=== PATIENT | male | born 1945 | race Caucasian/White ===

== ENCOUNTER → 2017-03-02 | Emergency (ER) | payer OTHER ==
[~2017-03-02] MED LIST: SODIUM CHLORIDE 0.9% 1000 ML INFUS.BAG IV ONE; SODIUM PHOSPHATE/NA BIPHOS 133 ML ENEMA PR ONE
[2017-03-02 11:27] VITALS: BP 106/57; PULSE 80; TEMP 98.3; BMI 28.7
--- NOTE | 2017-03-02 12:12 | PDOC ---
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 Home health aide is at bedside and states the patient had two episodes of vomiting yesterday but has not had any today. The patient denies any fever, chills nausea, vomiting, pain or abdominal discomfort at this time. He denies diarrhea and rectal bleeding. Home health aide states that "his just wanted him to come in to get checked out." No recent travel or sick contacts. PAST MEDICAL HISTORY: as per HPI SOCIAL HISTORY: Denies tobacco, alcohol, illicit drug use. SURGICAL HISTORY: Denies ALLERGIES: No known drug allergies REVIEW OF SYSTEMS General/Constitutional: Denies fever or chills. Denies weakness, weight change. HEENT: Denies change in vision. Denies ear pain or discharge. Denies sore throat. Cardiovascular: Denies chest pain or shortness of breath. Respiratory: Denies cough, wheezing, or hemoptysis. Gastrointestinal: 2 episodes of vomiting yesterday, per home health aide "he was eating some things that were hard to chew and swallow." Denies diarrhea or constipation. Denies rectal bleeding. Genitourinary: Denies dysuria, frequency, or change in urination. Musculoskeletal: Denies joint or muscle swelling or pain. Denies neck or back pain. Skin and breasts: Denies rash or easy bruising. Neurologic: Denies headache, vertigo, loss of consciousness, or loss of sensation. PHYSICAL EXAM General Appearance: Well-appearing, appropriately dressed. No apparent distress. Non-verbal but can nod yes in response to all questions. HEENT: EOMI, PERRLA. No conjunctival pallor. No photophobia, scleral icterus. Neck: Supple. Trachea midline. No tenderness, rigidity, carotid bruit, stridor , lymphadenopathy, or thyromegaly. Respiratory/Chest: Lungs CTAB. No shortness of breath, chest tenderness, respiratory distress, accessory muscle use. No crackles, rales, rhonchi, stridor , wheezing, dullness Cardiovascular: RRR. S1, S2. No JVD, murmur, bradycardia, tachycardia. Vascular Pulses: Dorsalis-Pedis (R): 2+, Dorsalis-Pedis (L): 2+ Gastrointestinal/Abdominal: Normal bowel sounds. Abdomen soft, non-distended. No tenderness or rebound tenderness. No organomegaly, pulsatile mass, guarding , hernia, hepatomegaly, splenomegaly. Lymphatic: No adenopathy, tenderness. Musculoskeletal/Extremities: Normal inspection. FROM of all extremities, normal capillary refill. Pelvis Stable. No CVA tenderness. No tenderness to extremities, pedal edema, swelling, erythema or deformity. Integumentary: Appropriate color, dry, warm. 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 Fully oriented, alert. Appropriate mood/affect. Motor strength 5/5. No appreciable EOM palsy, facial droop or sensory deficit. 03/02/17 12:35 Past History - Past Medical History Allergies/Adverse Reactions: Allergies Allergy/AdvReac Type Severity Reaction Status Date / Time No Known Allergies Allergy Verified 03/02/17 11:14 Home Medications: Ambulatory Orders Allopurinol [Zyloprim -] 100 mg PO DAILY 08/23/15 Metoprolol Tartrate 25 mg PO BID 08/23/15 Pantoprazole Sodium [Protonix] 40 mg PO DAILY 08/23/15 Simvastatin [Zocor -] 20 mg PO HS 08/23/15 Calcium Acetate 667 mg PO TID 12/21/15 Folic Acid/Vit Bcomp,C [Dialyvite 800 Tablet] 0.8 mg PO DAILY 12/21/15 Magnesium Chloride [Slow-Mag -] 71.5 mg PO DAILY 12/21/15 Mirtazapine 0 mg PO HS 09/24/16 Nifedipine [Nifedical Xl] 30 mg PO DAILY 09/24/16 Albuterol 2.5/Ipratropium 0.5 [Duoneb -] 1 amp NEB Q4HWA amp 09/28/16 Levofloxacin [Levaquin -] 250 mg PO Q48H #3 tablet 09/28/16 Magnesium Oxide [Mag-Ox -] 400 mg PO DAILY tablet 09/28/16 Anemia: No Asthma: No Cancer: No Cardiac Disorders: No CVA: Yes COPD: No CHF: No Dementia: No Diabetes: Yes Dialysis: Yes (, ) GI Disorders: Yes (G I BLeed 1 year ago) Disorders: No HTN: Yes Hypercholesterolemia: Yes Liver Disease: Yes (hep C) Psychiatric Problems: (depression) Seizures: No Thyroid Disease: No - Surgical History Abdominal Surgery: No Appendectomy: No Cardiac Surgery: Yes (leg bypass) Cholecystectomy: No Lung Surgery: No Neurologic Surgery: Yes (cva) Orthopedic Surgery: Yes (RT BKA,RT HIP REPLACEMENT) - Immunization History Td Vaccination: Yes TDAP Vaccination: Yes Immunization Up to Date: Yes - Psycho/Social/Smoking Cessation Hx Anxiety: No Suicidal Ideation: No Smoking Status: Yes Smoking History: Former smoker Have you smoked in the past 12 months: No Number of Cigarettes Smoked Daily: 0 If you are a former smoker, when did you quit?: 30 years Information on smoking cessation initiated: No Hx Alcohol Use: No Drug/Substance Use Hx: No Substance Use Type: None Hx Substance Use Treatment: No *Physical Exam - Vital Signs Last Vital Signs Temp Pulse Resp BP Pulse Ox 98.3 F 80 18 106/57 95 03/02/17 11:15 03/02/17 11:15 03/02/17 11:15 03/02/17 11:15 03/02/17 11:15 ED Treatment Course - LABORATORY CBC & Chemistry Diagram: 03/02/17 12:25 03/02/17 12:25 Medical Decision Making - Medical Decision Making 03/02/17 15:07 71 yo M with hx of HTN, 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 -CBC, CMP, lipase 03/02/17 15:14 Liver enzymes markedly elevated, mild elevated WBC 10.1 -A&P CT w/o contrast CT results: Small pleural pericardial effusions. Cholelithiasis. Renal cysts and nonobstructing left renal calculi. Vascular stent grafts as noted above. IVC filter. Status post right total hip replacement. -Hep Panel Discussed case with patient's covering primary MD Tristan. Patient to f/u with GI next week. Advised patient to f/u w/ GI in 2 days; referral provided. Patient verbalized understanding and agrees to plan. *DC/Admit/Observation/Transfer Diagnosis at time of Disposition: Elevated liver enzymes Vomiting Qualifiers: Vomiting type: unspecified Vomiting Intractability: non-intractable Nausea presence: without nausea Qualified Code(s): R11.11 - Vomiting without nausea - Discharge Dispostion Admit: No - Referrals Referrals: Dia Mary MD [Primary Care Provider] - Vinnie Carter DO [Staff Physician] - - Patient Instructions Printed Discharge Instructions: DI for Vomiting -- Adult Additional Instructions: Please follow up with gastroenterology on Saturday. A referral has been provided. If you experience any new nausea, vomiting, diarrhea, fever chills, or any new or worsening symptoms, please return to the ER.
[2017-03-02 12:41] LABS: BASOPHIL 0.9 % (0-2.0); EOSINOPHIL 0.1 % (0-4.5); MCH 31.8 pg (25.7-33.7); MCHC 33.2 g/dl (32.0-35.9); MEAN CELL VOLUME 95.8 fl (80-96); MEAN PLT VOLUME 8.9 fl (7.5-11.1); NEUTROPHILS 85.1 % (42.8-82.8); PLATELET COUNT 233 K/MM3 (134-434); RDW 15.7 % (11.9-15.9); WHITE BLOOD COUNT 10.1 K/mm3 (4.0-10.0)
[2017-03-02 12:54] LABS: ALBUMIN 3.1 g/dl (3.4-5.0); BILIRUBIN,TOTAL 0.8 mg/dL (0.2-1.0); CALCIUM 7.8 mg/dL (8.5-10.1); COCKROFT - GAULT 14.06; CREATININE 5.5 mg/dL (0.7-1.3); TOT PROT 6.4 g/dl (6.4-8.2)
== END | disposition home or self-care (01) ==
LOC: JER 11:04
DX: R94.5 Abnormal results of liver function studies (principal); I10 Essential (primary) hypertension; E80.0 Hereditary erythropoietic porphyria; B18.2 Chronic viral hepatitis C; I12.0 Hypertensive chronic kidney disease with stage 5 chronic kidney disease or end stage renal disease; N18.6 End stage renal disease; N17.8 Other acute kidney failure; Z99.2 Dependence on renal dialysis; I69.851 Hemiplegia and hemiparesis following other cerebrovascular disease affecting right dominant side; I69.820 Aphasia following other cerebrovascular disease; Z86.711 Personal history of pulmonary embolism; Z86.718 Personal history of other venous thrombosis and embolism; Z87.898 Personal history of other specified conditions; Z89.611 Acquired absence of right leg above knee
CPT/HCPCS: 36415; 74176-TC; 80053; 80074; 83690; 85025; 99282-25

== ENCOUNTER 2017-03-18 11:38 | Inpatient (IN) | payer OTHER ==
[2017-03-18 12:31] LABS: BASOPHIL 1.3 % (0-2.0); MCH 31.2 pg (25.7-33.7); MCHC 32.9 g/dl (32.0-35.9); MEAN CELL VOLUME 94.9 fl (80-96); MEAN PLT VOLUME 8.6 fl (7.5-11.1); NEUTROPHILS 76.6 % (42.8-82.8); PLATELET COUNT 381 K/MM3 (134-434); RDW 16.6 % (11.9-15.9); WHITE BLOOD COUNT 10.9 K/mm3 (4.0-10.0)
[2017-03-18 12:50] LABS: INR 1.04 (0.82-1.09); PROTHROMBIN TIME (PATIENT) 11.4 SEC (9.98-11.88)
[2017-03-18 12:52] LABS: ACTIVATED PTT 31.9 SECONDS (26.9-34.4)
[2017-03-18 12:54] LABS: ALBUMIN 3.2 g/dl (3.4-5.0); ANION GAP 15 (8-16); BILIRUBIN,TOTAL 0.6 mg/dL (0.2-1.0); CO2 25 mmol/L (21-32); CREATININE 6.9 mg/dL (0.7-1.3); GLUCOSE,RANDOM 158 mg/dL (74-106); MAGNESIUM 2.7 mg/dL (1.8-2.4); SGOT/AST 34 U/L (15-37); SGPT/ALT 131 U/L (12-78); TOT PROT 6.9 g/dl (6.4-8.2)
[2017-03-18 12:57] LABS: ALK PHOS 506 U/L (45-117); TROPONIN I < 0.02 ng/ml (0.00-0.05)
--- NOTE | 2017-03-18 13:10 | PDOC ---
History of Present Illness - General History Source: Patient, Family, Old Records <Guy Johnson - Last Filed: 03/18/17 13:52> - General History Source: Care Provider, Old Records - History of Present Illness Initial Comments: 03/18/17 13:12 The patient is a 71-year-old man, accompanied by home health aide, with a significant past medical history of hypertension, hypercholesterolemia, cerebrovascular accident (with residual fright sided weakness and aphasia), anemia, pulmonary embolism (status post IVC filter) diabetes mellitus, end- stage renal disease (on hemo-dialysis q. T/R/S; last hemo-dialysis was on 03/14/2017), gastrointestinal bleed, hepatitis C, and depression who was sent into the emergency department for abnormal labs. The patient was seen in this facility of 03/02/17 for nausea and vomiting. At that time, the patient was noted have elevated LFTs and gallstones on CT and he was sent home. Since then the nausea/vomiting has improved and the patient otherwise felt better. However, patient's PMD Benja sent the patient back to ED for further evaluation. Allergies: No Known Drug Allergies Past Surgical History: Leg Bypass, Right BKA. Right hip replacement. Social History: Former smoker. No EtOH and recreational drug use. Primary Care Physician: Dr. Jesus Manuel Yousif [phone] <Leanna Batista - Last Filed: 03/18/17 14:12> - General Chief Complaint: Revisit, Lab Variance Stated Complaint: Weakness Time Seen by Provider: 03/18/17 11:48 Past History - Past Medical History Anemia: No Asthma: No Cancer: No Cardiac Disorders: No CVA: Yes COPD: No CHF: No Dementia: No Diabetes: Yes Dialysis: Yes (, ) GI Disorders: Yes (G I BLeed 1 year ago) Disorders: No HTN: Yes Hypercholesterolemia: Yes Liver Disease: Yes (hep C) Psychiatric Problems: (depression) Seizures: No Thyroid Disease: No Other medical history: pe - Surgical History Abdominal Surgery: No Appendectomy: No Cardiac Surgery: Yes (leg bypass) Cholecystectomy: No Lung Surgery: No Neurologic Surgery: Yes (cva) Orthopedic Surgery: Yes (RT BKA,RT HIP REPLACEMENT) - Immunization History Td Vaccination: Yes TDAP Vaccination: Yes Immunization Up to Date: Yes - Psycho/Social/Smoking Cessation Hx Anxiety: No Suicidal Ideation: No Smoking Status: Yes Smoking History: Former smoker Have you smoked in the past 12 months: No Number of Cigarettes Smoked Daily: 0 If you are a former smoker, when did you quit?: 30 years Information on smoking cessation initiated: No Hx Alcohol Use: No Drug/Substance Use Hx: No Substance Use Type: None Hx Substance Use Treatment: No <Guy Johnson - Last Filed: 03/18/17 13:52> <Leanna Batista - Last Filed: 03/18/17 14:12> - Past Medical History Allergies/Adverse Reactions: Allergies Allergy/AdvReac Type Severity Reaction Status Date / Time No Known Allergies Allergy Verified 03/18/17 11:50 Home Medications: Ambulatory Orders Allopurinol [Zyloprim -] 100 mg PO DAILY 08/23/15 Metoprolol Tartrate 25 mg PO BID 08/23/15 Pantoprazole Sodium [Protonix] 40 mg PO DAILY 08/23/15 Simvastatin [Zocor -] 20 mg PO HS 08/23/15 Calcium Acetate 667 mg PO TID 12/21/15 Folic Acid/Vit Bcomp,C [Dialyvite 800 Tablet] 0.8 mg PO DAILY 12/21/15 Magnesium Chloride [Slow-Mag -] 71.5 mg PO DAILY 12/21/15 Mirtazapine 0 mg PO HS 09/24/16 Nifedipine [Nifedical Xl] 30 mg PO DAILY 09/24/16 Magnesium Oxide [Mag-Ox -] 400 mg PO DAILY tablet 09/28/16 Albuterol 2.5/Ipratropium 0.5 [Duoneb -] 1 amp NEB Q4HWA PRN 03/18/17 Review of Systems - Review of Systems Able to Perform ROS?: Yes Comments:: 03/18/17 13:15 Limited GENERAL/CONSTITUTIONAL: No fever or chills. No weakness. HEAD, EYES, EARS, NOSE AND THROAT: No change in vision. No ear pain or discharge. No sore throat. CARDIOVASCULAR: No chest pain or shortness of breath. RESPIRATORY: No cough, wheezing, or hemoptysis. GASTROINTESTINAL: Yes: Nausea. Vomiting. No diarrhea or constipation. GENITOURINARY: No dysuria, frequency, or change in urination. MUSCULOSKELETAL: No joint or muscle swelling or pain. No neck or back pain. SKIN: No rash NEUROLOGIC: No headache, vertigo, loss of consciousness, or change in strength/ sensation. <Leanna Batista - Last Filed: 03/18/17 14:12> *Physical Exam - Vital Signs Last Vital Signs Temp Pulse Resp BP Pulse Ox 98.4 F 70 20 140/77 90 L 03/18/17 11:41 03/18/17 11:41 03/18/17 11:41 03/18/17 11:41 03/18/17 11:41 <Guy Johnson - Last Filed: 03/18/17 13:52> - Vital Signs Last Vital Signs Temp Pulse Resp BP Pulse Ox 98.4 F 70 20 140/77 90 L 03/18/17 11:41 03/18/17 11:41 03/18/17 11:41 03/18/17 11:41 03/18/17 11:41 - Physical Exam Comments: 03/18/17 13:16 GENERAL: Awake, alert, and fully oriented, in no acute distress HEAD: No signs of trauma EYES: PERRLA, EOMI, sclera anicteric, conjunctiva clear ENT: Auricles normal inspection, hearing grossly normal, nares patent, oropharynx clear without exudates. Moist mucosa NECK: Normal ROM, supple, no lymphadenopathy, JVD, or masses LUNGS: Breath sounds equal, clear to auscultation bilaterally. No wheezes, and no crackles HEART: Regular rate and rhythm, normal S1 and S2, no murmurs, rubs or gallops ABDOMEN: Soft, nontender, normoactive bowel sounds. No guarding, no rebound. No masses EXTREMITIES: Left upper extremity AV fistula. Right BKA. No edema. No clubbing or cyanosis. No cords, erythema, or tenderness NEUROLOGICAL: Aphasia. Cranial nerves II through XII grossly intact. <Leanna Batista - Last Filed: 03/18/17 14:12> ED Treatment Course - LABORATORY CBC & Chemistry Diagram: 03/18/17 12:19 03/18/17 12:19 - ADDITIONAL ORDERS Additional order review: Laboratory Results 03/18/17 03/18/17 12:19 12:19 INR 1.04 PTT (Actin FS) 31.9 Sodium 139 Potassium 4.7 Chloride 99 Carbon Dioxide 25 Anion Gap 15 BUN 81 H D Creatinine 6.9 H D Creat Clearance w eGFR 7.93 Random Glucose 158 H D Calcium 8.0 L Magnesium 2.7 H D Total Bilirubin 0.6 D AST 34 D ALT 131 H D Alkaline Phosphatase 506 H D Creatine Kinase 45 Troponin I < 0.02 Total Protein 6.9 Albumin 3.2 L Lipase 410 H 03/18/17 12:19 RBC 3.51 L MCV 94.9 MCHC 32.9 RDW 16.6 H MPV 8.6 Neutrophils % 76.6 Lymphocytes % 14.5 D Monocytes % 7.6 Eosinophils % 0.0 D Basophils % 1.3 <Guy Johnson - Last Filed: 03/18/17 13:52> - LABORATORY CBC & Chemistry Diagram: 03/18/17 12:19 03/18/17 12:19 - ADDITIONAL ORDERS Additional order review: Laboratory Results 03/18/17 03/18/17 12:19 12:19 INR 1.04 PTT (Actin FS) 31.9 Sodium 139 Potassium 4.7 Chloride 99 Carbon Dioxide 25 Anion Gap 15 BUN 81 H D Creatinine 6.9 H D Creat Clearance w eGFR 7.93 Random Glucose 158 H D Calcium 8.0 L Magnesium 2.7 H D Total Bilirubin 0.6 D AST 34 D ALT 131 H D Alkaline Phosphatase 506 H D Creatine Kinase 45 Troponin I < 0.02 Total Protein 6.9 Albumin 3.2 L Lipase 410 H 03/18/17 12:19 RBC 3.51 L MCV 94.9 MCHC 32.9 RDW 16.6 H MPV 8.6 Neutrophils % 76.6 Lymphocytes % 14.5 D Monocytes % 7.6 Eosinophils % 0.0 D Basophils % 1.3 <Leanna Batista - Last Filed: 03/18/17 14:12> Medical Decision Making - Medical Decision Making 03/18/17 13:09 A portion of this note was documented by scribe services under my direction. I have reviewed the details of the note, within reason, and agree with the documentation with the following case summary and management plan written by me. Patient treated in the ED. Nursing notes are reviewed and incorporated into the medical decision-making. Vital signs reviewed. Peripheral IV access obtained by the nurse, laboratory studies are drawn and sent, reviewed and interpreted by myself. Vital Signs Temp Pulse Resp BP Pulse Ox 98.4 F 70 20 140/77 90 L 03/18/17 11:41 03/18/17 11:41 03/18/17 11:41 03/18/17 11:41 03/18/17 11:41 71-year-old male with history of hypertension, CVA with right-sided weakness, aphasia, right leg AKA, hyperlipidemia status was DVT/PE, status post IVC filter , history of GI bleeds, hepatitis C, bladder incontinence, renal failure and dialysis, anemia sent in by his doctor for abnormal labs. The patient was seen here on March 02 for nausea and vomiting. Was at that time noted have elevated LFTs and gallstones on CT and patient was sent home. Since then the nausea vomiting improved and the patient otherwise felt better. However, patient's PMD Benja sent the patient back to ED for further evaluation. Patient will need to be ruled out for choledocholithiasis. May potentially need an MRCP. Labs and discuss case with patient's PMD. 03/18/17 13:52 CBC, BMP 03/18/17 12:19 03/18/17 12:19 CMP Sodium 139 mmol/L (136-145) 03/18/17 12:19 Potassium 4.7 mmol/L (3.5-5.1) 03/18/17 12:19 Chloride 99 mmol/L (98-107) 03/18/17 12:19 Carbon Dioxide 25 mmol/L (21-32) 03/18/17 12:19 Anion Gap 15 (8-16) 03/18/17 12:19 BUN 81 mg/dL (7-18) H D 03/18/17 12:19 Creatinine 6.9 mg/dL (0.7-1.3) H D 03/18/17 12:19 Creat Clearance w eGFR 7.93 (>60) 03/18/17 12:19 Random Glucose 158 mg/dL (74-106) H D 03/18/17 12:19 Calcium 8.0 mg/dL (8.5-10.1) L 03/18/17 12:19 Magnesium 2.7 mg/dL (1.8-2.4) H D 03/18/17 12:19 Total Bilirubin 0.6 mg/dL (0.2-1.0) D 03/18/17 12:19 AST 34 U/L (15-37) D 03/18/17 12:19 ALT 131 U/L (12-78) H D 03/18/17 12:19 Alkaline Phosphatase 506 U/L (45-117) H D 03/18/17 12:19 Creatine Kinase 45 IU/L (39-308) 03/18/17 12:19 Troponin I < 0.02 ng/ml (0.00-0.05) 03/18/17 12:19 Total Protein 6.9 g/dl (6.4-8.2) 03/18/17 12:19 Albumin 3.2 g/dl (3.4-5.0) L 03/18/17 12:19 Lipase 410 U/L (73-393) H 03/18/17 12:[address] Yousif. Given elevated Alk phos and lipase (but improving LFTS), requests admission to the hospital. He requests Dr. Corral and Dr. Lundy. Case discussed with Dr. Corral. He requests IV unasyn. Case discussed with [facility] (given [facility] is covered by [facility] today). Will admit to med/surg admission. <Guy Johnson - Last Filed: 03/18/17 13:52> - Medical Decision Making 03/18/17 13:[address] Jesus Manuel Yousif. Immediate response. Case was discussed. Would appreciated if ID Specialist, Dr. Ion Corral and GI Specialist, Dr. Sarbjit Bernal is on board. States that [facility] is covering for [facility], therefore, [facility]. 03/18/17 13:[address] Ion Corral at his mobile phone [phone]. Immediate response. Case was discussed. 03/18/17 13:19 Microblogged [employer]. 03/18/17 13:[address] Bernal. 03/18/17 13:[address] Bernal. Does not accept consult. Will call Dr. Yousif. 03/18/17 13:[address] Yousif. Immediate response. Wants Dr. Lundy consulted. 03/18/17 13:45 Dr. Lundy consultation placed. <Leanna Batista - Last Filed: 03/18/17 14:12> *DC/Admit/Observation/Transfer - Discharge Dispostion Admit: Yes <Guy Johnson - Last Filed: 03/18/17 13:52> - Attestations Scribe Attestion: 03/18/17 13:21 Documentation prepared by Leanna Batista, acting as medical billing supervisor for Guy Johnson MD. <Leanna Batista - Last Filed: 03/18/17 14:12> Diagnosis at time of Disposition: Gallstones Pancreatitis Qualifiers: Chronicity: acute Pancreatitis type: unspecified pancreatitis type Acute pancreatitis complication: unspecified Qualified Code(s): K85.90 - Acute pancreatitis without necrosis or infection, unspecified - Referrals Referrals: Jesus Manuel Yousif MD [Primary Care Provider] -
[2017-03-18] MEDS ORDERED: AMPICILLIN NA/SULBACTAM NA 3 GM in SODIUM CHLORIDE 100 ML IVPB ONE (13:21)
--- NOTE | 2017-03-18 15:06 | HP ---
CHIEF COMPLAINT: elevated LFT and abd pain PCP: ronn HISTORY OF PRESENT ILLNESS: The patient is a 71-year-old man, accompanied by home health aide, with a significant past medical history of hypertension, hypercholesterolemia, cerebrovascular accident (with residual fright sided weakness and aphasia), anemia, pulmonary embolism (status post IVC filter) diabetes mellitus, end- stage renal disease (on hemo-dialysis q. T/R/S; last hemo-dialysis was on 03/14/2017), gastrointestinal bleed, hepatitis C, and depression who was sent into the emergency department for abnormal labs. The patient was seen in this facility of 03/02/17 for nausea and vomiting. At that time, the patient was noted have elevated LFTs and gallstones on CT and he was sent home. Since then the nausea/vomiting has improved and the patient otherwise felt better. However, patient's PMD Benja sent the patient back to ED for further evaluation. Allergies: No Known Drug Allergies Past Surgical History: Leg Bypass, Right BKA. Right hip replacement. Social History: Former smoker. No EtOH and recreational drug use. Primary Care Physician: Dr. Jesus Manuel Yousif [phone] ER course was notable for: (1) (2) (3) Recent Travel: none Family History: Allergies No Known Allergies Allergy (Verified 03/18/17 11:50) HOME MEDICATIONS: Home Medications Medication Instructions Recorded Allopurinol [Zyloprim -] 100 mg PO DAILY 08/23/15 Metoprolol Tartrate 25 mg PO BID 08/23/15 Pantoprazole Sodium [Protonix] 40 mg PO DAILY 08/23/15 Simvastatin [Zocor -] 20 mg PO HS 08/23/15 Calcium Acetate 667 mg PO TID 12/21/15 Folic Acid/Vit Bcomp,C [Dialyvite 0.8 mg PO DAILY 12/21/15 800 Tablet] Magnesium Chloride [Slow-Mag -] 71.5 mg PO DAILY 12/21/15 Mirtazapine 0 mg PO HS 09/24/16 Nifedipine [Nifedical Xl] 30 mg PO DAILY 09/24/16 Magnesium Oxide [Mag-Ox -] 400 mg PO DAILY tablet 09/28/16 Albuterol 2.5/Ipratropium 0.5 1 amp NEB Q4HWA PRN 03/18/17 [Duoneb -] REVIEW OF SYSTEMS CONSTITUTIONAL: Absent: fever, chills, diaphoresis, generalized weakness, malaise, loss of appetite, weight change HEENT: Absent: rhinorrhea, nasal congestion, throat pain, throat swelling, difficulty swallowing, mouth swelling, ear pain, eye pain, visual changes CARDIOVASCULAR: Absent: chest pain, syncope, palpitations, irregular heart rate, lightheadedness , peripheral edema RESPIRATORY: Absent: cough, shortness of breath, dyspnea with exertion, orthopnea, wheezing, stridor, hemoptysis GASTROINTESTINAL: Absent: abdominal pain, abdominal distension, nausea, vomiting, diarrhea, constipation, melena, hematochezia GENITOURINARY: Absent: dysuria, frequency, urgency, hesitancy, hematuria, flank pain, genital pain MUSCULOSKELETAL: Absent: myalgia, arthralgia, joint swelling, back pain, neck pain SKIN: Absent: rash, itching, pallor HEMATOLOGIC/IMMUNOLOGIC: Absent: easy bleeding, easy bruising, lymphadenopathy, frequent infections ENDOCRINE: Absent: unexplained weight gain, unexplained weight loss, heat intolerance, cold intolerance NEUROLOGIC: Absent: headache, focal weakness or paresthesias, dizziness, unsteady gait, seizure, mental status changes, bladder or bowel incontinence PSYCHIATRIC: Absent: anxiety, depression, suicidal or homicidal ideation, hallucinations. PHYSICAL EXAMINATION GENERAL: Awake, alert, and fully oriented, in no acute distress. HEAD: Normal with no signs of trauma. EYES: Pupils equal, round and reactive to light, extraocular movements intact, sclera anicteric, conjunctiva clear. No lid lag. EARS, NOSE, THROAT: Ears normal, nares patent, oropharynx clear without exudates. Moist mucous membranes. NECK: Normal range of motion, supple without lymphadenopathy, JVD, or masses. LUNGS: Breath sounds equal, clear to auscultation bilaterally. No wheezes, and no crackles. No accessory muscle use. HEART: Regular rate and rhythm, normal S1 and S2 without murmur, rub or gallop. ABDOMEN: Soft, nontender, not distended, normoactive bowel sounds, no guarding, no rebound, no masses. No hepatomegaly or splenomegaly. MUSCULOSKELETAL: Normal range of motion at all joints. No bony deformities or tenderness. No CVA tenderness. UPPER EXTREMITIES: 2+ pulses, warm, well-perfused. No cyanosis. No clubbing. No peripheral edema. LOWER EXTREMITIES: 2+ pulses, warm, well-perfused. No calf tenderness. No peripheral edema. NEUROLOGICAL: Cranial nerves II-XII intact. Normal speech. Normal gait. PSYCHIATRIC: Cooperative. Good eye contact. Appropriate mood and affect. SKIN: Warm, dry, normal turgor, no rashes or lesions noted, normal capillary refill. ASSESSMENT/PLAN: Problem List - Problem (1) Gallstones Code(s): K80.20 - CALCULUS OF GALLBLADDER W/O CHOLECYSTITIS W/O OBSTRUCTION Visit type - Emergency Visit Emergency Visit: Yes ED Registration Date: 03/18/17 Care time: The patient presented to the Emergency Department on the above date and was hospitalized for further evaluation of their emergent condition. - New Patient This patient is new to me today: Yes Date on this admission: 03/18/17 - Critical Care Critical Care patient: No
--- NOTE | 2017-03-18 16:00 | PN ---
Progress Note (short form) - Note Progress Note: GI CONSULTATION: PT SEEN AND EXAMINED IN THE ER HX AND RECENT ER ADMIT REVIEWED 71M MULTIPLE MED PROBLEMS WITH GALLSTONES ADMIT WITH N/V/ ABD PAIN 2 WEEKS AGO WITH MARKED LFT ELEVATION PT DISCHARGED TO F/U OUTPATIENT AND NOW WITH RECURRENT SX'S AT THIS MOMENT--NO C/O MARKED RISE IN AP FROM 250--->500 AND DROP IN ALT/AST SUGGESTIVE THAT HIS INITIAL ATTACK 2 WEEKS AGO WAS PASSING CBD STONE NOW BIOCHEMICAL IMPLICATION OF RETAINED CBD STONES NO EVIDECNCE OF CHOLANGITIS NL BILI, AFEBRILE AND PAIN FREE UNCLEAR EXTENT OF HCV AND UNCLEAR IF IT HAD BEEN EVAL. IN PAST RECC: MRI OF ABDOMEN WITH CONTRAST AND MRCP TO ASSESS LIVER FOR HEPATOMA AND R /O CBD STONES/ RETAINED PENDING ABOVE MAY NEED ERCP AND STONE EXTRACTION MAY NEED FURTHER LIVER W/U F/U LFT'S ONCE DUCT CLEARED WILL LIKELY NEED CHOLECYSTECTOMY THANK YOU, MD KATHY
[2017-03-18 16:38] LABS: URINE APPEARANCE CLEAR; URINE BILIRUBIN NEGATIVE (NEGATIVE); URINE BLOOD NEGATIVE (NEGATIVE); URINE COLOR STRAW; URINE GLUCOSE (UA) 1+ (NEGATIVE); URINE KETONE NEGATIVE (NEGATIVE); URINE LEUK ESTERASE NEGATIVE (NEGATIVE); URINE NITRITE NEGATIVE (NEGATIVE); URINE UROBILINOGEN NEGATIVE E.U./dl (0.2-1.0)
[2017-03-18] MEDS ORDERED: ALBUTEROL SO4 2.5/IPRATROPIUM 0.5 INH SOL 3 ML VIAL.NEB. NEB PRN (16:59)
[2017-03-18 17:08] LABS: URINE PROTEIN 2+ (NEGATIVE)
[2017-03-18 17:13] LABS: URINE WBC 1 /hpf (3-5)
[2017-03-18] MEDS ORDERED: AMPICILLIN NA/SULBACTAM NA 3 GM in SODIUM CHLORIDE 100 ML IVPB SCH (18:00)
--- NOTE | 2017-03-18 20:25 | CONSULT ---
Consult Consult Specialty:: infectious diseases Referred by:: Reason for Consultation:: choleycystitis - History of Present Illness History of Present Illness: 71-year-old man, accompanied by home health aide, with a significant past medical history of hypertension, hypercholesterolemia, cerebrovascular accident (with residual fright sided weakness and aphasia),anemia, pulmonary embolism ( status post IVC filter) diabetes mellitus, end-stage renal disease (on hemo- dialysis q. T/R/S; last hemo-dialysis was on 03/14/2017), gastrointestinal bleed, hepatitis C, and depression who was sent into the emergency department for abnormal labs. The patient was seen in this facility of 03/02/17 for nausea and vomiting. At that time, the patient was noted have elevated LFTs and gallstones on CT and he was sent home. Since then the nausea/ vomiting has improved and the patient otherwise felt better. However, patient's PMD Benja sent the patient back to ED for further evaluation. 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, Other Cardio/Vascular: Yes: HTN, Hyperlipdemia, Other (s/p DVT/PE, s/p IVC filter, on coumadin) Gastrointestinal: Yes: GI Bleed ((occult-normal EGD and colon 09/24/14)) Hepatobiliary: Yes: Hepatitis C (Ab (+) in February,) Renal/: Yes: Renal Failure, Hemodialysis (2x/week T,R) - Past Surgical History Past Surgical History: Yes: Amputation (Rt AKA, traumatic), AV Fistula/Graft - Alcohol/Substance Use Hx Alcohol Use: No - Smoking History Smoking history: Former smoker Have you smoked in the past 12 months: No Aproximately how many cigarettes per day: 0 If you are a former smoker, when did you quit?: 30 years - Social History Usual Living Arrangement: Assisted Living (has 24 h aide) ADL: Support Services History of Recent Travel: No Home Medications - Allergies Allergies/Adverse Reactions: Allergies Allergy/AdvReac Type Severity Reaction Status Date / Time No Known Allergies Allergy Verified 03/18/17 11:50 - Home Medications Home Medications: Ambulatory Orders Allopurinol [Zyloprim -] 100 mg PO DAILY 08/23/15 Metoprolol Tartrate 25 mg PO BID 08/23/15 Pantoprazole Sodium [Protonix] 40 mg PO DAILY 08/23/15 Simvastatin [Zocor -] 20 mg PO HS 08/23/15 Calcium Acetate 667 mg PO TID 12/21/15 Folic Acid/Vit Bcomp,C [Dialyvite 800 Tablet] 0.8 mg PO DAILY 12/21/15 Magnesium Chloride [Slow-Mag -] 71.5 mg PO DAILY 12/21/15 Mirtazapine 0 mg PO HS 09/24/16 Nifedipine [Nifedical Xl] 30 mg PO DAILY 09/24/16 Magnesium Oxide [Mag-Ox -] 400 mg PO DAILY tablet 09/28/16 Albuterol 2.5/Ipratropium 0.5 [Duoneb -] 1 amp NEB Q4HWA PRN 03/18/17 Review of Systems - Review of Systems Constitutional: reports: No Symptoms Eyes: reports: No Symptoms HENT: reports: No Symptoms Neck: reports: No Symptoms Cardiovascular: reports: No Symptoms Respiratory: reports: No Symptoms Gastrointestinal: reports: Other (abd discomfort) Musculoskeletal: reports: No Symptoms Neurological: reports: No Symptoms Endocrine: reports: No Symptoms Hematology/Lymphatic: reports: No Symptoms Psychiatric: reports: No Symptoms Physical Exam Vital Signs: Vital Signs Temperature 98.4 F 03/18/17 11:41 Pulse Rate 70 03/18/17 11:41 Respiratory Rate 20 03/18/17 11:41 Blood Pressure 140/77 03/18/17 11:41 O2 Sat by Pulse Oximetry (%) 90 L 03/18/17 11:41 Constitutional: Yes: Calm Eyes: Yes: Conjunctiva Clear Cardiovascular: Yes: Regular Rate and Rhythm Respiratory: Yes: Regular, CTA Bilaterally Gastrointestinal: Yes: Normal Bowel Sounds, Soft Musculoskeletal: Yes: Other Extremities: Yes: Other Neurological: Yes: Alert, Oriented Psychiatric: Yes: Alert Imaging - Results Chest X-ray: Report Reviewed, Image Reviewed MRI: Report Reviewed, Image Reviewed Assessment/Plan Problem List - Problems (1) Gallstones Code(s): K80.20 - CALCULUS OF GALLBLADDER W/O CHOLECYSTITIS W/O OBSTRUCTION (2) Pancreatitis Code(s): K85.90 - ACUTE PANCREATITIS WITHOUT NECROSIS OR INFECTION, UNSP Qualifiers: Chronicity: acute Pancreatitis type: unspecified pancreatitis type Acute pancreatitis complication: unspecified Qualified Code(s): K85.90 - Acute pancreatitis without necrosis or infection, unspecified (3) ESRD (end stage renal disease) on dialysis Code(s): N18.6 - END STAGE RENAL DISEASE Z99.2 - DEPENDENCE ON RENAL DIALYSIS (4) H/O: CVA (cerebrovascular accident)ia Code(s): Z86.73 - PRSNL HX OF TIA (TIA), AND CEREB INFRC W/O RESID DEFICITS (5) History of pulmonary embolism Code(s): Z86.711 - PERSONAL HISTORY OF PULMONARY EMBOLISM (6) Hyperlipemia Code(s): E78.5 - HYPERLIPIDEMIA, UNSPECIFIED Qualifiers: Hyperlipidemia type: unspecified hyperlipidemia Qualified Code(s): E78.5 - Hyperlipidemia, unspecified (7) Hypertension Code(s): I10 - ESSENTIAL (PRIMARY) HYPERTENSION Qualifiers: Hypertension type: other secondary hypertension Qualified Code(s): I15.8 - Other secondary hypertension after looking at the patient and the history the chances are that the patient probably having stones or might have passed one patient has got a dose of unasyn plan agree with unasyn hydration continue to monitor surgery to evaluate rest as per primary wbc normal
[2017-03-18] MEDS: ATORVASTATIN CA 10 MG TABLET (FP) PO SCH (22:56)
[2017-03-18] MEDS: METOPROLOL TARTRATE 25 MG TABLET (FP) PO SCH (22:56)
[2017-03-18] MEDS: AMPICILLIN NA/SULBACTAM NA 100 ML IVPB SCH (22:56)
--- NOTE | 2017-03-19 02:00 | CONS ---
DATE OF CONSULTATION: 03/18/2017 GASTROENTEROLOGY CONSULTATION HISTORY OF PRESENT ILLNESS: I was asked by the ER to evaluate the patient for abdominal pain, nausea, vomiting, and gallstone. The patient is a 71-year-old man with an extensive past medical history. He is completely unable to elucidate any history. The patient is nonverbal due to prior stroke. He has had multiple strokes and right sided hemiparesis. He has diabetes, end-stage renal disease on dialysis, hypertension, hyperlipidemia, hepatitis C, depression, as well as a history of DVT and PE. He is status post an IVC filter. He has a history of a right above knee amputation, anemia, gout, and a MUGA. He was admitted to the hospital last in August 2016 due to cough and congestion. He was noted to have a retrocardiac infiltrate. He also had urosepsis with klebsiella pneumonia. He was treated with antibiotics and improved significantly. Apparently, the patient was then brought to [facility] recently, looks like a week or two ago, for abdominal pain. He underwent a CT scan of the abdomen and pelvis without contrast that revealed small pleural pericardial effusion, gallstones, renal cysts, and left renal calculi. He has vascular stents in the IVC filter and a history of a right total hip replacement. There were no acute findings, and it looks like the patient was discharged from the hospital on March 02, 2017. Apparently now the patient came to the hospital today, he was accompanied by the home health aid, as he was having nausea and vomiting. Now, when the patient was here on March 02, he was having nausea and vomiting, but it had resolved, and again, all the CAT scan revealed was gallstones, and he was discharged. He was again having recurrent symptoms, so he contacted his medical doctor, Dr. Yousif, and he was admitted for further evaluation. The patient is now in the emergency room and is not having any nausea or vomiting or abdominal pain, and apparently the ER physician who I spoke with states that the patient appears to be doing much better than when he first came in. There is no known reported history of any significant biliary disease, but the patient does have gallstones. It does not appear he has had cholecystitis or choledocholithiasis in the past. He has had hepatitis C; the extent of that is completely unknown and unobtainable. There is no other obtainable medical history. He has no known drug allergies. And again, he is status post a , a right BKA, and a right hip replacement. He does not drink. He is a former smoker, and he does not use drugs recreationally. The patient otherwise we had seen him back in 2009 and appears he had an upper endoscopy at that time, and it is unclear that he has had any GI followup since then. We have not seen him. There is a report in the computer system that he had seen Dr. Hurtado, it looks like I believe in 2013, it shows he had a colonoscopy that revealed hemorrhoids in a normal appearing colon. Apparently the patient's medications that he is on as an outpatient include the following. He is on Zyloprim, metoprolol, Protonix, Zocor, calcium, daily vitamins, Slow-Mag, mirtazapine, Nifedical, magnesium oxide, and DuoNeb. PHYSICAL EXAMINATION: General: Currently in the ER on physical examination, he is in absolutely no acute distress. Skin: His skin is cool. Vital signs: He is afebrile. His vital signs are stable. He is not tachycardic. HEENT: Sclerae anicteric. He is nonverbal, noncommunicative. His dentition is poor. His mouth is dry. Neck: Supple. Heart: Regular. Abdomen: Extremely soft. There are no abdominal scars. There is no mass, rebound, or guarding. There is no tenderness to deep palpation. As noted, there is no distention. The abdomen is extremely soft. LABORATORY DATA: Reveals a white count of 11 with a hemoglobin and hematocrit of 11/33 and 281,000 platelets. His coagulation panel are normal, and his chemistries reveal sodium 139, potassium 4.7, chloride 99, bicarbonate 25, BUN 81, creatinine 7. He has an AST of 34, an ALT of 131, and an alkaline phosphatase of 506. Other than that, his total bilirubin is 0.6. Now, it looks like comparing to prior LFTs, it looks like when he was here last, his alkaline phosphatase on March 02 was 215, and his alkaline phosphatase at baseline back in 2013 ranged between 95 and 125, in 2014 was in the 90s, and it looks like in June of 2015 his alkaline phosphatase was 138. In 2015, again it has been in the 130s, so the big change was March 02. His alkaline phosphatase was 215. Today his alkaline phosphatase is 506. In terms of the other liver enzymes, his ALT today is 131, when he was here March 02 it was 971. Prior to that, his ALT had been normal. In terms of radiographic imaging, the only film he had had was the CAT scan of the abdomen and pelvis, and that again was without IV contrast. IMPRESSION: So at this point it is my impression that the patient is a 71-year-old gentleman with multiple medical problems stemming from underlying diabetes, end-stage renal disease on dialysis with hypertension, atherosclerotic carotid disease status post stroke with hemiparesis status post right above-knee amputation , peripheral vascular disease status post deep vein thrombosis and pulmonary embolism who comes in, apparently had a marked transaminitis on March 02 in the setting of gallstones, and now comes in with recurrent nausea, vomiting, with an elevated alkaline phosphatase, and elevated liver function tests, raising suspicion of choledocholithiasis. He does not appear to have cholangitis at the present time. He is not in pain. He is afebrile. His bilirubin is normal. So I would recommend an MRI, MRCP as the next step to better assess for choledocholithiasis, which would mandate an ERCP and attempted stone removal. For now, I would keep the patient n.p.o. on pain management as needed, although he appears comfortable with some gentle IV fluid, as he will be n.p.o., and based on the MRI further recommendations will follow. Less likely would be intrahepatic liver disease such as hepatoma, however the patient's enzymes were not like this until 2 weeks ago. It is possible, however, that we do not know the extent of his hepatitis C, and there is a question as to whether he has developed a more advanced liver disease. That will be worked up once we exclude common bile duct stone. JOAO CHAVEZ M.D. SEAN/[id number]
[2017-03-19 06:44] LABS: BASOPHIL 1.5 % (0-2.0); MCH 30.7 pg (25.7-33.7); MCHC 32.6 g/dl (32.0-35.9); MEAN CELL VOLUME 94.3 fl (80-96); MEAN PLT VOLUME 8.8 fl (7.5-11.1); NEUTROPHILS 80.5 % (42.8-82.8); PLATELET COUNT 414 K/MM3 (134-434); RDW 16.1 % (11.9-15.9); WHITE BLOOD COUNT 8.2 K/mm3 (4.0-10.0)
[2017-03-19 07:09] LABS: INR 1.05 (0.82-1.09); PROTHROMBIN TIME (PATIENT) 11.6 SEC (9.98-11.88)
[2017-03-19 07:12] LABS: ACTIVATED PTT 31.9 SECONDS (26.9-34.4)
[2017-03-19 07:18] LABS: ALK PHOS 428 U/L (45-117); ANION GAP 15 (8-16); BILIRUBIN,TOTAL 0.5 mg/dL (0.2-1.0); CALCIUM 7.7 mg/dL (8.5-10.1); CO2 24 mmol/L (21-32); GLUCOSE,RANDOM 96 mg/dL (74-106); SGOT/AST 21 U/L (15-37); SGPT/ALT 101 U/L (12-78); TOT PROT 6.4 g/dl (6.4-8.2)
--- NOTE | 2017-03-19 11:49 | CONSULT ---
Consult - text type - Consultation Consultation Note: Renal Consult for ESRD on HD This is a 71 year old gentleman with PMHx of ESRD on HD (2x weekly, Saturday and ), CVA (no aphasic), Hypertension, Hepatitis C, DM who presented with LFT abnormalities and gallstone on Abd CT. Pt is awake and alert. Denies any pain. Pt currently on Dialysis and has no acute complaints. No N/V. s/p MRCP this am. GI following PMhx: As above Allergies: NKDA Family Hx: NC Social Hx: No T/A/D ROS: Unable to obtain because of clinical status Home Meds: Home Medications Medication Instructions Recorded Allopurinol [Zyloprim -] 100 mg PO DAILY 08/23/15 Metoprolol Tartrate 25 mg PO BID 08/23/15 Pantoprazole Sodium [Protonix] 40 mg PO DAILY 08/23/15 Simvastatin [Zocor -] 20 mg PO HS 08/23/15 Calcium Acetate 667 mg PO TID 12/21/15 Folic Acid/Vit Bcomp,C [Dialyvite 0.8 mg PO DAILY 12/21/15 800 Tablet] Magnesium Chloride [Slow-Mag -] 71.5 mg PO DAILY 12/21/15 Mirtazapine 0 mg PO HS 09/24/16 Nifedipine [Nifedical Xl] 30 mg PO DAILY 09/24/16 Magnesium Oxide [Mag-Ox -] 400 mg PO DAILY tablet 09/28/16 Albuterol 2.5/Ipratropium 0.5 1 amp NEB Q4HWA PRN 03/18/17 [Duoneb -] Vital Signs Temperature 98.8 F 03/19/17 09:05 Pulse Rate 65 03/19/17 11:40 Respiratory Rate 18 03/19/17 11:40 Blood Pressure 92/56 03/19/17 11:40 O2 Sat by Pulse Oximetry (%) 94 L 03/18/17 20:57 Intake & Output 03/16/17 03/17/17 03/18/17 03/19/17 23:59 23:59 23:59 23:59 Weight 150 lb Gen: NAD, awake and alert, non-verbal HEENT: NC/AT, MMM, No JVD CVS: RRR, No M/R Lungs: CTA no rales or wheeze Abd: Soft NT/ND Ext: no edema, clubbing or cyanosis. Right AKA. Access: Left ARM AVF Neuro: Non-verbal CBC, BMP 03/19/17 05:35 03/19/17 05:35 Current Medications Albuterol/Ipratropium (Duoneb -) 1 amp NEB Q4HWA PRN PRN Reason: sob Atorvastatin Calcium (Lipitor -) 10 mg PO HS MAGALI Last Admin: 03/18/17 22:56 Dose: 10 mg Ampicillin Sodium/Sulbactam Sodium (Unasyn 1.5 Gm (Pre-Docked)) 100 mls @ 200 mls/hr IVPB BID MAGALI Last Admin: 03/18/17 22:56 Dose: 200 mls/hr Metoprolol Tartrate (Lopressor -) 25 mg PO BID MAGALI Last Admin: 03/18/17 22:56 Dose: 25 mg Nifedipine (Procardia Xl -) 30 mg PO DAILY MAGALI Pantoprazole Sodium (Protonix -) 40 mg PO DAILY MAGALI A/P 71 year old gentleman with PMHx of ESRD on HD (2x weekly, Saturday and ) , CVA (no aphasic), Hypertension, Hepatitis C, DM who presented with LFT abnormalities and gallstone on Abd CT. #ESRD on HD currently getting dialysis UF to dry weight of 54kg Will plan for next dialysis on #Elevated LFTs/Cholelithiasis s/p MRCP, read is pending GI following Supportive Care #Hypertension on Metoprolol and Procardia BP low on HD Montior BP after dialysis and given meds as needed #CKD Related Anemia Hgb is at goal if hgb dips below 10 marce need JOE no acute indication for transfusion Thank you Will follow Lauri Fulton DO
--- NOTE | 2017-03-19 14:40 | EKG ---
Test Reason : Blood Pressure : / mmHG Vent. Rate : 071 BPM Atrial Rate : 071 BPM P-R Int : 168 ms QRS Dur : 092 ms QT Int : 418 ms P-R-T Axes : 054 -02 037 degrees QTc Int : 454 ms NORMAL SINUS RHYTHM POSSIBLE INFERIOR INFARCT , AGE UNDETERMINED ABNORMAL ECG WHEN COMPARED WITH ECG OF 24-SEP-2016 13:25, CRITERIA FOR SEPTAL INFARCT ARE NO LONGER PRESENT NO SIGNIFICANT CHANGE WAS FOUND Confirmed by PANCHO KNUTSON, CELI ([id number]) on 03/19/2017 2:40:35 PM Referred By: Confirmed By:CELI DELEON MD
[2017-03-19] MEDS: METOPROLOL TARTRATE 25 MG TABLET (FP) PO SCH ×2 (14:55→21:19)
[2017-03-19] MEDS: NIFEdipine E.R. 30 MG TABLET (FP) PO SCH (14:56)
[2017-03-19] MEDS: PANTOPRAZOLE 40 MG TABLET (FP) PO SCH (14:57)
[2017-03-19] MEDS: DEXTROSE 5%-0.45% SALINE 1,000 ML IV SCH (15:14)
[2017-03-19] MEDS: AMPICILLIN NA/SULBACTAM NA 100 ML IVPB SCH ×2 (15:15→21:20)
--- NOTE | 2017-03-19 16:58 | PN ---
Physical Exam: SUBJECTIVE: Patient seen and examined Pt alert, awake, non-verbal OBJECTIVE: Vital Signs Period Temp Pulse Resp BP Sys/Schneider Pulse Ox Last 24 Hr 97.6 F-98.8 F 60-70 18-20 92-140/50-74 94 GENERAL: The patient is awake, alert, and fully oriented, in no acute distress. HEAD: Normal with no signs of trauma. EYES: PERRL, extraocular movements intact, sclera anicteric, conjunctiva clear. No ptosis. ENT: Ears normal, nares patent, oropharynx clear without exudates, moist mucous membranes. NECK: Trachea midline, full range of motion, supple. LUNGS: Breath sounds equal, clear to auscultation bilaterally, no wheezes, no crackles, no accessory muscle use. HEART: Regular rate and rhythm, S1, S2 without murmur, rub or gallop. ABDOMEN: Soft, nontender, nondistended, normoactive bowel sounds, no guarding, no rebound, no hepatosplenomegaly, no masses. EXTREMITIES: 2+ pulses, warm, well-perfused, no edema. ,KRYSTA amputation NEUROLOGICAL: aphasic PSYCH: Normal mood, normal affect. SKIN: Warm, dry, normal turgor, no rashes or lesions noted Laboratory Results - last 24 hr 03/18/17 03/19/17 03/19/17 15:39 05:35 05:35 WBC 8.2 RBC 3.28 L Hgb 10.1 L Hct 30.9 L MCV 94.3 MCHC 32.6 RDW 16.1 H Plt Count 414 MPV 8.8 Neutrophils % 80.5 Lymphocytes % 11.6 Monocytes % 6.4 Eosinophils % 0.0 Basophils % 1.5 INR 1.05 PTT (Actin FS) 31.9 Sodium Potassium Chloride Carbon Dioxide Anion Gap BUN Creatinine Creat Clearance w eGFR Random Glucose Calcium Total Bilirubin AST ALT Alkaline Phosphatase Total Protein Albumin Lipase Urine Color Straw Urine Appearance Clear Urine pH 6.0 Ur Specific [place] 1.015 Urine Protein 2+ H Urine Glucose (UA) 1+ H Urine Ketones Negative Urine Blood Negative Urine Nitrite Negative Urine Bilirubin Negative Urine Urobilinogen Negative Ur Leukocyte Esterase Negative Urine RBC None Urine WBC 1 Ur Epithelial Cells Rare 03/19/17 05:35 WBC RBC Hgb Hct MCV MCHC RDW Plt Count MPV Neutrophils % Lymphocytes % Monocytes % Eosinophils % Basophils % INR PTT (Actin FS) Sodium 141 Potassium 4.3 Chloride 102 Carbon Dioxide 24 Anion Gap 15 BUN 87 H Creatinine 7.0 H Creat Clearance w eGFR 7.80 Random Glucose 96 D Calcium 7.7 L Total Bilirubin 0.5 AST 21 D ALT 101 H D Alkaline Phosphatase 428 H Total Protein 6.4 Albumin 3.0 L Lipase 412 H Urine Color Urine Appearance Urine pH Ur Specific [place] Urine Protein Urine Glucose (UA) Urine Ketones Urine Blood Urine Nitrite Urine Bilirubin Urine Urobilinogen Ur Leukocyte Esterase Urine RBC Urine WBC Ur Epithelial Cells Active Medications Generic Name Dose Route Start Last Admin Trade Name Freq PRN Reason Stop Dose Admin Albuterol/Ipratropium 1 amp 03/18/17 16:59 Duoneb - NEB Q4HWA PRN sob Atorvastatin Calcium 10 mg 03/18/17 22:00 03/18/17 22:56 Lipitor - PO 10 mg HS MAGALI Administration Ampicillin Sodium/Sulbactam Sodium 100 mls @ 200 mls/hr 03/18/17 22:00 15:15 Unasyn 1.5 Gm (Pre-Docked) IVPB 200 mls/hr BID MAGALI Administration Dextrose/Sodium Chloride 1,000 mls @ 50 mls/hr 03/19/17 13:00 03/19/17 15:14 D5-1/2ns - IV 50 mls/hr ASDIR MAGALI Administration Metoprolol Tartrate 25 mg 03/18/17 22:00 03/19/17 14:55 Lopressor - PO Not Given BID MAGALI Nifedipine 30 mg 03/19/17 10:00 03/19/17 14:56 Procardia Xl - PO 30 mg DAILY MAGALI Administration Pantoprazole Sodium 40 mg 03/19/17 10:00 03/19/17 14:57 Protonix - PO 40 mg DAILY MAGALI Administration ASSESSMENT/PLAN: The patient is a 71-year-old man, accompanied by home health aide, with a significant past medical history of hypertension, hypercholesterolemia, CVA ( with residual fright sided weakness and aphasia),anemia, pulmonary embolism ( status post IVC filter) diabetes mellitus, end-stage renal disease (on hemo- dialysis q. T/R/; last hemo-dialysis was on 03/14/2017), gastrointestinal bleed, hepatitis C, and depression who was sent into the emergency department for abnormal labs. The patient was seen in this facility of 03/02/17 for nausea and vomiting. At that time, the patient was noted have elevated LFTs and gallstones on CT and he was sent home. Since then the nausea/ vomiting has improved and the patient otherwise felt better. However, patient's PMD Benja sent the patient back to ED for further evaluation. * Pancreatitis, abnormal LFT's/Cholelithiasis ? cholecystitis - NPO now - GI following, ? need ERCP AND STONE EXTRACTION - S/p MRCP - IVF - f/u on labs in am - ID following - will cont on *Hypertension on Metoprolol and Procardia * ESRD - renal following - plan dialysis on *CKD Related Anemia -CBC stable -if hgb drops below 10 will need JOE * E/F/N: IV hydration * VTE - SCD, will hold off on Heparin now, plan ERCP AND STONE EXTRACTION Visit type - Emergency Visit Emergency Visit: Yes ED Registration Date: 03/18/17 Care time: The patient presented to the Emergency Department on the above date and was hospitalized for further evaluation of their emergent condition. - New Patient This patient is new to me today: Yes Date on this admission: 03/19/17 - Critical Care Critical Care patient: No
[2017-03-19 17:32] VITALS: BMI 17.9
--- NOTE | 2017-03-19 20:28 | PN ---
Progress Note, Physician History of Present Illness: stable no new issues improving - Current Medication List Current Medications: Active Medications Albuterol/Ipratropium (Duoneb -) 1 amp NEB Q4HWA PRN PRN Reason: sob Atorvastatin Calcium (Lipitor -) 10 mg PO HS [facility] Last Admin: 03/18/17 22:56 Dose: 10 mg Ampicillin Sodium/Sulbactam Sodium (Unasyn 1.5 Gm (Pre-Docked)) 100 mls @ 200 mls/hr IVPB BID [facility] Last Admin: 03/19/17 15:15 Dose: 200 mls/hr Dextrose/Sodium Chloride (D5-1/2ns -) 1,000 mls @ 50 mls/hr IV ASDIR [facility] Last Admin: 03/19/17 15:14 Dose: 50 mls/hr Metoprolol Tartrate (Lopressor -) 25 mg PO BID [facility] Last Admin: 03/19/17 14:55 Dose: Not Given Nifedipine (Procardia Xl -) 30 mg PO DAILY [facility] Last Admin: 03/19/17 14:56 Dose: 30 mg Pantoprazole Sodium (Protonix -) 40 mg PO DAILY [facility] Last Admin: 03/19/17 14:57 Dose: 40 mg - Objective Vital Signs: Vital Signs Temperature 97.8 F 03/19/17 18:57 Pulse Rate 72 03/19/17 18:57 Respiratory Rate 20 03/19/17 18:57 Blood Pressure 123/50 03/19/17 18:57 O2 Sat by Pulse Oximetry (%) 97 03/19/17 17:05 Constitutional: Yes: No Distress, Calm Eyes: Yes: Conjunctiva Clear Cardiovascular: Yes: Regular Rate and Rhythm Respiratory: Yes: Regular, CTA Bilaterally Gastrointestinal: Yes: Normal Bowel Sounds, Soft Musculoskeletal: Yes: Other Extremities: Yes: Other Integumentary: Yes: WNL Wound/Incision: Yes: Well Approximated Neurological: Yes: Alert, Oriented Psychiatric: Yes: Alert, Oriented Labs: CBC, BMP 03/19/17 05:35 03/19/17 05:35 INR, PTT INR 1.05 (0.82-1.09) 03/19/17 05:35 Assessment/Plan Problem List - Problems (1) Gallstones Code(s): K80.20 - CALCULUS OF GALLBLADDER W/O CHOLECYSTITIS W/O OBSTRUCTION (2) Pancreatitis Code(s): K85.90 - ACUTE PANCREATITIS WITHOUT NECROSIS OR INFECTION, UNSP Qualifiers: Chronicity: acute Pancreatitis type: unspecified pancreatitis type Acute pancreatitis complication: unspecified Qualified Code(s): K85.90 - Acute pancreatitis without necrosis or infection, unspecified (3) ESRD (end stage renal disease) on dialysis Code(s): N18.6 - END STAGE RENAL DISEASE Z99.2 - DEPENDENCE ON RENAL DIALYSIS (4) H/O: CVA (cerebrovascular accident)ia Code(s): Z86.73 - PRSNL HX OF TIA (TIA), AND CEREB INFRC W/O RESID DEFICITS (5) History of pulmonary embolism Code(s): Z86.711 - PERSONAL HISTORY OF PULMONARY EMBOLISM (6) Hyperlipemia Code(s): E78.5 - HYPERLIPIDEMIA, UNSPECIFIED Qualifiers: Hyperlipidemia type: unspecified hyperlipidemia Qualified Code(s): E78.5 - Hyperlipidemia, unspecified (7) Hypertension Code(s): I10 - ESSENTIAL (PRIMARY) HYPERTENSION Qualifiers: Hypertension type: other secondary hypertension Qualified Code(s): I15.8 - Other secondary hypertension after looking at the patient and the history the chances are that the patient probably having stones or might have passed one patient has got a dose of unasyn plan continue unasyn hydration continue to monitor surgery to evaluate rest as per primary
[2017-03-19] MEDS: ATORVASTATIN CA 10 MG TABLET (FP) PO SCH (21:20)
[2017-03-20 07:08] LABS: BASOPHIL 1.5 % (0-2.0); MCHC 32.9 g/dl (32.0-35.9); MEAN CELL VOLUME 94.4 fl (80-96); MEAN PLT VOLUME 8.5 fl (7.5-11.1); NEUTROPHILS 72.1 % (42.8-82.8); PLATELET COUNT 354 K/MM3 (134-434); RDW 15.7 % (11.9-15.9); WHITE BLOOD COUNT 7.1 K/mm3 (4.0-10.0)
[2017-03-20 07:42] LABS: ALBUMIN 2.8 g/dl (3.4-5.0); AMYLASE 154 U/L (25-115); ANION GAP 12 (8-16); CALCIUM 7.7 mg/dL (8.5-10.1); CO2 30 mmol/L (21-32); CREATININE 4.1 mg/dL (0.7-1.3); GLUCOSE,RANDOM 132 mg/dL (74-106); SGOT/AST 20 U/L (15-37); SGPT/ALT 79 U/L (12-78)
[2017-03-20 07:43] LABS: ALK PHOS 370 U/L (45-117); BILIRUBIN,TOTAL 0.6 mg/dL (0.2-1.0)
[2017-03-20] MEDS: AMPICILLIN NA/SULBACTAM NA 100 ML IVPB SCH ×2 (10:00→21:25)
[2017-03-20] MEDS: NIFEdipine E.R. 30 MG TABLET (FP) PO SCH (10:01)
[2017-03-20] MEDS: PANTOPRAZOLE 40 MG TABLET (FP) PO SCH (10:01)
[2017-03-20] MEDS: METOPROLOL TARTRATE 25 MG TABLET (FP) PO SCH ×2 (10:01→21:25)
--- NOTE | 2017-03-20 12:30 | PN ---
Progress Note (short form) - Note Progress Note: Renal Follow up for ESRD on HD Pt seen and examined at the bedside awake and alert s/p dialysis yesterday pt denies any pain or fever is NPO on IVF Vital Signs Temperature 97.7 F 03/20/17 10:00 Pulse Rate 68 03/20/17 10:00 Respiratory Rate 20 03/20/17 10:00 Blood Pressure 139/60 03/20/17 10:00 O2 Sat by Pulse Oximetry (%) 97 03/19/17 17:05 Intake & Output 03/17/17 03/18/17 03/19/17 03/20/17 23:59 23:59 23:59 23:59 Intake Total 300 350 Balance 300 350 Weight 150 lb 114 lb 11.2 oz 120 lb 1 oz Gen: NAD, awake and alert, non-verbal CVS: RRR, No M/R Lungs: CTA no rales or wheeze Abd: Soft NT/ND Ext: no edema, clubbing or cyanosis. Right AKA. Access: Left ARM AVF CBC, BMP 03/20/17 06:15 03/20/17 06:15 Laboratory Tests 03/20/17 06:15 Calcium 7.7 L Alkaline Phosphatase 370 H Total Protein 6.0 L Albumin 2.8 L Total Amylase 154 H Lipase 262 Current Medications Albuterol/Ipratropium (Duoneb -) 1 amp NEB Q4HWA PRN PRN Reason: sob Atorvastatin Calcium (Lipitor -) 10 mg PO HS [facility] Last Admin: 03/19/17 21:20 Dose: 10 mg Ampicillin Sodium/Sulbactam Sodium (Unasyn 1.5 Gm (Pre-Docked)) 100 mls @ 200 mls/hr IVPB BID [facility] Last Admin: 03/20/17 10:00 Dose: 200 mls/hr Dextrose/Sodium Chloride (D5-1/2ns -) 1,000 mls @ 50 mls/hr IV ASDIR [facility] Last Admin: 03/19/17 15:14 Dose: 50 mls/hr Metoprolol Tartrate (Lopressor -) 25 mg PO BID [facility] Last Admin: 03/20/17 10:01 Dose: 25 mg Nifedipine (Procardia Xl -) 30 mg PO DAILY [facility] Last Admin: 03/20/17 10:01 Dose: 30 mg Pantoprazole Sodium (Protonix -) 40 mg PO DAILY [facility] Last Admin: 03/20/17 10:01 Dose: 40 mg A/P 71 year old gentleman with PMHx of ESRD on HD (2x weekly, Saturday and ) , CVA (no aphasic), Hypertension, Hepatitis C, DM who presented with LFT abnormalities and gallstone on Abd CT. #ESRD on HD tolerated HD well yesterday no acute indication for dialysis today, next treatment tomorrow #Elevated LFTs/Cholelithiasis MRCP showed no acute obstruction or inflammation GI follow up Oral diet when ok with GI on low rate IVF currently as pt is NPO #Hypertension on Metoprolol and Procardia #CKD Related Anemia Hgb is at goal if hgb dips below 10 marce need JOE Lauri Fulton DO
[2017-03-20] MEDS: DEXTROSE 5%-0.45% SALINE 1,000 ML IV SCH (14:01)
--- NOTE | 2017-03-20 15:08 | PN ---
GI Progress Note Subjective: No abdominal pain LFTs in normalizing trend - Objective Vital Signs: Vital Signs Temperature 98.4 F 03/20/17 13:59 Pulse Rate 68 03/20/17 13:59 Respiratory Rate 20 03/20/17 13:59 Blood Pressure 130/72 03/20/17 13:59 O2 Sat by Pulse Oximetry (%) 97 03/19/17 17:05 Constitutional: Calm Cardiovascular: Yes: Regular Rate and Rhythm Respiratory: Yes: CTA Bilaterally Gastrointestinal Inspection: No: Distention ...Auscultate: Yes: Normoactive Bowel Sounds ...Palpate: No: Hepatomegaly, Splenomegaly, Tenderness Extremities: Yes: Other (Rt AKA, no LLE edema) Neurological: Yes: Alert, Oriented Labs: CBC, BMP 03/20/17 06:15 03/20/17 06:15 INR, PTT INR 1.05 (0.82-1.09) 03/19/17 05:35 Hepatic Panel Total Bilirubin 0.6 mg/dL (0.2-1.0) 03/20/17 06:15 AST 20 U/L (15-37) 03/20/17 06:15 ALT 79 U/L (12-78) H D 03/20/17 06:15 Alkaline Phosphatase 370 U/L (45-117) H 03/20/17 06:15 Albumin 2.8 g/dl (3.4-5.0) L 03/20/17 06:15 Problem List - Problems (1) Gallstones Assessment/Plan: LFT's normalizing. ? Passed sludge / stone Advance to full liquids Consider surgical eval to discuss possible cholecystectomy Code(s): K80.20 - CALCULUS OF GALLBLADDER W/O CHOLECYSTITIS W/O OBSTRUCTION
--- NOTE | 2017-03-20 15:36 | PN ---
Progress Note, Physician Chief Complaint: unable to obtain - Current Medication List Current Medications: Active Medications Albuterol/Ipratropium (Duoneb -) 1 amp NEB Q4HWA PRN PRN Reason: sob Atorvastatin Calcium (Lipitor -) 10 mg PO HS [facility] Last Admin: 03/19/17 21:20 Dose: 10 mg Ampicillin Sodium/Sulbactam Sodium (Unasyn 1.5 Gm (Pre-Docked)) 100 mls @ 200 mls/hr IVPB BID [facility] Last Admin: 03/20/17 10:00 Dose: 200 mls/hr Dextrose/Sodium Chloride (D5-1/2ns -) 1,000 mls @ 50 mls/hr IV ASDIR [facility] Last Admin: 03/20/17 14:01 Dose: 50 mls/hr Metoprolol Tartrate (Lopressor -) 25 mg PO BID [facility] Last Admin: 03/20/17 10:01 Dose: 25 mg Nifedipine (Procardia Xl -) 30 mg PO DAILY [facility] Last Admin: 03/20/17 10:01 Dose: 30 mg Pantoprazole Sodium (Protonix -) 40 mg PO DAILY [facility] Last Admin: 03/20/17 10:01 Dose: 40 mg - Objective Vital Signs: Vital Signs Temperature 98.4 F 03/20/17 13:59 Pulse Rate 68 03/20/17 13:59 Respiratory Rate 20 03/20/17 13:59 Blood Pressure 130/72 03/20/17 13:59 O2 Sat by Pulse Oximetry (%) 97 03/19/17 17:05 Constitutional: Yes: No Distress, Calm Cardiovascular: Yes: Regular Rate and Rhythm. No: Gallop, Murmur, Rub Respiratory: Yes: Regular, CTA Bilaterally. No: Rales, Rhonchi, Wheezes Gastrointestinal: Yes: Normal Bowel Sounds, Soft. No: Distention, Tenderness Extremities: Yes: WNL Edema: No Labs: CBC, BMP 03/20/17 06:15 03/20/17 06:15 INR, PTT INR 1.05 (0.82-1.09) 03/19/17 05:35 Problem List - Problems (1) Gallstones Assessment/Plan: -? passed gallstone -appreciate GI assistance, note reviewed -surgery consult for possible cholecystectomy -continue unasyn Code(s): K80.20 - CALCULUS OF GALLBLADDER W/O CHOLECYSTITIS W/O OBSTRUCTION (2) Pancreatitis Assessment/Plan: -resolved -advance diet to full liquid Code(s): K85.90 - ACUTE PANCREATITIS WITHOUT NECROSIS OR INFECTION, UNSP Qualifiers: Chronicity: acute Pancreatitis type: unspecified pancreatitis type Acute pancreatitis complication: unspecified Qualified Code(s): K85.90 - Acute pancreatitis without necrosis or infection, unspecified (3) ESRD (end stage renal disease) on dialysis Assessment/Plan: -Dr Fulton following and note reviewed -continue HD Code(s): N18.6 - END STAGE RENAL DISEASE Z99.2 - DEPENDENCE ON RENAL DIALYSIS (4) H/O: CVA (cerebrovascular accident) Assessment/Plan: -with dementia Code(s): Z86.73 - PRSNL HX OF TIA (TIA), AND CEREB INFRC W/O RESID DEFICITS (5) History of pulmonary embolism Assessment/Plan: -IVC filter placed Code(s): Z86.711 - PERSONAL HISTORY OF PULMONARY EMBOLISM (6) Hyperlipemia Assessment/Plan: -continue lipitor Code(s): E78.5 - HYPERLIPIDEMIA, UNSPECIFIED Qualifiers: Hyperlipidemia type: unspecified hyperlipidemia Qualified Code(s): E78.5 - Hyperlipidemia, unspecified (7) Hypertension Assessment/Plan: -continue nifedipine and metoprolol Code(s): I10 - ESSENTIAL (PRIMARY) HYPERTENSION Qualifiers: Hypertension type: other secondary hypertension Qualified Code(s): I15.8 - Other secondary hypertension
--- NOTE | 2017-03-20 15:51 | PN ---
Progress Note, Physician History of Present Illness: continues to improve feeling better no abd pain - Current Medication List Current Medications: Active Medications Albuterol/Ipratropium (Duoneb -) 1 amp NEB Q4HWA PRN PRN Reason: sob Atorvastatin Calcium (Lipitor -) 10 mg PO HS [facility] Last Admin: 03/19/17 21:20 Dose: 10 mg Ampicillin Sodium/Sulbactam Sodium (Unasyn 1.5 Gm (Pre-Docked)) 100 mls @ 200 mls/hr IVPB BID [facility] Last Admin: 03/20/17 10:00 Dose: 200 mls/hr Dextrose/Sodium Chloride (D5-1/2ns -) 1,000 mls @ 50 mls/hr IV ASDIR [facility] Last Admin: 03/20/17 14:01 Dose: 50 mls/hr Metoprolol Tartrate (Lopressor -) 25 mg PO BID [facility] Last Admin: 03/20/17 10:01 Dose: 25 mg Nifedipine (Procardia Xl -) 30 mg PO DAILY [facility] Last Admin: 03/20/17 10:01 Dose: 30 mg Pantoprazole Sodium (Protonix -) 40 mg PO DAILY [facility] Last Admin: 03/20/17 10:01 Dose: 40 mg - Objective Vital Signs: Vital Signs Temperature 98.4 F 03/20/17 13:59 Pulse Rate 68 03/20/17 13:59 Respiratory Rate 20 03/20/17 13:59 Blood Pressure 130/72 03/20/17 13:59 O2 Sat by Pulse Oximetry (%) 97 03/19/17 17:05 Constitutional: Yes: No Distress, Calm Cardiovascular: Yes: Regular Rate and Rhythm Respiratory: Yes: Regular, CTA Bilaterally Gastrointestinal: Yes: Normal Bowel Sounds, Soft Musculoskeletal: Yes: WNL Extremities: Yes: Other Neurological: Yes: Alert, Oriented Psychiatric: Yes: Alert Labs: CBC, BMP 03/20/17 06:15 03/20/17 06:15 INR, PTT INR 1.05 (0.82-1.09) 03/19/17 05:35 Assessment/Plan Problem List - Problems (1) Gallstones Code(s): K80.20 - CALCULUS OF GALLBLADDER W/O CHOLECYSTITIS W/O OBSTRUCTION (2) Pancreatitis Code(s): K85.90 - ACUTE PANCREATITIS WITHOUT NECROSIS OR INFECTION, UNSP Qualifiers: Chronicity: acute Pancreatitis type: unspecified pancreatitis type Acute pancreatitis complication: unspecified Qualified Code(s): K85.90 - Acute pancreatitis without necrosis or infection, unspecified (3) ESRD (end stage renal disease) on dialysis Code(s): N18.6 - END STAGE RENAL DISEASE Z99.2 - DEPENDENCE ON RENAL DIALYSIS (4) H/O: CVA (cerebrovascular accident)ia Code(s): Z86.73 - PRSNL HX OF TIA (TIA), AND CEREB INFRC W/O RESID DEFICITS (5) History of pulmonary embolism Code(s): Z86.711 - PERSONAL HISTORY OF PULMONARY EMBOLISM (6) Hyperlipemia Code(s): E78.5 - HYPERLIPIDEMIA, UNSPECIFIED Qualifiers: Hyperlipidemia type: unspecified hyperlipidemia Qualified Code(s): E78.5 - Hyperlipidemia, unspecified (7) Hypertension Code(s): I10 - ESSENTIAL (PRIMARY) HYPERTENSION Qualifiers: Hypertension type: other secondary hypertension Qualified Code(s): I15.8 - Other secondary hypertension after looking at the patient and the history the chances are that the patient probably having stones or might have passed one patient has got a dose of unasyn plan continue unasyn hydration continue to monitor surgery to evaluate rest as per primary
[2017-03-20] MEDS: ATORVASTATIN CA 10 MG TABLET (FP) PO SCH (21:25)
[2017-03-21 08:35] LABS: BASOPHIL 1.3 % (0-2.0); MCH 30.9 pg (25.7-33.7); MCHC 32.9 g/dl (32.0-35.9); MEAN CELL VOLUME 93.8 fl (80-96); MEAN PLT VOLUME 8.8 fl (7.5-11.1); NEUTROPHILS 76.1 % (42.8-82.8); PLATELET COUNT 331 K/MM3 (134-434); RDW 15.9 % (11.9-15.9); WHITE BLOOD COUNT 7.7 K/mm3 (4.0-10.0)
--- NOTE | 2017-03-21 09:51 | PN ---
Progress Note (short form) - Note Progress Note: surgery pt seen and examined. full consult dictated. 71m with multiple medical problems including esrd, cva, pe, aphasia, left leg amputation, hep c, dm, gi bleed, not a candidate for indicated anticoagulation, brought to hospital because he looked pale and admitted for pneumonia. On March 02 pt was seen in er for vomiting and elevated lfts greater than baseline. He was diagnosed with gallstones. This admission he is also noted to have elevated liver function test slightly higher than baseline with negative mrcp. request was made to evaluate for cholecystectomy for presumed passed stones. on exam abd is soft, nt, nd. pt attempts to communicate but not clear how much understanding he has and is more focused on his breakfast than the surgeon in the room Plan- 71m with multiple medical problems, would be high risk for surgery, unclear diagnosis of elevated lfts in setting of hep c, and has not had documented choledocholithiais. would suggest ursodilol and attempt to avoid general anesthesia in this patient at risk for cardiac and vascular events. No clinical acute cholecystitis based on labs, imaging, and exam.
[2017-03-21] MEDS: NIFEdipine E.R. 30 MG TABLET (FP) PO SCH (10:16)
[2017-03-21] MEDS: PANTOPRAZOLE 40 MG TABLET (FP) PO SCH (10:16)
[2017-03-21] MEDS: METOPROLOL TARTRATE 25 MG TABLET (FP) PO SCH ×2 (10:16→21:02)
[2017-03-21] MEDS: AMPICILLIN NA/SULBACTAM NA 100 ML IVPB SCH (10:16)
--- NOTE | 2017-03-21 10:20 | PN ---
Progress Note, Physician Chief Complaint: The patient seen in his bed. His baseline aphasia. Low grade fever. Reportedly ate part of his breakfast. - Current Medication List Current Medications: Active Medications Albuterol/Ipratropium (Duoneb -) 1 amp NEB Q4HWA PRN PRN Reason: sob Atorvastatin Calcium (Lipitor -) 10 mg PO HS [facility] Last Admin: 03/20/17 21:25 Dose: 10 mg Ampicillin Sodium/Sulbactam Sodium (Unasyn 1.5 Gm (Pre-Docked)) 100 mls @ 200 mls/hr IVPB BID [facility] Last Admin: 03/20/17 21:25 Dose: 200 mls/hr Dextrose/Sodium Chloride (D5-1/2ns -) 1,000 mls @ 50 mls/hr IV ASDIR [facility] Last Admin: 03/20/17 14:01 Dose: 50 mls/hr Metoprolol Tartrate (Lopressor -) 25 mg PO BID [facility] Last Admin: 03/20/17 21:25 Dose: 25 mg Nifedipine (Procardia Xl -) 30 mg PO DAILY [facility] Last Admin: 03/20/17 10:01 Dose: 30 mg Pantoprazole Sodium (Protonix -) 40 mg PO DAILY [facility] Last Admin: 03/20/17 10:01 Dose: 40 mg - Objective Vital Signs: Vital Signs Temperature 99.1 F 03/21/17 06:00 Pulse Rate 70 03/21/17 06:00 Respiratory Rate 19 03/20/17 18:52 Blood Pressure 142/78 03/21/17 06:00 O2 Sat by Pulse Oximetry (%) 97 03/19/17 17:05 Constitutional: Yes: Calm HENT: Yes: Drooling Cardiovascular: Yes: S1, S2 Respiratory: Yes: Diminished, Rhonchi Gastrointestinal: Yes: Normal Bowel Sounds, Soft Extremities: Yes: Amputation (Rt AKA) Edema: No Neurological: Yes: Alert, Aphasia Labs: CBC, BMP 03/21/17 08:26 03/20/17 06:15 INR, PTT INR 1.05 (0.82-1.09) 03/19/17 05:35 Problem List - Problems (1) Pancreatitis Code(s): K85.90 - ACUTE PANCREATITIS WITHOUT NECROSIS OR INFECTION, UNSP Qualifiers: Chronicity: acute Pancreatitis type: unspecified pancreatitis type Acute pancreatitis complication: unspecified Qualified Code(s): K85.90 - Acute pancreatitis without necrosis or infection, unspecified (2) CVA (cerebral infarction) Code(s): I63.9 - CEREBRAL INFARCTION, UNSPECIFIED (3) ESRD (end stage renal disease) on dialysis Code(s): N18.6 - END STAGE RENAL DISEASE Z99.2 - DEPENDENCE ON RENAL DIALYSIS (4) H/O: CVA (cerebrovascular accident) Code(s): Z86.73 - PRSNL HX OF TIA (TIA), AND CEREB INFRC W/O RESID DEFICITS (5) Hypertension Code(s): I10 - ESSENTIAL (PRIMARY) HYPERTENSION Qualifiers: Hypertension type: other secondary hypertension Qualified Code(s): I15.8 - Other secondary hypertension Assessment/Plan 71 y/o male admitted with fever and lethargy. Being treated for Pneumonia. The patient has ESRD, and is on HD. To get HD later today. The patient is aphasic from prior CVA. Concur with the current management. Yana Guillory MD
--- NOTE | 2017-03-21 10:42 | CONS ---
DATE OF CONSULTATION: 03/21/2017 REASON FOR CONSULTATION: Cholelithiasis, abnormal liver function tests, suspect history of choledocholithiasis. This is a consultation inpatient at the request of Dr. Monique . BRIEF HISTORY: This is a 71-year-old male who unfortunately has multiple medical problems including a stroke with aphasia and inability to move his right arm. He lives with a home health aide. He has history of a left leg amputation, pulmonary embolism. He is not a candidate for anticoagulation because of GI bleed; therefore, has had intravenous caval filter. He has history of diabetes as well as hepatitis C and hyperlipidemia. The patient was recently in the [facility] Emergency Room for nausea and vomiting. At that time, he was noted to have an elevation in his liver function tests above baseline and found to have gallstones. On that March 02 visit, his bilirubin was normal, but his AST was 430, up from baseline of 22. His ALT was 971, up from baseline of 37, and his alkaline phosphatase was 215, up from baseline of 122. He was sent home at that time and returned to [facility] because his nurses' aide felt that he appeared pale. He was admitted per the records for pneumonia. While in the hospital, his liver function tests were much better than March 02, but slightly above the original baseline. At this point, his bilirubin was 0.6. His AST was 20, which was down from 22. His ALT was elevated at 79, up from 37, and his alkaline phosphatase was 370, which was up from the 2 previous labs that were available. Patient is currently on regular diet. He had an MRCP on March 18, which showed no evidence of cholecystitis. The gallbladder was not distended. There were gallstones. There was a possibility of chronic cholecystitis. There were no stones noted within the common bile duct, and the common bile duct was not dilated. PAST MEDICAL HISTORY: As in HPI. In addition, he has hypertension, hyperlipidemia, anemia, depression, end-stage renal disease on dialysis. PAST SURGICAL HISTORY: Includes an IVC filter placement and a left lower leg amputation. HOME MEDICATIONS: Include allopurinol, metoprolol, and Zocor. He is not on the indicated anticoagulation therapy because of GI bleed. FAMILY HISTORY: Unavailable. ALLERGIES: He has no known drug allergies. REVIEW OF SYSTEMS: Unobtainable as the patient is nonverbal. He appears to have some understanding, but I am not sure at what level. He appears to be more focused on his breakfast than the fact that he is being interviewed by a surgeon. PHYSICAL EXAMINATION: General: This is a well-developed, well-nourished, 71-year-old male, eating his breakfast. HEENT: His head is normocephalic. He is nonspeaking. His sclerae are anicteric. Neck: Supple. Chest: Clear. Abdomen: Soft, nontender. No surgical scars. Musculoskeletal: He is unable to move his right arm. He is missing the lower left leg. LABORATORY: As in HPI. His white blood cell count is normal. His coagulation profile is normal. ASSESSMENT: This is a 71-year-old male who is very high risk for surgery, who would have increased risk of myocardial event, stroke, pulmonary emboli; who has history of hepatitis C with baseline elevated liver function tests, with a mildly elevated alkaline phosphatase of 122. On March 02, he was seen in the emergency room with nausea and vomiting, and at that time, he had a spike in his transaminases and a near doubling of his alkaline phosphatase. He comes to the hospital this time for unrelated events apparently, and his liver function tests are close to his baseline except for the elevation of alkaline phosphatase. Patient had an MRCP which is unremarkable, and at this point, request is made for cholecystectomy. I feel that the patient would be very high risk for surgery and that we do not have a hard diagnosis of choledocholithiasis to explain the liver function tests rise. This is confounded by the fact that he does have hepatitis C. At this point, I would not risk general anesthesia in this setting. I would instead recommend ursodiol therapy to hope dissolve sludge and small stones and attempt to avoid the operating room. Patient currently does not have acute cholecystitis based on exam, based on labs , and based on imaging. If, in the future, he has more definitive evidence of disease causing these liver function tests and it is felt that the risk of disease outweighs the risk of surgery, he can be re-evaluated at that time. His surgery itself would be technically simple to do, but I am concerned of the patient's significant risks. DO GIL MARMOLEJO/[id number] MTDD
--- NOTE | 2017-03-21 14:25 | PN ---
Progress Note, Physician History of Present Illness: patient stable dialysis no complaints - Current Medication List Current Medications: Active Medications Albuterol/Ipratropium (Duoneb -) 1 amp NEB Q4HWA PRN PRN Reason: sob Atorvastatin Calcium (Lipitor -) 10 mg PO HS [facility] Last Admin: 03/20/17 21:25 Dose: 10 mg Ampicillin Sodium/Sulbactam Sodium (Unasyn 1.5 Gm (Pre-Docked)) 100 mls @ 200 mls/hr IVPB BID [facility] Last Admin: 03/21/17 10:16 Dose: 200 mls/hr Dextrose/Sodium Chloride (D5-1/2ns -) 1,000 mls @ 50 mls/hr IV ASDIR [facility] Last Admin: 03/20/17 14:01 Dose: 50 mls/hr Metoprolol Tartrate (Lopressor -) 25 mg PO BID [facility] Last Admin: 03/21/17 10:16 Dose: 25 mg Nifedipine (Procardia Xl -) 30 mg PO DAILY [facility] Last Admin: 03/21/17 10:16 Dose: 30 mg Pantoprazole Sodium (Protonix -) 40 mg PO DAILY [facility] Last Admin: 03/21/17 10:16 Dose: 40 mg - Objective Vital Signs: Vital Signs Temperature 97.9 F 03/21/17 10:55 Pulse Rate 60 03/21/17 13:00 Respiratory Rate 18 03/21/17 13:00 Blood Pressure 86/42 03/21/17 13:00 O2 Sat by Pulse Oximetry (%) 97 03/21/17 09:00 Constitutional: Yes: No Distress, Calm Respiratory: Yes: Regular, CTA Bilaterally Gastrointestinal: Yes: Normal Bowel Sounds, Soft Musculoskeletal: Yes: Other Extremities: Yes: Other Neurological: Yes: Alert Psychiatric: Yes: Alert Labs: CBC, BMP 03/21/17 08:26 INR, PTT INR 1.05 (0.82-1.09) 03/19/17 05:35 Assessment/Plan Problem List - Problems (1) Gallstones Code(s): K80.20 - CALCULUS OF GALLBLADDER W/O CHOLECYSTITIS W/O OBSTRUCTION (2) Pancreatitis Code(s): K85.90 - ACUTE PANCREATITIS WITHOUT NECROSIS OR INFECTION, UNSP Qualifiers: Chronicity: acute Pancreatitis type: unspecified pancreatitis type Acute pancreatitis complication: unspecified Qualified Code(s): K85.90 - Acute pancreatitis without necrosis or infection, unspecified (3) ESRD (end stage renal disease) on dialysis Code(s): N18.6 - END STAGE RENAL DISEASE Z99.2 - DEPENDENCE ON RENAL DIALYSIS (4) H/O: CVA (cerebrovascular accident)ia Code(s): Z86.73 - PRSNL HX OF TIA (TIA), AND CEREB INFRC W/O RESID DEFICITS (5) History of pulmonary embolism Code(s): Z86.711 - PERSONAL HISTORY OF PULMONARY EMBOLISM (6) Hyperlipemia Code(s): E78.5 - HYPERLIPIDEMIA, UNSPECIFIED Qualifiers: Hyperlipidemia type: unspecified hyperlipidemia Qualified Code(s): E78.5 - Hyperlipidemia, unspecified (7) Hypertension Code(s): I10 - ESSENTIAL (PRIMARY) HYPERTENSION Qualifiers: Hypertension type: other secondary hypertension Qualified Code(s): I15.8 - Other secondary hypertension plan will stop abx and watch hydration continue to monitor surgery evaluation noted rest as per primary
[2017-03-21 15:53] LABS: CREATININE 1.3 mg/dL (0.7-1.3)
[2017-03-21] MEDS: DEXTROSE 5%-0.45% SALINE 1,000 ML IV SCH (16:05)
[2017-03-21 16:13] LABS: ANION GAP 12 (8-16); BILIRUBIN,TOTAL 0.6 mg/dL (0.2-1.0); CALCIUM 7.9 mg/dL (8.5-10.1); CO2 26 mmol/L (21-32); GLUCOSE,RANDOM 129 mg/dL (74-106)
[2017-03-21 16:16] LABS: ALK PHOS 349 U/L (45-117); PHOSPHOROUS 5.9 mg/dL (2.5-4.9); SGOT/AST 23 U/L (15-37); SGPT/ALT 74 U/L (12-78); TOT PROT 6.3 g/dl (6.4-8.2)
--- NOTE | 2017-03-21 16:30 | PN ---
Progress Note, Physician Chief Complaint: unable to obtain - Current Medication List Current Medications: Active Medications Albuterol/Ipratropium (Duoneb -) 1 amp NEB Q4HWA PRN PRN Reason: sob Atorvastatin Calcium (Lipitor -) 10 mg PO HS [facility] Last Admin: 03/20/17 21:25 Dose: 10 mg Dextrose/Sodium Chloride (D5-1/2ns -) 1,000 mls @ 50 mls/hr IV ASDIR [facility] Last Admin: 03/21/17 16:05 Dose: 50 mls/hr Metoprolol Tartrate (Lopressor -) 25 mg PO BID [facility] Last Admin: 03/21/17 10:16 Dose: 25 mg Nifedipine (Procardia Xl -) 30 mg PO DAILY [facility] Last Admin: 03/21/17 10:16 Dose: 30 mg Pantoprazole Sodium (Protonix -) 40 mg PO DAILY [facility] Last Admin: 03/21/17 10:16 Dose: 40 mg - Objective Vital Signs: Vital Signs Temperature 97.9 F 03/21/17 10:55 Pulse Rate 78 03/21/17 14:25 Respiratory Rate 18 03/21/17 14:25 Blood Pressure 105/55 03/21/17 14:25 O2 Sat by Pulse Oximetry (%) 97 03/21/17 09:00 Constitutional: Yes: Well Nourished, No Distress, Calm Cardiovascular: Yes: Regular Rate and Rhythm. No: Gallop, Murmur, Rub Respiratory: Yes: Regular, CTA Bilaterally. No: Rales, Rhonchi, Wheezes Gastrointestinal: Yes: Normal Bowel Sounds, Soft. No: Distention, Tenderness Extremities: Yes: Amputation Edema: No Labs: CBC, BMP 03/21/17 08:26 03/21/17 15:10 INR, PTT INR 1.05 (0.82-1.09) 03/19/17 05:35 Problem List - Problems (1) Gallstones Code(s): K80.20 - CALCULUS OF GALLBLADDER W/O CHOLECYSTITIS W/O OBSTRUCTION (2) Pancreatitis Code(s): K85.90 - ACUTE PANCREATITIS WITHOUT NECROSIS OR INFECTION, UNSP Qualifiers: Chronicity: acute Pancreatitis type: unspecified pancreatitis type Acute pancreatitis complication: unspecified Qualified Code(s): K85.90 - Acute pancreatitis without necrosis or infection, unspecified (3) ESRD (end stage renal disease) on dialysis Code(s): N18.6 - END STAGE RENAL DISEASE Z99.2 - DEPENDENCE ON RENAL DIALYSIS (4) H/O: CVA (cerebrovascular accident) Code(s): Z86.73 - PRSNL HX OF TIA (TIA), AND CEREB INFRC W/O RESID DEFICITS (5) History of pulmonary embolism Code(s): Z86.711 - PERSONAL HISTORY OF PULMONARY EMBOLISM (6) Hyperlipemia Code(s): E78.5 - HYPERLIPIDEMIA, UNSPECIFIED Qualifiers: Hyperlipidemia type: unspecified hyperlipidemia (7) Hypertension Code(s): I10 - ESSENTIAL (PRIMARY) HYPERTENSION Qualifiers: Hypertension type: other secondary hypertension Qualified Code(s): I15.8 - Other secondary hypertension Assessment/Plan (1) Gallstones Assessment/Plan: -surgery consult reviewed -defer to GI about starting ursodial Code(s): K80.20 - CALCULUS OF GALLBLADDER W/O CHOLECYSTITIS W/O OBSTRUCTION (2) Pancreatitis Assessment/Plan: -with elevated lipase -continue to trend -GI following -continue current diet Code(s): K85.90 - ACUTE PANCREATITIS WITHOUT NECROSIS OR INFECTION, UNSP Qualifiers: Chronicity: acute Pancreatitis type: unspecified pancreatitis type Acute pancreatitis complication: unspecified Qualified Code(s): K85.90 - Acute pancreatitis without necrosis or infection, unspecified (3) ESRD (end stage renal disease) on dialysis Assessment/Plan: -receiving HD today Code(s): N18.6 - END STAGE RENAL DISEASE Z99.2 - DEPENDENCE ON RENAL DIALYSIS (4) H/O: CVA (cerebrovascular accident) Assessment/Plan: -with dementia Code(s): Z86.73 - PRSNL HX OF TIA (TIA), AND CEREB INFRC W/O RESID DEFICITS (5) History of pulmonary embolism Assessment/Plan: -IVC filter placed Code(s): Z86.711 - PERSONAL HISTORY OF PULMONARY EMBOLISM (6) Hyperlipemia Assessment/Plan: -continue lipitor Code(s): E78.5 - HYPERLIPIDEMIA, UNSPECIFIED Qualifiers: Hyperlipidemia type: unspecified hyperlipidemia Qualified Code(s): E78.5 - Hyperlipidemia, unspecified (7) Hypertension Assessment/Plan: -continue nifedipine and metoprolol Code(s): I10 - ESSENTIAL (PRIMARY) HYPERTENSION Qualifiers: Hypertension type: other secondary hypertension Qualified Code(s): I15.8 - Other secondary hypertension
[2017-03-21] MEDS: ATORVASTATIN CA 10 MG TABLET (FP) PO SCH (21:02)
[2017-03-22 08:22] LABS: BASOPHIL 1.3 % (0-2.0); MCH 31.1 pg (25.7-33.7); MCHC 33.5 g/dl (32.0-35.9); MEAN CELL VOLUME 92.9 fl (80-96); MEAN PLT VOLUME 8.8 fl (7.5-11.1); NEUTROPHILS 75.5 % (42.8-82.8); PLATELET COUNT 313 K/MM3 (134-434); RDW 15.4 % (11.9-15.9); WHITE BLOOD COUNT 8.2 K/mm3 (4.0-10.0)
[2017-03-22 08:23] LABS: ANION GAP 8 (8-16); CO2 33 mmol/L (21-32); CREATININE 3.3 mg/dL (0.7-1.3); GLUCOSE,RANDOM 113 mg/dL (74-106); MAGNESIUM 1.8 mg/dL (1.8-2.4); PHOSPHOROUS 3.8 mg/dL (2.5-4.9)
[2017-03-22] MEDS: PANTOPRAZOLE 40 MG TABLET (FP) PO SCH (09:38)
[2017-03-22] MEDS: NIFEdipine E.R. 30 MG TABLET (FP) PO SCH (09:38)
[2017-03-22] MEDS: METOPROLOL TARTRATE 25 MG TABLET (FP) PO SCH (09:38)
[2017-03-22] MEDS: DEXTROSE 5%-0.45% SALINE 1,000 ML IV SCH (09:41)
--- NOTE | 2017-03-22 14:51 | PN ---
Progress Note, Physician History of Present Illness: patient stable dialysis no complaints - Current Medication List Current Medications: Active Medications Albuterol/Ipratropium (Duoneb -) 1 amp NEB Q4HWA PRN PRN Reason: sob Atorvastatin Calcium (Lipitor -) 10 mg PO HS [facility] Last Admin: 03/21/17 21:02 Dose: 10 mg Dextrose/Sodium Chloride (D5-1/2ns -) 1,000 mls @ 50 mls/hr IV ASDIR [facility] Last Admin: 03/22/17 09:41 Dose: 50 mls/hr Metoprolol Tartrate (Lopressor -) 25 mg PO BID [facility] Last Admin: 03/22/17 09:38 Dose: 25 mg Nifedipine (Procardia Xl -) 30 mg PO DAILY [facility] Last Admin: 03/22/17 09:38 Dose: 30 mg Pantoprazole Sodium (Protonix -) 40 mg PO DAILY [facility] Last Admin: 03/22/17 09:38 Dose: 40 mg - Objective Vital Signs: Vital Signs Temperature 98.4 F 03/22/17 08:24 Pulse Rate 87 03/22/17 08:24 Respiratory Rate 20 03/21/17 21:01 Blood Pressure 118/76 03/22/17 08:24 O2 Sat by Pulse Oximetry (%) 98 03/22/17 09:00 Constitutional: Yes: No Distress, Calm Cardiovascular: Yes: Regular Rate and Rhythm Respiratory: Yes: Regular, CTA Bilaterally Gastrointestinal: Yes: Normal Bowel Sounds, Soft Musculoskeletal: Yes: Other Extremities: Yes: Other Neurological: Yes: Alert, Oriented Psychiatric: Yes: Alert Labs: CBC, BMP 03/22/17 07:00 03/22/17 07:00 INR, PTT INR 1.05 (0.82-1.09) 03/19/17 05:35 Assessment/Plan Problem List - Problems (1) Gallstones Code(s): K80.20 - CALCULUS OF GALLBLADDER W/O CHOLECYSTITIS W/O OBSTRUCTION (2) Pancreatitis Code(s): K85.90 - ACUTE PANCREATITIS WITHOUT NECROSIS OR INFECTION, UNSP Qualifiers: Chronicity: acute Pancreatitis type: unspecified pancreatitis type Acute pancreatitis complication: unspecified Qualified Code(s): K85.90 - Acute pancreatitis without necrosis or infection, unspecified (3) ESRD (end stage renal disease) on dialysis Code(s): N18.6 - END STAGE RENAL DISEASE Z99.2 - DEPENDENCE ON RENAL DIALYSIS (4) H/O: CVA (cerebrovascular accident)ia Code(s): Z86.73 - PRSNL HX OF TIA (TIA), AND CEREB INFRC W/O RESID DEFICITS (5) History of pulmonary embolism Code(s): Z86.711 - PERSONAL HISTORY OF PULMONARY EMBOLISM (6) Hyperlipemia Code(s): E78.5 - HYPERLIPIDEMIA, UNSPECIFIED Qualifiers: Hyperlipidemia type: unspecified hyperlipidemia Qualified Code(s): E78.5 - Hyperlipidemia, unspecified (7) Hypertension Code(s): I10 - ESSENTIAL (PRIMARY) HYPERTENSION Qualifiers: Hypertension type: other secondary hypertension Qualified Code(s): I15.8 - Other secondary hypertension plan stable off of abx no new issues rest as per primary
--- NOTE | 2017-03-22 15:00 | DS ---
Physical Examination Vital Signs: Vital Signs Temperature 99.6 F 03/22/17 14:55 Pulse Rate 80 03/22/17 14:55 Respiratory Rate 20 03/22/17 14:55 Blood Pressure 116/62 03/22/17 14:55 O2 Sat by Pulse Oximetry (%) 98 03/22/17 09:00 Constitutional: Yes: Well Nourished, No Distress, Calm Cardiovascular: Yes: Regular Rate and Rhythm. No: Gallop, Murmur, Rub Respiratory: Yes: Regular, CTA Bilaterally. No: Rales, Rhonchi, Wheezes Gastrointestinal: Yes: Normal Bowel Sounds, Soft. No: Distention, Tenderness Extremities: Yes: WNL Edema: No Labs: CBC, BMP 03/22/17 07:00 03/22/17 07:00 Discharge Summary Reason For Visit: PANCREATITIS,MULTIPLE GALLSTONES Current Active Problems Gallstones (Acute) Pancreatitis (Acute) Hospital Course: (1) Gallstones Code(s): K80.20 - CALCULUS OF GALLBLADDER W/O CHOLECYSTITIS W/O OBSTRUCTION (2) Pancreatitis Code(s): K85.90 - ACUTE PANCREATITIS WITHOUT NECROSIS OR INFECTION, UNSP Qualifiers: Chronicity: acute Pancreatitis type: unspecified pancreatitis type Acute pancreatitis complication: unspecified Qualified Code(s): K85.90 - Acute pancreatitis without necrosis or infection, unspecified (3) ESRD (end stage renal disease) on dialysis Code(s): N18.6 - END STAGE RENAL DISEASE Z99.2 - DEPENDENCE ON RENAL DIALYSIS (4) H/O: CVA (cerebrovascular accident) Code(s): Z86.73 - PRSNL HX OF TIA (TIA), AND CEREB INFRC W/O RESID DEFICITS (5) History of pulmonary embolism Code(s): Z86.711 - PERSONAL HISTORY OF PULMONARY EMBOLISM (6) Hyperlipemia Code(s): E78.5 - HYPERLIPIDEMIA, UNSPECIFIED Qualifiers: Hyperlipidemia type: unspecified hyperlipidemia (7) Hypertension Code(s): I10 - ESSENTIAL (PRIMARY) HYPERTENSION Qualifiers: Hypertension type: other secondary hypertension Qualified Code(s): I15.8 - Other secondary hypertension Mr Garcia is a 71 year old male who came in and was found to have gallstones and pancreatitis. He was admitted to the hospital and made npo. He was seen by GI and general surgery. His pancreatitis resolved, there is question if he successfully passed a stone. Surgery saw the patient and felt there were too many medical risks to perform surgery. Recommended starting on actigall, this can be done as an outpatient. He was placed on a diet and tolerated. He was seen by nephrology and continued his dialysis. He is currently stable for discharge home. 32 minutes spent in preparation of this discharge Condition: Stable - Instructions Diet, Activity, Other Instructions: resume previous diet and activity Referrals: Luz Marina Corral MD [Staff Physician] - Jesus Manuel Yousif MD [Primary Care Provider] - Vinnie Carter DO [Staff Physician] - Lauri Fulton MD [Staff Physician] - Disposition: VNS/HOME HEALTH CARE - Home Medications Comprehensive Discharge Medication List: Ambulatory Orders Allopurinol [Zyloprim -] 100 mg PO DAILY 08/23/15 Metoprolol Tartrate 25 mg PO BID 08/23/15 Pantoprazole Sodium [Protonix] 40 mg PO DAILY 08/23/15 Simvastatin [Zocor -] 20 mg PO HS 08/23/15 Calcium Acetate 667 mg PO TID 12/21/15 Folic Acid/Vit Bcomp,C [Dialyvite 800 Tablet] 0.8 mg PO DAILY 12/21/15 Nifedipine [Nifedical Xl] 30 mg PO DAILY 09/24/16 Albuterol 2.5/Ipratropium 0.5 [Duoneb -] 1 amp NEB Q4HWA PRN 03/18/17 Ursodiol [Actigal] 300 mg PO BID #60 capsule 03/22/17
--- NOTE | 2017-03-22 15:57 | PN ---
Progress Note (short form) - Note Progress Note: Renal Follow up for ESRD on HD Pt seen and examined at the bedside awake and alert no overnight events s/p HD yesterday Vital Signs Temperature 99.6 F 03/22/17 14:55 Pulse Rate 80 03/22/17 14:55 Respiratory Rate 20 03/22/17 14:55 Blood Pressure 116/62 03/22/17 14:55 O2 Sat by Pulse Oximetry (%) 98 03/22/17 09:00 Gen: NAD, awake and alert, non-verbal CVS: RRR, No M/R Lungs: CTA no rales or wheeze Abd: Soft NT/ND Ext: no edema, clubbing or cyanosis. Right AKA. Access: Left ARM AVF CBC, BMP 03/22/17 07:00 03/22/17 07:00 Current Medications Albuterol/Ipratropium (Duoneb -) 1 amp NEB Q4HWA PRN PRN Reason: sob Atorvastatin Calcium (Lipitor -) 10 mg PO HS [facility] Last Admin: 03/21/17 21:02 Dose: 10 mg Dextrose/Sodium Chloride (D5-1/2ns -) 1,000 mls @ 50 mls/hr IV ASDIR [facility] Last Admin: 03/22/17 09:41 Dose: 50 mls/hr Metoprolol Tartrate (Lopressor -) 25 mg PO BID [facility] Last Admin: 03/22/17 09:38 Dose: 25 mg Nifedipine (Procardia Xl -) 30 mg PO DAILY [facility] Last Admin: 03/22/17 09:38 Dose: 30 mg Pantoprazole Sodium (Protonix -) 40 mg PO DAILY [facility] Last Admin: 03/22/17 09:38 Dose: 40 mg A/P 71 year old gentleman with PMHx of ESRD on HD (2x weekly, Saturday and ) , CVA (no aphasic), Hypertension, Hepatitis C, DM who presented with LFT abnormalities and gallstone on Abd CT. #ESRD on HD tolerated HD well yesterday next HD planned for next week as outpatient #Elevated LFTs/Cholelithiasis MRCP showed no acute obstruction or inflammation #Hypertension on Metoprolol and Procardia #CKD Related Anemia Hgb is at goal if hgb dips below 10 marce need JOE Lauri Fulton DO
[2017-03-22 22:23] VITALS: BP 117/63; PULSE 83; TEMP 98.6
== END 2017-03-22 21:00 | disposition home health service (06) | DRG 438 ==
LOC: SUPCPDRO 11:38 → JER 11:38 → JERBED 13:54 → J6S 03-19 16:52
PROVIDERS: ADMIT Internal Medicine; ATTEND Internal Medicine
PROC: 5A1D60Z (ICD-10-PCS; principal; 2017-03-21)
DX: K85.90 Acute pancreatitis without necrosis or infection, unspecified (principal); N18.6 End stage renal disease; I12.0 Hypertensive chronic kidney disease with stage 5 chronic kidney disease or end stage renal disease; I69.351 Hemiplegia and hemiparesis following cerebral infarction affecting right dominant side; K80.20 Calculus of gallbladder without cholecystitis without obstruction; E78.5 Hyperlipidemia, unspecified; Z86.711 Personal history of pulmonary embolism; D63.1 Anemia in chronic kidney disease; Z99.2 Dependence on renal dialysis; Z87.891 Personal history of nicotine dependence
CPT/HCPCS: 36415; 71010-TC; 74181-TC; 80048; 80053; 81003; 81015; 82150; 82550; 82565; 83690; 83735; 84100; 84484; 84520; 85025; 85610; 85730; 87040; 87086; 93005; 93010; 99285-25

== ENCOUNTER 2018-08-23 12:41 | Observation (INO) | payer OTHER ==
[2018-08-23 12:52] VITALS: BMI 17.2
[2018-08-23 14:47] LABS: VENOUS PC02 41.9 mmHg (38-52); VENOUS PH 7.39 (7.32-7.42); VENOUS PO2 22.3 mmHg (28-48)
--- NOTE | 2018-08-23 14:55 | PDOC ---
*Physical Exam - Vital Signs Last Vital Signs Temp Pulse Resp BP Pulse Ox 97.5 F L 65 18 133/89 100 08/23/18 12:41 08/23/18 12:41 08/23/18 12:41 08/23/18 12:41 08/23/18 12:41 Heart Score/ECG Review #1 ECG reviewed & interpreted by me at: 13:00 08/23/18 16:13 NSR 107 with occasional PVC, Q wave III, nonspecific ST and T wave abnormality, no std/marilee, QTC 501 msec ED Treatment Course - LABORATORY CBC & Chemistry Diagram: 08/23/18 14:50 08/23/18 15:00 Medical Decision Making - Medical Decision Making 08/23/18 14:53 Pt seen by the Advanced Practice Provider under my direct supervision Pt interviewed and examined Ancillary studies reviewed I agree with plan as outlined by the Advanced Practice Provider CHANDRAKANT Aldrich Vital Signs Temp Pulse Resp BP Pulse Ox 97.5 F L 65 18 133/89 100 08/23/18 12:41 08/23/18 12:41 08/23/18 12:41 08/23/18 12:41 08/23/18 12:41 This is a 73-year-old male with multiple medical problems including end stage renal disease with left upper extremity fistula, diabetes, bilateral lower extremity amputations presents with 2 weeks of difficulty breathing and orthopnea. No fevers or chills. Denies chest pain. Patient's physical exam demonstrates in no apparent distress patient with diminished breath sounds at the bases. Chest x-ray demonstrates congestive findings. I suspect the patient is likely having fluid overload in the setting of 2 times dialysis per week. However, we'll need to rule out bronchitis, pneumonia, congestive heart failure. I agree with the plan to obtain labs including cultures, consulted nephrology, and admission to the hospital. *DC/Admit/Observation/Transfer Diagnosis at time of Disposition: Fluid overload, unspecified - Discharge Dispostion Condition at time of disposition: Stable - Referrals - Patient Instructions - Post Discharge Activity
[2018-08-23 15:14] LABS: BASO % 1.2 % (0-2.0); EOS % 2.1 % (0-4.5); HEMATOCRIT 35.8 % (35.4-49); HEMOGLOBIN 12.2 GM/dL (11.7-16.9); MCH 30.3 pg (25.7-33.7); MCHC 34.1 g/dl (32.0-35.9); MEAN CELL VOLUME 88.9 fl (80-96); MEAN PLT VOLUME 9.5 fl (7.5-11.1); MONO % 8.2 % (3.8-10.2); NEUT % 80.5 % (42.8-82.8); PLATELET COUNT 376 K/MM3 (134-434); RBC 4.03 M/mm3 (4.00-5.60); RDW 15.4 % (11.9-15.9); WHITE BLOOD COUNT 9.1 K/mm3 (4.0-10.0)
[2018-08-23 15:42] LABS: ALBUMIN 2.7 g/dl (3.4-5.0); ALK PHOS 182 U/L (45-117); ANION GAP 13 MMOL/L (8-16); BILIRUBIN,TOTAL 0.6 mg/dL (0.2-1); BLOOD UREA NITROGEN 44 mg/dL (7-18); CALCIUM 8.6 mg/dL (8.5-10.1); CHLORIDE 102 mmol/L (98-107); CO2 24 mmol/L (21-32); CREATININE 4.8 mg/dL (0.55-1.3); GLUCOSE,RANDOM 102 mg/dL (74-106); N-TERMINAL BNP 97695.7 pg/ml (5-125); PHOSPHOROUS 3.4 mg/dL (2.5-4.9); POTASSIUM 3.4 mmol/L (3.5-5.1); SGOT/AST 34 U/L (15-37); SGPT/ALT 21 U/L (13-61); SODIUM 140 mmol/L (136-145); TOT PROT 6.8 g/dl (6.4-8.2)
[2018-08-23] MEDS ORDERED: SODIUM CHLORIDE 250 ML IV PRN (15:46)
--- NOTE | 2018-08-23 15:56 | PDOC ---
History of Present Illness - General Chief Complaint: Shortness of Breath Stated Complaint: DIFFICULTY BREATHING Time Seen by Provider: 08/23/18 13:13 History Source: Care Provider Exam Limitations: Clinical Condition - History of Present Illness Initial Comments: 73 y.o M hx of HTN, HLD, DM, anemia, ESRD on HD ( and ; last dialysis was 2 days ago), CVA with R sided weakness and aphasia, PE s/p IVC filter, GI bleed, hep C, depression, R BKA, R hip replacement, recent L BKA done at [facility] around 3 weeks ago presents with chest congestion, wet cough and "gurgling" sound heard in chest since discharge from [facility]. Patient's daughter was concerned for symptoms so brought patient to ED. 08/23/18 15:20 Past History - Past Medical History Allergies/Adverse Reactions: Allergies Allergy/AdvReac Type Severity Reaction Status Date / Time No Known Allergies Allergy Verified 08/23/18 12:52 Home Medications: Ambulatory Orders Allopurinol [Zyloprim -] 100 mg PO DAILY 08/23/15 Metoprolol Tartrate 25 mg PO BID 08/23/15 Pantoprazole Sodium [Protonix] 40 mg PO DAILY 08/23/15 Simvastatin [Zocor -] 20 mg PO HS 08/23/15 Calcium Acetate 667 mg PO TID 12/21/15 Folic Acid/Vit B Complex and C [Dialyvite 800 Tablet] 0.8 mg PO DAILY 12/21/15 Nifedipine [Nifedical Xl] 30 mg PO DAILY 09/24/16 Albuterol 2.5/Ipratropium 0.5 [Duoneb -] 1 amp NEB Q4HWA PRN 03/18/17 Ursodiol [Actigal] 300 mg PO BID #60 capsule 03/22/17 Anemia: No Asthma: No Cancer: No Cardiac Disorders: No CVA: Yes COPD: No CHF: No Dementia: No Diabetes: Yes Dialysis: Yes (, ) GI Disorders: Yes (G I BLeed 1 year ago) Disorders: No HTN: Yes Hypercholesterolemia: Yes Liver Disease: Yes (hep C) Psychiatric Problems: (depression) Seizures: No Thyroid Disease: No - Surgical History Abdominal Surgery: No Appendectomy: No Cardiac Surgery: Yes (leg bypass) Cholecystectomy: No Lung Surgery: No Neurologic Surgery: Yes (cva) Orthopedic Surgery: Yes (RT BKA,RT HIP REPLACEMENT) - Immunization History Td Vaccination: Yes TDAP Vaccination: Yes Immunization Up to Date: Yes - Suicide/Smoking/Psychosocial Hx Smoking Status: Yes Smoking History: Never smoked Have you smoked in the past 12 months: No Number of Cigarettes Smoked Daily: 0 If you are a former smoker, when did you quit?: 30 years Information on smoking cessation initiated: No Hx Alcohol Use: No Drug/Substance Use Hx: No Substance Use Type: None Hx Substance Use Treatment: No Review of Systems - Review of Systems Able to Perform ROS?: No (Patient with aphasia) *Physical Exam - Vital Signs Last Vital Signs Temp Pulse Resp BP Pulse Ox 97.5 F L 65 18 133/89 100 08/23/18 12:41 08/23/18 12:41 08/23/18 12:41 08/23/18 12:41 08/23/18 12:41 - Physical Exam General Appearance: No: Apparent Distress Respiratory/Chest: positive: Other. negative: Respiratory Distress, Accessory Muscle Use (Slightly decreased breath sounds B/L), Rales, Stridor, Wheezing Cardiovascular: positive: Regular Rhythm, Regular Rate, S1, S2. negative: Murmur Gastrointestinal/Abdominal: positive: Normal Bowel Sounds, Soft. negative: Tender, Distended, Guarding, Rebound Extremity: positive: Other (No evidence of infection along site of recent L BKA , stitches intact with no erythema or purulent discharge; R BKA also appears well) ED Treatment Course - LABORATORY CBC & Chemistry Diagram: 08/23/18 14:50 08/23/18 15:00 - ADDITIONAL ORDERS Additional order review: Laboratory Results 08/23/18 13:47 VBG pH 7.39 POC VBG pCO2 41.9 POC VBG pO2 22.3 L Mixed VBG HCO3 24.6 08/23/18 14:50 RBC 4.03 MCV 88.9 MCHC 34.1 RDW 15.4 MPV 9.5 Neutrophils % 80.5 Lymphocytes % 8.0 D Monocytes % 8.2 Eosinophils % 2.1 D Basophils % 1.2 - RADIOLOGY Radiology Studies Ordered: Category Date Time Status CHEST X-RAY PORTABLE* [RAD] Stat Radiology 08/23/18 13:48 Completed Medical Decision Making - Medical Decision Making 73 y/o M hx of HTN, HLD, DM, anemia, ESRD on HD (T and Th; last dialysis was 2 days ago), CVA with R sided weakness and aphasia, PE s/p IVC filter, GI bleed, hep C, depression, R BKA, R hip replacement, recent L BKA presents with chest congestion and wet cough x 2 weeks. CXR concerning for new congestive changes with large heart. Labs with elevated BNP, K of 3.4, rest of electrolytes normal. Trop elevated as well, but believed to be due to ESRD; EKG showed sinus tach with occasional PVCs, no ischemic changes noted. Case discussed with nephrology, Dr. Donaldo Carreon and patient to be admitted for dialysis. Patient admitted under Dr. Rodriguez. 08/23/18 16:30 *DC/Admit/Observation/Transfer Diagnosis at time of Disposition: Fluid overload, unspecified - Discharge Dispostion Condition at time of disposition: Stable Decision to Admit order: Yes - Referrals - Patient Instructions - Post Discharge Activity
--- NOTE | 2018-08-23 18:22 | HP ---
CHIEF COMPLAINT: Cough PCP: HISTORY OF PRESENT ILLNESS: Patient is non verbal and aphasic but is alert and oriented adn responds properly. 73 y.o M hx of HTN, HLD, DM, anemia, ESRD on HD ( and ; last dialysis was 2 days ago), CVA with R sided weakness and aphasia, PE s/p IVC filter, GI bleed, hep C, depression, R BKA, R hip replacement, recent L BKA done at [facility] around 3 weeks ago, complicate with NSTEMI, intubation during that time. He was brought in by his daughter for 2 weaks of dry cough, no change in severity, no change in frequency. just the family decided to have it checked out. Per her daughter she was getting TID HD in [facility] but has been getting BID since DCed home. He has had no sick contact at home, no F/C/N/V/D at home. ER course was notable for: (1)volume overload and B/L Pleural effusion and was sent for HD (2) Also had elevated troponin with NL CPK and was sent to tele for that Recent Travel:no PAST MEDICAL HISTORY: HTN, HLD, DM, anemia, ESRD on HD ( and ; last dialysis was 2 days ago), CVA with R sided weakness and aphasia, PE s/p IVC filter, GI bleed, hep C, depression, R BKA, R hip replacement, recent L BKA done at [facility] around 3 weeks ago, complicate with NSTEMI, intubation PAST SURGICAL HISTORY: BKA B/L Social History: Smoking:NO Alcohol:NO Drugs: NO Family History:N/A Allergies:NKDA No Known Allergies Allergy (Verified 08/23/18 12:52) HOME MEDICATIONS: Home Medications Medication Instructions Recorded Allopurinol [Zyloprim -] 100 mg PO DAILY 08/23/15 Metoprolol Tartrate 25 mg PO BID 08/23/15 Pantoprazole Sodium [Protonix] 40 mg PO DAILY 08/23/15 Simvastatin [Zocor -] 20 mg PO HS 08/23/15 Calcium Acetate 667 mg PO TID 12/21/15 Folic Acid/Vit B Complex and C 0.8 mg PO DAILY 12/21/15 [Dialyvite 800 Tablet] Nifedipine [Nifedical Xl] 30 mg PO DAILY 09/24/16 Albuterol 2.5/Ipratropium 0.5 1 amp NEB Q4HWA PRN 03/18/17 [Duoneb -] Ursodiol [Actigal] 300 mg PO BID #60 capsule 03/22/17 REVIEW OF SYSTEMS depressed mood No new focal neurologic defits No fever + cough No chest pain No new skin lesions PHYSICAL EXAMINATION Vital Signs - 24 hr 08/23/18 08/23/18 08/23/18 12:41 17:25 17:30 Temperature 97.5 F L 98.5 F Pulse Rate 65 111 H 110 H Respiratory 18 18 18 Rate Blood Pressure 133/89 137/89 140/84 O2 Sat by Pulse 100 Oximetry (%) 08/23/18 18:00 Temperature Pulse Rate 114 H Respiratory 18 Rate Blood Pressure 92/56 L O2 Sat by Pulse Oximetry (%) GENERAL: Awake, alert, and fully oriented, in no acute distress. HEAD: Normal with no signs of trauma. EYES: Pupils equal, round and reactive to light, extraocular movements intact, sclera anicteric, conjunctiva clear. No lid lag. EARS, NOSE, THROAT: Ears normal, nares patent, oropharynx clear without exudates. Moist mucous membranes. NECK: Normal range of motion, supple without lymphadenopathy, JVD, or masses. LUNGS:decreased breath sounds in the bases,no rales, NO RESPIRATORY DISTRESS( he is on HD machine when I evaluated him) CVS:S1S2, AVF trill Abd:BS+ nt/nd EXT: S/P B/L BKA Laboratory Results - last 24 hr 08/23/18 08/23/18 08/23/18 13:47 14:30 14:50 WBC 9.1 RBC 4.03 Hgb 12.2 Hct 35.8 D MCV 88.9 MCH 30.3 MCHC 34.1 RDW 15.4 Plt Count 376 D MPV 9.5 Absolute Neuts (auto) 7.4 Neutrophils % 80.5 Lymphocytes % 8.0 D Monocytes % 8.2 Eosinophils % 2.1 D Basophils % 1.2 Nucleated RBC % 0 VBG pH 7.39 POC VBG pCO2 41.9 POC VBG pO2 22.3 L Mixed VBG HCO3 24.6 Sodium Potassium Chloride Carbon Dioxide Anion Gap BUN Creatinine Creat Clearance w eGFR Random Glucose Lactic Acid Calcium Phosphorus Magnesium Total Bilirubin AST ALT Alkaline Phosphatase Creatine Kinase Troponin I B-Natriuretic Peptide Total Protein Albumin Influenza A (Rapid) Negative Influenza B (Rapid) Negative 08/23/18 08/23/18 14:50 15:00 WBC RBC Hgb Hct MCV MCH MCHC RDW Plt Count MPV Absolute Neuts (auto) Neutrophils % Lymphocytes % Monocytes % Eosinophils % Basophils % Nucleated RBC % VBG pH POC VBG pCO2 POC VBG pO2 Mixed VBG HCO3 Sodium 140 Potassium 3.4 L Chloride 102 Carbon Dioxide 24 Anion Gap 13 BUN 44 H Creatinine 4.8 H Creat Clearance w eGFR 11.98 Random Glucose 102 Lactic Acid 1.2 Calcium 8.6 Phosphorus 3.4 Magnesium 2.0 Total Bilirubin 0.6 AST 34 ALT 21 Alkaline Phosphatase 182 H Creatine Kinase 45 Troponin I 0.64 H* B-Natriuretic Peptide 58553.7 H Total Protein 6.8 Albumin 2.7 L Influenza A (Rapid) Influenza B (Rapid) ASSESSMENT/PLAN: 73 y.o M hx of HTN, HLD, DM, anemia, ESRD on HD (T and Th; last dialysis was 2 days ago), CVA with R sided weakness and aphasia, PE s/p IVC filter, GI bleed, hep C, depression, R BKA, R hip replacement, recent L BKA done at [facility] around 3 weeks ago presents with chest congestion, wet cough and "gurgling" sound heard in chest since discharge from [facility]. Patient's daughter was concerned for symptoms so brought patient to ED. Pt cough: likely in the setting of volume overload , will gt HD tonight and will likely need another HD tomorrow fro further volume removal ELEVATAED TROPONIN WITH NL CPK in patient with no chest pain complaints: non cardiac origin, will C/W home medication GOA discussed with the patient and confirmed with her daughter jasiel [phone]. he is DNR Diet: cardiac, renal, dvt px: heparin Visit type - Emergency Visit Emergency Visit: Yes ED Registration Date: 08/23/18 Care time: The patient presented to the Emergency Department on the above date and was hospitalized for further evaluation of their emergent condition. - New Patient This patient is new to me today: Yes Date on this admission: 08/24/18 - Critical Care Critical Care patient: No
[2018-08-23] MEDS ORDERED: ALBUTEROL SO4 2.5/IPRATROPIUM 0.5 INH SOL 3 ML VIAL.NEB. NEB PRN (18:26)
[2018-08-23] MEDS: metoPROLOL SUCCINATE 25 MG TAB.SR.24H (FP) PO SCH (22:51)
[2018-08-23] MEDS: HEPARIN NA (PORCINE) 5,000 UNITS/ML 1ML VIAL SQ SCH (22:51)
[2018-08-23] MEDS: ATORVASTATIN CA 20 MG TABLET (FP) PO SCH (22:51)
[2018-08-24] MEDS ORDERED: MELATONIN 5 MG TABLETS PO ONE (01:56)
[2018-08-24] MEDS: HEPARIN NA (PORCINE) 5,000 UNITS/ML 1ML VIAL SQ SCH ×2 (09:14→21:14)
[2018-08-24] MEDS: PANTOPRAZOLE 40 MG TABLET (FP) PO SCH (09:14)
[2018-08-24] MEDS: metoPROLOL SUCCINATE 25 MG TAB.SR.24H (FP) PO SCH ×2 (09:14→21:15)
[2018-08-24] MEDS ORDERED: PNEUMOC 13-VAL CONJ-DIP CRM/PF 0.5 ML DISP.SYRIN IM ONE (10:00)
[2018-08-24] MEDS ORDERED: AZITHROMYCIN 500 MG TABLET PO ONE (10:00)
[2018-08-24] MEDS ORDERED: AZITHROMYCIN 200 MG/5 ML BOTTLE PO ONE (10:00)
--- NOTE | 2018-08-24 11:55 | CONSULT ---
Consult - text type - Consultation Consultation Note: Renal Consult for ESRD on HD This is a 73 year old gentleman with hx of ESRD on HD twice weekly, CVA, Hx of PE, Hep C, PVD r/p BKA who presented with SOB and chest congestion and found to have fluid overload. Pt s/p urgent HD yesterday with UF of 2L total with mild hypotension noted during dialysis. Pt says his breathing is back to normal today. No cough, chest pain, abd pain today. Reports that he still makes urine. no fever or chills. Pt s/p prolong hospital admission at [facility] for LE amputation. PMHx: as above Allergies: NKDA Family Hx: NC Social Hx: unable to obtain ROS: as per HPI Home Medications Medication Instructions Recorded Allopurinol [Zyloprim -] 100 mg PO DAILY 08/23/15 Metoprolol Tartrate 25 mg PO BID 08/23/15 Pantoprazole Sodium [Protonix] 40 mg PO DAILY 08/23/15 Simvastatin [Zocor -] 20 mg PO HS 08/23/15 Calcium Acetate 667 mg PO TID 12/21/15 Folic Acid/Vit B Complex and C 0.8 mg PO DAILY 12/21/15 [Dialyvite 800 Tablet] Nifedipine [Nifedical Xl] 30 mg PO DAILY 09/24/16 Albuterol 2.5/Ipratropium 0.5 1 amp NEB Q4HWA PRN 03/18/17 [Duoneb -] Ursodiol [Actigal] 300 mg PO BID #60 capsule 03/22/17 Vital Signs Temperature 97.2 F L 08/24/18 08:53 Pulse Rate 114 H 08/24/18 08:53 Respiratory Rate 20 08/24/18 08:53 Blood Pressure 106/74 08/24/18 08:53 O2 Sat by Pulse Oximetry (%) 97 08/23/18 22:25 NAD awake and alert neck supple, no JVD RRR, No M/R CTA, no rales soft NT/ND b/l AKA, no sacral edema CBC, BMP 08/23/18 14:50 08/23/18 15:00 Current Medications Albuterol/Ipratropium (Duoneb -) 1 amp NEB Q6H PRN PRN Reason: SHORTNESS OF BREATH Atorvastatin Calcium (Lipitor -) 20 mg PO HS [facility] Last Admin: 11/24/18 22:51 Dose: 20 mg Azithromycin (Zithromax -) 250 mg PO DAILY [facility] Stop: 08/29/18 23:59 Heparin Sodium (Porcine) (Heparin -) 5,000 unit SQ BID [facility] Last Admin: 08/24/18 09:14 Dose: 5,000 unit Sodium Chloride (Normal Saline -) 250 mls @ 3,000 mls/hr IV PRN PRN PRN Reason: Hypotension during Dialysis Stop: 08/24/18 15:46 Metoprolol Succinate (Toprol Xl -) 25 mg PO BID [facility] Last Admin: 08/24/18 09:14 Dose: 25 mg Pantoprazole Sodium (Protonix -) 40 mg PO DAILY [facility] Last Admin: 08/24/18 09:14 Dose: 40 mg 73 year old gentleman with hx of ESRD on HD twice weekly, CVA, Hx of PE, Hep C, PVD r/p BKA who presented with SOB and chest congestion and found to have fluid overload. #Fluid overlaod #ESRD on HD #Pulmoanry congestion r/o PNA/Bronchitis #PVD no acute indication for dialysis today will plan to check CXR and reaccess need for additional Hd tomorrow morning will plan to change outpatient dialysis schedule to 3x weekly for the near future for better fluid management continue empiric abx as per primary team anticipate discharge tomorrow Lauri Fulton DO
--- NOTE | 2018-08-24 13:42 | EKG ---
Test Reason : Blood Pressure : / mmHG Vent. Rate : 109 BPM Atrial Rate : 109 BPM P-R Int : 136 ms QRS Dur : 092 ms QT Int : 360 ms P-R-T Axes : 059 010 083 degrees QTc Int : 484 ms SINUS TACHYCARDIA POSSIBLE LEFT ATRIAL ENLARGEMENT CANNOT RULE OUT ANTERIOR INFARCT , AGE UNDETERMINED ABNORMAL ECG WHEN COMPARED WITH ECG OF 23-AUG-2018 13:00, PREMATURE VENTRICULAR COMPLEXES ARE NO LONGER PRESENT Confirmed by MICHAEL MEDEL MD ([id number]) on 08/24/2018 1:42:16 PM Referred By: Confirmed By:MICHAEL MEDEL MD
--- NOTE | 2018-08-24 15:46 | PN ---
Physical Exam: SUBJECTIVE: Patient seen and examined, states that feels better, non verbal but is Alert adn responds tp the questions properly and writes as well OBJECTIVE: Vital Signs Period Temp Pulse Resp BP Sys/Schneider Pulse Ox Last 24 Hr 97.2 F-98.5 F 76-114 18-20 68-140/42-90 97-97 GENERAL: Awake, alert, and fully oriented, in no acute distress. HEAD: Normal with no signs of trauma. EYES: Pupils equal, round and reactive to light, extraocular movements intact, sclera anicteric, conjunctiva clear. No lid lag. EARS, NOSE, THROAT: Ears normal, nares patent, oropharynx clear without exudates. Moist mucous membranes. NECK: Normal range of motion, supple without lymphadenopathy, JVD, or masses. LUNGS:decreased breath sounds in the bases,no rales, NO RESPIRATORY DISTRESS( he is on HD machine when I evaluated him) CVS:S1S2, AVF trill Abd:BS+ nt/nd EXT: S/P B/L BKA Laboratory Results - last 24 hr 08/23/18 08/24/18 08/24/18 15:00 05:30 11:45 Sodium 140 Potassium 3.4 L Chloride 102 Carbon Dioxide 24 Anion Gap 13 BUN 44 H Creatinine 4.8 H Creat Clearance w eGFR 11.98 POC Glucometer 111 Random Glucose 102 Calcium 8.6 Phosphorus 3.4 Magnesium 2.0 Total Bilirubin 0.6 AST 34 ALT 21 Alkaline Phosphatase 182 H Creatine Kinase 45 60 Troponin I 0.64 H* 0.54 H B-Natriuretic Peptide 14236.7 H Total Protein 6.8 Albumin 2.7 L Active Medications Generic Name Dose Route Start Last Admin Trade Name Freq PRN Reason Stop Dose Admin Albuterol/Ipratropium 1 amp 08/23/18 18:26 08/24/18 12:21 Duoneb - NEB 1 amp Q6H PRN Administration SHORTNESS OF BREATH Atorvastatin Calcium 20 mg 08/23/18 22:00 08/23/18 22:51 Lipitor - PO 20 mg HS [facility] Administration Azithromycin 250 mg 08/25/18 10:00 Zithromax - PO 08/29/18 23:59 DAILY [facility] Heparin Sodium (Porcine) 5,000 unit 08/23/18 22:00 08/24/18 09:14 Heparin - SQ 5,000 unit BID [facility] Administration Metoprolol Succinate 25 mg 08/23/18 22:00 08/24/18 09:14 Toprol Xl - PO 25 mg BID [facility] Administration Pantoprazole Sodium 40 mg 08/24/18 10:00 08/24/18 09:14 Protonix - PO 40 mg DAILY [facility] Administration ASSESSMENT/PLAN: 73 y.o M hx of HTN, HLD, DM, anemia, ESRD on HD (T and Th; last dialysis was 2 days ago), CVA with R sided weakness and aphasia, PE s/p IVC filter, GI bleed, hep C, depression, R BKA, R hip replacement, recent L BKA done at [facility] around 3 weeks agoP/W dry cough for 2 weeks. found to have volume overload. Cough: likely in the setting of volume overload , improved today. plan for monitoring for tonight and if volume overload another HD tomorrow morning and DC after that. was also started on azithro for 5 days . Elevated troponin with NK CPK and no chest pain complaints: non cardiac origin, will C/W home medication GOA discussed with the patient and confirmed with her daughter jasiel [phone]. he is DNR Diet: cardiac, renal, DVT PPX: heparin Plan discussed with the patient and his daughter. Visit type - Emergency Visit Emergency Visit: Yes ED Registration Date: 08/23/18 Care time: The patient presented to the Emergency Department on the above date and was hospitalized for further evaluation of their emergent condition. - New Patient This patient is new to me today: No - Critical Care Critical Care patient: No - Discharge Referral Referred to [facility] Med P.C.: No
[2018-08-24] MEDS: ATORVASTATIN CA 20 MG TABLET (FP) PO SCH (21:15)
--- NOTE | 2018-08-25 07:36 | PN ---
Progress Note, Physician History of Present Illness: 73-year-old man, accompanied by home health aide, with a significant past medical history of hypertension, hypercholesterolemia, cerebrovascular accident (with residual fright sided weakness and aphasia),anemia, pulmonary embolism ( status post IVC filter) diabetes mellitus, end-stage renal disease (on hemo- dialysis q. T/R/S; last hemo-dialysis was on 03/14/2017), gastrointestinal bleed, hepatitis C, and depression admitted with volume over load - Current Medication List Current Medications: Active Medications Albuterol/Ipratropium (Duoneb -) 1 amp NEB Q6H PRN PRN Reason: SHORTNESS OF BREATH Last Admin: 08/24/18 12:21 Dose: 1 amp Atorvastatin Calcium (Lipitor -) 20 mg PO HS [facility] Last Admin: 08/24/18 21:15 Dose: 20 mg Azithromycin (Zithromax -) 250 mg PO DAILY [facility] Stop: 08/29/18 23:59 Heparin Sodium (Porcine) (Heparin -) 5,000 unit SQ BID [facility] Last Admin: 08/24/18 21:14 Dose: 5,000 unit Metoprolol Succinate (Toprol Xl -) 25 mg PO BID [facility] Last Admin: 08/24/18 21:15 Dose: 25 mg Pantoprazole Sodium (Protonix -) 40 mg PO DAILY [facility] Last Admin: 08/24/18 09:14 Dose: 40 mg - Objective Vital Signs: Vital Signs Temperature 97.7 F 08/25/18 05:40 Pulse Rate 94 H 08/25/18 05:40 Respiratory Rate 20 08/25/18 05:40 Blood Pressure 109/64 08/25/18 05:40 O2 Sat by Pulse Oximetry (%) 99 08/24/18 21:00 GENERAL: Not in distress denies SOB or chest pain HEENT: Mm moist no anemia, PERRLA EOMI NECK: Normal range of motion, supple without lymphadenopathy, JVD, or masses. LUNGS:decreased breath sounds in the bases,no rales. 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 Code(s): E87.70 - FLUID OVERLOAD, UNSPECIFIED (2) CVA (cerebral infarction) Assessment/Plan: Chronic no active issue at base line expressive aphasia Code(s): I63.9 - CEREBRAL INFARCTION, UNSPECIFIED (3) ESRD (end stage renal disease) on dialysis Assessment/Plan: Evaluated by Nephrology F/u as out patient Code(s): N18.6 - END STAGE RENAL DISEASE; Z99.2 - DEPENDENCE ON RENAL DIALYSIS (4) Elevated troponin I level Assessment/Plan: Troponin I 0.64 normal CPK on Hospitalization with Pulmonary congestion,, elevated BNP , recent had perioperative NSTEMI at [facility] (3wks ago) on B Blockers no chest pain or new EKG changes will F/U with cardiology consult. Code(s): R74.8 - ABNORMAL LEVELS OF OTHER SERUM ENZYMES (5) Gout Assessment/Plan: Cont Allopurinol Code(s): M10.9 - GOUT, UNSPECIFIED (6) History of pulmonary embolism Assessment/Plan: S/P IVC filter not on AC Code(s): Z86.711 - PERSONAL HISTORY OF PULMONARY EMBOLISM (7) Hyperlipemia Assessment/Plan: On Statin Code(s): E78.5 - HYPERLIPIDEMIA, UNSPECIFIED Qualifiers: Hyperlipidemia type: unspecified hyperlipidemia (8) Hypertension Assessment/Plan: At present Hypotensive needs optimization of BP meds, nifedipine on hold tolerating Metoprolol 25 mg BID Code(s): I10 - ESSENTIAL (PRIMARY) HYPERTENSION Qualifiers: Hypertension type: other secondary hypertension Qualified Code(s): I15.8 - Other secondary hypertension
[2018-08-25] MEDS: metoPROLOL SUCCINATE 25 MG TAB.SR.24H (FP) PO SCH (09:18)
[2018-08-25] MEDS: HEPARIN NA (PORCINE) 5,000 UNITS/ML 1ML VIAL SQ SCH (09:18)
[2018-08-25] MEDS: PANTOPRAZOLE 40 MG TABLET (FP) PO SCH (09:18)
[2018-08-25] MEDS ORDERED: SODIUM CHLORIDE 250 ML IV PRN (09:25)
[2018-08-25] MEDS ORDERED: AZITHROMYCIN 200 MG/5 ML BOTTLE PO SCH (10:00)
[2018-08-25] MEDS ORDERED: AZITHROMYCIN 250 MG TABLET PO SCH (10:00)
--- NOTE | 2018-08-25 10:47 | PN ---
Progress Note (short form) - Note Progress Note: Renal follow up for ESRD on HD pt seen and examined during ultrafiltration BP marginal, required IV albumin for bp control UF total of 1L removed pt w/o complaints access with good flow Vital Signs Temperature 98.5 F 08/25/18 10:10 Pulse Rate 105 H 08/25/18 10:15 Respiratory Rate 18 08/25/18 10:15 Blood Pressure 106/68 08/25/18 10:15 O2 Sat by Pulse Oximetry (%) 99 08/24/18 21:00 Intake & Output 08/22/18 08/23/18 08/24/18 08/25/18 23:59 23:59 23:59 23:59 Intake Total 120 160 Balance 120 160 Weight 49.895 kg NAD awake and alert Neck supple, no JVD CTA soft NT/ND b/l AKA CBC, BMP 08/23/18 14:50 08/23/18 15:00 Current Medications Albuterol/Ipratropium (Duoneb -) 1 amp NEB Q6H PRN PRN Reason: SHORTNESS OF BREATH Last Admin: 08/24/18 12:21 Dose: 1 amp Atorvastatin Calcium (Lipitor -) 20 mg PO HS [facility] Last Admin: 08/24/18 21:15 Dose: 20 mg Azithromycin (Zithromax -) 250 mg PO DAILY [facility] Stop: 08/29/18 23:59 Last Admin: 08/25/18 09:18 Dose: 250 mg Heparin Sodium (Porcine) (Heparin -) 5,000 unit SQ BID [facility] Last Admin: 08/25/18 09:18 Dose: 5,000 unit Sodium Chloride (Normal Saline -) 250 mls @ 3,000 mls/hr IV PRN PRN PRN Reason: Hypotension during Dialysis Stop: 08/26/18 09:25 Metoprolol Succinate (Toprol Xl -) 25 mg PO BID [facility] Last Admin: 08/25/18 09:18 Dose: 25 mg Pantoprazole Sodium (Protonix -) 40 mg PO DAILY [facility] Last Admin: 08/25/18 09:18 Dose: 40 mg 73 year old gentleman with hx of ESRD on HD twice weekly, CVA, Hx of PE, Hep C, PVD r/p BKA who presented with SOB and chest congestion and found to have fluid overload. #Fluid overlaod #ESRD on HD #Pulmoanry congestion r/o PNA/Bronchitis #PVD CXR this am showed midl congestion, tolerated 1L UF stable for discharge after UF will arrange for 3x weekly HD for fluid management as outpatient Lauri Fulton DO
--- NOTE | 2018-08-25 12:51 | DS ---
Physical Examination Vital Signs: Vital Signs Temperature 98.5 F 08/25/18 10:10 Pulse Rate 88 08/25/18 12:20 Respiratory Rate 18 08/25/18 12:20 Blood Pressure 91/57 L 08/25/18 12:20 O2 Sat by Pulse Oximetry (%) 99 08/24/18 21:00 GENERAL: Not in distress denies SOB or chest pain HEENT: Mm moist no anemia, PERRLA EOMI NECK: Normal range of motion, supple without lymphadenopathy, JVD, or masses. LUNGS:decreased breath sounds in the bases,no rales. 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 around 3 weeks ago, complicate with NSTEMI. He was brought in by his daughter for 2 weaks of dry cough, patient denies any chest pain mild elevation of Trop I but normal CPK no chest pain or new EKG changes most likely patient medication confirmed from his pharmacy after DC home after recent Hospitalization at [place]. Patient NIfedipine was stopped, Metoprolol was reduced to 12.5 mg and taking Midodrine also patient is on ASA, PLavix and PPI fir GI protection. Condition: Stable - Instructions Disposition: HOME - Home Medications Comprehensive Discharge Medication List: Ambulatory Orders Active Medications Lipitor 20 mg daily Albuterol/Ipratropium (Duoneb -) 1 amp NEB Q6H PRN Atorvastatin Calcium (Lipitor -) 20 mg PO HS [facility] Metoprolol Tartrate (Lopressor -) 12.5 mg PO BID [facility] Midodrine (Proamatine -) 5 mg PO TID [facility] ASA 325 mg daily Plavix 75 mg daily Pantoprazole Sodium (Protonix -) 40 mg PO DAILY [facility]
[2018-08-25 14:15] LABS: HBSAG SCREEN Negative (Negative); HEP B CORE AB, TOT Positive (Negative)
--- NOTE | 2018-08-25 14:39 | CON.CARD ---
Consult Consult Specialty:: Cardiology Referred by:: Carey Reason for Consultation:: elevated troponin - History of Present Illness Chief Complaint: cough History of Present Illness: 73M h/o HTN, HLD, DM, anemia, ESRD on HD, CVA with R weakness and aphasia, PE s/ p IVC filter, GI bleed, recent L BKA at [facility] 3 weeks ago c/b NSTEMI p/w cough. Had volume overload and bilateral pleural effusion, had HD. Noted to have elevated trop, no chest pain. Not on aspirin due to GI bleed history. 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: CVA, Other Cardio/Vascular: Yes: HTN, Hyperlipdemia, Other (s/p DVT/PE, s/p IVC filter, on coumadin) Gastrointestinal: Yes: GI Bleed ((occult-normal EGD and colon 09/24/14)) Hepatobiliary: Yes: Hepatitis C (Ab (+) in February,) Renal/: Yes: Renal Failure, Hemodialysis (2x/week T,R) - Past Surgical History Past Surgical History: Yes: Amputation (Rt AKA, traumatic), AV Fistula/Graft - Alcohol/Substance Use Hx Alcohol Use: No - Smoking History Smoking history: Never smoked Have you smoked in the past 12 months: No Aproximately how many cigarettes per day: 0 If you are a former smoker, when did you quit?: 30 years - Social History Usual Living Arrangement: Assisted Living (has 24 h aide) ADL: Support Services History of Recent Travel: No Home Medications - Allergies Allergies/Adverse Reactions: Allergies Allergy/AdvReac Type Severity Reaction Status Date / Time No Known Allergies Allergy Verified 08/23/18 12:52 - Home Medications Home Medications: Ambulatory Orders Allopurinol [Zyloprim -] 100 mg PO DAILY 08/23/15 Metoprolol Tartrate 25 mg PO BID 08/23/15 Pantoprazole Sodium [Protonix] 40 mg PO DAILY 08/23/15 Simvastatin [Zocor -] 20 mg PO HS 08/23/15 Calcium Acetate 667 mg PO TID 12/21/15 Folic Acid/Vit B Complex and C [Dialyvite 800 Tablet] 0.8 mg PO DAILY 12/21/15 Albuterol 2.5/Ipratropium 0.5 [Duoneb -] 1 amp NEB Q4HWA PRN 03/18/17 Ursodiol [Actigal -] 300 mg PO BID #60 capsule 03/22/17 Vital Signs: Vital Signs Temperature 98.5 F 08/25/18 10:10 Pulse Rate 92 H 08/25/18 13:41 Respiratory Rate 18 08/25/18 13:41 Blood Pressure 106/78 08/25/18 13:41 O2 Sat by Pulse Oximetry (%) 99 08/24/18 21:00 - Other Data Labs, Other Data: CBC, BMP 08/23/18 14:50 08/23/18 15:00 Assessment/Plan EKG: sinus tachycardia CXR: congestive changes tele: 73M h/o HTN, HLD, DM, anemia, ESRD on HD, CVA with R weakness and aphasia, PE s/ p IVC filter, GI bleed, recent L BKA at [facility] 3 weeks ago c/b NSTEMI p/w cough. Elevated troponin CAD, h/o NSTEMI HTN HLD ESRD on HD
[2018-08-25 15:44] VITALS: BP 109/68; PULSE 96; TEMP 97.7
[2018-08-25] MEDS ORDERED: METOPROLOL TARTRATE 25 MG TABLET (FP) PO SCH (22:00)
[2018-08-25] MEDS ORDERED: MIDODRINE HCL 5 MG TABLET PO SCH (22:00)
--- NOTE | 2018-11-14 15:04 | EKG ---
Test Reason : Blood Pressure : / mmHG Vent. Rate : 107 BPM Atrial Rate : 107 BPM P-R Int : 128 ms QRS Dur : 092 ms QT Int : 376 ms P-R-T Axes : 053 -05 072 degrees QTc Int : 501 ms SINUS TACHYCARDIA WITH OCCASIONAL PREMATURE VENTRICULAR COMPLEXES POSSIBLE LEFT ATRIAL ENLARGEMENT NONSPECIFIC ST AND T WAVE ABNORMALITY ABNORMAL ECG WHEN COMPARED WITH ECG OF 18-MAR-2017 14:18, PREMATURE VENTRICULAR COMPLEXES ARE NOW PRESENT VENT. RATE HAS INCREASED BY 36 BPM Confirmed by MALIK PIZARRO MD ([id number]) on 11/14/2018 3:04:00 PM Referred By: Confirmed By:MALIK PIZARRO MD
== END 2018-08-25 17:26 | disposition home or self-care (01) ==
LOC: JER 12:41 → JERBED 16:12 → UNDOADMOB 16:25 → J4W 22:12
PROVIDERS: ADMIT Internal Medicine; ATTEND Internal Medicine
PROC: 3E013GC Introduction of Other Therapeutic Substance into Subcutaneous Tissue, Percutaneous Approach (ICD-10-PCS; principal; 2018-08-23)
PROC: 3E0F7GC Introduction of Other Therapeutic Substance into Respiratory Tract, Via Natural or Artificial Opening (ICD-10-PCS; 2018-08-23)
DX: E87.70 Fluid overload, unspecified (principal); E11.22 Type 2 diabetes mellitus with diabetic chronic kidney disease; I12.0 Hypertensive chronic kidney disease with stage 5 chronic kidney disease or end stage renal disease; N18.6 End stage renal disease; Z99.2 Dependence on renal dialysis; E78.5 Hyperlipidemia, unspecified; D64.9 Anemia, unspecified; I69.351 Hemiplegia and hemiparesis following cerebral infarction affecting right dominant side; B18.2 Chronic viral hepatitis C; F32.9 Major depressive disorder, single episode, unspecified; R77.8 Other specified abnormalities of plasma proteins; I73.9 Peripheral vascular disease, unspecified; M10.9 Gout, unspecified; J81.0 Acute pulmonary edema; R51 Headache; Z86.711 Personal history of pulmonary embolism; Z95.828 Presence of other vascular implants and grafts; Z89.512 Acquired absence of left leg below knee; Z89.511 Acquired absence of right leg below knee; Z96.641 Presence of right artificial hip joint; Z79.01 Long term (current) use of anticoagulants; Z79.82 Long term (current) use of aspirin
CPT/HCPCS: 36415; 71045-TC-FY; 80053; 82550; 82803; 82962; 83605; 83735; 83880; 84100; 84484; 85025; 86704; 86706; 86708; 86803; 87040; 87340; 87804; 93005; 93010; 94640; 96372; 99282-25; G0378; J1644

== ENCOUNTER 2018-09-23 21:19 | Inpatient (IN) | payer OTHER ==
--- NOTE | 2018-09-23 21:29 | PDOC ---
History of Present Illness - General Chief Complaint: Nausea/Vomiting Stated Complaint: VOMITING,LOW BLOOD PRESSURE Time Seen by Provider: 09/23/18 21:28 - History of Present Illness Initial Comments: 73yo M with complex PMH presenting after two episodes of vomiting. His home health aide is at the bedside providing collateral history. Patient was in his usual state of health when he had two episodes of nonbloody vomiting today, one at 4pm and another at 8pm. For the second episode, the aide noticed that the patient was sweating and appeared weak and so brought him to the ED. Last bowel movement was today and was a normal formed brown stool without blood. Patient is nonverbal at baseline due to residual sequelae from a CVA, but can nod or shake his head. Patient denies any acute pain. No recent fevers or chills HTN HLD CVA- with right sided weakness and aphasia DM GI bleed one year ago HCV ESRD-- on HD TuTh: LUE fistula (patient was last dialyzed on Saturday 09/22 due to the holiday) Bilateral BKA Depression DVT PE s/p IVC filter Daughter, Francesca, is his health care proxy: [phone] She messaged her health director career to pass along the number for a Dr Doan [phone] Past History - Past Medical History Allergies/Adverse Reactions: Allergies Allergy/AdvReac Type Severity Reaction Status Date / Time No Known Allergies Allergy Verified 09/23/18 21:33 Home Medications: Ambulatory Orders RX: Pantoprazole Sodium [Protonix] 40 mg PO DAILY 08/23/15 RX: Aspirin [ASA -] 325 mg PO DAILY 08/25/18 RX: Clopidogrel Bisulfate [Plavix] 75 mg PO DAILY 08/25/18 RX: Ergocalciferol (Vitamin D2) [Vitamin D2] 50,000 unit PO WEEKLY 08/25/18 Acetaminophen [Tylenol -] 650 mg PO Q4H PRN 09/23/18 Allopurinol [Zyloprim -] 100 mg PO DAILY 09/23/18 Carvedilol [Coreg -] 3.125 mg PO BID 09/23/18 Docusate Sodium [Colace] 100 mg PO DAILY 09/23/18 Epoetin Stuart [Epogen] 3,000 unit IJ TUTHSA 09/23/18 Mirtazapine [Remeron -] 7.5 mg PO HS 09/23/18 Nifedipine [Procardia Xl] 30 mg PO DAILY 09/23/18 Oxycodone HCl/Acetaminophen [Percocet 5-325 mg Tablet] 1 tab PO Q4H PRN RX: Atorvastatin Ca [Lipitor] 80 mg PO DAILY 09/23/18 RX: Metoprolol Tartrate 25 mg PO BID 09/23/18 Anemia: No Asthma: No Cancer: No Cardiac Disorders: No CVA: Yes COPD: No CHF: No Dementia: No Diabetes: Yes Dialysis: Yes (tu, th) GI Disorders: Yes (G I BLeed 1 year ago) Disorders: No HTN: Yes Hypercholesterolemia: Yes Liver Disease: Yes (hep C) Psychiatric Problems: (depression) Seizures: No Thyroid Disease: No - Surgical History Abdominal Surgery: No Appendectomy: No Cardiac Surgery: Yes (leg bypass) Cholecystectomy: No Lung Surgery: No Neurologic Surgery: Yes (cva) Orthopedic Surgery: Yes (RT BKA,RT HIP REPLACEMENT) - Immunization History Td Vaccination: Yes TDAP Vaccination: Yes Immunization Up to Date: Yes - Suicide/Smoking/Psychosocial Hx Smoking Status: Yes Smoking History: Never smoked Have you smoked in the past 12 months: No Number of Cigarettes Smoked Daily: 0 If you are a former smoker, when did you quit?: 30 years Hx Alcohol Use: No Drug/Substance Use Hx: No Substance Use Type: None Hx Substance Use Treatment: No Review of Systems - Review of Systems Able to Perform ROS?: No (patient is nonverbal) *Physical Exam - Physical Exam Comments: General: Awake, alert, in no acute distress Head: No signs of trauma Eyes: EOMI, sclera anicteric ENT: Dry mucus membranes Neck: Normal ROM, supple Lungs: Lungs clear, Normal breath sounds Cardio: Regular rhythm, S1 and S2 present Abdomen: Soft, nontender. No guarding, no rebound, no masses Extremities: bilateral BKA SKIN: Warm, Dry, normal turgor, grade 1 sacral pressure ulcer Neurologic: nonverbal, able to follow commands ED Treatment Course - LABORATORY CBC & Chemistry Diagram: 09/24/18 05:25 09/24/18 05:25 Medical Decision Making - Medical Decision Making 73yo M with complex PMH presenting after two episodes of vomiting. -Found to be febrile and hypotensive: septic workup ordered -Covering with 1g Vanc and 1g Meropenem -1g Ofirmev, 250cc NS -Likely admission WBC=17 Lactate 4.2 CXR without acute pathology (my impression) 09/23/18 22:48 Right brachial artery access obtained via ultrasound guide in order to administer 250cc fluid bolus Patient signed out to Dr. Johnson 09/24/18 00:10 *DC/Admit/Observation/Transfer Diagnosis at time of Disposition: Sepsis Qualifiers: Sepsis type: sepsis due to unspecified organism Qualified Code(s): A41.9 - Sepsis, unspecified organism - Discharge Dispostion Condition at time of disposition: Guarded - Referrals - Patient Instructions - Post Discharge Activity
[2018-09-23 21:46] VITALS: BMI 21.9
[2018-09-23] MEDS ORDERED: ACETAMINOPHEN 1000 MG/100 ML VIAL (NON FORMULARY) IVPB ONE (22:02)
[2018-09-23] MEDS ORDERED: VANCOMYCIN 1,000 MG in DEXTROSE 5%-WATER - 250 ML IVPB ONE (22:06)
[2018-09-23] MEDS ORDERED: MEROPENEM 1 GM in DEXTROSE 5%-WATER 100 ML IVPB ONE (22:06)
[2018-09-23] MEDS ORDERED: ACETAMINOPHEN INJECTION 100 ML IVPB ONE (22:12)
[2018-09-23] MEDS ORDERED: VANCOMYCIN 1 GRAM (PRE-DOCKED) 1,000 MG/250 ML BAG IVPB ONE (22:12)
[2018-09-23] MEDS ORDERED: SODIUM CHLORIDE 250 ML IV STA (22:16)
[2018-09-23 22:20] LABS: EOS % 0.1 % (0-4.5); HEMATOCRIT 34.2 % (35.4-49); HEMOGLOBIN 11.6 GM/dL (11.7-16.9); LYMPH % 1.9 % (8-40); MCH 30.2 pg (25.7-33.7); MCHC 33.9 g/dl (32.0-35.9); MEAN CELL VOLUME 89.1 fl (80-96); MEAN PLT VOLUME 9.4 fl (7.5-11.1); PLATELET COUNT 296 K/MM3 (134-434); RBC 3.83 M/mm3 (4.00-5.60); WHITE BLOOD COUNT 17.1 K/mm3 (4.0-10.0)
[2018-09-23 22:27] LABS: INR 1.09 (0.83-1.09); PROTHROMBIN TIME (PATIENT) 12.9 SEC (9.7-13.0)
[2018-09-23 22:27] LABS: VENOUS PC02 38.8 mmHg (38-52); VENOUS PH 7.4 (7.32-7.42); VENOUS PO2 26.7 mmHg (28-48)
[2018-09-23 22:30] LABS: ACTIVATED PTT 27.8 SECONDS (25.2-36.5)
--- NOTE | 2018-09-23 22:34 | PDOC ---
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 History limited due to patients medical condition. Patient endorses fever but denies cough or abdominal pain. 09/23/18 23:00 - Physicial Exam PE: GENERAL: Febrile. Alert and oriented. Can nod and answer Yes/No questions. In no acute distress HEAD: No signs of trauma EYES: PERRLA, EOMI, sclera anicteric, conjunctiva clear ENT: Auricles normal inspection, hearing grossly normal, nares patent. Moist mucosa. NECK: Supple, no lymphadenopathy, JVD, or masses LUNGS: Breath sounds equal, clear to auscultation bilaterally. No wheezes, and no crackles HEART: Regular rate and rhythm, normal S1 and S2, no murmurs, rubs or gallops ABDOMEN: Soft, nontender. No guarding, no rebound. No masses EXTREMITIES: B/l BKA. No edema. No clubbing or cyanosis. No cords, erythema, or tenderness NEUROLOGICAL: Aphasic. SKIN: Warm, Dry, normal turgor, no rashes or lesions noted. <Susan Stringer - Last Filed: 09/23/18 23:00> - Resident Resident Name: Mamta Sparks - ED Attending Attestation I have performed the following: I have examined & evaluated the patient, The case was reviewed & discussed with the resident, I agree w/resident's findings & plan, Exceptions are as noted - Physicial Exam PE: 09/24/18 01:02 BACK: no pressure ulcers or evidence of infection. - Medical Decision Making 09/23/18 22:33 A portion of this note was documented by scribe services under my direction. I have reviewed the details of the note, within reason, and agree with the documentation with the following case summary and management plan written by me. Patient treated in the ED. Nursing notes are reviewed and incorporated into the medical decision-making. Vital signs reviewed. Peripheral IV access obtained by the nurse, laboratory studies are drawn and sent, reviewed and interpreted by myself. Vital Signs Temp Pulse Resp BP Pulse Ox 102.8 F H 64 20 92/62 09/23/18 21:19 09/23/18 21:19 09/23/18 21:19 09/23/18 21:19 73-year-old male with history of hypertension, diabetes, hyperlipidemia, anemia , his usual disease on dialysis on Saturday and , last dialysis yesterday, stroke with right-sided residual deficit and aphasia, pulmonary embolism status post IVC filter, GI bleed, right BKA, right hip replacement, left AKA brought in by home for fever up to 102 today. The patient can nod answer yes or no but cannot speak. The patient denies any pain but does endorse having fevers. Denies having cough or abdominal pain. Patient noted a fever was brought in today. Patient noted have a blood pressure that was 90 systolic and mildly tachycardic 108. Given the symptoms, sepsis protocol was initiated empiric antibiotics of vancomycin and meropenem was ordered. We'll need to investigate source for potential bacteremia, urinary tract infection, pneumonia , other etiologies. We'll give patient gentle fluid boluses given end-stage renal disease and admit the patient to the hospital. HCP is aware patient is here in the ER. 09/24/18 00:46 CBC, BMP 09/23/18 22:05 09/23/18 22:05 CMP Sodium 139 mmol/L (136-145) 09/23/18 22:05 Potassium 3.4 mmol/L (3.5-5.1) L 09/23/18 22:05 Chloride 102 mmol/L (98-107) 09/23/18 22:05 Carbon Dioxide 25 mmol/L (21-32) 09/23/18 22:05 Anion Gap 12 MMOL/L (8-16) 09/23/18 22:05 BUN 15 mg/dL (7-18) 09/23/18 22:05 Creatinine 4.2 mg/dL (0.55-1.3) H 09/23/18 22:05 Creat Clearance w eGFR 13.98 (>60) 09/23/18 22:05 Random Glucose 152 mg/dL (74-106) H 09/23/18 22:05 Lactic Acid 4.2 mmol/L (0.4-2.0) H* 09/23/18 22:05 Calcium 7.8 mg/dL (8.5-10.1) L 09/23/18 22:05 Total Bilirubin 0.4 mg/dL (0.2-1) 09/23/18 22:05 AST 20 U/L (15-37) 09/23/18 22:05 ALT 12 U/L (13-61) L 09/23/18 22:05 Alkaline Phosphatase 125 U/L (45-117) H 09/23/18 22:05 Troponin I 0.03 ng/ml (0.00-0.05) 09/23/18 22:05 Total Protein 6.8 g/dl (6.4-8.2) 09/23/18 22:05 Albumin 3.1 g/dl (3.4-5.0) L 09/23/18 22:05 The patient is a white count 17.1 and elevated bands of 12%. As well as a lactic acid 4.2 concerning for sepsis. Patient was given empiric antibiotic, vancomycin and meropenem. Patient's blood pressure continues to remain somewhat low with systolics between 80s to 90s. Will trial IV fluids. If the patient is not fully responsive, will touch base with the patient's healthcare proxy regards to central line placement. Case is discussed with the intensive care unit team who accepts the patient to the ICU. Case discussed with the hospitalist team who admits the patient. Case discussed in detail with admitting physician including history, physical exam and ancillary studies. Admitting physician has assumed care for the patient, will follow all pending diagnostics and will complete the evaluation and treatment. 09/24/18 01:02 After 250cc, pressure is 95/50. <Guy Johnson - Last Filed: 09/24/18 01:02> *DC/Admit/Observation/Transfer <Susan Stringer - Last Filed: 09/23/18 23:00> - Discharge Dispostion Decision to Admit order: Yes <Guy Johnson - Last Filed: 09/24/18 01:02> Diagnosis at time of Disposition: Sepsis Qualifiers: Sepsis type: sepsis due to unspecified organism Qualified Code(s): A41.9 - Sepsis, unspecified organism - Discharge Dispostion Condition at time of disposition: Guarded Heart Score/ECG Review #1 ECG reviewed & interpreted by me at: 21:35 09/24/18 00:49 NSR 110, occasional PVCs, nonspecific T wave findings, TWI V4-V6, no std/marilee, QTC 473 msec <Guy Johnson - Last Filed: 09/24/18 01:02>
[2018-09-23 22:45] LABS: ALBUMIN 3.1 g/dl (3.4-5.0); ALK PHOS 125 U/L (45-117); ANION GAP 12 MMOL/L (8-16); BILIRUBIN,TOTAL 0.4 mg/dL (0.2-1); BLOOD UREA NITROGEN 15 mg/dL (7-18); CALCIUM 7.8 mg/dL (8.5-10.1); CHLORIDE 102 mmol/L (98-107); CO2 25 mmol/L (21-32); CREATININE 4.2 mg/dL (0.55-1.3); GLUCOSE,RANDOM 152 mg/dL (74-106); POTASSIUM 3.4 mmol/L (3.5-5.1); SGOT/AST 20 U/L (15-37); SGPT/ALT 12 U/L (13-61); SODIUM 139 mmol/L (136-145); TOT PROT 6.8 g/dl (6.4-8.2)
[2018-09-23 22:57] LABS: PLATELET ESTIMATE ADEQUATE
--- NOTE | 2018-09-24 00:27 | CONSULT ---
Consult Consult Specialty:: Pulm/CCM Referred by:: Dr. 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 History is limited because patient is aphasic at baseline. Per aid at bedside, he called the ambulance after the second episode of vomiting and found the patient to be diaphoretic, weak and coughing. He was previously admitted at the end of July to the hospital for cough initially and found to be fluid overloaded and received urgent dialysis subsequently. In the ED, pt's evertone at 102F and underwent sepsis workup. 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, Other Cardio/Vascular: Yes: HTN, Hyperlipdemia, Other (s/p DVT/PE, s/p IVC filter, on coumadin) Gastrointestinal: Yes: GI Bleed ((occult-normal EGD and colon 09/24/14)) Hepatobiliary: Yes: Hepatitis C (Ab (+) in February,) Renal/: Yes: Renal Failure, Hemodialysis (2x/week T,R) - Past Surgical History Past Surgical History: Yes: Amputation (Rt AKA, traumatic), AV Fistula/Graft - Alcohol/Substance Use Hx Alcohol Use: No - Smoking History Smoking history: Never smoked Have you smoked in the past 12 months: No Aproximately how many cigarettes per day: 0 If you are a former smoker, when did you quit?: 30 years - Social History Usual Living Arrangement: Assisted Living (has 24 h aide) ADL: Support Services History of Recent Travel: No Home Medications - Allergies Allergies/Adverse Reactions: Allergies Allergy/AdvReac Type Severity Reaction Status Date / Time No Known Allergies Allergy Verified 09/23/18 21:33 - Home Medications Home Medications: Ambulatory Orders Pantoprazole Sodium [Protonix] 40 mg PO DAILY 08/23/15 Aspirin [ASA -] 325 mg PO DAILY 08/25/18 Clopidogrel Bisulfate [Plavix] 75 mg PO DAILY 08/25/18 Ergocalciferol (Vitamin D2) [Vitamin D2] 50,000 unit PO WEEKLY 08/25/18 Acetaminophen [Tylenol -] 650 mg PO Q4H PRN 09/23/18 Allopurinol [Zyloprim -] 100 mg PO DAILY 09/23/18 Atorvastatin Ca [Lipitor] 80 mg PO DAILY 09/23/18 Carvedilol [Coreg -] 3.125 mg PO BID 09/23/18 Docusate Sodium [Colace] 100 mg PO DAILY 09/23/18 Epoetin Stuart [Epogen] 3,000 unit IJ TUTHSA 09/23/18 Metoprolol Tartrate 25 mg PO BID 09/23/18 Mirtazapine [Remeron -] 7.5 mg PO HS 09/23/18 Nifedipine [Procardia Xl] 30 mg PO DAILY 09/23/18 Oxycodone HCl/Acetaminophen [Percocet 5-325 mg Tablet] 1 tab PO Q4H PRN Review of Systems Unable to obtain ROS, reason: aphasic at baseline Physical Exam Vital Signs: Vital Signs Temperature 102.8 F H 09/23/18 23:02 Pulse Rate 64 09/23/18 21:19 Respiratory Rate 20 09/23/18 21:19 Blood Pressure 92/62 09/23/18 21:19 O2 Sat by Pulse Oximetry (%) 95 09/23/18 23:02 Constitutional: Yes: No Distress, Cachectic Eyes: Yes: Conjunctiva Clear, PERRL HENT: Yes: Atraumatic, Normocephalic Cardiovascular: Yes: Regular Rate and Rhythm, S1, S2 Respiratory: Yes: Cough, Rales, Rhonchi Gastrointestinal: Yes: Normal Bowel Sounds, Soft. 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 ID 1. severe sepsis - likely 2/2 PNA * CT chest when vitals stabilize - Maintain MAP > 65 for adequate tissue perfusion - Keep SpO2 > 92% - Small volume fluid challenge for labile BP * avoid large volumes due to ESRD on HD * if unresponsive to fluid, pt is in shock and will need central line - received meropenem and vanco in the ED * will cont. broad spectrum coverage pending ID consult and cultures - trend lactate Renal 1. ESRD on HD - functional fistula with palpable and audible thrill - nephro consult Neuro 1. CVA w/ R residual weakness and aphasia - cont. asa and plavix Dispo: patient will need ICU level of care for severe sepsis and possible septic shock with pressor support Code: full Greg Geller MD Visit type - Emergency Visit Emergency Visit: Yes Care time: The patient presented to the Emergency Department on the above date and was hospitalized for further evaluation of their emergent condition. - New Patient This patient is new to me today: Yes Date on this admission: 09/24/18 - Critical Care Critical Care patient: Yes Total Critical Care Time (in minutes): 35 Critical Care Statement: The care of this patient involved high complexity decision making to prevent further life threatening deterioration of the patient 's condition and/or to evaluate & treat vital organ system(s) failure or risk of failure.
--- NOTE | 2018-09-24 00:34 | HP ---
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 CUTTING MACHINE FIXER said that he noticed intermittent coughing. In ER, patient with high fever of 102.8F and borderline low BP with lactic acidosis. Patient is otherwise nonverbal and not a reliable historian. 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, PE , GI bleed, hep C, depression, PAST SURGICAL HISTORY:R BKA, R hip replacement, L AKA Social History: Smoking: no Alcohol: no Drugs: no Family History: no Allergies No Known Allergies Allergy (Verified 09/23/18 21:33) HOME MEDICATIONS: Home Medications Medication Instructions Recorded Pantoprazole Sodium [Protonix] 40 mg PO DAILY 08/23/15 Aspirin [ASA -] 325 mg PO DAILY 08/25/18 Clopidogrel Bisulfate [Plavix] 75 mg PO DAILY 08/25/18 Ergocalciferol (Vitamin D2) 50,000 unit PO WEEKLY 08/25/18 [Vitamin D2] Acetaminophen [Tylenol -] 650 mg PO Q4H PRN 09/23/18 Allopurinol [Zyloprim -] 100 mg PO DAILY 09/23/18 Atorvastatin Ca [Lipitor] 80 mg PO DAILY 09/23/18 Carvedilol [Coreg -] 3.125 mg PO BID 09/23/18 Docusate Sodium [Colace] 100 mg PO DAILY 09/23/18 Epoetin Stuart [Epogen] 3,000 unit IJ TUTHSA 09/23/18 Metoprolol Tartrate 25 mg PO BID 09/23/18 Mirtazapine [Remeron -] 7.5 mg PO HS 09/23/18 Nifedipine [Procardia Xl] 30 mg PO DAILY 09/23/18 Oxycodone HCl/Acetaminophen 1 tab PO Q4H PRN 09/23/18 [Percocet 5-325 mg Tablet] REVIEW OF SYSTEMS- unable to obtain PHYSICAL EXAMINATION Vital Signs - 24 hr 09/23/18 09/23/18 21:19 23:02 Temperature 102.8 F H 102.8 F H Pulse Rate 64 Respiratory 20 Rate Blood Pressure 92/62 O2 Sat by Pulse 95 Oximetry (%) GENERAL: Awake, alert, and fully oriented, in no acute distress, nonverbal, thin , frail HEAD: Normal with no signs of trauma. EYES: Pupils equal, round and reactive to light, extraocular movements intact, sclera anicteric, conjunctiva clear. No lid lag. EARS, NOSE, THROAT: Ears normal, nares patent, oropharynx clear without exudates. Moist mucous membranes. NECK: Normal range of motion, supple without lymphadenopathy, JVD, or masses. LUNGS: Breath sounds equal, clear to auscultation bilaterally. coarse breath sounds on anterior auscultation b/l HEART: Regular rate and rhythm, normal S1 and S2 without murmur, rub or gallop. ABDOMEN: Soft, nontender, not distended, normoactive bowel sounds, no guarding, no rebound, no masses. No hepatomegaly or splenomegaly. MUSCULOSKELETAL: Normal range of motion at all joints. No bony deformities or tenderness. No CVA tenderness. UPPER EXTREMITIES: 2+ pulses, warm, well-perfused. No cyanosis. No clubbing. No peripheral edema. LOWER EXTREMITIES: b/l AKA NEUROLOGICAL: Cranial nerves II-XII intact. Normal speech. PSYCHIATRIC: Cooperative. Good eye contact. Appropriate mood and affect. SKIN: Warm, dry, normal turgor, no rashes or lesions noted, no decubitus ulcers noted Laboratory Results - last 24 hr 09/23/18 09/23/18 09/23/18 22:05 22:05 22:05 WBC 17.1 H RBC 3.83 L Hgb 11.6 L Hct 34.2 L MCV 89.1 MCH 30.2 MCHC 33.9 RDW 16.0 H Plt Count 296 D MPV 9.4 Absolute Neuts (auto) 16.2 H Total Counted 100 Neutrophils % 95.0 H Neutrophils % (Manual) 83.0 H Band Neutrophils % 12.0 Lymphocytes % 1.9 L D Lymphocytes % (Manual) 1.0 L Monocytes % 2.0 L Monocytes % (Manual) 4 Eosinophils % 0.1 D Basophils % 1.0 Nucleated RBC % 0 Platelet Estimate Adequate Platelet Comment No clumping noted PT with INR 12.90 INR 1.09 PTT (Actin FS) 27.8 VBG pH POC VBG pCO2 POC VBG pO2 Mixed VBG HCO3 Sodium 139 Potassium 3.4 L Chloride 102 Carbon Dioxide 25 Anion Gap 12 BUN 15 Creatinine 4.2 H Creat Clearance w eGFR 13.98 Random Glucose 152 H Lactic Acid Calcium 7.8 L Total Bilirubin 0.4 AST 20 ALT 12 L Alkaline Phosphatase 125 H Troponin I 0.03 Total Protein 6.8 Albumin 3.1 L 09/23/18 09/23/18 22:05 22:20 WBC RBC Hgb Hct MCV MCH MCHC RDW Plt Count MPV Absolute Neuts (auto) Total Counted Neutrophils % Neutrophils % (Manual) Band Neutrophils % Lymphocytes % Lymphocytes % (Manual) Monocytes % Monocytes % (Manual) Eosinophils % Basophils % Nucleated RBC % Platelet Estimate Platelet Comment PT with INR INR PTT (Actin FS) VBG pH 7.40 POC VBG pCO2 38.8 POC VBG pO2 26.7 L Mixed VBG HCO3 24.9 Sodium Potassium Chloride Carbon Dioxide Anion Gap BUN Creatinine Creat Clearance w eGFR Random Glucose Lactic Acid 4.2 H* Calcium Total Bilirubin AST ALT Alkaline Phosphatase Troponin I Total Protein Albumin ekg reviewed cxr reviewed ASSESSMENT/PLAN: #73yo man with severe sepsis with high lactic acidosis, borderline BP. Uncertain source of infection but may be urinary, from lung source. Less likely skin source as it appears intact. -admit to ICU -gentle IV fluid hydration -blood cultures x2 -UA, urine culture -sputum culture -meropenem -vancomycin -repeat lactate -maintain MAP >65 -ID consult for appropriate antibiotics -hold antihypertensive meds at this time -tylenol po prn for fevers #ESRD- renal consult for reinstitution of HD #DM -novolog sliding scale -diabetic diet -ASA -statin dvt ppx -heparin sc Visit type - Emergency Visit Emergency Visit: Yes Care time: The patient presented to the Emergency Department on the above date and was hospitalized for further evaluation of their emergent condition. - New Patient This patient is new to me today: Yes Date on this admission: 09/24/18 - Critical Care Critical Care patient: Yes Total Critical Care Time (in minutes): 35 Critical Care Statement: The care of this patient involved high complexity decision making to prevent further life threatening deterioration of the patient 's condition and/or to evaluate & treat vital organ system(s) failure or risk of failure.
[2018-09-24 04:18] LABS: URINE APPEARANCE CLEAR; URINE BILIRUBIN NEGATIVE (<2.0 mg/dL); URINE COLOR YELLOW; URINE GLUCOSE (UA) 1+ (NEGATIVE); URINE KETONE NEGATIVE (NEGATIVE); URINE LEUK ESTERASE NEGATIVE (NEGATIVE); URINE NITRITE NEGATIVE (NEGATIVE); URINE PROTEIN 2+ (NEGATIVE); URINE UROBILINOGEN NEGATIVE mg/dL (0.2-1.0)
[2018-09-24 04:29] LABS: URINE BACTERIA FEW /hpf (NONE SEEN); URINE MUCUS RARE
[2018-09-24 05:53] LABS: BASO % 0.5 % (0-2.0); HEMATOCRIT 30.3 % (35.4-49); HEMOGLOBIN 9.5 GM/dL (11.7-16.9); LYMPH % 2.9 % (8-40); MCH 28.2 pg (25.7-33.7); MCHC 31.4 g/dl (32.0-35.9); MEAN CELL VOLUME 89.9 fl (80-96); MEAN PLT VOLUME 9.1 fl (7.5-11.1); MONO % 4.4 % (3.8-10.2); NEUT % 92.2 % (42.8-82.8); PLATELET COUNT 226 K/MM3 (134-434); RBC 3.37 M/mm3 (4.00-5.60); RDW 16.1 % (11.9-15.9); WHITE BLOOD COUNT 24.2 K/mm3 (4.0-10.0)
[2018-09-24 06:25] LABS: ANION GAP 13 MMOL/L (8-16); BLOOD UREA NITROGEN 15 mg/dL (7-18); CALCIUM 7.3 mg/dL (8.5-10.1); CHLORIDE 103 mmol/L (98-107); CO2 24 mmol/L (21-32); CREATININE 4.2 mg/dL (0.55-1.3); GLUCOSE,RANDOM 91 mg/dL (74-106); SODIUM 140 mmol/L (136-145)
[2018-09-24] MEDS ORDERED: MEROPENEM 1 GM in DEXTROSE 5%-WATER 100 ML IVPB ONE (07:00)
[2018-09-24] MEDS ORDERED: VANCOMYCIN 1 GRAM (PRE-DOCKED) 1,000 MG/250 ML BAG IVPB ONE ×3 (08:24→22:30)
--- NOTE | 2018-09-24 08:47 | PN ---
Progress Note (short form) - Note Progress Note: Patient seen and examined at bedside in the ER Caregiver at bedside who states patient's BP is usually 100-100/50-70. He also states patient looks to be at baseline received ABx IVF and lactate has cleared Vital Signs Temperature 98.4 F 09/24/18 08:00 Pulse Rate 84 09/24/18 08:00 Respiratory Rate 12 09/24/18 08:00 Blood Pressure 105/6 09/24/18 08:00 O2 Sat by Pulse Oximetry (%) 100 09/24/18 08:00 PE: NAD lying in bed. Responds to simple questions bibasilar crackles not in respiratory distress RRR S1 S2 soft non tender non distended bilateral lower extremity stumps clean dry and intact 09/23/18 09/23/18 09/23/18 22:05 22:05 22:05 WBC 17.1 H RBC 3.83 L Hgb 11.6 L Hct 34.2 L MCV 89.1 MCHC 33.9 RDW 16.0 H Plt Count 296 D Neutrophils % 95.0 H Lymphocytes % 1.9 L D Monocytes % 2.0 L Eosinophils % 0.1 D Basophils % 1.0 INR 1.09 Sodium 139 Potassium 3.4 L Chloride 102 Carbon Dioxide 25 Anion Gap 12 BUN 15 Creatinine 4.2 H 09/24/18 09/24/18 05:25 05:25 WBC 24.2 H RBC 3.37 L Hgb 9.5 L Hct 30.3 L MCV 89.9 MCHC 31.4 L RDW 16.1 H Plt Count 226 D Neutrophils % 92.2 H Lymphocytes % 2.9 L D Monocytes % 4.4 D Eosinophils % 0.0 D Basophils % 0.5 INR Sodium 140 Potassium 3.0 L Chloride 103 Carbon Dioxide 24 Anion Gap 13 BUN 15 Creatinine 4.2 H 09/24/18 03:40 Legionella Antigen - Pending Urine - Urine - Catheterized Streptococcus pneumoniae Antigen (M - Pending 09/24/18 03:40 Urine Culture - Pending Urine - Urine Clean Catch 09/23/18 22:05 Blood Culture - Pending Blood - Peripheral Venous 09/23/18 22:05 Blood Culture - Pending Blood - Peripheral Venous 73M with multiple medical problems presents to the hospital with severe sepsis secondary to pneumonia. 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 Patient initially accepted to ICU but due to no beds was being managed in ER. Patient can be downgraded to med/surg as patient is now hemodynamically stable with fluid resuscitation. Lactic acid has cleared can continue light IVF for hydration continue ABx for pneumonia f/u Cultures hemodyalysis per nephrology ID consult Case discussed with Dr. Christian
[2018-09-24] MEDS ORDERED: ALLOPURINOL 100 MG TABLET (FP) PO SCH (10:00)
[2018-09-24] MEDS ORDERED: MUPIROCIN 2% TOPICAL OINTMENT FOR DECOLONIZATION NS SCH (10:00)
[2018-09-24] MEDS ORDERED: CLOPIDOGREL BISULFATE 75 MG TABLET (FP) PO SCH (10:00)
[2018-09-24] MEDS ORDERED: PANTOPRAZOLE 40 MG TABLET (FP) PO SCH (10:00)
[2018-09-24] MEDS ORDERED: DOCUSATE SODIUM 100 MG CAPSULE (FP) PO SCH (10:00)
[2018-09-24] MEDS ORDERED: ASPIRIN 325 MG TABLET PO SCH (10:00)
[2018-09-24 10:36] LABS: ACANTHOCYTES 1+; ANISOCYTOSIS 1+; MACROCYTOSIS 1+; OVALOCYTE 1+; PLATELET ESTIMATE NORMAL
[2018-09-24] MEDS ORDERED: SODIUM CHLORIDE 250 ML IV PRN ×2 (10:45→15:46)
--- NOTE | 2018-09-24 10:45 | CONSULT ---
Consult - text type - Consultation Consultation Note: Renal Consult for ESRD on HD This is a 73 year old with hx of ESRD on HD, HLD, DM, CVA, Hepatitis C, Depression who presented from home with N/V and Fever and found to have Sepsis syndrome with lactic acidosis. Last dialysis was on Saturday. Pt is non-verbal and not able to provide history. Aid is at the bedside and reports no further vomiting. Fever has improved. BP improved s/p IVF. PMhx: as above Allergies: NKDA Family Hx: NC Social Hx: Unable to obtain ROS: Unable to obtain because of clinical status Vital Signs Temperature 98.1 F 09/24/18 03:01 Pulse Rate 79 09/24/18 07:35 Respiratory Rate 17 09/24/18 07:35 Blood Pressure 100/60 09/24/18 07:35 O2 Sat by Pulse Oximetry (%) 98 09/24/18 07:35 Intake & Output 09/21/18 09/22/18 09/23/18 09/24/18 23:59 23:59 23:59 23:59 Weight 63.503 kg NAD awake and alert neck supple, no JVD RRR, no M/R CTA, no rales b/l LE AKA, no sacral edema CBC, BMP 09/24/18 05:25 09/24/18 05:25 Current Medications Allopurinol (Zyloprim -) 100 mg PO DAILY [facility] Last Admin: 09/24/18 10:32 Dose: 100 mg Aspirin (Asa -) 325 mg PO DAILY [facility] Last Admin: 09/24/18 10:31 Dose: 325 mg Atorvastatin Calcium (Lipitor -) 80 mg PO HS [facility] Chlorhexidine Gluconate (Hibiclens For Decolonization -) 1 applic TP HS [facility] Clopidogrel Bisulfate (Plavix -) 75 mg PO DAILY [facility] Last Admin: 09/24/18 10:31 Dose: 75 mg Docusate Sodium (Colace -) 100 mg PO DAILY [facility] Last Admin: 09/24/18 10:31 Dose: 100 mg Mirtazapine (Remeron -) 7.5 mg PO HS [facility] Mupirocin (Bactroban Ointment (For Decolonization) -) 1 applic NS BID [facility] Stop: 09/29/18 09:59 Pantoprazole Sodium (Protonix -) 40 mg PO DAILY [facility] Last Admin: 09/24/18 10:32 Dose: 40 mg Vancomycin HCl (Vancomycin (Pre-Docked)) 1,000 mg IVPB ONCE ONE; Protocol Stop: 09/24/18 22:31 73 year old with hx of ESRD on HD, HLD, DM, CVA, Hepatitis C, Depression who presented from home with N/V and Fever and found to have Sepsis syndrome with lactic acidosis. #Sepsis Syndrome #Lactic acidosis #ESRD on HD #Hypokalemia #Anemia #Renal Osteodystrophy Continue management of sepsis with IV Abx and IVF as needed Goal MAP > 65 Source of sepsis not clear consider imaging studies of Abd no acute indication for [employer] today Next dialysis planned for tomorrow if hemodynamically stable will give Epogen with HD Trend serum Phos and Ca daily Thank you Lauri Fulton DO
--- NOTE | 2018-09-24 12:35 | PN ---
Teaching Attending Note Name of Resident: Tyrone Hagen ATTENDING PHYSICIAN STATEMENT I saw and evaluated the patient. I reviewed the resident's note and discussed the case with the resident. I agree with the resident's findings and plan as documented. SUBJECTIVE: Pt seen and examined in the ICU. Blood pressure improved with IVF resuscitation. Lactate trending down. OBJECTIVE: Vital Signs Period Temp Pulse Resp BP Sys/Schneider Pulse Ox Last 24 Hr 98.1 F-102.8 F 64-88 16-20 87-113/47-75 95-99 Intake & Output 09/21/18 09/22/18 09/23/18 09/24/18 23:59 23:59 23:59 23:59 Weight 63.503 kg Gen: nonverbal Heart: RRR Lung: decreased breath sounds at the bases Abd: soft, nontender Ext: bilateral BKA CBC, BMP 09/24/18 05:25 09/24/18 05:25 Active Medications Allopurinol (Zyloprim -) 100 mg PO DAILY [facility] Last Admin: 09/24/18 10:32 Dose: 100 mg Aspirin (Asa -) 325 mg PO DAILY [facility] Last Admin: 09/24/18 10:31 Dose: 325 mg Atorvastatin Calcium (Lipitor -) 80 mg PO HS [facility] Chlorhexidine Gluconate (Hibiclens For Decolonization -) 1 applic TP HS [facility] Clopidogrel Bisulfate (Plavix -) 75 mg PO DAILY [facility] Last Admin: 09/24/18 10:31 Dose: 75 mg Docusate Sodium (Colace -) 100 mg PO DAILY [facility] Last Admin: 09/24/18 10:31 Dose: 100 mg Epoetin Stuart (Epogen -) 10,000 unit IVPUSH ONCE ONE Stop: 09/25/18 06:01 Sodium Chloride (Normal Saline -) 250 mls @ 3,000 mls/hr IV PRN PRN PRN Reason: Hypotension during Dialysis Stop: 09/25/18 10:45 Vancomycin HCl (Vancomycin 1 Gm Premix -) 200 mls @ 200 mls/hr IVPB ONCE ONE; Protocol Stop: 09/25/18 06:59 Mirtazapine (Remeron -) 7.5 mg PO HS [facility] Mupirocin (Bactroban Ointment (For Decolonization) -) 1 applic NS BID [facility] Stop: 09/29/18 09:59 Pantoprazole Sodium (Protonix -) 40 mg PO DAILY [facility] Last Admin: 09/24/18 10:32 Dose: 40 mg Vancomycin HCl (Vancomycin (Pre-Docked)) 1,000 mg IVPB ONCE ONE; Protocol Stop: 09/24/18 22:31 ASSESSMENT AND PLAN: Pneumonia Severe Sepsis Lactic Acidosis ESRD on HD CAD h/o CVA h/o PE Hep C DM - continue antibiotics - f/u cultures - IVF boluses as needed - HD per renal - O2 to keep SpO2 >90% - aspiration precautions - DVT prophylaxis - clinically improved after IVF resuscitation, can monitor on floor, please call back if any change in clinical condition
[2018-09-24] MEDS ORDERED: POTASSIUM CHLORIDE TABS 20 MEQ TABLET.ER (FP) PO ONE (14:26)
--- NOTE | 2018-09-24 15:41 | PN ---
Progress Note (short form) - Note Progress Note: ID consult dictated imp/reccd 73 yo man s/p cva at age 57, lives alone with 24 hour MANAGER GROUP had amputation of his left leg in June at [facility] admitted here around Thanksgiving in volume overload daughter and MANAGER [employer] report he has been coughing since then yesterday he began vomiting at home, he vomited agin in the evening and EMS was called he had fever, elevated lactic acid, elevated wbc and hypotension c/w sepsis doing better this am he is alert he is aphasic at baseline no fevers received vanco and meropenem in ED no further vomiting he continues to cough violently when he eats suspect aspiration pneumonia continue zosyn swallowing evaluation consider NPO until seen for swallowing evaluation repeat cxray esrd/hd s/p recent amputation of the left leg check random vanco level in am inflluenza screen d/w hospitalist service resident Problem List - Problems (1) Sepsis Code(s): A41.9 - SEPSIS, UNSPECIFIED ORGANISM Qualifiers: Sepsis type: sepsis due to unspecified organism Qualified Code(s): A41.9 - Sepsis, unspecified organism (2) Pneumonia Code(s): J18.9 - PNEUMONIA, UNSPECIFIED ORGANISM Qualifiers: Pneumonia type: due to unspecified organism Laterality: left (3) ESRD (end stage renal disease) on dialysis Code(s): N18.6 - END STAGE RENAL DISEASE; Z99.2 - DEPENDENCE ON RENAL DIALYSIS
[2018-09-24] MEDS ORDERED: DEXTROSE 5%-WATER - 50 ML IVPB ONE (16:34)
[2018-09-24] MEDS ORDERED: PIPERACILLIN/TAZOBACTAM 2.25 GM VIAL IVPB ONE (16:34)
--- NOTE | 2018-09-24 16:51 | EKG ---
Test Reason : Blood Pressure : / mmHG Vent. Rate : 110 BPM Atrial Rate : 110 BPM P-R Int : 174 ms QRS Dur : 096 ms QT Int : 350 ms P-R-T Axes : 046 009 144 degrees QTc Int : 473 ms SINUS TACHYCARDIA WITH OCCASIONAL PREMATURE VENTRICULAR COMPLEXES POSSIBLE LEFT ATRIAL ENLARGEMENT CANNOT RULE OUT INFERIOR INFARCT , AGE UNDETERMINED ABNORMAL ECG WHEN COMPARED WITH ECG OF 23-AUG-2018 15:43, PREMATURE VENTRICULAR COMPLEXES ARE NOW PRESENT T WAVE INVERSION NOW EVIDENT IN ANTEROLATERAL LEADS Confirmed by KEISHA RUIZ MD ([id number]) on 09/24/2018 4:51:16 PM Referred By: Confirmed By:KEISHA RUIZ MD
--- NOTE | 2018-09-24 17:11 | CONS ---
DATE OF CONSULTATION: DATE OF DICTATION: 09/24/2018 INFECTIOUS DISEASE CONSULTATION REQUESTING PHYSICIAN: Hospitalist Service CONSULTING PHYSICIAN: Marbella Valdez M.D. HISTORY OF PRESENT ILLNESS: This is a 73-year-old man with a past medical history of end-stage renal disease. He is on dialysis. He is status post bilateral lower extremity amputations most recently of the left lower extremity. He developed vomiting yesterday at home. He lives alone with 24-hour aides. We spoke with his family again last night. He started vomiting, and they called EMS and brought him to the emergency room. In the ER he was found to have fever as well as lactic acidosis, leukocytosis, and hypotension, and he was found to have sepsis. He was given vancomycin and meropenem, and asked to see him for further recommendations. He is awake and alert. The daughter is present at the bedside. She reports her dad is aphasic, that he is alert but unable to speak since he had a stroke when he was 57. He has a history of diabetes and prior PE with an IVC filter as well many years ago. He is on end-stage renal disease on dialysis Tuesdays and . She reports that in June he was hospitalized at [facility] where he underwent a left AKA. During that admission, he had a non-ST segment TX and required intubation. She reports he was admitted during Thanksgiving time here at [facility] for volume overload, improved somewhat with dialysis but found both the daughter had home health aid states he has been coughing since that time. He currently is being fed by his aid and is coughing violently. PAST MEDICAL HISTORY: Notable for hypertension, hyperlipidemia, diabetes, anemia, end-stage renal disease on dialysis, CVA with aphasia, right-sided weakness. He has had a GI bleed. History of hepatitis C and depression. SURGICAL HISTORY: Notable now for right BKA, left AKA, and the right hip replacement. SOCIAL HISTORY: There is no history of cigarette or substance use. ALLERGIES: He has no known drug allergies. MEDICATIONS AT HOME: Include Protonix, aspirin, Plavix, vitamin D, allopurinol, atorvastatin, Coreg, Colace, Epogen, metoprolol, Remeron, Procardia, and oxycodone. REVIEW OF SYSTEMS: As per HPI. Notable for the cough. He has been aphasic for years. PHYSICAL EXAMINATION: VITAL SIGNS: Current temperature is 98.3, T-max was 102.8, blood pressure is now 103/59. His blood pressure was as low as 87/57 on admission, respiratory rate is 18, he weighs 63 kg, he is saturating 98% on 2 L. HEENT: Normocephalic. Eyes are anicteric. NECK: Supple. LUNGS: Bibasilar crackles and rhonchi. HEART: Regular rate and rhythm. ABDOMEN: Soft, nontender. EXTREMITIES: He has well healed amputation sites. He has no sacral skin breakdown. LABORATORY: White count is 24,000, hemoglobin is 9.5, platelets are 226, INR is 1, BUN and creatinine are 15 and 4.2, lactic acid was 4.2 on admission, is now 1.9. LFTs are notable for an alkaline phosphatase of 125. A urinalysis is negative. Legionella urinary antigens negative. Blood cultures, urine cultures pending. Chest x-ray reveals question of an early infiltrate. IMPRESSION: 1. In summary, this is a debilitated 73-year-old man who I suspect has aspiration pneumonia. I would start him on Zosyn with swallowing evaluation. Continue n.p.o. until he is evaluated for aspiration. Would repeat a chest x-ray. If there is no improvement in his symptoms would consider CAT scan of his abdomen and pelvis. 2. End-stage renal disease on dialysis. 3. Status post recent amputation of the leg. There is no evidence of any infection. I would check an ampicillin and vancomycin level in the a.m. as well. Patient was discussed with the resident on the hospitalist service. Divina [id number]
[2018-09-24] MEDS: PIPERACILLIN/TAZOB 2.25 GM 2.25 GM in DEXTROSE 5%-WATER - 50 ML IVPB SCH (17:16)
--- NOTE | 2018-09-24 17:40 | PN ---
Physical Exam: SUBJECTIVE: Patient seen and examined at bed side this morning. Non verbal at baseline. As per health aid at bed side, he had been feeling unwell since few weeks, had cough producing phlegm x 3 weeks, had 2 episodes of NB vomiting and brought in to the ED for further evaluation. In the afternoon, RN noticed he was coughing even with sips of water and apple sauce, wasn't able to swallow. OBJECTIVE: Vital Signs Period Temp Pulse Resp BP Sys/Schneider Pulse Ox Last 24 Hr 98.1 F-102.8 F 64-88 16-20 87-113/47-75 95-99 GENERAL: Elderly male, lying in bed comfortably, patient is awake, alert, non verbal at baseline, in no acute distress. HEAD: Normal with no signs of trauma. EYES: EOM intact, no pallor or icterus. ENT: Ears normal, moist mucous, membranes. NECK: Supple. LUNGS: B/L coarse breath sounds. No wheezes, no accessory muscle use. HEART: Regular rate and rhythm, S1, S2 with systolic murmur. ABDOMEN: Soft, nontender, no organomegaly, BS + UPPER EXTREMITIES: Right contracted. Left normal. 2+ pulses, warm, well-perfused , no edema. LOWER EXT: B/L BKA NEUROLOGICAL: Left sided facial droop, Right side weakness power 1/5, left UE 5/ 5, Cranial nerves II through XII grossly intact. Able to follow commands. SKIN: Warm, dry, normal turgor, no rashes or lesions noted Laboratory Results - last 24 hr 09/23/18 09/23/18 09/23/18 22:05 22:05 22:05 WBC 17.1 H RBC 3.83 L Hgb 11.6 L Hct 34.2 L MCV 89.1 MCH 30.2 MCHC 33.9 RDW 16.0 H Plt Count 296 D MPV 9.4 Absolute Neuts (auto) 16.2 H Total Counted 100 Neutrophils % 95.0 H Neutrophils % (Manual) 83.0 H Band Neutrophils % 12.0 Lymphocytes % 1.9 L D Lymphocytes % (Manual) 1.0 L Monocytes % 2.0 L Monocytes % (Manual) 4 Eosinophils % 0.1 D Eosinophils % (Manual) Basophils % 1.0 Basophils % (Manual) Myelocytes % (Man) Promyelocytes % (Man) Blast Cells % (Manual) Nucleated RBC % 0 Metamyelocytes Hypochromia Platelet Estimate Adequate Platelet Comment No clumping noted Polychromasia Poikilocytosis Anisocytosis Microcytosis Macrocytosis Ovalocytes Acanthocytes (Spur) PT with INR 12.90 INR 1.09 PTT (Actin FS) 27.8 VBG pH POC VBG pCO2 POC VBG pO2 Mixed VBG HCO3 Sodium 139 Potassium 3.4 L Chloride 102 Carbon Dioxide 25 Anion Gap 12 BUN 15 Creatinine 4.2 H Creat Clearance w eGFR 13.98 Random Glucose 152 H Lactic Acid Calcium 7.8 L Total Bilirubin 0.4 AST 20 ALT 12 L Alkaline Phosphatase 125 H Troponin I 0.03 Total Protein 6.8 Albumin 3.1 L Urine Color Urine Appearance Urine pH Ur Specific [place] Urine Protein Urine Glucose (UA) Urine Ketones Urine Blood Urine Nitrite Urine Bilirubin Urine Urobilinogen Ur Leukocyte Esterase Urine WBC (Auto) Urine RBC (Auto) Urine Bacteria Urine Mucus 09/23/18 09/23/18 09/24/18 22:05 22:20 02:15 WBC RBC Hgb Hct MCV MCH MCHC RDW Plt Count MPV Absolute Neuts (auto) Total Counted Neutrophils % Neutrophils % (Manual) Band Neutrophils % Lymphocytes % Lymphocytes % (Manual) Monocytes % Monocytes % (Manual) Eosinophils % Eosinophils % (Manual) Basophils % Basophils % (Manual) Myelocytes % (Man) Promyelocytes % (Man) Blast Cells % (Manual) Nucleated RBC % Metamyelocytes Hypochromia Platelet Estimate Platelet Comment Polychromasia Poikilocytosis Anisocytosis Microcytosis Macrocytosis Ovalocytes Acanthocytes (Spur) PT with INR INR PTT (Actin FS) VBG pH 7.40 POC VBG pCO2 38.8 POC VBG pO2 26.7 L Mixed VBG HCO3 24.9 Sodium Potassium Chloride Carbon Dioxide Anion Gap BUN Creatinine Creat Clearance w eGFR Random Glucose Lactic Acid 4.2 H* 3.4 H* Calcium Total Bilirubin AST ALT Alkaline Phosphatase Troponin I Total Protein Albumin Urine Color Urine Appearance Urine pH Ur Specific [place] Urine Protein Urine Glucose (UA) Urine Ketones Urine Blood Urine Nitrite Urine Bilirubin Urine Urobilinogen Ur Leukocyte Esterase Urine WBC (Auto) Urine RBC (Auto) Urine Bacteria Urine Mucus 09/24/18 09/24/18 09/24/18 03:40 05:25 05:25 WBC 24.2 H RBC 3.37 L Hgb 9.5 L Hct 30.3 L MCV 89.9 MCH 28.2 MCHC 31.4 L RDW 16.1 H Plt Count 226 D MPV 9.1 Absolute Neuts (auto) 22.3 H Total Counted Neutrophils % 92.2 H Neutrophils % (Manual) 83.0 H Band Neutrophils % 8.0 Lymphocytes % 2.9 L D Lymphocytes % (Manual) 6.0 L D Monocytes % 4.4 D Monocytes % (Manual) 2 L Eosinophils % 0.0 D Eosinophils % (Manual) 1.0 Basophils % 0.5 Basophils % (Manual) 0.0 Myelocytes % (Man) 0 Promyelocytes % (Man) 0 Blast Cells % (Manual) 0 Nucleated RBC % 0 Metamyelocytes 0 Hypochromia 0 Platelet Estimate Normal Platelet Comment Polychromasia 0 Poikilocytosis 1+ Anisocytosis 1+ Microcytosis 1+ Macrocytosis 1+ Ovalocytes 1+ Acanthocytes (Spur) 1+ PT with INR INR PTT (Actin FS) VBG pH POC VBG pCO2 POC VBG pO2 Mixed VBG HCO3 Sodium 140 Potassium 3.0 L Chloride 103 Carbon Dioxide 24 Anion Gap 13 BUN 15 Creatinine 4.2 H Creat Clearance w eGFR 13.98 Random Glucose 91 Lactic Acid Calcium 7.3 L Total Bilirubin AST ALT Alkaline Phosphatase Troponin I Total Protein Albumin Urine Color Yellow Urine Appearance Clear Urine pH 7.0 Ur Specific [place] 1.010 Urine Protein 2+ H Urine Glucose (UA) 1+ H Urine Ketones Negative Urine Blood 1+ H Urine Nitrite Negative Urine Bilirubin Negative Urine Urobilinogen Negative Ur Leukocyte Esterase Negative Urine WBC (Auto) 10 Urine RBC (Auto) 2 Urine Bacteria Few Urine Mucus Rare 09/24/18 07:50 WBC RBC Hgb Hct MCV MCH MCHC RDW Plt Count MPV Absolute Neuts (auto) Total Counted Neutrophils % Neutrophils % (Manual) Band Neutrophils % Lymphocytes % Lymphocytes % (Manual) Monocytes % Monocytes % (Manual) Eosinophils % Eosinophils % (Manual) Basophils % Basophils % (Manual) Myelocytes % (Man) Promyelocytes % (Man) Blast Cells % (Manual) Nucleated RBC % Metamyelocytes Hypochromia Platelet Estimate Platelet Comment Polychromasia Poikilocytosis Anisocytosis Microcytosis Macrocytosis Ovalocytes Acanthocytes (Spur) PT with INR INR PTT (Actin FS) VBG pH POC VBG pCO2 POC VBG pO2 Mixed VBG HCO3 Sodium Potassium Chloride Carbon Dioxide Anion Gap BUN Creatinine Creat Clearance w eGFR Random Glucose Lactic Acid 1.9 Calcium Total Bilirubin AST ALT Alkaline Phosphatase Troponin I Total Protein Albumin Urine Color Urine Appearance Urine pH Ur Specific [place] Urine Protein Urine Glucose (UA) Urine Ketones Urine Blood Urine Nitrite Urine Bilirubin Urine Urobilinogen Ur Leukocyte Esterase Urine WBC (Auto) Urine RBC (Auto) Urine Bacteria Urine Mucus Active Medications Generic Name Dose Route Start Last Admin Trade Name Freq PRN Reason Stop Dose Admin Allopurinol 100 mg 09/25/18 10:00 Zyloprim - PO DAILY [facility] Aspirin 325 mg 09/25/18 10:00 Asa - PO DAILY [facility] Atorvastatin Calcium 80 mg 09/24/18 22:00 Lipitor - PO HS [facility] Chlorhexidine Gluconate 1 applic 09/24/18 22:00 Hibiclens For Decolonization - TP HS [facility] Clopidogrel Bisulfate 75 mg 09/25/18 10:00 Plavix - PO DAILY [facility] Docusate Sodium 100 mg 09/25/18 10:00 Colace - PO DAILY [facility] Epoetin Stuart 10,000 unit 09/25/18 06:00 Epogen - IVPUSH 09/25/18 06:01 ONCE ONE Sodium Chloride 250 mls @ 3,000 mls/hr 09/24/18 15:46 Normal Saline - IV 09/25/18 10:45 PRN PRN Hypotension during Dialysis Vancomycin HCl 1 gm in 200 mls @ 200 mls/hr 09/25/18 06:00 Vancomycin 1 Gm Premix - IVPB 09/25/18 06:59 ONCE ONE Protocol Piperacillin Sod/Tazobactam 50 mls @ 100 mls/hr 09/24/18 18:00 09/24/18 17:16 Sod 2.25 gm/ Dextrose IVPB 100 mls/hr Q8H-IV [facility] Administration Protocol Mirtazapine 7.5 mg 09/24/18 22:00 Remeron - PO HS [facility] Mupirocin 1 applic 09/24/18 22:00 Bactroban Ointment (For Decolonization) - NS 09/29/18 09:59 BID [facility] Pantoprazole Sodium 40 mg 09/25/18 10:00 Protonix - PO DAILY [facility] Vancomycin HCl 1,000 mg 09/24/18 22:30 Vancomycin (Pre-Docked) IVPB 09/24/18 22:31 ONCE ONE Protocol ASSESSMENT/PLAN: Patient is a 73 year old male with PMHx of HTN, HLD, DM, anemia, ESRD on HD (T and ; last dialysis was yesterday), CVA with R sided weakness and aphasia, PE , GI bleed, hep C, depression presented to the ED with Nausea, vomiting, sweating and cough x 3 weeks. # Sepsis likely secondary to aspiration pneumonia On admission, had a Temp of 102.8, tachycardic, leucocytosis of 17, lactic acidosis of 4.2. Was hypotensive. Initially accepted for ICU admission, but downgraded to med-sug once he responded to IV fluids. Admitted in Med-sug Continue IV Zosyn Day 1 Received 2 doses of Vanc in the ED. Vanc level in AM At this time, no other source found, abdominal exam benign. If no other source will do a CT abdomen/Pelvis. Blood cultures/Urine cultures pending Influenza pending # Difficulty in swallowing As per the aid, he has no trouble swallowing. However this afternoon, RN noticed he had difficulty swallowing apple sauce. Will keep him NPO. CXR in AM Swallow eval # B/L BKA Left BKA done recently at [facility]. Daughters to bring paper work. # Gout-not in flare Continue Allopurinol # CVA, CAD Continue Aspirin, Plavix # FEN IV NS @ 42mls/r Electrolytes to be repeated in AM NPO except PO meds. Swallow eval in AM. # Prophylaxis FoR DVT: On heparin 5000 IU sq tid For GI: not indicated # Code Status: DNR Illness, Investigation and plan of care explained to the patient and his daughter Francesca, they verbalized understanding. Case discussed with Dr. Olmos. Problem List - Problems (1) Sepsis Code(s): A41.9 - SEPSIS, UNSPECIFIED ORGANISM Qualifiers: Sepsis type: sepsis due to unspecified organism Qualified Code(s): A41.9 - Sepsis, unspecified organism (2) Anemia in end-stage renal disease Code(s): N18.6 - END STAGE RENAL DISEASE; D63.1 - ANEMIA IN CHRONIC KIDNEY DISEASE (3) CVA (cerebral infarction) Code(s): I63.9 - CEREBRAL INFARCTION, UNSPECIFIED (4) Choking episode Code(s): R09.89 - OTH SYMPTOMS AND SIGNS INVOLVING THE CIRC AND RESP SYSTEMS (5) History of pulmonary embolism Code(s): Z86.711 - PERSONAL HISTORY OF PULMONARY EMBOLISM (6) Hyperlipemia Code(s): E78.5 - HYPERLIPIDEMIA, UNSPECIFIED Qualifiers: Hyperlipidemia type: unspecified hyperlipidemia (7) Hypertension Code(s): I10 - ESSENTIAL (PRIMARY) HYPERTENSION Qualifiers: Hypertension type: other secondary hypertension Qualified Code(s): I15.8 - Other secondary hypertension Visit type - Emergency Visit Emergency Visit: Yes ED Registration Date: 09/24/18 Care time: The patient presented to the Emergency Department on the above date and was hospitalized for further evaluation of their emergent condition. - New Patient This patient is new to me today: Yes Date on this admission: 09/24/18 - Critical Care Critical Care patient: No - Discharge Referral Referred to [facility] No
--- NOTE | 2018-09-24 18:21 | PN ---
Teaching Attending Note Name of Resident: Maylin Sue ATTENDING PHYSICIAN STATEMENT I saw and evaluated the patient. I reviewed the resident's note and discussed the case with the resident. I agree with the resident's findings and plan as documented. SUBJECTIVE: unable to obtain, aphasic OBJECTIVE: Last Vital Signs Temp Pulse Resp BP Pulse Ox 36.8 C 83 18 103/59 L 98 09/24/18 14:38 09/24/18 14:38 09/24/18 14:38 09/24/18 14:38 09/24/18 13:16 Gen: nad Pulm: ronchi bilaterally CV: rrr / 11/05 MICHAELA Abd: +bs, s/nt/nd Ext: bilateral BKA CBC, BMP 09/24/18 05:25 09/24/18 05:25 Problem List - Problems (1) Pneumonia Assessment/Plan: -most likely aspiration pneumonia -appreciate ID assistance -on vancomycin and zosyn -monitor for improvement Code(s): J18.9 - PNEUMONIA, UNSPECIFIED ORGANISM Qualifiers: Pneumonia type: due to unspecified organism Laterality: left (2) Sepsis Assessment/Plan: -improving -continue to treat pneumonia Code(s): A41.9 - SEPSIS, UNSPECIFIED ORGANISM Qualifiers: Sepsis type: sepsis due to unspecified organism Qualified Code(s): A41.9 - Sepsis, unspecified organism (3) ESRD (end stage renal disease) on dialysis Assessment/Plan: -nephrology consulted -HD per Dr Fulton's recommendations Code(s): N18.6 - END STAGE RENAL DISEASE; Z99.2 - DEPENDENCE ON RENAL DIALYSIS (4) Hyperlipemia Assessment/Plan: -continue statin Code(s): E78.5 - HYPERLIPIDEMIA, UNSPECIFIED Qualifiers: Hyperlipidemia type: unspecified hyperlipidemia (5) Hypertension Assessment/Plan: -was hypotensive on presentation -BP improving, but currently does not need home antihypertensives -will clarify if patient is on coreg or metoprolol as both are listed as home meds Code(s): I10 - ESSENTIAL (PRIMARY) HYPERTENSION Qualifiers: Hypertension type: other secondary hypertension Qualified Code(s): I15.8 - Other secondary hypertension (6) Gout Assessment/Plan: -continue allopurinol Code(s): M10.9 - GOUT, UNSPECIFIED (7) H/O: CVA (cerebrovascular accident) Assessment/Plan: -continue DAPT Code(s): Z86.73 - PRSNL HX OF TIA (TIA), AND CEREB INFRC W/O RESID DEFICITS
[2018-09-24] MEDS: SODIUM CHLORIDE 1,000 ML IV SCH (19:30)
[2018-09-24] MEDS: ATORVASTATIN CA 80 MG TABLET (FP) PO SCH (21:42)
[2018-09-24] MEDS: MIRTAZAPINE 15 MG TABLET (FP) PO SCH (21:42)
[2018-09-24] MEDS: HEPARIN NA (PORCINE) 5,000 UNITS/ML 1ML VIAL SQ SCH (21:43)
[2018-09-24] MEDS ORDERED: CHLORHEXIDINE GLUCONATE 4% CLEANSER FOR DECOLONIZATION TP SCH ×2 (22:00)
[2018-09-24] MEDS ORDERED: MIRTAZAPINE 15 MG TABLET (FP) PO SCH (22:00)
[2018-09-24] MEDS ORDERED: ATORVASTATIN CA 80 MG TABLET (FP) PO SCH (22:00)
[2018-09-25] MEDS ORDERED: DEXTROSE 5%-WATER - 50 ML IVPB ONE ×3 (00:44→17:17)
[2018-09-25] MEDS ORDERED: PIPERACILLIN/TAZOBACTAM 2.25 GM VIAL IVPB ONE ×3 (00:44→17:17)
[2018-09-25] MEDS: PIPERACILLIN/TAZOB 2.25 GM 2.25 GM in DEXTROSE 5%-WATER - 50 ML IVPB SCH ×3 (02:43→17:26)
[2018-09-25] MEDS: HEPARIN NA (PORCINE) 5,000 UNITS/ML 1ML VIAL SQ SCH ×3 (05:50→21:02)
[2018-09-25] MEDS ORDERED: VANCOMYCIN 1 GM PREMIX - 200 ML IVPB ONE (06:00)
[2018-09-25] MEDS ORDERED: EPOETIN ALFA 2,000 UNIT/1 ML VIAL IVPUSH ONE (06:00)
[2018-09-25] MEDS ORDERED: VANCOMYCIN 1 GM PREMIX - 1 GM/200 ML BAG IVPB ONE (06:00)
--- NOTE | 2018-09-25 10:21 | PN ---
Progress Note (short form) - Note Progress Note: Renal follow up for ESRD on HD Pt seen and examined on dialysis using AVF for HD, working well goal UF around 2L as tolerated BP stable pt awake and alert, not verbal Vital Signs Temperature 98.3 F 09/25/18 09:40 Pulse Rate 87 09/25/18 09:45 Respiratory Rate 18 09/25/18 09:45 Blood Pressure 117/68 09/25/18 09:45 O2 Sat by Pulse Oximetry (%) 98 09/24/18 21:00 Intake & Output 09/22/18 09/23/18 09/24/18 09/25/18 23:59 23:59 23:59 23:59 Intake Total 250 470 Output Total 0 Balance 250 470 Weight 63.503 kg 63.503 kg NAD awake and alert no Le edema Todays labs pending Current Medications Allopurinol (Zyloprim -) 100 mg PO DAILY [facility] Aspirin (Asa -) 325 mg PO DAILY [facility] Atorvastatin Calcium (Lipitor -) 80 mg PO HS [facility] Last Admin: 09/24/18 21:42 Dose: 80 mg Chlorhexidine Gluconate (Hibiclens For Decolonization -) 1 applic TP HS [facility] Clopidogrel Bisulfate (Plavix -) 75 mg PO DAILY [facility] Docusate Sodium (Colace -) 100 mg PO DAILY [facility] Epoetin Stuart (Epogen -) 10,000 unit IVPUSH ONCE ONE Stop: 09/25/18 06:01 Heparin Sodium (Porcine) (Heparin -) 5,000 unit SQ TID [facility] Last Admin: 09/25/18 05:50 Dose: 5,000 unit Sodium Chloride (Normal Saline -) 250 mls @ 3,000 mls/hr IV PRN PRN PRN Reason: Hypotension during Dialysis Stop: 09/25/18 10:45 Vancomycin HCl (Vancomycin 1 Gm Premix -) 1 gm in 200 mls @ 200 mls/hr IVPB ONCE ONE; Protocol Stop: 09/25/18 06:59 Piperacillin Sod/Tazobactam (Sod 2.25 gm/ Dextrose) 50 mls @ 100 mls/hr IVPB Q8H-IV [facility]; Protocol Last Admin: 09/25/18 02:43 Dose: 100 mls/hr Sodium Chloride (Normal Saline -) 1,000 mls @ 42 mls/hr IV ASDIR [facility] Last Admin: 09/24/18 19:30 Dose: 42 mls/hr Mirtazapine (Remeron -) 7.5 mg PO HS [facility] Last Admin: 09/24/18 21:42 Dose: 7.5 mg Mupirocin (Bactroban Ointment (For Decolonization) -) 1 applic NS BID [facility] Stop: 09/29/18 09:59 Pantoprazole Sodium (Protonix -) 40 mg PO DAILY [facility] 73 year old with hx of ESRD on HD, HLD, DM, CVA, Hepatitis C, Depression who presented from home with N/V and Fever and found to have Sepsis syndrome with lactic acidosis. #Sepsis Syndrome secondary to suspected aspiration PNA (blood and urine cultures negative) #Lactic acidosis now improved #ESRD on HD ( and ) #Hypokalemia #Anemia #Renal Osteodystrophy Tolerating dialysis well today. CXR shows some congestion, will reaccess after HD today if additional UF is needed Continue abx as per ID, Vanco was given last night and level is very high today , will not adminster additional vancomycin today Will give Epogen with HD today Trend Ca and Phos levels Thank you Lauri Fulton DO
[2018-09-25 10:26] LABS: HEMATOCRIT 26.4 % (35.4-49); MCH 30.1 pg (25.7-33.7); MCHC 34.1 g/dl (32.0-35.9); MEAN CELL VOLUME 88.1 fl (80-96); MEAN PLT VOLUME 9.8 fl (7.5-11.1); PLATELET COUNT 228 K/MM3 (134-434); RBC 2.99 M/mm3 (4.00-5.60); RDW 15.6 % (11.9-15.9); WHITE BLOOD COUNT 13.4 K/mm3 (4.0-10.0)
[2018-09-25] MEDS ORDERED: EPOETIN ALFA 10,000 UNIT/1 ML VIAL IVPUSH ONE (11:00)
[2018-09-25 11:02] LABS: ALBUMIN 2.3 g/dl (3.4-5.0); ALK PHOS 118 U/L (45-117); ANION GAP 11 MMOL/L (8-16); BILIRUBIN,TOTAL 0.5 mg/dL (0.2-1); BLOOD UREA NITROGEN 29 mg/dL (7-18); CALCIUM 7.8 mg/dL (8.5-10.1); CHLORIDE 103 mmol/L (98-107); CO2 23 mmol/L (21-32); GLUCOSE,RANDOM 79 mg/dL (74-106); MAGNESIUM 1.7 mg/dL (1.8-2.4); PHOSPHOROUS 4.9 mg/dL (2.5-4.9); POTASSIUM 3.7 mmol/L (3.5-5.1); SGOT/AST 15 U/L (15-37); SGPT/ALT 8 U/L (13-61); SODIUM 137 mmol/L (136-145); TOT PROT 5.4 g/dl (6.4-8.2)
--- NOTE | 2018-09-25 12:06 | CONSULT ---
Admitting History and Physical - Primary Care Physician PCP: Garrison Olmos - Admission History of Present Illness: 73-year-old male with multiple medical problems listed below is BIBA with NON DESTRUCTIVE TESTING SUPERVISOR after he had 2 episodes of nonbloody vomiting 09/23 in the afternoon and NON DESTRUCTIVE TESTING SUPERVISOR noticed that he was having excess sweating. NON DESTRUCTIVE TESTING SUPERVISOR said that he noticed intermittent coughing. In ER, patient with high fever of 102.8F and borderline low BP with lactic acidosis. Patient is otherwise nonverbal and not a reliable historian. Most likely Aspiration Pneumonia/Sepsis MBS 2015-Silent aspiration on thin liquids-REC: Puree/nectar thick liquids Choking incident in 2016. Dys ground/nectar thick liquid. Chronic Aphasia. Per nursing, pt was on a reg diet/thin liquids upon admission, fed rapidly by private NON DESTRUCTIVE TESTING SUPERVISOR, choking while eating. PO diet held after that by nursing and NPO order received. History Source: Patient, Medical Record Limitations to Obtaining History: Clinical Condition - Past Medical History LIMNOLOGIST: Yes: CVA, Other Cardiovascular: Yes: HTN, Hyperlipdemia, Other (s/p DVT/PE, s/p IVC filter, on coumadin) Gastrointestinal: Yes: GI Bleed ((occult-normal EGD and colon 09/24/14)) Hepatobiliary: Yes: Hepatitis C (Ab (+) in February,) Renal/: Yes: Renal Failure, Hemodialysis (2x/week T,R) Heme/Onc: Yes: Anemia - Past Surgical History Past Surgical History: Yes: Amputation (Rt AKA, traumatic), AV Fistula/Graft - Advance Directives Advance Directives: Yes: DNR - Smoking History Smoking history: Never smoked Have you smoked in the past 12 months: No Aproximately how many cigarettes per day: 0 If you are a former smoker, when did you quit?: 30 years - Alcohol/Substance Use Hx Alcohol Use: No - Social History ADL: Support Services History of Recent Travel: No History - Admission Reason For Visit: SEPSIS - Diagnostics X-ray: Report Reviewed - General Mental Status: Awake and Alert, Able to Follow Commands Attention: Intact Ability to Follow Directions: Fair Head/Neck Control: Fair - Hearing Hearing: Normal Speech Evaluation - Communication Primary Language: BERMUDIAN Communication: Yes: Aphasia Oral Expression Ability: Yes: Moderate Impairment, Severe Impairment - Speech Production Able to Make Needs Known: Yes: Moderately Impaired (single words.) Intelligibility: Yes: Moderately Impaired - Speech Characteristics Voice Loudness: Moderately Soft/Quiet Voice Phonatory-based Quality: Yes: Hoarse, Breathy, Weak, Dysphonia Speech Pattern: Impaired Speech Clarity: < 50% Articulation: Yes: Imprecise Voice, Other Observations: Yes: Inadequate Breath Support - Language/Auditory Comprehension Follows: Yes: 1 Stage Simple Commands Observation: Yes/No Confusion: Yes (inconsistent/unreliable) - Language/Verbal Expression Aphasia: Yes: Nonfluent Able to Communicate Wants and Needs: Yes: Moderately Impaired - Swallow Evaluation/Bedside Assessment Current Nutritional Intake: NPO Oral Secretions: Yes: WFL Laryngeal Movement: Able to Palpate, Reduced Excursion, Labored,delay initiation , Reduced Velocity Bolus Size: WFL Labial Seal: WFL Chewing: Impaired Oral Prep Time: Increased A-P Transit: Impaired Timing of Swallow: Delayed Coughing/Throat Clear: Yes (thin liquid) Recommendations - Speech Evaluation, Impression/Plan Impression: Cough response with sip of water c/w aspiration.Multiple swallows generated with puree, r/o weak laryngeal swallow/stasis. - Dysphagia Impressions/Plan Swallowing Skills: Impaired Dysphagia Impressions: Moderate Impairment, Suspect Aspiration *Silent aspiration: cannot be R/O at bedside Recommendations: Modified Barium Swallow
[2018-09-25] MEDS: ALLOPURINOL 100 MG TABLET (FP) PO SCH (13:24)
[2018-09-25] MEDS: DOCUSATE SODIUM 100 MG CAPSULE (FP) PO SCH (13:24)
[2018-09-25] MEDS: ASPIRIN 325 MG TABLET PO SCH (13:24)
[2018-09-25] MEDS: CLOPIDOGREL BISULFATE 75 MG TABLET (FP) PO SCH (13:24)
[2018-09-25] MEDS: PANTOPRAZOLE 40 MG TABLET (FP) PO SCH (13:24)
[2018-09-25 13:49] LABS: CREATININE 0.9 mg/dL (0.55-1.3)
--- NOTE | 2018-09-25 14:48 | PN ---
Teaching Attending Note Name of Resident: Maylin Sue ATTENDING PHYSICIAN STATEMENT I saw and evaluated the patient. I reviewed the resident's note and discussed the case with the resident. I agree with the resident's findings and plan as documented. SUBJECTIVE: Mr Garcia is aphasic but nods head yes/no. Says he is feeling good. Denies cp, sob, n/v. OBJECTIVE: Last Vital Signs Temp Pulse Resp BP Pulse Ox 36.8 C 89 18 121/60 98 09/25/18 09:40 09/25/18 12:50 09/25/18 12:50 09/25/18 12:50 09/25/18 09:00 Gen: nad Pulm: ctab w/o w/r/r CV: rrr w/o m/r/g Abd: +bs, s/nt/nd Ext: no c/c/e, bilateral BKA (1) Pneumonia Assessment/Plan: -appreciate ID assistance -continue zosyn -vancomycin level high this am -defer to ID to dose with HD Code(s): J18.9 - PNEUMONIA, UNSPECIFIED ORGANISM Qualifiers: Pneumonia type: due to unspecified organism Laterality: left (2) Sepsis Assessment/Plan: -resolved Code(s): A41.9 - SEPSIS, UNSPECIFIED ORGANISM Qualifiers: Sepsis type: sepsis due to unspecified organism Qualified Code(s): A41.9 - Sepsis, unspecified organism (3) ESRD (end stage renal disease) on dialysis Assessment/Plan: -seen during HD today -tolerating without difficulty Code(s): N18.6 - END STAGE RENAL DISEASE; Z99.2 - DEPENDENCE ON RENAL DIALYSIS (4) Hyperlipemia Assessment/Plan: -continue statin Code(s): E78.5 - HYPERLIPIDEMIA, UNSPECIFIED Qualifiers: Hyperlipidemia type: unspecified hyperlipidemia (5) Hypertension Assessment/Plan -remains normotensive off of antihypertensives Code(s): I10 - ESSENTIAL (PRIMARY) HYPERTENSION Qualifiers: Hypertension type: other secondary hypertension Qualified Code(s): I15.8 - Other secondary hypertension (6) Gout Assessment/Plan: -continue allopurinol Code(s): M10.9 - GOUT, UNSPECIFIED (7) H/O: CVA (cerebrovascular accident) Assessment/Plan: -continue DAPT Code(s): Z86.73 - PRSNL HX OF TIA (TIA), AND CEREB INFRC W/O RESID DEFICITS Problem List - Problems (1) Pneumonia Code(s): J18.9 - PNEUMONIA, UNSPECIFIED ORGANISM Qualifiers: Pneumonia type: due to unspecified organism Laterality: left (2) Sepsis Code(s): A41.9 - SEPSIS, UNSPECIFIED ORGANISM Qualifiers: Sepsis type: sepsis due to unspecified organism Qualified Code(s): A41.9 - Sepsis, unspecified organism (3) ESRD (end stage renal disease) on dialysis Code(s): N18.6 - END STAGE RENAL DISEASE; Z99.2 - DEPENDENCE ON RENAL DIALYSIS (4) Hyperlipemia Code(s): E78.5 - HYPERLIPIDEMIA, UNSPECIFIED Qualifiers: Hyperlipidemia type: unspecified hyperlipidemia (5) Hypertension Code(s): I10 - ESSENTIAL (PRIMARY) HYPERTENSION Qualifiers: Hypertension type: other secondary hypertension Qualified Code(s): I15.8 - Other secondary hypertension (6) Gout Code(s): M10.9 - GOUT, UNSPECIFIED (7) H/O: CVA (cerebrovascular accident) Code(s): Z86.73 - PRSNL HX OF TIA (TIA), AND CEREB INFRC W/O RESID DEFICITS
--- NOTE | 2018-09-25 15:45 | PN ---
Physical Exam: SUBJECTIVE: Patient seen and examined at bed side this morning. Came back from HD. He says no when asked if he has any pain. OBJECTIVE: Vital Signs Period Temp Pulse Resp BP Sys/Schneider Pulse Ox Last 24 Hr 97.5 F-98.3 F 61-99 18-20 101-143/57-76 98-98 GENERAL: Elderly male, lying in bed comfortably, patient is awake, alert, non verbal at baseline, in no acute distress. HEAD: Normal with no signs of trauma. EYES: EOM intact, no pallor or icterus. ENT: Ears normal, moist mucous, membranes. NECK: Supple. LUNGS: B/L coarse breath sounds. No wheezes, no accessory muscle use. HEART: Regular rate and rhythm, S1, S2 with systolic murmur. ABDOMEN: Soft, nontender, no organomegaly, BS + UPPER EXTREMITIES: Right contracted. Left normal. 2+ pulses, warm, well-perfused , no edema. LOWER EXT: B/L BKA NEUROLOGICAL: Left sided facial droop, Right side weakness power 1/5, left UE 5/ 5, Cranial nerves II through XII grossly intact. Able to follow commands. SKIN: Warm, dry, normal turgor, no rashes or lesions noted Laboratory Results - last 24 hr 09/24/18 09/25/18 09/25/18 17:45 07:35 09:45 WBC RBC Hgb Hct MCV MCH MCHC RDW Plt Count MPV Sodium Potassium Chloride Carbon Dioxide Anion Gap BUN Creatinine Creat Clearance w eGFR Random Glucose Calcium Phosphorus Magnesium Total Bilirubin AST ALT Alkaline Phosphatase Total Protein Albumin Random Vancomycin 48.0 H* Hep A IgM Ab Confirm Cancelled Hepatitis A Ab Total Cancelled Hep Bs Antigen Cancelled Hep Bs Ag Confirmation Cancelled Hep Bs Antibody Cancelled Hep B Core Total Ab Cancelled Influenza A (Rapid) Negative Influenza B (Rapid) Negative 09/25/18 09/25/18 09/25/18 09:45 09:55 12:40 WBC 13.4 H RBC 2.99 L Hgb 9.0 L Hct 26.4 L MCV 88.1 MCH 30.1 MCHC 34.1 RDW 15.6 Plt Count 228 MPV 9.8 Sodium 137 Potassium 3.7 Chloride 103 Carbon Dioxide 23 Anion Gap 11 BUN 29 H 3 L Creatinine 5.0 H 0.9 Creat Clearance w eGFR 11.43 Random Glucose 79 Calcium 7.8 L Phosphorus 4.9 Magnesium 1.7 L Total Bilirubin 0.5 AST 15 ALT 8 L Alkaline Phosphatase 118 H Total Protein 5.4 L Albumin 2.3 L Random Vancomycin Hep A IgM Ab Confirm Hepatitis A Ab Total Hep Bs Antigen Hep Bs Ag Confirmation Hep Bs Antibody Hep B Core Total Ab Influenza A (Rapid) Influenza B (Rapid) Active Medications Generic Name Dose Route Start Last Admin Trade Name Freq PRN Reason Stop Dose Admin Allopurinol 100 mg 09/25/18 10:00 09/25/18 13:24 Zyloprim - PO 100 mg DAILY [facility] Administration Aspirin 325 mg 09/25/18 10:00 09/25/18 13:24 Asa - PO 325 mg DAILY [facility] Administration Atorvastatin Calcium 80 mg 09/24/18 22:00 09/24/18 21:42 Lipitor - PO 80 mg HS [facility] Administration Chlorhexidine Gluconate 1 applic 09/24/18 22:00 Hibiclens For Decolonization - TP HS [facility] Clopidogrel Bisulfate 75 mg 09/25/18 10:00 09/25/18 13:24 Plavix - PO 75 mg DAILY [facility] Administration Docusate Sodium 100 mg 09/25/18 10:00 09/25/18 13:24 Colace - PO 100 mg DAILY [facility] Administration Heparin Sodium (Porcine) 5,000 unit 09/24/18 22:00 09/25/18 15:04 Heparin - SQ Not Given TID [facility] Piperacillin Sod/Tazobactam 50 mls @ 100 mls/hr 09/24/18 18:00 09/25/18 13:25 Sod 2.25 gm/ Dextrose IVPB 100 mls/hr Q8H-IV [facility] Administration Protocol Sodium Chloride 1,000 mls @ 42 mls/hr 09/24/18 17:45 09/24/18 19:30 Normal Saline - IV 42 mls/hr ASDIR [facility] Administration Mirtazapine 7.5 mg 09/24/18 22:00 09/24/18 21:42 Remeron - PO 7.5 mg HS [facility] Administration Mupirocin 1 applic 09/24/18 22:00 Bactroban Ointment (For Decolonization) - NS 09/29/18 09:59 BID [facility] Pantoprazole Sodium 40 mg 09/25/18 10:00 09/25/18 13:24 Protonix - PO 40 mg DAILY [facility] Administration ASSESSMENT/PLAN: Patient is a 73 year old male with PMHx of HTN, HLD, DM, anemia, ESRD on HD (T and Th; last dialysis was yesterday), CVA with R sided weakness and aphasia, PE , GI bleed, hep C, depression presented to the ED with Nausea, vomiting, sweating and cough x 3 weeks. # Sepsis likely secondary to aspiration pneumonia Afebrile overnight, leukocytosis improved 24.2--> 13.4 Modified barium was done, recommended Dysphagia pure, Waucoma thick Continue IV Zosyn Day 2. Random vanc 09/25- Blood cultures/Urine cultures/ Legionella negative Influenza negative # Difficulty in swallowing MBS done today. Dysphagia puree diet. # B/L BKA Left BKA done recently at [facility]. Will call daughter again and remind to bring paper work. # Gout-not in flare Continue Allopurinol # CVA, CAD Continue Aspirin, Plavix # FEN Will d/c fluids, continue dysphagi diet Electrolytes to be repeated in AM # Prophylaxis FoR DVT: On heparin 5000 IU sq tid For GI: Not indicated # Code Status: DNR Illness, Investigation and plan of care explained to the patient and his daughter Francesca (09/24/18), they verbalized understanding. Case discussed with Dr. Olmos. Problem List - Problems (1) Sepsis Code(s): A41.9 - SEPSIS, UNSPECIFIED ORGANISM Qualifiers: Sepsis type: sepsis due to unspecified organism Qualified Code(s): A41.9 - Sepsis, unspecified organism (2) Anemia in end-stage renal disease Code(s): N18.6 - END STAGE RENAL DISEASE; D63.1 - ANEMIA IN CHRONIC KIDNEY DISEASE (3) CVA (cerebral infarction) Code(s): I63.9 - CEREBRAL INFARCTION, UNSPECIFIED (4) Choking episode Code(s): R09.89 - OTH SYMPTOMS AND SIGNS INVOLVING THE CIRC AND RESP SYSTEMS (5) History of pulmonary embolism Code(s): Z86.711 - PERSONAL HISTORY OF PULMONARY EMBOLISM (6) Hyperlipemia Code(s): E78.5 - HYPERLIPIDEMIA, UNSPECIFIED Qualifiers: Hyperlipidemia type: unspecified hyperlipidemia (7) Hypertension Code(s): I10 - ESSENTIAL (PRIMARY) HYPERTENSION Qualifiers: Hypertension type: other secondary hypertension Qualified Code(s): I15.8 - Other secondary hypertension Visit type - Emergency Visit Emergency Visit: Yes ED Registration Date: 09/24/18 Care time: The patient presented to the Emergency Department on the above date and was hospitalized for further evaluation of their emergent condition. - New Patient This patient is new to me today: No - Critical Care Critical Care patient: No - Discharge Referral Referred to [facility] Med P.C.: No
[2018-09-25] MEDS: SODIUM CHLORIDE 1,000 ML IV SCH (17:30)
[2018-09-25] MEDS: MUPIROCIN 2% TOPICAL OINTMENT FOR DECOLONIZATION NS SCH ×2 (18:31→18:32)
[2018-09-25] MEDS: MIRTAZAPINE 15 MG TABLET (FP) PO SCH (21:02)
[2018-09-25] MEDS: ATORVASTATIN CA 80 MG TABLET (FP) PO SCH (21:02)
[2018-09-26] MEDS: PIPERACILLIN/TAZOB 2.25 GM 2.25 GM in DEXTROSE 5%-WATER - 50 ML IVPB SCH ×3 (02:30→17:33)
[2018-09-26] MEDS ORDERED: PIPERACILLIN/TAZOBACTAM 2.25 GM VIAL IVPB ONE ×3 (02:35→17:26)
[2018-09-26] MEDS ORDERED: DEXTROSE 5%-WATER - 50 ML IVPB ONE ×3 (02:35→17:26)
[2018-09-26 03:14] LABS: HBSAG SCREEN Negative (Negative); HEP B CORE AB, TOT Positive (Negative)
[2018-09-26] MEDS: SODIUM CHLORIDE 1,000 ML IV SCH ×2 (05:51→20:17)
[2018-09-26] MEDS: HEPARIN NA (PORCINE) 5,000 UNITS/ML 1ML VIAL SQ SCH ×3 (05:52→21:46)
[2018-09-26 08:06] LABS: HEMATOCRIT 26.6 % (35.4-49); HEMOGLOBIN 8.5 GM/dL (11.7-16.9); MCH 28.8 pg (25.7-33.7); MCHC 32.1 g/dl (32.0-35.9); MEAN CELL VOLUME 89.8 fl (80-96); MEAN PLT VOLUME 9.2 fl (7.5-11.1); PLATELET COUNT 204 K/MM3 (134-434); RBC 2.96 M/mm3 (4.00-5.60); RDW 15.9 % (11.9-15.9); WHITE BLOOD COUNT 7.2 K/mm3 (4.0-10.0)
[2018-09-26 08:31] LABS: ANION GAP 9 MMOL/L (8-16); BLOOD UREA NITROGEN 15 mg/dL (7-18); CALCIUM 7.7 mg/dL (8.5-10.1); CHLORIDE 104 mmol/L (98-107); CO2 28 mmol/L (21-32); CREATININE 2.8 mg/dL (0.55-1.3); GLUCOSE,RANDOM 72 mg/dL (74-106); POTASSIUM 3.7 mmol/L (3.5-5.1); SODIUM 141 mmol/L (136-145)
[2018-09-26] MEDS: CLOPIDOGREL BISULFATE 75 MG TABLET (FP) PO SCH (09:49)
[2018-09-26] MEDS: ASPIRIN 325 MG TABLET PO SCH (09:49)
[2018-09-26] MEDS: ALLOPURINOL 100 MG TABLET (FP) PO SCH (09:49)
[2018-09-26] MEDS: PANTOPRAZOLE 40 MG TABLET (FP) PO SCH (09:49)
[2018-09-26] MEDS: DOCUSATE SODIUM 100 MG CAPSULE (FP) PO SCH (09:49)
--- NOTE | 2018-09-26 11:16 | PN ---
Progress Note, MINUTE CLERK FOR BASIC TRAFFIC - Note Progress Note: Selected Entries 09/25/18 09/25/18 09/25/18 06:00 09:40 18:58 Supper 50% Temperature 97.5 F L 98.3 F 09/26/18 09/26/18 05:50 09:00 Supper Temperature 97.5 F L 96.8 F L Laboratory Tests 09/26/18 07:00 WBC 7.2 MBS reviewed. On Dys pureed diet, nectar thick liquid. Suggest Magic cup, Ensure compact b/n meals. Feed when fully alert.Monitor PO tolerance
--- NOTE | 2018-09-26 12:14 | PN ---
Progress Note (short form) - Note Progress Note: mbs noted- silent aspiration on thin liquids, diet adjusted less cough today alert Vital Signs Period Temp Pulse Resp BP Sys/Schneider Pulse Ox Last 24 Hr 96.8 F-97.5 F 89-99 17-20 103-121/59-69 98 cor-rrr llungs decreased bs at bases abd soft,nt ext bilatereal amputations- sites without erythema or dehiscence CBC, BMP 09/26/18 07:00 09/26/18 07:00 Microbiology 09/23/18 22:05 Blood - Peripheral Venous Blood Culture - Preliminary NO GROWTH OBTAINED AFTER 48 HOURS, INCUBATION TO CONTINUE FOR 3 DAYS. 09/23/18 22:05 Blood - Peripheral Venous Blood Culture - Preliminary NO GROWTH OBTAINED AFTER 48 HOURS, INCUBATION TO CONTINUE FOR 3 DAYS. 09/24/18 03:40 Urine - Urine Clean Catch Urine Culture - Final NO GROWTH OBTAINED 09/24/18 03:40 Urine - Urine - Catheterized Legionella Antigen - Final 09/24/18 03:40 Urine - Urine - Catheterized Streptococcus pneumoniae Antigen (M - Final cxray bibasilar infiltrates influenza screen negative a/p suspect aspiration pneumonia continue zosyn, no need for more vancomycin clinically improved day #3 zosyn consider switch to po augmentin 5oo mg daily in am to complete 7 days swallowing evaluation -noted esrd/hd s/p recent amputation of the left leg please call back if needed Problem List - Problems (1) Sepsis Code(s): A41.9 - SEPSIS, UNSPECIFIED ORGANISM Qualifiers: Sepsis type: sepsis due to unspecified organism Qualified Code(s): A41.9 - Sepsis, unspecified organism (2) Pneumonia Code(s): J18.9 - PNEUMONIA, UNSPECIFIED ORGANISM Qualifiers: Pneumonia type: due to unspecified organism Laterality: left (3) ESRD (end stage renal disease) on dialysis Code(s): N18.6 - END STAGE RENAL DISEASE; Z99.2 - DEPENDENCE ON RENAL DIALYSIS
--- NOTE | 2018-09-26 12:24 | PN ---
Progress Note (short form) - Note Progress Note: Renal follow up for ESRD on HD Pt seen and examined at the bedside sleeping, no overnight events Vital Signs Temperature 96.8 F L 09/26/18 09:00 Pulse Rate 89 09/26/18 09:00 Respiratory Rate 20 09/26/18 09:00 Blood Pressure 103/59 L 09/26/18 09:00 O2 Sat by Pulse Oximetry (%) 98 09/25/18 20:28 Intake & Output 09/23/18 09/24/18 09/25/18 09/26/18 23:59 23:59 23:59 23:59 Intake Total 250 1270 550 Output Total 0 Balance 250 1270 550 Weight 63.503 kg 63.503 kg NAD no edema in LE CBC, BMP 09/26/18 07:00 09/26/18 07:00 Current Medications Allopurinol (Zyloprim -) 100 mg PO DAILY [facility] Last Admin: 09/26/18 09:49 Dose: 100 mg Aspirin (Asa -) 325 mg PO DAILY [facility] Last Admin: 09/26/18 09:49 Dose: 325 mg Atorvastatin Calcium (Lipitor -) 80 mg PO HS [facility] Last Admin: 09/25/18 21:02 Dose: 80 mg Clopidogrel Bisulfate (Plavix -) 75 mg PO DAILY [facility] Last Admin: 09/26/18 09:49 Dose: 75 mg Docusate Sodium (Colace -) 100 mg PO DAILY [facility] Last Admin: 09/26/18 09:49 Dose: 100 mg Heparin Sodium (Porcine) (Heparin -) 5,000 unit SQ TID [facility] Last Admin: 09/26/18 05:52 Dose: 5,000 unit Piperacillin Sod/Tazobactam (Sod 2.25 gm/ Dextrose) 50 mls @ 100 mls/hr IVPB Q8H-IV [facility]; Protocol Last Admin: 09/26/18 09:49 Dose: 100 mls/hr Sodium Chloride (Normal Saline -) 1,000 mls @ 42 mls/hr IV ASDIR [facility] Last Admin: 09/26/18 05:51 Dose: 42 mls/hr Mirtazapine (Remeron -) 7.5 mg PO HS [facility] Last Admin: 09/25/18 21:02 Dose: 7.5 mg Pantoprazole Sodium (Protonix -) 40 mg PO DAILY [facility] Last Admin: 09/26/18 09:49 Dose: 40 mg 73 year old with hx of ESRD on HD, HLD, DM, CVA, Hepatitis C, Depression who presented from home with N/V and Fever and found to have Sepsis syndrome with lactic acidosis. 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 outpatient can transition to oral abx as recommended by ID cultures negative thus far discharge planning as per primary Thank you Lauri Fulton DO
--- NOTE | 2018-09-26 15:45 | PN ---
Physical Exam: SUBJECTIVE: Patient seen and examined at bed side this morning. Was sleeping, came back again to evaluate him, he was awake. When asked if he was tired and he noded saying yes. Denies any pain. ROS is negative. OBJECTIVE: Vital Signs Period Temp Pulse Resp BP Sys/Schneider Pulse Ox Last 24 Hr 96.8 F-97.5 F 89-92 17-20 103-116/59-61 98 GENERAL: Elderly male, lying in bed comfortably, patient is awake, alert, non verbal at baseline, in no acute distress. HEAD: Normal with no signs of trauma. EYES: EOM intact, no pallor or icterus. ENT: Ears normal, moist mucous, membranes. NECK: Supple. LUNGS: B/L coarse breath sounds. No wheezes, no accessory muscle use. HEART: Regular rate and rhythm, S1, S2 with systolic murmur. ABDOMEN: Soft, nontender, no organomegaly, BS + UPPER EXTREMITIES: Right contracted. Left normal. 2+ pulses, warm, well-perfused , no edema. LOWER EXT: B/L BKA NEUROLOGICAL: Left sided facial droop, Right side weakness power 1/5, left UE 5/ 5, Cranial nerves II through XII grossly intact. Able to follow commands. SKIN: Warm, dry, normal turgor, no rashes or lesions noted Laboratory Results - last 24 hr 09/25/18 09/26/18 09/26/18 09:45 07:00 07:00 WBC 7.2 RBC 2.96 L Hgb 8.5 L Hct 26.6 L MCV 89.8 MCH 28.8 MCHC 32.1 RDW 15.9 Plt Count 204 MPV 9.2 Sodium 141 Potassium 3.7 Chloride 104 Carbon Dioxide 28 Anion Gap 9 BUN 15 Creatinine 2.8 H Creat Clearance w eGFR 22.32 Random Glucose 72 L Calcium 7.7 L Hepatitis A Ab Total Negative Hep Bs Antigen Negative Hep Bs Antibody Non reactive Hep B Core Total Ab Positive H Active Medications Generic Name Dose Route Start Last Admin Trade Name Freq PRN Reason Stop Dose Admin Allopurinol 100 mg 09/25/18 10:00 09/26/18 09:49 Zyloprim - PO 100 mg DAILY MAGALI Administration Aspirin 325 mg 09/25/18 10:00 09/26/18 09:49 Asa - PO 325 mg DAILY MAGALI Administration Atorvastatin Calcium 80 mg 09/24/18 22:00 09/25/18 21:02 Lipitor - PO 80 mg HS MAGALI Administration Clopidogrel Bisulfate 75 mg 09/25/18 10:00 09/26/18 09:49 Plavix - PO 75 mg DAILY MAGALI Administration Docusate Sodium 100 mg 09/25/18 10:00 09/26/18 09:49 Colace - PO 100 mg DAILY MAGALI Administration Heparin Sodium (Porcine) 5,000 unit 09/24/18 22:00 09/26/18 15:00 Heparin - SQ 5,000 unit TID MAGALI Administration Piperacillin Sod/Tazobactam 50 mls @ 100 mls/hr 09/24/18 18:00 09/26/18 09:49 Sod 2.25 gm/ Dextrose IVPB 100 mls/hr Q8H-IV MAGALI Administration Protocol Sodium Chloride 1,000 mls @ 42 mls/hr 09/24/18 17:45 09/26/18 05:51 Normal Saline - IV 42 mls/hr ASDIR MAGALI Administration Mirtazapine 7.5 mg 09/24/18 22:00 09/25/18 21:02 Remeron - PO 7.5 mg HS MAGALI Administration Pantoprazole Sodium 40 mg 09/25/18 10:00 09/26/18 09:49 Protonix - PO 40 mg DAILY MAGALI Administration ASSESSMENT/PLAN: Patient is a 73 year old male with PMHx of HTN, HLD, DM, anemia, ESRD on HD ( and ; last dialysis was yesterday), CVA with R sided weakness and aphasia, PE , GI bleed, hep C, depression presented to the ED with Nausea, vomiting, sweating and cough x 3 weeks. # Sepsis likely secondary to aspiration pneumonia-resolving Afebrile overnight, leukocytosis resolved. Modified barium was done, recommended Dysphagia pure, [place] thick Continue IV Zosyn Day 3. Doesn't need Vancomycin. To start Augmentin PO BID to complete 7 days. Blood cultures/Urine cultures/ Legionella negative Influenza negative # Difficulty in swallowing MBS done 09/25/18. Dysphagia puree diet recommended. # ESRD ( and ) HD to be done tomorrow. As per Renal. # B/L BKA Left BKA done recently at [facility]. F/up with ortho as outpatient. No active issues. # Gout-not in flare Continue Allopurinol # CVA, CAD Continue Aspirin, Plavix # FEN Will d/c fluids, continue dysphagia diet Electrolytes to be repeated in AM # Prophylaxis FoR DVT: On heparin 5000 IU sq tid For GI: Not indicated # Code Status: DNR # Dispo: D/c planning in AM. Illness, Investigation and plan of care explained to the patient and his daughter Francesca (over the phone on 09/26/18), they verbalized understanding. Case discussed with Dr. Olmos. Problem List - Problems (1) Sepsis Code(s): A41.9 - SEPSIS, UNSPECIFIED ORGANISM Qualifiers: Sepsis type: sepsis due to unspecified organism Qualified Code(s): A41.9 - Sepsis, unspecified organism (2) Anemia in end-stage renal disease Code(s): N18.6 - END STAGE RENAL DISEASE; D63.1 - ANEMIA IN CHRONIC KIDNEY DISEASE (3) CVA (cerebral infarction) Code(s): I63.9 - CEREBRAL INFARCTION, UNSPECIFIED (4) Choking episode Code(s): R09.89 - OTH SYMPTOMS AND SIGNS INVOLVING THE CIRC AND RESP SYSTEMS (5) History of pulmonary embolism Code(s): Z86.711 - PERSONAL HISTORY OF PULMONARY EMBOLISM (6) Hyperlipemia Code(s): E78.5 - HYPERLIPIDEMIA, UNSPECIFIED Qualifiers: Hyperlipidemia type: unspecified hyperlipidemia (7) Hypertension Code(s): I10 - ESSENTIAL (PRIMARY) HYPERTENSION Qualifiers: Hypertension type: other secondary hypertension Qualified Code(s): I15.8 - Other secondary hypertension Visit type - Emergency Visit Emergency Visit: Yes ED Registration Date: 09/24/18 Care time: The patient presented to the Emergency Department on the above date and was hospitalized for further evaluation of their emergent condition. - New Patient This patient is new to me today: No - Critical Care Critical Care patient: No - Discharge Referral Referred to [facility] Med P.C.: No
--- NOTE | 2018-09-26 16:55 | PN ---
Teaching Attending Note Name of Resident: Maylin Sue ATTENDING PHYSICIAN STATEMENT I saw and evaluated the patient. I reviewed the resident's note and discussed the case with the resident. I agree with the resident's findings and plan as documented. SUBJECTIVE: unable to obtain today OBJECTIVE: Last Vital Signs Temp Pulse Resp BP Pulse Ox 36.0 C L 89 20 103/59 L 98 09/26/18 09:00 09/26/18 09:00 09/26/18 09:00 09/26/18 09:00 09/26/18 09:00 Gen: nad Pulm: ctab w/o w/r/r CV: rrr w/o m/r/g Abd: +bs, s/nt/nd Ext: no c/c/e, BKA ASSESSMENT AND PLAN: (1) Pneumonia Assessment/Plan: -appreciate ID assistance and case discussed -change to augmentin tomorrow -plan for d/c tomorrow Code(s): J18.9 - PNEUMONIA, UNSPECIFIED ORGANISM Qualifiers: Pneumonia type: due to unspecified organism Laterality: left (2) Sepsis Assessment/Plan: -resolved Code(s): A41.9 - SEPSIS, UNSPECIFIED ORGANISM Qualifiers: Sepsis type: sepsis due to unspecified organism Qualified Code(s): A41.9 - Sepsis, unspecified organism (3) ESRD (end stage renal disease) on dialysis Assessment/Plan: -HD per nephrology Code(s): N18.6 - END STAGE RENAL DISEASE; Z99.2 - DEPENDENCE ON RENAL DIALYSIS (4) Hyperlipemia Assessment/Plan: -continue statin Code(s): E78.5 - HYPERLIPIDEMIA, UNSPECIFIED Qualifiers: Hyperlipidemia type: unspecified hyperlipidemia (5) Hypertension Assessment/Plan -remains normotensive off of antihypertensives Code(s): I10 - ESSENTIAL (PRIMARY) HYPERTENSION Qualifiers: Hypertension type: other secondary hypertension Qualified Code(s): I15.8 - Other secondary hypertension (6) Gout Assessment/Plan: -continue allopurinol Code(s): M10.9 - GOUT, UNSPECIFIED (7) H/O: CVA (cerebrovascular accident) Assessment/Plan: -continue DAPT Code(s): Z86.73 - PRSNL HX OF TIA (TIA), AND CEREB INFRC W/O RESID DEFICITS Problem List - Problems (1) Pneumonia Code(s): J18.9 - PNEUMONIA, UNSPECIFIED ORGANISM Qualifiers: Pneumonia type: due to unspecified organism Laterality: left (2) Sepsis Code(s): A41.9 - SEPSIS, UNSPECIFIED ORGANISM Qualifiers: Sepsis type: sepsis due to unspecified organism Qualified Code(s): A41.9 - Sepsis, unspecified organism (3) ESRD (end stage renal disease) on dialysis Code(s): N18.6 - END STAGE RENAL DISEASE; Z99.2 - DEPENDENCE ON RENAL DIALYSIS (4) Hyperlipemia Code(s): E78.5 - HYPERLIPIDEMIA, UNSPECIFIED Qualifiers: Hyperlipidemia type: unspecified hyperlipidemia (5) Hypertension Code(s): I10 - ESSENTIAL (PRIMARY) HYPERTENSION Qualifiers: Hypertension type: other secondary hypertension Qualified Code(s): I15.8 - Other secondary hypertension (6) Gout Code(s): M10.9 - GOUT, UNSPECIFIED (7) H/O: CVA (cerebrovascular accident) Code(s): Z86.73 - PRSNL HX OF TIA (TIA), AND CEREB INFRC W/O RESID DEFICITS
[2018-09-26] MEDS: ATORVASTATIN CA 80 MG TABLET (FP) PO SCH (21:46)
[2018-09-26] MEDS: MIRTAZAPINE 15 MG TABLET (FP) PO SCH (21:46)
[2018-09-27] MEDS ORDERED: PIPERACILLIN/TAZOBACTAM 2.25 GM VIAL IVPB ONE ×3 (00:19→16:41)
[2018-09-27] MEDS ORDERED: DEXTROSE 5%-WATER - 50 ML IVPB ONE ×3 (00:19→16:42)
[2018-09-27] MEDS: PIPERACILLIN/TAZOB 2.25 GM 2.25 GM in DEXTROSE 5%-WATER - 50 ML IVPB SCH ×3 (01:00→18:38)
[2018-09-27] MEDS: HEPARIN NA (PORCINE) 5,000 UNITS/ML 1ML VIAL SQ SCH ×3 (05:50→21:08)
[2018-09-27] MEDS ORDERED: SODIUM CHLORIDE 250 ML IV PRN (07:43)
[2018-09-27 10:14] LABS: HEMATOCRIT 26.6 % (35.4-49); MCH 30.3 pg (25.7-33.7); MCHC 33.9 g/dl (32.0-35.9); MEAN CELL VOLUME 89.1 fl (80-96); MEAN PLT VOLUME 9.5 fl (7.5-11.1); PLATELET COUNT 241 K/MM3 (134-434); RBC 2.99 M/mm3 (4.00-5.60); RDW 15.7 % (11.9-15.9); WHITE BLOOD COUNT 6.2 K/mm3 (4.0-10.0)
[2018-09-27] MEDS ORDERED: EPOETIN ALFA 20,000 UNIT/1 ML VIAL IVPUSH ONE (10:30)
[2018-09-27 10:56] LABS: ANION GAP 8 MMOL/L (8-16); BLOOD UREA NITROGEN 19 mg/dL (7-18); CALCIUM 7.6 mg/dL (8.5-10.1); CHLORIDE 108 mmol/L (98-107); CO2 26 mmol/L (21-32); CREATININE 3.8 mg/dL (0.55-1.3); GLUCOSE,RANDOM 143 mg/dL (74-106); POTASSIUM 3.9 mmol/L (3.5-5.1); SODIUM 143 mmol/L (136-145)
--- NOTE | 2018-09-27 11:43 | DS ---
Physical Examination Vital Signs: Vital Signs Temperature 36.4 C L 09/27/18 09:15 Pulse Rate 100 H 09/27/18 10:30 Respiratory Rate 18 09/27/18 10:30 Blood Pressure 128/72 09/27/18 10:30 O2 Sat by Pulse Oximetry (%) 98 09/26/18 21:00 Constitutional: Yes: Well Nourished, No Distress, Calm Cardiovascular: Yes: Regular Rate and Rhythm. No: Gallop, Murmur, Rub Respiratory: Yes: Regular, CTA Bilaterally. No: Rales, Rhonchi, Wheezes Gastrointestinal: Yes: Normal Bowel Sounds, Soft. No: Distention, Tenderness Extremities: Yes: Other (BKA) Edema: No Labs: CBC, BMP 09/27/18 09:30 09/27/18 09:30 Discharge Summary Reason For Visit: SEPSIS Current Active Problems Sepsis (Acute) Hospital Course: (1) Pneumonia Assessment/Plan: Code(s): J18.9 - PNEUMONIA, UNSPECIFIED ORGANISM Qualifiers: Pneumonia type: due to unspecified organism Laterality: left (2) Sepsis Assessment/Plan: Code(s): A41.9 - SEPSIS, UNSPECIFIED ORGANISM Qualifiers: Sepsis type: sepsis due to unspecified organism Qualified Code(s): A41.9 - Sepsis, unspecified organism (3) ESRD (end stage renal disease) on dialysis Assessment/Plan: Code(s): N18.6 - END STAGE RENAL DISEASE; Z99.2 - DEPENDENCE ON RENAL DIALYSIS (4) Hyperlipemia Assessment/Plan: Code(s): E78.5 - HYPERLIPIDEMIA, UNSPECIFIED Qualifiers: Hyperlipidemia type: unspecified hyperlipidemia (5) Hypertension Assessment/Plan Code(s): I10 - ESSENTIAL (PRIMARY) HYPERTENSION Qualifiers: Hypertension type: other secondary hypertension Qualified Code(s): I15.8 - Other secondary hypertension (6) Gout Assessment/Plan: Code(s): M10.9 - GOUT, UNSPECIFIED (7) H/O: CVA (cerebrovascular accident) Assessment/Plan: Code(s): Z86.73 - PRSNL HX OF TIA (TIA), AND CEREB INFRC W/O RESID DEFICITS Mr Garcia is a very pleasant 73 year old male who came in with sepsis secondary to aspiration pneumonia. He was admitted to the hospital and seen by ID. He was started on zosyn and improved significantly. He is safe for transition to oral augmentin. He was seen by speech therapy and a barium swallow was performed, he should be on a dysphagia diet with nectar thick liquids. He was continued on his HD while here. He was noted to be normotensive off of his blood pressure medications, he will be restarted on metoprolol since he is slightly tachycardic but should follow up with Dr Yousif to see if other medications should be restarted. He is currently stable for discharge home today. 37 minutes spent in preparation of this discharge Condition: Good - Instructions Diet, Activity, Other Instructions: pureed diet with nectar thick liquids. resume previous activity. Referrals: Jesus Manuel Yousif MD [Staff Physician] - Lauri Fulton MD [Staff Physician] - Disposition: HOME - Home Medications Comprehensive Discharge Medication List: Ambulatory Orders Pantoprazole Sodium [Protonix] 40 mg PO DAILY 08/23/15 Aspirin [ASA -] 325 mg PO DAILY 08/25/18 Clopidogrel Bisulfate [Plavix] 75 mg PO DAILY 08/25/18 Ergocalciferol (Vitamin D2) [Vitamin D2] 50,000 unit PO WEEKLY 08/25/18 Acetaminophen [Tylenol .Regular Strength -] 650 mg PO Q4H PRN 09/23/18 Allopurinol [Zyloprim -] 100 mg PO DAILY 09/23/18 Atorvastatin Ca [Lipitor] 80 mg PO DAILY 09/23/18 Docusate Sodium [Colace] 100 mg PO DAILY 09/23/18 Epoetin Stuart [Epogen] 3,000 unit [facility] 09/23/18 Metoprolol Tartrate 25 mg PO BID 09/23/18 Mirtazapine [Remeron -] 7.5 mg PO HS 09/23/18 Oxycodone HCl/Acetaminophen [Percocet 5-325 mg Tablet] 1 tab PO Q4H PRN
[2018-09-27] MEDS: CLOPIDOGREL BISULFATE 75 MG TABLET (FP) PO SCH (12:58)
[2018-09-27] MEDS: ASPIRIN 325 MG TABLET PO SCH (12:58)
[2018-09-27] MEDS: DOCUSATE SODIUM 100 MG CAPSULE (FP) PO SCH (12:59)
[2018-09-27] MEDS: PANTOPRAZOLE 40 MG TABLET (FP) PO SCH (12:59)
[2018-09-27] MEDS: ALLOPURINOL 100 MG TABLET (FP) PO SCH (12:59)
--- NOTE | 2018-09-27 13:39 | PN ---
Progress Note (short form) - Note Progress Note: Renal follow up for ESRD on HD Pt seen and examined during dialysis getting 2 hours HD and 1 hour UF BP low, limiting volume removal Total UF ~1.8 L Vital Signs Temperature 98.2 F 09/27/18 12:25 Pulse Rate 95 H 09/27/18 12:25 Respiratory Rate 18 09/27/18 12:25 Blood Pressure 133/90 09/27/18 12:25 O2 Sat by Pulse Oximetry (%) 98 09/27/18 09:00 NAD awake and alert neck supple RRR, No M/R No sacral edema CBC, BMP 09/27/18 09:30 09/27/18 09:30 Current Medications Allopurinol (Zyloprim -) 100 mg PO DAILY [facility] Last Admin: 09/27/18 12:59 Dose: 100 mg Aspirin (Asa -) 325 mg PO DAILY [facility] Last Admin: 09/27/18 12:58 Dose: 325 mg Atorvastatin Calcium (Lipitor -) 80 mg PO HS [facility] Last Admin: 09/26/18 21:46 Dose: 80 mg Clopidogrel Bisulfate (Plavix -) 75 mg PO DAILY [facility] Last Admin: 09/27/18 12:58 Dose: 75 mg Docusate Sodium (Colace -) 100 mg PO DAILY [facility] Last Admin: 09/27/18 12:59 Dose: 100 mg Heparin Sodium (Porcine) (Heparin -) 5,000 unit SQ TID [facility] Last Admin: 09/27/18 12:59 Dose: 5,000 unit Piperacillin Sod/Tazobactam (Sod 2.25 gm/ Dextrose) 50 mls @ 100 mls/hr IVPB Q8H-IV MAGALI; Protocol Last Admin: 09/27/18 12:59 Dose: 100 mls/hr Sodium Chloride (Normal Saline -) 1,000 mls @ 42 mls/hr IV ASDIR [facility] Last Admin: 09/26/18 20:17 Dose: Not Given Sodium Chloride (Normal Saline -) 250 mls @ 3,000 mls/hr IV PRN PRN PRN Reason: Hypotension during Dialysis Stop: 09/28/18 07:44 Mirtazapine (Remeron -) 7.5 mg PO HS [facility] Last Admin: 09/26/18 21:46 Dose: 7.5 mg Pantoprazole Sodium (Protonix -) 40 mg PO DAILY [facility] Last Admin: 09/27/18 12:59 Dose: 40 mg 73 year old with hx of ESRD on HD, HLD, DM, CVA, Hepatitis C, Depression who presented from home with N/V and Fever and found to have Sepsis syndrome with lactic acidosis. #Sepsis Syndrome secondary to suspected aspiration PNA (blood and urine cultures negative) #Lactic acidosis now improved #ESRD on HD ( and ) #Hypokalemia #Anemia #Renal Osteodystrophy HD with UF today, tolerated it ok, limited by low BP will resume HD UF on Saturday next week to be discharged on oral antibiotics for aspiration PNA Thank you Lauri Fulton DO
[2018-09-27] MEDS ORDERED: AMOX TR/POT CLAV 500MG/125MG TABLETS (FP) PO ONE (14:47)
[2018-09-27] MEDS: SODIUM CHLORIDE 1,000 ML IV SCH (15:30)
[2018-09-27] MEDS: ATORVASTATIN CA 80 MG TABLET (FP) PO SCH (21:08)
[2018-09-27] MEDS: MIRTAZAPINE 15 MG TABLET (FP) PO SCH (21:08)
[2018-09-28] MEDS ORDERED: PIPERACILLIN/TAZOBACTAM 2.25 GM VIAL IVPB ONE ×3 (01:51→10:31)
[2018-09-28] MEDS ORDERED: DEXTROSE 5%-WATER - 50 ML IVPB ONE ×3 (01:51→10:31)
[2018-09-28] MEDS: PIPERACILLIN/TAZOB 2.25 GM 2.25 GM in DEXTROSE 5%-WATER - 50 ML IVPB SCH ×2 (02:00→10:46)
[2018-09-28] MEDS: HEPARIN NA (PORCINE) 5,000 UNITS/ML 1ML VIAL SQ SCH ×2 (06:34→14:17)
[2018-09-28 08:50] LABS: EOS % 7.7 % (0-4.5); HEMATOCRIT 34.5 % (35.4-49); LYMPH % 11.6 % (8-40); MCH 28.6 pg (25.7-33.7); MCHC 31.8 g/dl (32.0-35.9); MEAN CELL VOLUME 90.1 fl (80-96); MEAN PLT VOLUME 9.2 fl (7.5-11.1); MONO % 8.5 % (3.8-10.2); NEUT % 69.2 % (42.8-82.8); PLATELET COUNT 255 K/MM3 (134-434); RBC 3.83 M/mm3 (4.00-5.60); RDW 15.8 % (11.9-15.9); WHITE BLOOD COUNT 6.9 K/mm3 (4.0-10.0)
--- NOTE | 2018-09-28 10:15 | PN ---
Progress Note (short form) - Note Progress Note: Renal follow up for ESRD on HD Pt seen and examined at the bedside sleeping was vomiting yesterday after dailysis no further emesis overnight Vital Signs Temperature 98.6 F 09/28/18 09:17 Pulse Rate 99 H 09/28/18 09:17 Respiratory Rate 20 09/28/18 09:17 Blood Pressure 95/56 L 09/28/18 09:17 O2 Sat by Pulse Oximetry (%) 98 09/27/18 21:00 NAD awake and alert neck supple RRR, No M/R No sacral edema CBC, BMP 09/28/18 08:20 09/27/18 09:30 Current Medications Allopurinol (Zyloprim -) 100 mg PO DAILY [facility] Last Admin: 09/27/18 12:59 Dose: 100 mg Aspirin (Asa -) 325 mg PO DAILY [facility] Last Admin: 09/27/18 12:58 Dose: 325 mg Atorvastatin Calcium (Lipitor -) 80 mg PO HS [facility] Last Admin: 09/27/18 21:08 Dose: 80 mg Clopidogrel Bisulfate (Plavix -) 75 mg PO DAILY MAGALI Last Admin: 09/27/18 12:58 Dose: 75 mg Docusate Sodium (Colace -) 100 mg PO DAILY [facility] Last Admin: 09/27/18 12:59 Dose: 100 mg Heparin Sodium (Porcine) (Heparin -) 5,000 unit SQ TID [facility] Last Admin: 09/28/18 06:34 Dose: 5,000 unit Piperacillin Sod/Tazobactam (Sod 2.25 gm/ Dextrose) 50 mls @ 100 mls/hr IVPB Q8H-IV MAGALI; Protocol Last Admin: 09/28/18 02:00 Dose: 100 mls/hr Sodium Chloride (Normal Saline -) 1,000 mls @ 42 mls/hr IV ASDIR [facility] Last Admin: 09/27/18 15:30 Dose: 42 mls/hr Mirtazapine (Remeron -) 7.5 mg PO HS [facility] Last Admin: 09/27/18 21:08 Dose: 7.5 mg Pantoprazole Sodium (Protonix -) 40 mg PO DAILY [facility] Last Admin: 09/27/18 12:59 Dose: 40 mg 73 year old with hx of ESRD on HD, HLD, DM, CVA, Hepatitis C, Depression who presented from home with N/V and Fever and found to have Sepsis syndrome with lactic acidosis. #Sepsis Syndrome secondary to suspected aspiration PNA (blood and urine cultures negative) #Lactic acidosis now improved #ESRD on HD ( and ) #Hypokalemia #Anemia #Renal Osteodystrophy emesis likely related to hypotension experienced during dialysis no need for [facility] today next Tx scheduled for tomorrow, can be done as outpatient discharge planning as per primary Thank you Lauri Fulton DO
[2018-09-28] MEDS: CLOPIDOGREL BISULFATE 75 MG TABLET (FP) PO SCH (10:46)
[2018-09-28] MEDS: PANTOPRAZOLE 40 MG TABLET (FP) PO SCH (10:46)
[2018-09-28] MEDS: ASPIRIN 325 MG TABLET PO SCH (10:46)
[2018-09-28] MEDS: ALLOPURINOL 100 MG TABLET (FP) PO SCH (10:47)
[2018-09-28] MEDS: DOCUSATE SODIUM 100 MG CAPSULE (FP) PO SCH (10:47)
--- NOTE | 2018-09-28 11:09 | DS ---
Physical Examination Vital Signs: Vital Signs Temperature 37.0 C 09/28/18 09:17 Pulse Rate 99 H 09/28/18 09:17 Respiratory Rate 20 09/28/18 09:17 Blood Pressure 95/56 L 09/28/18 09:17 O2 Sat by Pulse Oximetry (%) 98 09/27/18 21:00 Constitutional: Yes: Well Nourished, No Distress, Calm Cardiovascular: Yes: Regular Rate and Rhythm. No: Gallop, Murmur, Rub Respiratory: Yes: Regular, CTA Bilaterally. No: Rales, Rhonchi, Wheezes Gastrointestinal: Yes: Normal Bowel Sounds, Soft. No: Distention, Tenderness Extremities: Yes: Other (BKA) Edema: No Labs: CBC, BMP 09/28/18 08:20 09/27/18 09:30 Discharge Summary Reason For Visit: SEPSIS Current Active Problems Sepsis (Acute) Hospital Course: Please refer to discharge summary from 09/27 for full hospital course. Patient was planning for discharge after HD, however had an episode of emesis. Because of this his discharge was held for 24 hours since he presented with aspiration pneumonia. He did not have fevers, respiratory distress, or any other concerns after this episode. His cbc was checked and did not have leukocytosis. He is safe for discharge today, family is aware. Condition: Good - Instructions Diet, Activity, Other Instructions: pureed diet with nectar thick liquids. resume previous activity. Referrals: Jesus Manuel Yousif MD [Staff Physician] - Lauri Fulton MD [Staff Physician] - Disposition: HOME - Home Medications Comprehensive Discharge Medication List: Ambulatory Orders Pantoprazole Sodium [Protonix] 40 mg PO DAILY 08/23/15 Aspirin [ASA -] 325 mg PO DAILY 08/25/18 Clopidogrel Bisulfate [Plavix] 75 mg PO DAILY 08/25/18 Ergocalciferol (Vitamin D2) [Vitamin D2] 50,000 unit PO WEEKLY 08/25/18 Acetaminophen [Tylenol .Regular Strength -] 650 mg PO Q4H PRN 09/23/18 Allopurinol [Zyloprim -] 100 mg PO DAILY 09/23/18 Atorvastatin Ca [Lipitor] 80 mg PO DAILY 09/23/18 Docusate Sodium [Colace] 100 mg PO DAILY 09/23/18 Epoetin Stuart [Epogen] 3,000 unit [facility] 09/23/18 Metoprolol Tartrate 25 mg PO BID 09/23/18 Mirtazapine [Remeron -] 7.5 mg PO HS 09/23/18 Oxycodone HCl/Acetaminophen [Percocet 5-325 mg Tablet] 1 tab PO Q4H PRN Amoxicillin/Potassium Clav [Augmentin 500-125 Tablet] 1 each PO DAILY #7 tablet 09/27/18
[2018-09-28 14:17] VITALS: BP 110/64; PULSE 95
[2018-09-28 14:20] VITALS: TEMP 98.7
== END 2018-09-28 14:32 | disposition home or self-care (01) | DRG 871 ==
LOC: JER 21:19 → JERBED 09-24 00:48 → J6S 09-24 13:59 → JERBED 09-26 00:57 → J6S 09-26 00:58
PROVIDERS: ADMIT Internal Medicine; ATTEND Internal Medicine
PROC: 5A1D70Z Performance of Urinary Filtration, Intermittent, Less than 6 Hours Per Day (ICD-10-PCS; principal; 2018-09-27)
DX: A41.9 Sepsis, unspecified organism (principal); N18.6 End stage renal disease; J69.0 Pneumonitis due to inhalation of food and vomit; E87.2 Acidosis; I12.0 Hypertensive chronic kidney disease with stage 5 chronic kidney disease or end stage renal disease; I69.351 Hemiplegia and hemiparesis following cerebral infarction affecting right dominant side; E11.22 Type 2 diabetes mellitus with diabetic chronic kidney disease; Z99.2 Dependence on renal dialysis; E78.5 Hyperlipidemia, unspecified; I95.9 Hypotension, unspecified; E87.6 Hypokalemia; D64.9 Anemia, unspecified; N25.0 Renal osteodystrophy; R65.20 Severe sepsis without septic shock; R00.0 Tachycardia, unspecified; I25.10 Atherosclerotic heart disease of native coronary artery without angina pectoris; D72.829 Elevated white blood cell count, unspecified
CPT/HCPCS: 36415; 71045-TC-FY; 74230-TC-FY; 80048; 80053; 81003; 81015; 82565; 82803; 83605; 83735; 84100; 84484; 84520; 85025; 85027; 85610; 85730; 86704; 86706; 86708; 86803; 87040; 87086; 87340; 87804; 87899; 92611-GN; 93005; 93010; 99285-25; G0480; J0131; J0885; J1644; J7030

== ENCOUNTER 2018-11-05 15:00 | Emergency (ER) | payer OTHER ==
[2018-11-05 15:31] VITALS: BP 125/73; PULSE 72; TEMP 98.1; BMI 55.1
--- NOTE | 2018-11-05 16:11 | PDOC ---
History of Present Illness - General Chief Complaint: AV shunt bleeding Stated Complaint: WOUND CARE Time Seen by Provider: 11/05/18 16:09 History Source: Patient, Family Exam Limitations: No Limitations - History of Present Illness Initial Comments: 11/05/18 16:10 73 year old HTN, HLD, DM, anemia, ESRD on HD (T and Th), CVA with R sided weakness and aphasia, PE , GI bleed, hep C, L AKA (2015), R AKA (2018), depression who presents with blood leakage from his L AV fistula 1 day ago. The patient has home nurses who notes some bleeding from the access site yesterday night, which is not unusual for him. Today the patient had leaking at the site again around 12pm that soaked two dressings but has since stopped bleeding. The nursing aid was concerned about the bleeding as the patient does not typically bleed as much after dialysis. The patient's ex- who is a nurse came to evaluate the patient and found the site had stopped bleeding and the access site with good flow and bruit, however came to the ED on the insistence of the home nurse as the patient was mildly lethargic this afternoon. At baseline the patient is nonverbal alert and per ex- and second assistant director of nursing at bedside the patient typically has some tiredness in the afternoon, but as this was associated with some bleeding, it was concerning to the nursing aid. The patient has had no fever, changes in eating or behavior. Patient sees Bebeto at [facility] for vascular, Nephro asim Cohen Ex- does not recall what surgeon placed the fistula Past History - Past Medical History Allergies/Adverse Reactions: Allergies Allergy/AdvReac Type Severity Reaction Status Date / Time No Known Allergies Allergy Verified 09/23/18 21:33 Home Medications: Ambulatory Orders Pantoprazole Sodium [Protonix] 40 mg PO DAILY 08/23/15 Aspirin [ASA -] 325 mg PO DAILY 08/25/18 Clopidogrel Bisulfate [Plavix] 75 mg PO DAILY 08/25/18 Ergocalciferol (Vitamin D2) [Vitamin D2] 50,000 unit PO WEEKLY 08/25/18 Acetaminophen [Tylenol .Regular Strength -] 650 mg PO Q4H PRN 09/23/18 Allopurinol [Zyloprim -] 100 mg PO DAILY 09/23/18 Atorvastatin Ca [Lipitor] 80 mg PO DAILY 09/23/18 Docusate Sodium [Colace] 100 mg PO DAILY 09/23/18 Epoetin Stuart [Epogen] 3,000 unit IJ [facility] 09/23/18 Metoprolol Tartrate 25 mg PO BID 09/23/18 Mirtazapine [Remeron -] 7.5 mg PO HS 09/23/18 Oxycodone HCl/Acetaminophen [Percocet 5-325 mg Tablet] 1 tab PO Q4H PRN Amoxicillin/Potassium Clav [Augmentin 500-125 Tablet] 1 each PO DAILY #7 tablet 09/27/18 Anemia: No Asthma: No Cancer: No Cardiac Disorders: No CVA: Yes COPD: No CHF: No Dementia: No Diabetes: Yes Dialysis: Yes (, ) GI Disorders: Yes (G I BLeed 1 year ago) Disorders: No HTN: Yes Hypercholesterolemia: Yes Liver Disease: Yes (hep C) Psychiatric Problems: (depression) Seizures: No Thyroid Disease: No - Surgical History Abdominal Surgery: No Appendectomy: No Cardiac Surgery: Yes (leg bypass) Cholecystectomy: No Lung Surgery: No Neurologic Surgery: Yes (cva) Orthopedic Surgery: Yes (RT BKA,RT HIP REPLACEMENT) - Immunization History Td Vaccination: Yes TDAP Vaccination: Yes Immunization Up to Date: Yes - Suicide/Smoking/Psychosocial Hx Smoking Status: Yes Smoking History: Former smoker Have you smoked in the past 12 months: No Number of Cigarettes Smoked Daily: 0 If you are a former smoker, when did you quit?: 30 years Information on smoking cessation initiated: No Hx Alcohol Use: No Drug/Substance Use Hx: No Substance Use Type: None Hx Substance Use Treatment: No *Physical Exam - Vital Signs Last Vital Signs Temp Pulse Resp BP Pulse Ox 98.1 F 72 18 125/73 99 11/05/18 15:29 11/05/18 15:29 11/05/18 15:29 11/05/18 15:29 11/05/18 15:29 - Physical Exam Comments: 11/05/18 16:53 GENERAL: Awake, alert, non verbal HEAD: No signs of trauma, normocephalic, atraumatic EYES: EOMI, sclera anicteric, conjunctiva clear ENT: oropharynx clear without exudates. Moist mucosa NECK: Normal ROM, supple LUNGS: No distress, speaks full sentences, clear to auscultation bilaterally HEART: Regular rate and rhythm, normal S1 and S2, no murmurs, rubs or gallops, peripheral pulses normal and equal bilaterally. ABDOMEN: Soft, nontender, normoactive bowel sounds. No guarding, no rebound. No masses EXTREMITIES : bilateral above the knee amputation, no edema. No clubbing or cyanosis. R fistula with good bruit NEUROLOGICAL: Cranial nerves II through XII grossly intact. no focal sensorimotor deficits SKIN: Warm, Dry, normal turgor, no rashes or lesions noted Moderate Sedation - Procedure Monitoring Vital Signs: Procedure Monitoring Vital Signs Temperature 98.1 F 11/05/18 15:29 Pulse Rate 72 11/05/18 15:29 Respiratory Rate 18 11/05/18 15:29 Blood Pressure 125/73 11/05/18 15:29 O2 Sat by Pulse Oximetry (%) 99 11/05/18 15:29 Medical Decision Making - Medical Decision Making 11/05/18 16:56 73 year old HTN, HLD, DM, anemia, ESRD on HD (T and Th), CVA with R sided weakness and aphasia, PE , GI bleed, hep C, L AKA (2015), R AKA (2018), depression who presents with blood leakage from his L AV fistula 1 day ago. The patient has home nurses who notes some bleeding from the access site yesterday night, which is not unusual for him. Today the patient had leaking at the site again around 12pm that soaked two dressings but has since stopped bleeding. The nursing aid was concerned about the bleeding as the patient does not typically bleed as much after dialysis. ED Course: consider coagulopathy vs bleeding post dialysis access *DC/Admit/Observation/Transfer Diagnosis at time of Disposition: Bleeding - Discharge Dispostion Disposition: HOME Condition at time of disposition: Stable Decision to Admit order: No - Referrals - Patient Instructions Printed Discharge Instructions: DI for Dialysis Additional Instructions: You were seen in the ED for complaints of bleeding from the fistula site that has since resolved. In the ED you were evaluated. There does not appear to be an acute need for immediate hospitalization. You are advised to follow up with your Primary Care Physician within 1 week. Return to the ED immediately if you experience worsening bleeding from the site , fevers, pain or swelling in the arm or changes in mentation. - Post Discharge Activity
--- NOTE | 2018-11-05 17:09 | PDOC ---
Attending Attestation - Resident Resident Name: Amara Benites - ED Attending Attestation I have performed the following: I have examined & evaluated the patient, The case was reviewed & discussed with the resident, I agree w/resident's findings & plan, Exceptions are as noted - Medical Decision Making 11/05/18 17:09 I, Dr. Ann Erazo, DO, attest that this document has been prepared under my direction and personally reviewed by me in its entirety. I further attest, that it accurately reflects all work, treatment, procedures and medical decision -making performed by me. 11/05/18 17:26 a/p: 73yo male with hx of b/l LE amputations, slight bleeding from av fistula site -no bleeding at this time -feels at baseline -does not want lab draw -ex at the bedside discussed with JOLEEN Tristan who will check labs tomorrow on HD -not lightheaded or dizzy -at baseline ms -nonverbal -av site with bruit and thrill stable for dc to home <Ann Erazo - Last Filed: 11/05/18 17:26> - HPI HPI: 11/05/18 17:32 The patient is a 73 year old male with a PMH of HTN, HLD, DM, anemia, ESRD on HD (T and ), CVA with R sided weakness and aphasia, PE , GI bleed, hep C, L AKA (2015), R AKA (2018), depression who presents to the ER with slight bleeding from the av fistula site. Patient is not having any bleeding at this time. Patient is able to shake his head to answer questions, and denies any pain to the area. Patient and ex- are denying any blood draw and state they will have labs checked tomorrow in dialysis. Patient is nonverbal and unable to provide further history. Vascular: at [facility] Nephrology: Dr. Cohen - Physicial Exam PE: 11/05/18 17:32 ADULT PHYSICAL EXAM Constitutional: Awake and alert. No acute distress. Cardiovascular: Regular rate. Regular rhythm. S1, S2 regular. Distal pulses are 2+ and symmetric. Pulmonary/Chest: No evidence of respiratory distress. Clear to auscultation bilaterally No wheezing, rales or rhonchi. Abdominal: Soft and non-distended. There is no tenderness. Musculoskeletal: (+) Bilateral lower extremity amputations, well-healed. (+) Left upper extremity fistula with a palpable thrills. No bruits. Neurological: (+) Nonverbal, but shakes head appropriately to answer questions. <Kyleigh Walsh - Last Filed: 11/05/18 17:41>
== END 2018-11-05 19:27 | disposition home or self-care (01) ==
LOC: JER 15:00
DX: T82.838A Hemorrhage due to vascular prosthetic devices, implants and grafts, initial encounter (principal); I12.0 Hypertensive chronic kidney disease with stage 5 chronic kidney disease or end stage renal disease; E11.22 Type 2 diabetes mellitus with diabetic chronic kidney disease; N18.6 End stage renal disease; N17.8 Other acute kidney failure; Z99.2 Dependence on renal dialysis; E78.5 Hyperlipidemia, unspecified; D64.9 Anemia, unspecified; I69.820 Aphasia following other cerebrovascular disease; I69.851 Hemiplegia and hemiparesis following other cerebrovascular disease affecting right dominant side; Z89.612 Acquired absence of left leg above knee; Z89.611 Acquired absence of right leg above knee; Z86.19 Personal history of other infectious and parasitic diseases; F32.9 Major depressive disorder, single episode, unspecified
CPT/HCPCS: 99281-25

== ENCOUNTER 2019-04-12 13:28 | Inpatient (IN) | payer OTHER ==
[2019-04-12] MEDS ORDERED: SODIUM CHLORIDE 1,769 ML IV ONE (13:58)
--- NOTE | 2019-04-12 13:58 | PDOC ---
History of Present Illness - General Chief Complaint: SIRS, Suspected/Possible Stated Complaint: S.O.B Time Seen by Provider: 04/12/19 13:58 History Source: Care Provider Exam Limitations: Physical Impairment (CVA, aphasia) - History of Present Illness Initial Comments: Pt is a 74 yo M, with PMH of Hep C, ESRD (HD T/R), b/l AKA, anemia, CVA (R- sided deficits), [place], PE, and GI bleed, who is presenting via EMS from home with his caregiver, for AMS from baseline and increased WOB since yesterday. The pt is aphasic, but can nod his head appropriately to yes or no questions. The caregiver states 3 days ago, he had a few episodes of NBNB vomiting after dialysis. Since yesterday evening, the pt has had increased WOB, has looked "sweaty," and also occasionally has choking episodes on his pureed/chopped diet. Today, the pt seemed less interactive than usual so the counter checker called EMS. Senior Infrastructure Engineer denies fevers, productive cough, bloody or loose stools, foul- smelling urine or hematemesis, LOC, or unusual redness or drainage from his fistula site. Pt shakes his head no when asked if he has any active pain. Allergies: NKDA PCP: Dr. Yousif Cards: Dr. Brasher Nephro: Dr. Guillory Vascular: Dr. Tate ([facility]) Social: Pt denies any cigarette, alcohol, or drug use. Pt denies any recent travel or sick contacts. Surgical: see above. LUE AV graft. Family: no relevant history. 04/12/19 18:18 Past History - Travel Traveled outside of the country in the last 30 days: No Close contact w/someone who was outside of country & ill: No - Past Medical History Allergies/Adverse Reactions: Allergies Allergy/AdvReac Type Severity Reaction Status Date / Time No Known Allergies Allergy Verified 09/23/18 21:33 Home Medications: Ambulatory Orders Clopidogrel Bisulfate [Plavix] 75 mg PO DAILY 08/25/18 Acetaminophen [Tylenol .Regular Strength -] 650 mg PO Q4H PRN 09/23/18 Atorvastatin Ca [Lipitor] 80 mg PO DAILY 09/23/18 Docusate Sodium [Colace] 100 mg PO DAILY 12/25/18 Epoetin Stuart [Epogen] 3,000 unit IJ [facility] 09/23/18 Metoprolol Tartrate 25 mg PO BID 09/23/18 Mirtazapine [Remeron -] 7.5 mg PO HS 09/23/18 Aspirin 81 mg PO DAILY 04/12/19 Midodrine HCl 15 mg PO TID 04/12/19 Pantoprazole Sodium 40 mg PO DAILY 04/12/19 Anemia: No Asthma: No Cancer: No Cardiac Disorders: No CVA: Yes COPD: No CHF: No Dementia: No Diabetes: Yes Dialysis: Yes (tues, thurs) GI Disorders: Yes (G I BLeed 1 year ago) Disorders: No HTN: Yes Hypercholesterolemia: Yes Liver Disease: Yes (hep C) Psychiatric Problems: (depression) Seizures: No Thyroid Disease: No - Surgical History Abdominal Surgery: No Appendectomy: No Cardiac Surgery: Yes (leg bypass) Cholecystectomy: No Lung Surgery: No Neurologic Surgery: Yes (cva) Orthopedic Surgery: Yes (RT BKA,RT HIP REPLACEMENT) - Immunization History Td Vaccination: Yes TDAP Vaccination: Yes Immunization Up to Date: Yes - Suicide/Smoking/Psychosocial Hx Smoking Status: Yes Smoking History: Never smoked Have you smoked in the past 12 months: No Number of Cigarettes Smoked Daily: 0 If you are a former smoker, when did you quit?: 30 years Hx Alcohol Use: No Drug/Substance Use Hx: No Substance Use Type: None Hx Substance Use Treatment: No Review of Systems - Review of Systems Able to Perform ROS?: No (aphasic) Is the patient limited Yoruba proficient: No *Physical Exam - Vital Signs Last Vital Signs Temp Pulse Resp BP Pulse Ox 101.4 F H 109 H 28 H 138/87 91 L 04/12/19 13:54 04/12/19 13:54 04/12/19 13:54 04/12/19 13:54 04/12/19 13:54 - Physical Exam Comments: Febrile, tachycardic, 98% on 2L NC on exam. Pt with mild increased WOB, diaphoretic with cachectic body habitus. Pt alert (spontaneous eye opening, interacting with staff), and can nod his head appropriately to yes/no questions. auto detailer generally intact, muscular strength and sensation intact per pt baseline. Paresis of RUE at baseline with minimal sensation and contraction of R wrist. B/ l AKA. No midline spinal tenderness, step-offs, or crepitus. Head normocephalic, atraumatic. Eyes PERRLA, EOMI. Oropharynx without erythema or exudates, no LAD b/l. No nasal congestion, hearing intact. Clear heart sounds, S1/S2, no JVD, or heart murmur. Clear lung sounds, no respiratory distress, wheezes, crackles. Mild increased WOB. No abdominal or CVA tenderness to palpation, no rebound, no guarding. Abdomen soft, non-distended, and with normoactive bowel sounds. AV fistula present on LUE with palpable thrill. No erythema or drainage from the site. Skin without jaundice or rash. 04/12/19 17:57 Heart Score/ECG Review - History History: Slightly suspicious - Electrocardiogram EKG: Non specific repolarization disturbance - Age Age: >/= 65 - Risk Factors Risk Factors Heart Score: Yes Hx Hypercholesterolemia, Yes Hx Hypertension, Yes Hx Diabetes Based on the list above the patient has:: >/=3 risk factors or Hx atherosclerotic disease - Troponin Troponin: >/=3x normal limit - Score Heart Score - Total: 7 ED Treatment Course - LABORATORY CBC & Chemistry Diagram: 04/12/19 15:08 04/12/19 15:08 Medical Decision Making - Medical Decision Making Pt was seen at bedside, also will be seen by attending Dr. Alvarez. Pt presenting via EMS from home with his caregiver, for AMS from baseline and increased WOB since yesterday. The pt is aphasic, but can nod his head appropriately to yes or no questions. The caregiver states 3 days ago, he had a few episodes of NBNB vomiting after dialysis. Since yesterday evening, the pt has had increased WOB, has looked "sweaty," and also occasionally has choking episodes on his pureed/ chopped diet. Today, the pt seemed less interactive than usual so the counter checker called EMS. Senior Infrastructure Engineer denies fevers, productive cough, bloody or loose stools, foul-smelling urine or hematemesis, LOC, or unusual redness or drainage from his fistula site. Pt shakes his head no when asked if he has any active pain. Considering sepsis (pneumonia/aspiration, UTI) vs pleural effusion vs PE vs worsening CKD vs ACS vs electrolyte derangements. Ordered work-up including sepsis work-up, ECG, chest x-ray. Provided 1 g ofirmev and 500 mL IV NS for improvement of dehydration and fever. Will continue to reassess pt and monitor for symptomatic improvement. ECG: Sinus tachycardia (HR 108, IA 136, QRS 90, QTc 447). Possible peaked Ts V2- V4 (will repeat after interventions and checking K). No prior ECG for comparison. 04/12/19 18:05 CBC: WBC 15, anemia at baseline CMP: K 5.3, CO3 18, BUN 105/Cr 7.0 (SABRINA on CKD), AG 19; given increased WOB and alkalosis on VBG, probable respiratory alkalosis Lactic 1.9 UA: LE 3+, WBC 4579 -- will treat with 1 g IV ceftriaxone Troponin 9 -- will treat with heparin and ASA, pt received AM dose of plavix -- consulted cardiology (Dr. Blandon/Sameera team) who will follow Consulted nephrology (Dr. Graham/Kahlil) who will follow the pt and determine need for dialysis urgently vs tomorrow Pt admitted to hospitalist team (Dr. Olmos for Dr. Yousif). Spoke with ICU (HELPER/DRIVER covering) who admitted the pt for continued ICU monitoring and dialysis. 04/12/19 18:13 *DC/Admit/Observation/Transfer Diagnosis at time of Disposition: Systemic inflammatory response syndrome (SIRS), Elevated troponin I level, ESRD (end stage renal disease) on dialysis Urinary tract infection Qualifiers: Urinary tract infection type: site unspecified Hematuria presence: with hematuria Qualified Code(s): N39.0 - Urinary tract infection, site not specified ; R31.9 - Hematuria, unspecified - Discharge Dispostion Condition at time of disposition: Guarded Decision to Admit order: Yes - Referrals - Patient Instructions - Post Discharge Activity
[2019-04-12] MEDS ORDERED: ACETAMINOPHEN 1000 MG/100 ML VIAL (NON FORMULARY) IVPB ONE (14:00)
[2019-04-12] MEDS ORDERED: ACETAMINOPHEN INJECTION 100 ML IVPB ONE (15:13)
[2019-04-12] MEDS ORDERED: SODIUM CHLORIDE 500 ML IV STA ×2 (15:17→16:51)
[2019-04-12 15:24] LABS: BASO % 0.5 % (0-2.0); EOS % 0.4 % (0-4.5); HEMATOCRIT 33.1 % (35.4-49); HEMOGLOBIN 10.9 GM/dL (11.7-16.9); LYMPH % 5.3 % (8-40); MCH 30.7 pg (25.7-33.7); MEAN PLT VOLUME 10.5 fl (7.5-11.1); NEUT % 87.8 % (42.8-82.8); RBC 3.56 M/mm3 (4.00-5.60); RDW 14.7 % (11.9-15.9); WHITE BLOOD COUNT 15.6 K/mm3 (4.0-10.0)
[2019-04-12 15:26] LABS: ARTERIAL BLD GAS O2 SATURATION 98.7 % (95-98); ARTERIAL BLOOD GAS PO2 126 mmHg (80-105); CARBOXYHEMOGLOBIN 1.3 % (0-2)
--- NOTE | 2019-04-12 15:27 | EKG ---
Test Reason : Blood Pressure : / mmHG Vent. Rate : 108 BPM Atrial Rate : 108 BPM P-R Int : 136 ms QRS Dur : 090 ms QT Int : 334 ms P-R-T Axes : 056 004 053 degrees QTc Int : 447 ms SINUS TACHYCARDIA POSSIBLE LEFT ATRIAL ENLARGEMENT CANNOT RULE OUT INFERIOR INFARCT (CITED ON OR BEFORE 23-AUG-2018) POSSIBLE ANTERIOR INFARCT , AGE UNDETERMINED ABNORMAL ECG WHEN COMPARED WITH ECG OF 23-SEP-2018 21:33, PREMATURE VENTRICULAR COMPLEXES ARE NO LONGER PRESENT NON-SPECIFIC CHANGE IN ST SEGMENT IN ANTERIOR LEADS T WAVE INVERSION NO LONGER EVIDENT IN ANTEROLATERAL LEADS Confirmed by RADHA KNUTSON, TOÑITO ([id number]) on 04/12/2019 3:27:43 PM Referred By: Confirmed By:TOÑITO GARCIA MD
[2019-04-12 15:35] LABS: PLATELET COUNT 263 K/MM3 (134-434)
[2019-04-12 15:36] LABS: INR 1.33 (0.83-1.09); PROTHROMBIN TIME (PATIENT) 15.7 SEC (9.7-13.0)
[2019-04-12 15:39] LABS: ACTIVATED PTT 30.5 SECONDS (25.2-36.5)
[2019-04-12 15:49] LABS: BILIRUBIN,TOTAL 0.9 mg/dL (0.2-1); CALCIUM 8.4 mg/dL (8.5-10.1); POTASSIUM 5.3 mmol/L (3.5-5.1); TOT PROT 6.4 g/dl (6.4-8.2)
[2019-04-12 15:50] LABS: BLOOD UREA NITROGEN 105.9 mg/dL (7-18)
[2019-04-12 16:01] LABS: EPI CELLS 0.9 /HPF (0-5/HPF); HYALINE CASTS 3 /lpf (0-8); PH,URINE 5.5 (5.0-8.0); URINE APPEARANCE TURBID; URINE BACTERIA 4579.8 /hpf (NEGATIVE); URINE BILIRUBIN NEGATIVE (NEGATIVE); URINE COLOR YELLOW; URINE GLUCOSE (UA) NEGATIVE (NEGATIVE); URINE KETONE NEGATIVE (NEGATIVE); URINE LEUK ESTERASE 3+ (NEGATIVE); URINE NITRITE NEGATIVE (NEGATIVE); URINE PROTEIN 3+ (NEGATIVE); URINE RBC 8 /hpf (0-4); URINE WBC 388 /hpf (0-5)
[2019-04-12] MEDS ORDERED: CEFTRIAXONE 1,000 MG in DEXTROSE 5%-WATER - 50 ML IVPB ONE (16:04)
[2019-04-12] MEDS ORDERED: CEFTRIAXONE 1 GM/50 ML BAG ONE (16:18)
[2019-04-12] MEDS ORDERED: HEPARIN NA (PORCINE) 5,000 UNITS/ML 1ML VIAL IVPUSH ONE (17:13)
[2019-04-12] MEDS ORDERED: ASPIRIN 300 MG SUPP.RECT PR ONE (17:25)
[2019-04-12] MEDS ORDERED: HEPARIN INFUSION - 25,000 UNITS/500 ML INFUS.BAG IVPB ONE (17:35)
[2019-04-12] MEDS ORDERED: HEPARIN NA (PORCINE) 5,000 UNITS/ML 1ML VIAL ONE (17:35)
--- NOTE | 2019-04-12 17:51 | HP ---
Admitting History and Physical - Primary Care Physician PCP: Jesus Manuel Yousif - Admission Chief Complaint: unable to obtain History of Present Illness: Mr Garcia is a 74 year old male who was brought in by his family and SENIOR SOLUTIONS CONSULTANT for AMS and difficulty breathing. They noted that 2-3 days ago he was having difficulty breathing. That night he had an episode of emesis and they question if he began aspirating when he was eating. He became more lethargic and less interactive over this time. Today he became non-verbal and appeared to be gasping for breath and they brought him in for further evaluation. Patient is currently non-verbal and no history can be obtained from him. 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, Other Cardiovascular: Yes: HTN, Hyperlipdemia, Other (s/p DVT/PE, s/p IVC filter, on coumadin) Gastrointestinal: Yes: GI Bleed ((occult-normal EGD and colon 09/24/14)) Hepatobiliary: Yes: Hepatitis C (Ab (+) in February,) Renal/: Yes: Renal Failure, Hemodialysis (2x/week T,R) Heme/Onc: Yes: Anemia - Past Surgical History Past Surgical History: Yes: Amputation (Rt AKA, traumatic), AV Fistula/Graft - Smoking History Smoking history: Never smoked Have you smoked in the past 12 months: No Aproximately how many cigarettes per day: 0 If you are a former smoker, when did you quit?: 30 years - Alcohol/Substance Use Hx Alcohol Use: No - Social History Usual Living Arrangement: Yes: With Child ADL: Support Services History of Recent Travel: No Home Medications - Allergies Allergies/Adverse Reactions: Allergies Allergy/AdvReac Type Severity Reaction Status Date / Time No Known Allergies Allergy Verified 09/23/18 21:33 - Home Medications Home Medications: Ambulatory Orders Clopidogrel Bisulfate [Plavix] 75 mg PO DAILY 08/25/18 Acetaminophen [Tylenol .Regular Strength -] 650 mg PO Q4H PRN 09/23/18 Atorvastatin Ca [Lipitor] 80 mg PO DAILY 09/23/18 Docusate Sodium [Colace] 100 mg PO DAILY 09/23/18 Epoetin Stuart [Epogen] 3,000 unit IJ [facility] 09/23/18 Metoprolol Tartrate 25 mg PO BID 09/23/18 Mirtazapine [Remeron -] 7.5 mg PO HS 09/23/18 Aspirin 81 mg PO DAILY 04/12/19 Midodrine HCl 15 mg PO TID 04/12/19 Pantoprazole Sodium 40 mg PO DAILY 04/12/19 Family Disease History - Family Disease History Family History: Unable to Obtain Review of Systems Unable to obtain ROS, reason: AMS Physical Examination Vital Signs: Vital Signs Temperature 37.7 C H 04/12/19 16:42 Pulse Rate 102 H 04/12/19 16:42 Respiratory Rate 32 H 04/12/19 16:42 Blood Pressure 133/90 04/12/19 16:42 O2 Sat by Pulse Oximetry (%) 98 04/12/19 16:42 Constitutional: Yes: No Distress, Thin Eyes: Yes: Conjunctiva Clear, PERRL HENT: Yes: Other (dry mucous membranes) Cardiovascular: Yes: Tachycardia. No: Gallop, Murmur, Rub Respiratory: Yes: CTA Bilaterally, On Nasal O2, Tachypnea. No: Regular, Rales, Rhonchi, Wheezes Gastrointestinal: Yes: Soft, Hypoactive Bowel Sounds, Other (scaphoid). No: Distention, Tenderness Extremities: Yes: Other (B AKA) Edema: No Labs: CBC, BMP 04/12/19 15:08 04/12/19 15:08 Imaging - Results Chest X-ray: Report Reviewed, Image Reviewed Problem List - Problems (1) Acute metabolic encephalopathy Assessment/Plan: -secondary to sepsis and NSTEMI -treat underlying cause -will make npo at them moment, patient unsafe to swallow Code(s): G93.41 - METABOLIC ENCEPHALOPATHY (2) Sepsis Assessment/Plan: -patient appears to be in sepsis -possible urinary source, but with elevated LFTs must consider biliary source as well -admit to telemetry -hydration with IVF -given rocephin in the ED -since considering biliary source, must also consider anaerobes -will give zosyn 2.25 gm IV q12h (renal dosing) -consult ID -follow up cultures Code(s): A41.9 - SEPSIS, UNSPECIFIED ORGANISM (3) NSTEMI (non-ST elevated myocardial infarction) Assessment/Plan: -found to have troponin of 9.66 -cardiology consulted -start heparin gtt Code(s): I21.4 - NON-ST ELEVATION (NSTEMI) MYOCARDIAL INFARCTION (4) Transaminitis Assessment/Plan: -incidentally found -benign abdominal exam however still may have underlying pathology -follow up abdominal ultrasound -check lipase -hydration and antibiotics as above -may need CT scan -npo Code(s): R74.0 - NONSPEC ELEV OF LEVELS OF TRANSAMNS & LACTIC ACID DEHYDRGNSE (5) UTI (urinary tract infection) Assessment/Plan: -urinalysis suggestive of UTI -covered by zosyn Code(s): N39.0 - URINARY TRACT INFECTION, SITE NOT SPECIFIED (6) ESRD (end stage renal disease) on dialysis Assessment/Plan: -case d/w Dr Graham -does not need urgent HD -clinically dehydrated -will hydrate with IVF -plan for HD on Saturday Code(s): N18.6 - END STAGE RENAL DISEASE; Z99.2 - DEPENDENCE ON RENAL DIALYSIS (7) Severe protein-calorie malnutrition Assessment/Plan: -currently npo -when mental status improves, start on diet -will need speech therapy for safe diet Code(s): E43 - UNSPECIFIED SEVERE PROTEIN-CALORIE MALNUTRITION (8) Hyperlipemia Assessment/Plan: -holding statin Code(s): E78.5 - HYPERLIPIDEMIA, UNSPECIFIED Qualifiers: Hyperlipidemia type: unspecified hyperlipidemia (9) Hypertension Assessment/Plan: -controlled -does not need antihypertensives at this time Code(s): I10 - ESSENTIAL (PRIMARY) HYPERTENSION Qualifiers: Hypertension type: other secondary hypertension Qualified Code(s): I15.8 - Other secondary hypertension (10) Metabolic acidosis, increased anion gap Assessment/Plan: -secondary to uremia -hydration -HD per nephrology Code(s): E87.2 - ACIDOSIS (11) Tachypnea Assessment/Plan: -partly compensation for AG acidosis -oxygen support Code(s): R06.82 - TACHYPNEA, NOT ELSEWHERE CLASSIFIED Assessment/Plan Spoke with meter repairer helper who says he thinks Mr Garcia is DNR. Note from July of last year also says he is DNR. However cannot reach daughter Francesca to confirm this. Phone number is [phone]. Will attempt to call again tomorrow but if worsens tonight and looks like he needs resuscitation will need to attempt again for clarification.
[2019-04-12] MEDS: HEPARIN - 25,000 UNIT in SODIUM CHLORIDE 495 ML IV SCH (18:05)
[2019-04-12] MEDS: SODIUM CHLORIDE 1,000 ML IV SCH (18:12)
[2019-04-12] MEDS ORDERED: ASPIRIN 300 MG SUPP.RECT RC ONE (18:15)
--- NOTE | 2019-04-12 18:27 | PDOC ---
Documentation entered by Ashia Isabel SCRIBE, acting as scribe for Pedro Alvarez MD. Pedro Alvarez MD: This documentation has been prepared by the scribe, Ashia Isabel SCRIBE, under my direction and personally reviewed by me in its entirety. I confirm that the documentation accurately reflects all work, treatment, procedures, and medical decision making performed by me. Attending Attestation - Resident Resident Name: NinaAlana - ED Attending Attestation I have performed the following: I have examined & evaluated the patient, The case was reviewed & discussed with the resident, I agree w/resident's findings & plan, Exceptions are as noted - HPI HPI: 04/12/19 16:35 74y M hx of htn, hl, cva (aphasiic, R sided weakness), dm, BIG, ESRD (dialysis /), b/l bka, deperssion dvt, pe sp ivc filter presents with sob. Per aide, the pt has been having increased berathing rate, denies any associated cough, n/ v, diarrhea, foul smelling urine. They also noteiced he was not as conversant as usual so brought the pt to the ED for evaluation. History provided primarily from aide that is bedside. History limited from patient. GENERAL: The patient is awake, (opens eyes and loois around to verbal stimulus) diaphoretic HEAD: Normocephalic, atraumatic. EYES: extraocular movements intact, sclera anicteric, conjunctiva clear. ENT: Normal voice, Moist mucous membranes. NECK: Normal range of motion, supple LUNGS: tacypneic, breath sounds clear b/l HEART: Regular rate and rhythm, normal S1 and S2 without murmur, rub or gallop. ABDOMEN: Soft, nontender, No guarding, no rebound. No CVA tenderness EXTREMITIES: sp b/l aka, fistula on LUE with thrill NEUROLOGICAL: No facial assymetry, Normal speech, PSYCH: Normal mood, normal affect. SKIN: hot to touch, Dry, normal turgor, voitals noted for fever here sepsis orderset obtained cxr clear - suspect his respiratory status may be due to increased metabolic rate and possible uremia lbs noted for leukocyotis renal function c/w asher - will continue to fluid resusitate ua suggestive of infectoin will treat with ctx will admit for [facility] - Physicial Exam PE: 04/13/19 08:29 see above - Critical Care Time Total Critical Care Time: 40 Critical Care Statement: The care of this patient involved high complexity decision making to prevent further life threatening deterioration of the patient 's condition and/or to evaluate & treat vital organ system(s) failure or risk of failure. - Medical Decision Making 04/12/19 17:16 pts labs reviewed noted for bun of 105/ cr of 7 - case dw nephrology regarding need for emergent dialysis - K is slightly elevated at 5.3 trop of 9, no ANNIE noted on ekg - will treat pt with heparin for NSTEMI, case dw cardiology ricky dmit to ICU for further management Heart Score/ECG Review - ECG Impressions Comment:: EKG dated 04/12/2019 13:38 Rate of 108 sinus peaked T waves in anterior leads relatve to prior ekg in aug [address] changes suggestive of acute ischemia
--- NOTE | 2019-04-12 21:46 | CON.NEP ---
Consult Consult Specialty:: nephrology - History of Present Illness History of Present Illness: Pt is a 74 yo M, with BIBA for AMS labored breathing he is awake and follows the examiner with his gaze but is nonverbal has been ill x 3 days with episodes of NBNB vomiting after his last dialysis. 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, Other Cardio/Vascular: Yes: HTN, Hyperlipdemia, Other (s/p DVT/PE, s/p IVC filter, on coumadin) Gastrointestinal: Yes: GI Bleed ((occult-normal EGD and colon 09/24/14)) Hepatobiliary: Yes: Hepatitis C (Ab (+) in February,) Renal/: Yes: Renal Failure, Hemodialysis (2x/week T,R) - Past Surgical History Past Surgical History: Yes: Amputation (Rt AKA, traumatic), AV Fistula/Graft - Alcohol/Substance Use Hx Alcohol Use: No - Smoking History Smoking history: Never smoked Have you smoked in the past 12 months: No Aproximately how many cigarettes per day: 0 If you are a former smoker, when did you quit?: 30 years - Social History Usual Living Arrangement: Assisted Living (has 24 h aide) ADL: Support Services History of Recent Travel: No Home Medications - Allergies Allergies/Adverse Reactions: Allergies Allergy/AdvReac Type Severity Reaction Status Date / Time No Known Allergies Allergy Verified 09/23/18 21:33 - Home Medications Home Medications: Ambulatory Orders Clopidogrel Bisulfate [Plavix] 75 mg PO DAILY 08/25/18 Acetaminophen [Tylenol .Regular Strength -] 650 mg PO Q4H PRN 09/23/18 Atorvastatin Ca [Lipitor] 80 mg PO DAILY 09/23/18 Docusate Sodium [Colace] 100 mg PO DAILY 09/23/18 Epoetin Stuart [Epogen] 3,000 unit IJ TUTHSA 09/23/18 Metoprolol Tartrate 25 mg PO BID 09/23/18 Mirtazapine [Remeron -] 7.5 mg PO HS 09/23/18 Aspirin 81 mg PO DAILY 04/12/19 Midodrine HCl 15 mg PO TID 04/12/19 Pantoprazole Sodium 40 mg PO DAILY 04/12/19 Nephrology Consult - Height Height: 5 ft 7 in - Weight Weight: 92 lb 9.506 oz - BMI Body Mass Index (BMI): 14.5 - Lab Results CBC,BMP: CBC, BMP 04/12/19 15:08 04/12/19 15:08 Anion Gap: Anion Gap Anion Gap 19 MMOL/L (8-16) H 04/12/19 15:08 - Physical Examination Vital Signs: Vital Signs Temperature 99.8 F H 04/12/19 16:42 Pulse Rate 102 H 04/12/19 16:42 Respiratory Rate 32 H 04/12/19 16:42 Blood Pressure 133/90 04/12/19 16:42 O2 Sat by Pulse Oximetry (%) 98 04/12/19 16:42 Assessment/Plan ESRD ON HD BIW AMS AND FEVER No evidence of fluid overload labs show elevated Troponin trend toward high K+ r/o [place] R/o sepsis and [place] can give saline for low BP will follow up in am for HD if stable
[2019-04-12] MEDS ORDERED: PIPERACILLIN/TAZOB 2.25 GM 2.25 GM/50 ML BAG IVPB ONE (22:15)
[2019-04-13] MEDS: PIPERACILLIN/TAZOB 2.25 GM 2.25 GM in DEXTROSE 5%-WATER - 50 ML IVPB SCH ×2 (00:45→09:21)
--- NOTE | 2019-04-13 01:42 | CONSULT ---
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 Patient has had known choking spells on his chopped/pureed diet in the past. Today the aid noticed that he was not as interactive, was more lethargic and became non-verbal so he was brought into the ED. Aid denies any vomtiting/ diarrhea/active cough In the ED; patient was found to be febrile to 101.4; tachycardic at 104 tachypneic at 28- labs notable for WBC 15.6; BUN/Cr 105.9/7 trop was noted to be 9.66- cardiology was consulted and patient was started on Heparin drip. U/A - nitrites, 3+leuk esterase, 388 WBC patient was given a dose of ceftriaxone and started on Zosyn. CXR done with no definite lobar consolidation or pneumonia seen REVIEW OF SYSTEMS: unable to obtain as patient is non-verbal ; however shakes head no when asked if in pain CONSTITUTIONAL: Absent: fever, chills, diaphoresis, generalized weakness, malaise, loss of appetite, weight change HEENT: Absent: rhinorrhea, nasal congestion, throat pain, throat swelling, difficulty swallowing, mouth swelling, ear pain, eye pain, visual changes CARDIOVASCULAR: Absent: chest pain, syncope, palpitations, irregular heart rate, lightheadedness , peripheral edema RESPIRATORY: Absent: cough, shortness of breath, dyspnea with exertion, orthopnea, wheezing, stridor, hemoptysis GASTROINTESTINAL: Absent: abdominal pain, abdominal distension, nausea, vomiting, diarrhea, constipation, melena, hematochezia GENITOURINARY: Absent: dysuria, frequency, urgency, hesitancy, hematuria, flank pain, genital pain MUSCULOSKELETAL: Absent: myalgia, arthralgia, joint swelling, back pain, neck pain SKIN: Absent: rash, itching, pallor HEMATOLOGIC/IMMUNOLOGIC: Absent: easy bleeding, easy bruising, lymphadenopathy, frequent infections ENDOCRINE: Absent: unexplained weight gain, unexplained weight loss, heat intolerance, cold intolerance NEUROLOGIC: Absent: headache, focal weakness or paresthesias, dizziness, unsteady gait, seizure, mental status changes, bladder or bowel incontinence PSYCHIATRIC: Absent: anxiety, depression, suicidal or homicidal ideation, hallucinations. PHYSICAL EXAMINATION Vital Signs - 24 hr 04/12/19 04/12/19 04/12/19 13:30 13:54 16:42 Temperature 101.2 F H 101.4 F H 99.8 F H Pulse Rate 109 H Pulse Rate [ 102 H Apical] Respiratory 28 H 32 H Rate Blood Pressure 138/87 Blood Pressure 133/90 [Right Arm] O2 Sat by Pulse 92 L 91 L 98 Oximetry (%) 04/13/19 01:00 Temperature Pulse Rate Pulse Rate [ 95 H Apical] Respiratory Rate Blood Pressure Blood Pressure 128/80 [Right Arm] O2 Sat by Pulse 90 L Oximetry (%) GENERAL: Awake, alert, staring; in no acute distress. EYES: PEERLA: EOMI no scleral icterus NECK: no JVD; no lymphadenopathy LUNGS:CTA B/L; no rales, rhonchi or wheezing- on 3L nasal O2 slightly tachypneic HEART: tachycardic; regualr rhythm , normal S1 and S2 without murmur, rub or gallop. ABDOMEN: soft; NT/ND +BS in all 4 quadrants (no wincing upon palpation) EXTREMITIES: B/L BKA UPPER EXTREMITIES: AV Fistula on LUE with palpable thrill- no erythema or drainage surrounding site PSYCHIATRIC: Cooperative. Good eye contact. Appropriate mood and affect. SKIN: Warm, dry, normal turgor, no rashes or lesions noted. Laboratory Results - last 24 hr 04/12/19 04/12/19 04/12/19 15:08 15:08 15:08 WBC 15.6 H RBC 3.56 L Hgb 10.9 L Hct 33.1 L MCV 93.0 MCH 30.7 MCHC 33.0 RDW 14.7 Plt Count 263 MPV 10.5 D Absolute Neuts (auto) 13.7 H Neutrophils % 87.8 H D Lymphocytes % 5.3 L D Monocytes % 6.0 Eosinophils % 0.4 D Basophils % 0.5 Nucleated RBC % 0 PT with INR 15.70 H INR 1.33 H PTT (Actin FS) 30.5 Anticoagulation Therapy Puncture Site ABG pH ABG pCO2 at Pt Temp ABG pO2 at Pt Temp ABG HCO3 ABG O2 Sat (Measured) ABG O2 Content ABG Base Excess Leander Test Carboxyhemoglobin Methemoglobin O2 Delivery Device Oxygen Flow Rate Vent Mode Vent Rate Mechanical Rate Pressure Support Vent Sodium 141 Potassium 5.3 H Chloride 104 Carbon Dioxide 18 L Anion Gap 19 H BUN 105.9 H* Creatinine 7.0 H Est GFR (CKD-EPI)AfAm 8.14 Est GFR (CKD-EPI)NonAf 7.02 Random Glucose 144 H Lactic Acid Calcium 8.4 L Total Bilirubin 0.9 AST 437 H ALT 674 H Alkaline Phosphatase 115 Creatine Kinase 44 Troponin I 9.66 H* Total Protein 6.4 Albumin 3.0 L Lipase Urine Color Urine Appearance Urine pH Ur Specific [place] Urine Protein Urine Glucose (UA) Urine Ketones Urine Blood Urine Nitrite Urine Bilirubin Urine Urobilinogen Ur Leukocyte Esterase Urine WBC (Auto) Urine RBC (Auto) Urine Casts (Auto) U Epithel Cells (Auto) Urine Bacteria (Auto) 04/12/19 04/12/19 04/12/19 15:08 15:20 15:30 WBC RBC Hgb Hct MCV MCH MCHC RDW Plt Count MPV Absolute Neuts (auto) Neutrophils % Lymphocytes % Monocytes % Eosinophils % Basophils % Nucleated RBC % PT with INR INR PTT (Actin FS) Anticoagulation Therapy No Result Required. Puncture Site No Result Required. ABG pH 7.50 H ABG pCO2 at Pt Temp 23.0 L ABG pO2 at Pt Temp 126 H ABG HCO3 17.8 L ABG O2 Sat (Measured) 98.7 H ABG O2 Content 13.1 L ABG Base Excess -4.0 L [place] Test No Result Required. Carboxyhemoglobin 1.3 Methemoglobin 0.5 O2 Delivery Device No Result Required. Oxygen Flow Rate No Result Required. Vent Mode No Result Required. Vent Rate No Result Required. Mechanical Rate No Result Required. Pressure Support Vent No Result Required. Sodium Potassium Chloride Carbon Dioxide Anion Gap BUN Creatinine Est GFR (CKD-EPI)AfAm Est GFR (CKD-EPI)NonAf Random Glucose Lactic Acid 1.9 Calcium Total Bilirubin AST ALT Alkaline Phosphatase Creatine Kinase Troponin I Total Protein Albumin Lipase Urine Color Yellow Urine Appearance Turbid Urine pH 5.5 D Ur Specific [place] 1.014 Urine Protein 3+ H Urine Glucose (UA) Negative Urine Ketones Negative Urine Blood 2+ H Urine Nitrite Negative Urine Bilirubin Negative Urine Urobilinogen 1.0 Ur Leukocyte Esterase 3+ H Urine WBC (Auto) 388 Urine RBC (Auto) 8 Urine Casts (Auto) 3 U Epithel Cells (Auto) 0.9 Urine Bacteria (Auto) 4579.8 04/12/19 04/12/19 04/13/19 19:40 19:45 00:25 WBC RBC Hgb Hct MCV MCH MCHC RDW Plt Count MPV Absolute Neuts (auto) Neutrophils % Lymphocytes % Monocytes % Eosinophils % Basophils % Nucleated RBC % PT with INR INR PTT (Actin FS) 42.6 H Anticoagulation Therapy Puncture Site ABG pH ABG pCO2 at Pt Temp ABG pO2 at Pt Temp ABG HCO3 ABG O2 Sat (Measured) ABG O2 Content ABG Base Excess [place] Test Carboxyhemoglobin Methemoglobin O2 Delivery Device Oxygen Flow Rate Vent Mode Vent Rate Mechanical Rate Pressure Support Vent Sodium Potassium Chloride Carbon Dioxide Anion Gap BUN Creatinine Est GFR (CKD-EPI)AfAm Est GFR (CKD-EPI)NonAf Random Glucose Lactic Acid 1.9 Calcium Total Bilirubin AST ALT Alkaline Phosphatase Creatine Kinase Troponin I Total Protein Albumin Lipase 194 Urine Color Urine Appearance Urine pH Ur Specific [place] Urine Protein Urine Glucose (UA) Urine Ketones Urine Blood Urine Nitrite Urine Bilirubin Urine Urobilinogen Ur Leukocyte Esterase Urine WBC (Auto) Urine RBC (Auto) Urine Casts (Auto) U Epithel Cells (Auto) Urine Bacteria (Auto) Active Medications Generic Name Dose Route Start Last Admin Trade Name Freq PRN Reason Stop Dose Admin Heparin Sodium (Porcine) 25, 500 mls @ 16 mls/hr 04/12/19 17:15 04/12/19 18: 05 000 unit/ Sodium Chloride IV 800 unit/hr TITR MAGALI 16 mls/hr Administration Protocol 800 UNIT/HR Sodium Chloride 1,000 mls @ 100 mls/hr 04/12/19 17:45 04/12/19 18:12 Normal Saline - IV 100 mls/hr ASDIR MAGALI Administration Piperacillin Sod/Tazobactam 50 mls @ 100 mls/hr 04/12/19 22:00 04/13/19 00:45 Sod 2.25 gm/ Dextrose IVPB 100 mls/hr BID MAGALI Administration Protocol ASSESSMENT/PLAN: 74 y/o with PMH HTN, HLD, CVA (with R sided deficits and aphasia), DM, ESRD (t/ ), DVT s/p IVC filter, hep C, previous GI bleed who presented to the ED with worsening shortness of breath and a change in mental status and found to have a trop on 9.66 #Neuro patient has history of R sided CVA with residual deficits found to be non- verbal today acute metabolic encephalopathy likely 2/2 sepsis -ABG showed PH of 7.5 with Pco2 of 23 -currently NPO -will monitor mental status #Cardiovascular patient was found to have a trop of 9.66 with no EKG changes -patient started on heparin drip in addition to ASA and Plavix -cardio consulted -monitor trops q6H -history of HTN: patient remains normotensive will hold meds currently -monitor hemodynamics -will monitor for signs of bleeding #GI patient was found to have transaminitis with benign abdominal exam -abdomen US done- read pending' -holding statin in light of transaminitis -will trend LFTS -lipase was normal -currently NPO #ID patient found to be septic with a positive UA; CXR doesn't show definite consolidation -patient started on zosyn -ID consulted -blood and urine cx pending -NS @100mls/hr #Pulmonary ABG showed PH 7.5 with Co2 23 -patient currently saturating well on 2LNC -will monitor respiratory status -will repeat chest XRAY in AM #Renal patient has ESRD with HD t/ -Dr. Graham saw patient did not feel emergent HD was necessary -will get HD tomorrow morning -monitor electrolytes -monitor volume status F/E/N NS @100mls/hr monitor electrolytes NPO DVT PPX: heparin drip Dispo: We will continue to follow the patient. Thank you for this consultative opportunity. Problem List - Problems (1) Acute metabolic encephalopathy Code(s): G93.41 - METABOLIC ENCEPHALOPATHY (2) Elevated troponin I level Code(s): R74.8 - ABNORMAL LEVELS OF OTHER SERUM ENZYMES (3) NSTEMI (non-ST elevated myocardial infarction) Code(s): I21.4 - NON-ST ELEVATION (NSTEMI) MYOCARDIAL INFARCTION Visit type - Emergency Visit Emergency Visit: Yes ED Registration Date: 04/12/19 Care time: The patient presented to the Emergency Department on the above date and was hospitalized for further evaluation of their emergent condition. - New Patient This patient is new to me today: Yes Date on this admission: 04/13/19 - Critical Care Critical Care patient: Yes Total Critical Care Time (in minutes): 35 Critical Care Statement: The care of this patient involved high complexity decision making to prevent further life threatening deterioration of the patient 's condition and/or to evaluate & treat vital organ system(s) failure or risk of failure. ATTENDING PHYSICIAN STATEMENT I saw and evaluated the patient. I reviewed the resident's note and discussed the case with the resident. I agree with the resident's findings and plan as documented. SUBJECTIVE: OBJECTIVE: ASSESSMENT AND PLAN:
[2019-04-13] MEDS ORDERED: HEPARIN NA (PORCINE) 5,000 UNITS/ML 1ML VIAL IVPUSH PRN ×2 (03:01)
[2019-04-13] MEDS: SODIUM CHLORIDE 1,000 ML IV SCH ×2 (03:11→17:48)
[2019-04-13 07:43] LABS: BASO % 0.2 % (0-2.0); HEMOGLOBIN 11.6 GM/dL (11.7-16.9); LYMPH % 5.8 % (8-40); MCH 30.6 pg (25.7-33.7); MCHC 32.3 g/dl (32.0-35.9); MEAN CELL VOLUME 94.7 fl (80-96); MEAN PLT VOLUME 10.3 fl (7.5-11.1); MONO % 6.7 % (3.8-10.2); NEUT % 87.3 % (42.8-82.8); PLATELET COUNT 252 K/MM3 (134-434); WHITE BLOOD COUNT 12.5 K/mm3 (4.0-10.0)
[2019-04-13 08:25] LABS: CALCIUM 7.9 mg/dL (8.5-10.1); CREATININE 7.2 mg/dL (0.55-1.3); MAGNESIUM 2.6 mg/dL (1.8-2.4); PHOSPHOROUS 8.8 mg/dL (2.5-4.9); POTASSIUM 5.1 mmol/L (3.5-5.1)
[2019-04-13 08:28] LABS: BLOOD UREA NITROGEN 118.3 mg/dL (7-18)
[2019-04-13] MEDS ORDERED: PIPERACILLIN/TAZOBACTAM 2.25 GM VIAL IVPB ONE (08:54)
--- NOTE | 2019-04-13 08:54 | PN ---
Progress Note, Physician Chief Complaint: Patient more alert today but still nonverbal. Unable to obtain. - Current Medication List Current Medications: Active Medications Aspirin (Asa -) 81 mg PO DAILY [facility] Clopidogrel Bisulfate (Plavix -) 75 mg PO DAILY [facility] Heparin Sodium (Porcine) (Heparin -) 5,000 unit IVPUSH PRN PRN PRN Reason: APTT (SECONDS) <40 Heparin Sodium (Porcine) (Heparin -) 1,000 unit IVPUSH PRN PRN PRN Reason: APTT (SECONDS) 40-49 Last Admin: 04/13/19 03:00 Dose: 1,000 unit Heparin Sodium (Porcine) 25, (000 unit/ Sodium Chloride) 500 mls @ 16 mls/hr IV TITR MAGALI; Protocol Last Titration: 04/13/19 02:25 Dose: 900 unit/hr, 18 mls/hr Sodium Chloride (Normal Saline -) 1,000 mls @ 100 mls/hr IV ASDIR MAGALI Last Admin: 04/13/19 03:11 Dose: 100 mls/hr Piperacillin Sod/Tazobactam (Sod 2.25 gm/ Dextrose) 50 mls @ 100 mls/hr IVPB BID MAGALI; Protocol Last Admin: 04/13/19 00:45 Dose: 100 mls/hr - Objective Vital Signs: Vital Signs Temperature 36.4 C L 04/13/19 06:00 Pulse Rate 96 H 04/13/19 08:00 Respiratory Rate 20 04/13/19 08:00 Blood Pressure 123/74 04/13/19 08:00 O2 Sat by Pulse Oximetry (%) 98 04/13/19 08:00 Constitutional: Yes: No Distress, Calm, Thin Cardiovascular: Yes: Regular Rate and Rhythm. No: Gallop, Murmur, Rub Respiratory: Yes: CTA Bilaterally, Tachypnea. No: Regular, Rales, Rhonchi, Wheezes Gastrointestinal: Yes: Normal Bowel Sounds, Soft. No: Distention, Tenderness Extremities: Yes: Other (B AKA) Labs: CBC, BMP 04/13/19 07:10 04/13/19 07:20 INR, PTT INR 1.33 (0.83-1.09) H 04/12/19 15:08 Problem List - Problems (1) Acute metabolic encephalopathy Code(s): G93.41 - METABOLIC ENCEPHALOPATHY (2) Sepsis Code(s): A41.9 - SEPSIS, UNSPECIFIED ORGANISM (3) NSTEMI (non-ST elevated myocardial infarction) Code(s): I21.4 - NON-ST ELEVATION (NSTEMI) MYOCARDIAL INFARCTION (4) Transaminitis Code(s): R74.0 - NONSPEC ELEV OF LEVELS OF TRANSAMNS & LACTIC ACID DEHYDRGNSE (5) UTI (urinary tract infection) Code(s): N39.0 - URINARY TRACT INFECTION, SITE NOT SPECIFIED Qualifiers: Urinary tract infection type: site unspecified Hematuria presence: with hematuria Qualified Code(s): N39.0 - Urinary tract infection, site not specified; R31.9 - Hematuria, unspecified (6) ESRD (end stage renal disease) on dialysis Code(s): N18.6 - END STAGE RENAL DISEASE; Z99.2 - DEPENDENCE ON RENAL DIALYSIS (7) Severe protein-calorie malnutrition Code(s): E43 - UNSPECIFIED SEVERE PROTEIN-CALORIE MALNUTRITION (8) Hyperlipemia Code(s): E78.5 - HYPERLIPIDEMIA, UNSPECIFIED Qualifiers: Hyperlipidemia type: unspecified hyperlipidemia (9) Hypertension Code(s): I10 - ESSENTIAL (PRIMARY) HYPERTENSION Qualifiers: Hypertension type: other secondary hypertension Qualified Code(s): I15.8 - Other secondary hypertension (10) Metabolic acidosis, increased anion gap Code(s): E87.2 - ACIDOSIS (11) Tachypnea Code(s): R06.82 - TACHYPNEA, NOT ELSEWHERE CLASSIFIED Assessment/Plan (1) Acute metabolic encephalopathy Assessment/Plan: -secondary to sepsis and NSTEMI -treat underlying cause -improved today but not baseline -consult speech therapy this am Code(s): G93.41 - METABOLIC ENCEPHALOPATHY (2) Sepsis Assessment/Plan: -still unclear source -continue zosyn and IVF -urinary vs biliary -ID consulted Code(s): A41.9 - SEPSIS, UNSPECIFIED ORGANISM (3) NSTEMI (non-ST elevated myocardial infarction) Assessment/Plan: -troponin improved but still significantly elevated -cardiology consulted -continue heparin gtt -hold aspirin and plavix until cleared to swallow -consider pr aspirin Code(s): I21.4 - NON-ST ELEVATION (NSTEMI) MYOCARDIAL INFARCTION (4) Transaminitis Assessment/Plan: -abdominal ultrasound reviewed -gallstones noted, may have passed stone -hepatic function panel pending Code(s): R74.0 - NONSPEC ELEV OF LEVELS OF TRANSAMNS & LACTIC ACID DEHYDRGNSE (5) UTI (urinary tract infection) Assessment/Plan: -urinalysis suggestive of UTI -follow up culture -covered by zosyn Code(s): N39.0 - URINARY TRACT INFECTION, SITE NOT SPECIFIED (6) ESRD (end stage renal disease) on dialysis Assessment/Plan: -nephrology to see -HD per nephrology Code(s): N18.6 - END STAGE RENAL DISEASE; Z99.2 - DEPENDENCE ON RENAL DIALYSIS (7) Severe protein-calorie malnutrition Assessment/Plan: -currently npo -speech therapy consult Code(s): E43 - UNSPECIFIED SEVERE PROTEIN-CALORIE MALNUTRITION (8) Hyperlipemia Assessment/Plan: -holding statin Code(s): E78.5 - HYPERLIPIDEMIA, UNSPECIFIED Qualifiers: Hyperlipidemia type: unspecified hyperlipidemia (9) Hypertension Assessment/Plan: -controlled -does not need antihypertensives at this time Code(s): I10 - ESSENTIAL (PRIMARY) HYPERTENSION Qualifiers: Hypertension type: other secondary hypertension Qualified Code(s): I15.8 - Other secondary hypertension (10) Metabolic acidosis, increased anion gap Assessment/Plan: -secondary to uremia -hydration -HD per nephrology Code(s): E87.2 - ACIDOSIS (11) Tachypnea Assessment/Plan: -partly compensation for AG acidosis -oxygen support Code(s): R06.82 - TACHYPNEA, NOT ELSEWHERE CLASSIFIED
[2019-04-13] MEDS ORDERED: DEXTROSE 5%-WATER - 50 ML IVPB ONE (08:55)
[2019-04-13 09:12] LABS: BILIRUBIN,DIRECT 0.6 mg/dL (0.0-0.2); BILIRUBIN,TOTAL 0.9 mg/dL (0.2-1); TOT PROT 6.4 g/dl (6.4-8.2)
--- NOTE | 2019-04-13 09:20 | CON.CARD ---
Consult Consult Specialty:: cardio - History of Present Illness Chief Complaint: sob, altered MS History of Present Illness: 74 year old male brought in by his family for AMS and difficulty breathing. family reports 2-3 days h/o breathlessness. also with an episode of vomiting at home, and food intolerance with ? aspiration per nick report. He became progressively more lethargic and less interactive, then on DOA was non -verbal and appeared to be gasping for breath notable ER findings: febrile to 101.4, leucocytosis. BP normal. lactate normal. sat 90% on RA. tropnin 9 with normal CPK presently: he is non-verbalizing. shakes head "no" when asked if cp here or at home, or sob. 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, Other Cardio/Vascular: Yes: HTN, Hyperlipdemia, Other (s/p DVT/PE, s/p IVC filter, on coumadin) Gastrointestinal: Yes: GI Bleed ((occult-normal EGD and colon 09/24/14)) Hepatobiliary: Yes: Hepatitis C (Ab (+) in February,) Renal/: Yes: Renal Failure, Hemodialysis (2x/week T,R) - Past Surgical History Past Surgical History: Yes: Amputation (Rt AKA, traumatic), AV Fistula/Graft - Alcohol/Substance Use Hx Alcohol Use: No - Smoking History Smoking history: Never smoked Have you smoked in the past 12 months: No Aproximately how many cigarettes per day: 0 If you are a former smoker, when did you quit?: 30 years - Social History Usual Living Arrangement: Assisted Living (has 24 h aide) ADL: Support Services History of Recent Travel: No Home Medications - Allergies Allergies/Adverse Reactions: Allergies Allergy/AdvReac Type Severity Reaction Status Date / Time No Known Allergies Allergy Verified 09/23/18 21:33 - Home Medications Home Medications: Ambulatory Orders Clopidogrel Bisulfate [Plavix] 75 mg PO DAILY 08/25/18 Acetaminophen [Tylenol .Regular Strength -] 650 mg PO Q4H PRN 09/23/18 Atorvastatin Ca [Lipitor] 80 mg PO DAILY 09/23/18 Docusate Sodium [Colace] 100 mg PO DAILY 09/23/18 Epoetin Stuart [Epogen] 3,000 unit IJ TUTA 09/23/18 Metoprolol Tartrate 25 mg PO BID 09/23/18 Mirtazapine [Remeron -] 7.5 mg PO HS 09/23/18 Aspirin 81 mg PO DAILY 04/12/19 Midodrine HCl 15 mg PO TID 04/12/19 Pantoprazole Sodium 40 mg PO DAILY 04/12/19 Family Disease History - Family Disease History Family History: Unable to Obtain Review of Systems Unable to obtain ROS, reason: not verbal Vital Signs: Vital Signs Temperature 97.5 F L 04/13/19 06:00 Pulse Rate 96 H 04/13/19 08:00 Respiratory Rate 20 04/13/19 08:00 Blood Pressure 123/74 04/13/19 08:00 O2 Sat by Pulse Oximetry (%) 98 04/13/19 08:00 Constitutional: Yes: Well Nourished, No Distress Eyes: No: Sclera Icterus HENT: No: Nasal Congestion Neck: No: Decreased ROM Respiratory: Yes: CTA Bilaterally. No: Accessory Muscle Use, Rales, Wheezes Gastrointestinal: Yes: Normal Bowel Sounds. No: Distention, Hepatomegaly, Palpable Mass, Tenderness Cardiovascular: Yes: Regular Rate and Rhythm JVD: No Carotid Bruit: No PMI: Non-Displaced Heart Sounds: Yes: S1, S2. No: Gallop Murmur: No: Systolic Murmur, Diastolic Murmur Musculoskeletal: Yes: Other (No kyphosis) Extremities: No: Cool, Cyanosis Edema: No Peripheral Pulses: 2+ Left Carotid, 2+ Right Carotid, 2+ Left Doralis Pedis, 2+ Right Dorsalis Pedis Integumentary: No: Jaundice Neurological: Yes: Alert. No: Seizure Psychiatric: No: Agitated - Other Data Labs, Other Data: CBC, BMP 04/13/19 07:10 04/13/19 07:20 INR, PTT INR 1.33 (0.83-1.09) H 04/12/19 15:08 Troponin, BNP 04/12/19 04/13/19 04/13/19 15:08 03:00 07:20 Troponin I 9.66 H* 7.54 H* 6.87 H* Troponin, BNP 04/12/19 04/13/19 04/13/19 15:08 03:00 07:20 Troponin I 9.66 H* 7.54 H* 6.87 H* Laboratory Tests 04/12/19 04/12/19 04/13/19 15:08 15:08 03:00 WBC Hgb Plt Count Sodium Potassium Carbon Dioxide BUN Creatinine Lactic Acid 1.9 AST ALT Creatine Kinase 44 Troponin I 9.66 H* 7.54 H* 04/13/19 04/13/19 07:10 07:20 WBC 12.5 H Hgb 11.6 L Plt Count 252 Sodium 142 Potassium 5.1 Carbon Dioxide 20 L BUN 118.3 H* Creatinine 7.2 H Lactic Acid AST 316 H ALT 658 H Creatine Kinase Troponin I 6.87 H* Assessment/Plan CXR: incr'd lung markings chronic/unchanged vs prior. no congestion/effusion, infiltrate ECG: NSR, normal axis. no path q's. mild, nonspecific STs improved vs prior tele: NSR NSTEMI: -troponin 9-->trended down. -no ischemic changes on ECG -history suggests infection (? lung/airways), no definite acute event as far as ACS but pt's decr mentation at home precludes accurate history -given uncertainty regarding etiology of high troponin (reliable hx re: sx's not possible here), will continue UFH gtt at present and monitor closely for bleeding (h/o GIB noted in chart) -hold home aspirin and plavix for now (presumably this regimen is for cva sec prevention) -no angina or signs of ongoing myocardial ischemia. however, pt tachycardic. thus far bp has been stable--will start low dose metoprolol and observe for hypotension. d/w'd critical care team who will evaluate pt this am and start oral metopr if swallowing status ok, o/w will try 2.5 IV metoprolol -start statin when/if cleared for PO meds -echo today for LV function -consider MPI prior to discharge, for risk stratification, depending on pt's clinical course fever, sob: -normal lactate -clear CXR, no signs chf on exam -? upper airways/bronchitis process -w/u per crit care, hospitalist transaminitis: -per hospitalist, critical care ESRD on HD: -per renal h/o CVA: -on DAPT at home--held presently (pt NPO) -ditto for statin est time spen in data review, pt exam, formulating mgmt plans for potentially life-threatening medical complications = 35 min
[2019-04-13] MEDS ORDERED: ASPIRIN 81 MG CHEWABLE TABLETS PO SCH (10:00)
[2019-04-13] MEDS ORDERED: CLOPIDOGREL BISULFATE 75 MG TABLET (FP) PO SCH (10:00)
--- NOTE | 2019-04-13 11:00 | CON.ID ---
Consult Consult Specialty:: infectious diseases Referred by:: DR Pathak Reason for Consultation:: sob,pneumonia - History of Present Illness Chief Complaint: sob History of Present Illness: 74 year old male who was brought in by his family and MOLD TECHNICIAN for AMS and difficulty breathing. They noted that 2-3 days ago he was having difficulty breathing. That night he had an episode of emesis and they question if he began aspirating when he was eating. He became more lethargic and less interactive over this time. it seems patient became very sob and was brought to the hospital and was admitted to icu currently patient is more s table,does not know what happened ,when asked if he is feeling better,shakes his head - Past Medical History TITLE CLOSER: Yes: CVA, Other Cardio/Vascular: Yes: HTN, Hyperlipdemia, Other (s/p DVT/PE, s/p IVC filter, on coumadin) Gastrointestinal: Yes: GI Bleed ((occult-normal EGD and colon 09/24/14)) Hepatobiliary: Yes: Hepatitis C (Ab (+) in February,) Renal/: Yes: Renal Failure, Hemodialysis (2x/week T,R) - Past Surgical History Past Surgical History: Yes: Amputation (Rt AKA, traumatic), AV Fistula/Graft - Alcohol/Substance Use Hx Alcohol Use: No - Smoking History Smoking history: Never smoked Have you smoked in the past 12 months: No Aproximately how many cigarettes per day: 0 If you are a former smoker, when did you quit?: 30 years - Social History Usual Living Arrangement: Assisted Living (has 24 h aide) ADL: Support Services History of Recent Travel: No Home Medications - Allergies Allergies/Adverse Reactions: Allergies Allergy/AdvReac Type Severity Reaction Status Date / Time No Known Allergies Allergy Verified 09/23/18 21:33 - Home Medications Home Medications: Ambulatory Orders Clopidogrel Bisulfate [Plavix] 75 mg PO DAILY 08/25/18 Acetaminophen [Tylenol .Regular Strength -] 650 mg PO Q4H PRN 09/23/18 Atorvastatin Ca [Lipitor] 80 mg PO DAILY 09/23/18 Docusate Sodium [Colace] 100 mg PO DAILY 09/23/18 Epoetin Stuart [Epogen] 3,000 unit [facility] 09/23/18 Metoprolol Tartrate 25 mg PO BID 09/23/18 Mirtazapine [Remeron -] 7.5 mg PO HS 09/23/18 Aspirin 81 mg PO DAILY 04/12/19 Midodrine HCl 15 mg PO TID 04/12/19 Pantoprazole Sodium 40 mg PO DAILY 04/12/19 Review of Systems Unable to obtain ROS, reason: unable to obtain Physical Exam Vital Signs: Vital Signs Temperature 97.5 F L 04/13/19 06:00 Pulse Rate 96 H 04/13/19 08:00 Respiratory Rate 20 04/13/19 08:00 Blood Pressure 123/74 04/13/19 08:00 O2 Sat by Pulse Oximetry (%) 98 04/13/19 08:00 Constitutional: Yes: Calm Cardiovascular: Yes: Regular Rate and Rhythm Respiratory: Yes: Regular, Poor Air Entry, Rhonchi Gastrointestinal: Yes: Normal Bowel Sounds, Soft Musculoskeletal: Yes: WNL Extremities: Yes: WNL Neurological: Yes: Alert, Other Labs: CBC, BMP 04/13/19 07:10 04/13/19 07:20 Imaging - Results Chest X-ray: Report Reviewed, Image Reviewed Ultrasound: Report Reviewed, Image Reviewed Assessment/Plan Problem List - Problems (1) Acute metabolic encephalopathy Code(s): G93.41 - METABOLIC ENCEPHALOPATHY (2) Sepsis Code(s): A41.9 - SEPSIS, UNSPECIFIED ORGANISM (3) NSTEMI (non-ST elevated myocardial infarction) Code(s): I21.4 - NON-ST ELEVATION (NSTEMI) MYOCARDIAL INFARCTION (4) Transaminitis Code(s): R74.0 - NONSPEC ELEV OF LEVELS OF TRANSAMNS & LACTIC ACID DEHYDRGNSE (5) UTI (urinary tract infection) Code(s): N39.0 - URINARY TRACT INFECTION, SITE NOT SPECIFIED Qualifiers: Urinary tract infection type: site unspecified Hematuria presence: with hematuria Qualified Code(s): N39.0 - Urinary tract infection, site not specified; R31.9 - Hematuria, unspecified (6) ESRD (end stage renal disease) on dialysis Code(s): N18.6 - END STAGE RENAL DISEASE; Z99.2 - DEPENDENCE ON RENAL DIALYSIS (7) Severe protein-calorie malnutrition Code(s): E43 - UNSPECIFIED SEVERE PROTEIN-CALORIE MALNUTRITION (8) Hyperlipemia Code(s): E78.5 - HYPERLIPIDEMIA, UNSPECIFIED Qualifiers: Hyperlipidemia type: unspecified hyperlipidemia (9) Hypertension Code(s): I10 - ESSENTIAL (PRIMARY) HYPERTENSION Qualifiers: Hypertension type: other secondary hypertension Qualified Code(s): I15.8 - Other secondary hypertension (10) Metabolic acidosis, increased anion gap Code(s): E87.2 - ACIDOSIS (11) Tachypnea Code(s): R06.82 - TACHYPNEA, NOT ELSEWHERE CLASSIFIED patient more comfortable breathing well urine positive will continue zosyn rest as per icu cc 40 min
--- NOTE | 2019-04-13 11:23 | PN ---
Progress Note (short form) - Note Progress Note: Renal follow up for ESRD on HD Pt seen and examined in the ICU awake and alert currenly getting ECHO denies any pain, sob, confusion BP stable Vital Signs Temperature 97.5 F L 04/13/19 06:00 Pulse Rate 96 H 04/13/19 08:00 Respiratory Rate 20 04/13/19 08:00 Blood Pressure 123/74 04/13/19 08:00 O2 Sat by Pulse Oximetry (%) 98 04/13/19 08:00 Selected Entries 04/13/19 04/13/19 04/13/19 06:00 06:22 08:00 Blood Pressure 137/92 137/92 123/74 Intake & Output 04/10/19 04/11/19 04/12/19 04/13/19 23:59 23:59 23:59 23:59 Intake Total 100 700 Balance 100 700 Weight 42 kg 40.483 kg CBC, BMP 04/13/19 07:10 04/13/19 07:20 Laboratory Tests 04/13/19 07:20 Calcium 7.9 L Phosphorus 8.8 H Magnesium 2.6 H Albumin 3.0 L Current Medications Atorvastatin Calcium (Lipitor -) 80 mg PO HS MAGALI Heparin Sodium (Porcine) (Heparin -) 5,000 unit IVPUSH PRN PRN PRN Reason: APTT (SECONDS) <40 Heparin Sodium (Porcine) (Heparin -) 1,000 unit IVPUSH PRN PRN PRN Reason: APTT (SECONDS) 40-49 Last Admin: 04/13/19 03:00 Dose: 1,000 unit Heparin Sodium (Porcine) 25, (000 unit/ Sodium Chloride) 500 mls @ 16 mls/hr IV TITR MAGALI; Protocol Last Titration: 04/13/19 02:25 Dose: 900 unit/hr, 18 mls/hr Sodium Chloride (Normal Saline -) 1,000 mls @ 100 mls/hr IV ASDIR MAGALI Last Admin: 04/13/19 03:11 Dose: 100 mls/hr Piperacillin Sod/Tazobactam (Sod 2.25 gm/ Dextrose) 50 mls @ 100 mls/hr IVPB BID MAGALI; Protocol Last Admin: 04/13/19 09:21 Dose: 100 mls/hr 74 year old gentleman with hx of HTN, HLD, 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 #AMS #ESRD on HD with high BUN/Cr #Hyperphosphtaemia #Chronic Anemia #Fever/Leukocytosis Will plan for HD today with URR to make sure pt is getting adequate clearance with dialysis given very high BUN/Cr continue management of ACS as per cardiology on Abx, f/u blood cultures. Urine cultures with growth. Start phos binders when diet is resumed No JOE needed at this time Thank you Will follow Lauri Fulton DO
--- NOTE | 2019-04-13 12:15 | ECHO ---
Name: HUEY FREED Exam:Adult Echocardiogram Study Date: 04/13/2019 11:11 AM Age: 74 yrs Reason For Study: [place] Height: 60 in Weight: 89 lb BSA: 1.3 m2 BP: 121/90 mmHg MMode/2D Measurements & Calculations IVSd: 0.96 cm ACS: 1.8 cm LVIDd: 3.3 cm LVIDs: 2.7 cm LVPWd: 0.96 cm EDV(Teich): 43.1 ml LVOT diam: 1.8 cm ESV(Teich): 27.6 ml RV S Javier: 8.7 cm/sec Doppler Measurements & Calculations MV E max javier: 126.1 cm/sec Ao V2 max: 86.9 cm/sec MV A max javier: 47.3 cm/sec Ao max P.0 mmHg MV E/A: 2.7 Ao V2 mean: 61.5 cm/sec Ao mean P.7 mmHg Ao V2 VTI: 12.8 cm MARC(I,D): 1.8 cm2 MARC(V,D): 1.6 cm2 LV V1 max P.2 mmHg MR max javier: 503.9 cm/sec LV V1 mean P.63 mmHg MR max P.8 mmHg LV V1 max: 55.8 cm/sec LV V1 mean: 37.4 cm/sec LV V1 VTI: 9.5 cm SV(LVOT): 23.3 ml TR max javier: 272.8 cm/sec TR max P.5 mmHg Med Peak E' Javier: 5.1 cm/sec Med E/e': 24.5 Lat Peak E' Javier: 6.6 cm/sec Lat E/e': 19.3 Procedure A complete two-dimensional transthoracic echocardiogram was performed (2D, M-mode, Doppler and color flow Doppler). Left Ventricle The left ventricle is normal in size. Left ventricular systolic function is moderate to severely redu jaden. Ejection Fraction = 30-35%. There is moderate to severe global hypokinesis of the left ventricle. Right Ventricle The right ventricle is not well visualized. RV systolic TDI is 9 cm/s suggesting mildly reduced RV contraction. Atria The left atrial size is normal. Right atrial size is normal. Mitral Valve There is mild mitral annular calcification. There is moderate mitral regurgitation. Tricuspid Valve The tricuspid valve is normal in structure and function. There is moderate tricuspid regurgitation. Aortic Valve There is mild aortic sclerosis.;. Mild aortic regurgitation. Pulmonic Valve The pulmonic valve is not well visualized. Great Vessels The aortic root is normal size. Pericardium/Pleura There is no pericardial effusion. Interpretation Summary The left ventricle is normal in size. Left ventricular systolic function is moderate to severely reduced. There is moderate to severe global hypokinesis of the left ventricle. Ejection Fraction = 30-35%. The right ventricle is not well visualized. RV systolic TDI is 9 cm/s suggesting mildly reduced RV contraction The left atrial size is normal. Right atrial size is normal. There is mild mitral annular calcification. There is moderate mitral regurgitation. There is moderate tricuspid regurgitation. There is mild aortic sclerosis. Mild aortic regurgitation. There is no pericardial effusion. Supa Holcomb MD 04/13/2019 12:15 PM
--- NOTE | 2019-04-13 13:04 | PN ---
Teaching Attending Note Name of Resident: Sridevi Canales ATTENDING PHYSICIAN STATEMENT I saw and evaluated the patient. I reviewed the resident's note and discussed the case with the resident. I agree with the resident's findings and plan as documented. SUBJECTIVE: Patient seen and examined in the ICU. Awake but aphasic. No pressors. Intake & Output 04/10/19 04/11/19 04/12/19 04/13/19 23:59 23:59 23:59 23:59 Intake Total 100 700 Balance 100 700 Weight 92 lb 9.506 oz 89 lb 4 oz Last Vital Signs Temp Pulse Resp BP Pulse Ox 97.5 F L 96 H 22 H 133/80 98 04/13/19 12:00 04/13/19 12:00 04/13/19 12:00 04/13/19 12:00 04/13/19 08:00 Active Medications Atorvastatin Calcium (Lipitor -) 80 mg PO HS MAGALI Heparin Sodium (Porcine) (Heparin -) 5,000 unit IVPUSH PRN PRN PRN Reason: APTT (SECONDS) <40 Heparin Sodium (Porcine) (Heparin -) 1,000 unit IVPUSH PRN PRN PRN Reason: APTT (SECONDS) 40-49 Last Admin: 04/13/19 03:00 Dose: 1,000 unit Heparin Sodium (Porcine) 25, (000 unit/ Sodium Chloride) 500 mls @ 16 mls/hr IV TITR MAGALI; Protocol Last Titration: 04/13/19 02:25 Dose: 900 unit/hr, 18 mls/hr Sodium Chloride (Normal Saline -) 1,000 mls @ 100 mls/hr IV ASDIR MAGALI Last Admin: 04/13/19 03:11 Dose: 100 mls/hr Piperacillin Sod/Tazobactam (Sod 2.25 gm/ Dextrose) 50 mls @ 100 mls/hr IVPB BID MAGALI; Protocol Last Admin: 04/13/19 09:21 Dose: 100 mls/hr Sodium Chloride (Normal Saline -) 250 mls @ 3,000 mls/hr IV PRN PRN PRN Reason: Hypotension during Dialysis Stop: 04/14/19 11:28 GENERAL: Awake, alert, aphasic EYES: PEERLA: EOMI no scleral icterus NECK: no JVD; no lymphadenopathy LUNGS:scattered rhonchi HEART: S1S2, (-) ESM ABDOMEN: soft; NT/ND +BS EXTREMITIES: B/L BKA UPPER EXTREMITIES: AV Fistula on LUE with palpable thrill- no erythema or drainage surrounding site PSYCHIATRIC: Cooperative. Good eye contact. SKIN: Warm, dry, normal turgor, no rashes or lesions noted. Laboratory Results - last 24 hr 04/12/19 04/12/19 04/12/19 15:08 15:08 15:08 WBC 15.6 H RBC 3.56 L Hgb 10.9 L Hct 33.1 L MCV 93.0 MCH 30.7 MCHC 33.0 RDW 14.7 Plt Count 263 MPV 10.5 D Absolute Neuts (auto) 13.7 H Neutrophils % 87.8 H D Lymphocytes % 5.3 L D Monocytes % 6.0 Eosinophils % 0.4 D Basophils % 0.5 Nucleated RBC % 0 PT with INR 15.70 H INR 1.33 H PTT (Actin FS) 30.5 Anticoagulation Therapy Puncture Site ABG pH ABG pCO2 at Pt Temp ABG pO2 at Pt Temp ABG HCO3 ABG O2 Sat (Measured) ABG O2 Content ABG Base Excess Leander Test Carboxyhemoglobin Methemoglobin O2 Delivery Device Oxygen Flow Rate Vent Mode Vent Rate Mechanical Rate Pressure Support Vent Sodium 141 Potassium 5.3 H Chloride 104 Carbon Dioxide 18 L Anion Gap 19 H BUN 105.9 H* Creatinine 7.0 H Est GFR (CKD-EPI)AfAm 8.14 Est GFR (CKD-EPI)NonAf 7.02 POC Glucometer Random Glucose 144 H Lactic Acid Calcium 8.4 L Phosphorus Magnesium Total Bilirubin 0.9 Direct Bilirubin AST 437 H ALT 674 H Alkaline Phosphatase 115 Creatine Kinase 44 Troponin I 9.66 H* Total Protein 6.4 Albumin 3.0 L Lipase Urine Color Urine Appearance Urine pH Ur Specific [place] Urine Protein Urine Glucose (UA) Urine Ketones Urine Blood Urine Nitrite Urine Bilirubin Urine Urobilinogen Ur Leukocyte Esterase Urine WBC (Auto) Urine RBC (Auto) Urine Casts (Auto) U Epithel Cells (Auto) Urine Bacteria (Auto) 04/12/19 04/12/19 04/12/19 15:08 15:20 15:30 WBC RBC Hgb Hct MCV MCH MCHC RDW Plt Count MPV Absolute Neuts (auto) Neutrophils % Lymphocytes % Monocytes % Eosinophils % Basophils % Nucleated RBC % PT with INR INR PTT (Actin FS) Anticoagulation Therapy No Result Required. Puncture Site No Result Required. ABG pH 7.50 H ABG pCO2 at Pt Temp 23.0 L ABG pO2 at Pt Temp 126 H ABG HCO3 17.8 L ABG O2 Sat (Measured) 98.7 H ABG O2 Content 13.1 L ABG Base Excess -4.0 L Leander Test No Result Required. Carboxyhemoglobin 1.3 Methemoglobin 0.5 O2 Delivery Device No Result Required. Oxygen Flow Rate No Result Required. Vent Mode No Result Required. Vent Rate No Result Required. Mechanical Rate No Result Required. Pressure Support Vent No Result Required. Sodium Potassium Chloride Carbon Dioxide Anion Gap BUN Creatinine Est GFR (CKD-EPI)AfAm Est GFR (CKD-EPI)NonAf POC Glucometer Random Glucose Lactic Acid 1.9 Calcium Phosphorus Magnesium Total Bilirubin Direct Bilirubin AST ALT Alkaline Phosphatase Creatine Kinase Troponin I Total Protein Albumin Lipase Urine Color Yellow Urine Appearance Turbid Urine pH 5.5 D Ur Specific [place] 1.014 Urine Protein 3+ H Urine Glucose (UA) Negative Urine Ketones Negative Urine Blood 2+ H Urine Nitrite Negative Urine Bilirubin Negative Urine Urobilinogen 1.0 Ur Leukocyte Esterase 3+ H Urine WBC (Auto) 388 Urine RBC (Auto) 8 Urine Casts (Auto) 3 U Epithel Cells (Auto) 0.9 Urine Bacteria (Auto) 4579.8 04/12/19 04/12/19 04/13/19 19:40 19:45 00:25 WBC RBC Hgb Hct MCV MCH MCHC RDW Plt Count MPV Absolute Neuts (auto) Neutrophils % Lymphocytes % Monocytes % Eosinophils % Basophils % Nucleated RBC % PT with INR INR PTT (Actin FS) 42.6 H Anticoagulation Therapy Puncture Site ABG pH ABG pCO2 at Pt Temp ABG pO2 at Pt Temp ABG HCO3 ABG O2 Sat (Measured) ABG O2 Content ABG Base Excess Leander Test Carboxyhemoglobin Methemoglobin O2 Delivery Device Oxygen Flow Rate Vent Mode Vent Rate Mechanical Rate Pressure Support Vent Sodium Potassium Chloride Carbon Dioxide Anion Gap BUN Creatinine Est GFR (CKD-EPI)AfAm Est GFR (CKD-EPI)NonAf POC Glucometer Random Glucose Lactic Acid 1.9 Calcium Phosphorus Magnesium Total Bilirubin Direct Bilirubin AST ALT Alkaline Phosphatase Creatine Kinase Troponin I Total Protein Albumin Lipase 194 Urine Color Urine Appearance Urine pH Ur Specific [place] Urine Protein Urine Glucose (UA) Urine Ketones Urine Blood Urine Nitrite Urine Bilirubin Urine Urobilinogen Ur Leukocyte Esterase Urine WBC (Auto) Urine RBC (Auto) Urine Casts (Auto) U Epithel Cells (Auto) Urine Bacteria (Auto) 04/13/19 04/13/19 04/13/19 03:00 05:32 07:10 WBC 12.5 H RBC 3.80 L Hgb 11.6 L Hct 36.0 MCV 94.7 MCH 30.6 MCHC 32.3 RDW 15.0 Plt Count 252 MPV 10.3 Absolute Neuts (auto) 10.9 H Neutrophils % 87.3 H Lymphocytes % 5.8 L Monocytes % 6.7 Eosinophils % 0.0 D Basophils % 0.2 Nucleated RBC % 0 PT with INR INR PTT (Actin FS) Anticoagulation Therapy Puncture Site ABG pH ABG pCO2 at Pt Temp ABG pO2 at Pt Temp ABG HCO3 ABG O2 Sat (Measured) ABG O2 Content ABG Base Excess Leander Test Carboxyhemoglobin Methemoglobin O2 Delivery Device Oxygen Flow Rate Vent Mode Vent Rate Mechanical Rate Pressure Support Vent Sodium Potassium Chloride Carbon Dioxide Anion Gap BUN Creatinine Est GFR (CKD-EPI)AfAm Est GFR (CKD-EPI)NonAf POC Glucometer 144 Random Glucose Lactic Acid Calcium Phosphorus Magnesium Total Bilirubin Direct Bilirubin AST ALT Alkaline Phosphatase Creatine Kinase 38 Troponin I 7.54 H* Total Protein Albumin Lipase Urine Color Urine Appearance Urine pH Ur Specific [place] Urine Protein Urine Glucose (UA) Urine Ketones Urine Blood Urine Nitrite Urine Bilirubin Urine Urobilinogen Ur Leukocyte Esterase Urine WBC (Auto) Urine RBC (Auto) Urine Casts (Auto) U Epithel Cells (Auto) Urine Bacteria (Auto) 04/13/19 04/13/19 07:20 07:20 WBC RBC Hgb Hct MCV MCH MCHC RDW Plt Count MPV Absolute Neuts (auto) Neutrophils % Lymphocytes % Monocytes % Eosinophils % Basophils % Nucleated RBC % PT with INR INR PTT (Actin FS) 60.9 H Anticoagulation Therapy Puncture Site ABG pH ABG pCO2 at Pt Temp ABG pO2 at Pt Temp ABG HCO3 ABG O2 Sat (Measured) ABG O2 Content ABG Base Excess Leander Test Carboxyhemoglobin Methemoglobin O2 Delivery Device Oxygen Flow Rate Vent Mode Vent Rate Mechanical Rate Pressure Support Vent Sodium 142 Potassium 5.1 Chloride 104 Carbon Dioxide 20 L Anion Gap 18 H BUN 118.3 H* Creatinine 7.2 H Est GFR (CKD-EPI)AfAm 7.87 Est GFR (CKD-EPI)NonAf 6.79 POC Glucometer Random Glucose 147 H Lactic Acid Calcium 7.9 L Phosphorus 8.8 H Magnesium 2.6 H Total Bilirubin 0.9 Direct Bilirubin 0.6 H AST 316 H ALT 658 H Alkaline Phosphatase 112 Creatine Kinase 46 Troponin I 6.87 H* Total Protein 6.4 Albumin 3.0 L Lipase Urine Color Urine Appearance Urine pH Ur Specific [place] Urine Protein Urine Glucose (UA) Urine Ketones Urine Blood Urine Nitrite Urine Bilirubin Urine Urobilinogen Ur Leukocyte Esterase Urine WBC (Auto) Urine RBC (Auto) Urine Casts (Auto) U Epithel Cells (Auto) Urine Bacteria (Auto) Problem List - Problems (1) Acute metabolic encephalopathy Code(s): G93.41 - METABOLIC ENCEPHALOPATHY (2) Elevated troponin I level Code(s): R74.8 - ABNORMAL LEVELS OF OTHER SERUM ENZYMES (3) NSTEMI (non-ST elevated myocardial infarction) Code(s): I21.4 - NON-ST ELEVATION (NSTEMI) MYOCARDIAL INFARCTION ASSESSMENT/PLAN: NSTEMI (?) bronchitis Transaminitis ESRD on HD CVA by history UTI Check swallow reflex Will start Beta Anahi IV Heparin Statin ASA / Plavix ABX for UTI Cardiac Telemetry monitoring Dr Wise
--- NOTE | 2019-04-13 15:17 | CONSULT ---
Admitting History and Physical - Primary Care Physician PCP: Garrison Olmos - Admission History of Present Illness: Per EMR- Mr Garcia is a 74 year old male, hx of HTN, HLD, CVA (w/ right sided deficits and aphasia), Hep C, ESRD on HD, DVT s/p IVC filter, B/L BKA, brought in by his family and [employer] for AMS and difficulty breathing, following episode of emesis a couple of days before. He became more lethargic and less interactive over this time, became non-verbal and SOB and was brought to [facility].. AMS/Fever and lukocytosis. cxr (-) uti Pt well known to me from previous admissions. Last MBS Aug 2018-Oral apraxia with impaired oral transit, trace aspiration on nectar thick liquid and silent aspiration on thin liquid. [place] [facility] [place] [facility] [place] at that time. Pt's daughter and HCP was present during assessment. Although pt has h/o Dysphagia, and previous PNA, she has provided him with soft mechanical foods, thin liquids such as Ensure and milkshakes for quality of life. 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 He had PNA last August. He has been Aphasic, speaking in words and phrases in a whispered voice premorbidly. - Past Medical History [employer]IM[employer]: Yes: CVA, Other Cardiovascular: Yes: HTN, Hyperlipdemia, Other (s/p DVT/PE, s/p IVC filter, on coumadin) Gastrointestinal: Yes: GI Bleed ((occult-normal EGD and colon 09/24/14)) Hepatobiliary: Yes: Hepatitis C (Ab (+) in February,) Renal/: Yes: Renal Failure, Hemodialysis (2x/week T,R) Heme/Onc: Yes: Anemia - Past Surgical History Past Surgical History: Yes: Amputation (Rt AKA, traumatic), AV Fistula/Graft - Smoking History Smoking history: Never smoked Have you smoked in the past 12 months: No Aproximately how many cigarettes per day: 0 If you are a former smoker, when did you quit?: 30 years - Alcohol/Substance Use Hx Alcohol Use: No - Social History ADL: Support Services History of Recent Travel: No History - Admission Reason For Visit: UTI,NSTEMI, SEPSIS, ESRD - Diagnostics X-ray: Report Reviewed ((-)) Modified Barium Swallow: Report Reviewed (Last MBS Aug 2018-Oral apraxia with impaired oral transt, trace aspiration on nectar thick liquid and silent aspiration on thin liquid. Thinned at puree and nectar thick liqiuid rec at that time.) - General Mental Status: Awake and Alert, Able to Follow Commands (1 step), Flat Affect Attention: Distractible, Mild Impairment Ability to Follow Directions: Fair Head/Neck Control: Fair - Hearing Hearing: Normal Speech Evaluation - Communication Primary Language: UKRAINIAN Communication: Yes: Dysarthria, Aphasia Oral Expression Ability: Yes: Severe Impairment - Speech Production Able to Make Needs Known: Yes: Severely Impaired Intelligibility: Yes: Severely Impaired - Speech Characteristics Voice Loudness: Severely Soft/Quiet Voice Phonatory-based Quality: Yes: Dysphonia Speech Pattern: Impaired Speech Clarity: < 25% (rare words elicited) Articulation: Yes: Imprecise Voice, Other Observations: Yes: Inadequate Breath Support - Language/Auditory Comprehension Follows: Yes: 1 Stage Simple Commands Observation: Able to respond to yes/no queries: Yes, Comprehends Conversational Speech: Yes (simple) - Language/Verbal Expression Aphasia: Yes: Nonfluent, Impaired Repetition, Apraxia Able to Respond to Simple Queries: Yes: Severely Impaired Able to Communicate Wants and Needs: Yes: Severely Impaired Functional Communication Status: Yes: Severely Impaired - Swallow Evaluation/Bedside Assessment Current Nutritional Intake: NPO Oral Secretions: Yes: WFL Facial Symmetry at Rest: Symmetrical Jaw Position: Open at Rest Against Resistance Opening: Weak Against Resistance Closing: Weak Lingual Movement: Apraxic Lingual Speed of Movement: Reduced Lingual Movement Strgth Against Opposition: Reduced Lingual Movement Characteristics: Normal Laryngeal Elevation: Impaired Laryngeal Movement: Able to Palpate, Labored,delay initiation Rate of Intake: Slow/Holding (persistent oral pumping to transfer bolus posteriorally.) Bolus Size: Small Labial Seal: Impaired Bilaterally Chewing: Impaired Oral Prep Time: Increased A-P Transit: Impaired Timing of Swallow: Delayed Coughing/Throat Clear: Yes (puree and sip water) Recommendations - Speech Evaluation, Impression/Plan Impression: Impaired minal-pharyngeal transfer with delayed untimely swallow. Suspect aspiration on liquids, possibly puree. Communication worse, with rare words elicited. Y/N headshake seems fairly reliable. Follows simple 1 stage directives. Pt shook his head NO, with daughter, nursing and Med resident present, that he did not want chest compression or intubation. His daughter was going to clarify this.Per Dr. Robbins, family does not want TF or repeat MBS. Pt with h/o aspiration on mbs. He coughs at home with po intake but family would like to provide most liberal diet tolerated. cxr (-) - Dysphagia Impressions/Plan Swallowing Skills: Impaired Dysphagia Impressions: Ongoing Evaluation, Suspect Aspiration *Silent aspiration: cannot be R/O at bedside Recommendations: Palliative Care, Modified Barium Swallow (recommended but refused by family.) - Recommendations Diet Consistency: Dysphagia Pureed (MBS indicated but refused by family. Trial of Dys puree/nectar thick liquid, Ensure pudding, 2 mattie HN. Observe for cough, congestion, fever. Consider NPO if signs of aspiration.), Other (Reviewed with Medical staff. Pt wants her father to have PO diet. Educated her regarding strong suspicion for aspiration presently. She reports that he has coughed for 20 years.) Liquids: [place] Thick Supplement: IVF if notcontraindicated (trial of Ensure (thin liquid)), Other ( family req)
--- NOTE | 2019-04-13 17:32 | PN ---
Physical Exam: SUBJECTIVE: Patient seen and examined at the bedside, in no acute distress. No significant events since admission to ICU. Spoke with patient's daughter today to confirm patient's DNR/DNI status. OBJECTIVE: Vital Signs Period Temp Pulse Resp BP Sys/Schneider Pulse Ox Last 24 Hr 97.5 F-97.9 F 95-99 20-26 123-137/74-92 90-100 GENERAL: Awake, alert, staring; in no acute distress. Patient has aphasia s/p stroke, but able to follow commands and nod yes/no. Oriented to self. EYES: PEERLA: EOMI no scleral icterus NECK: no JVD; no lymphadenopathy LUNGS:CTA B/L; no rales, rhonchi or wheezing- on 3L nasal O2 slightly tachypneic HEART: tachycardic; regualr rhythm , normal S1 and S2 without murmur, rub or gallop. ABDOMEN: soft; NT/ND +BS in all 4 quadrants (no wincing upon palpation) EXTREMITIES: B/L AKA UPPER EXTREMITIES: AV Fistula on LUE with palpable thrill- no erythema or drainage surrounding site PSYCHIATRIC: Cooperative. Good eye contact. Appropriate mood and affect. SKIN: Warm, dry, normal turgor, no rashes or lesions noted. Laboratory Results - last 24 hr 04/12/19 04/12/19 04/13/19 19:40 19:45 00:25 WBC RBC Hgb Hct MCV MCH MCHC RDW Plt Count MPV Absolute Neuts (auto) Neutrophils % Lymphocytes % Monocytes % Eosinophils % Basophils % Nucleated RBC % PTT (Actin FS) 42.6 H Sodium Potassium Chloride Carbon Dioxide Anion Gap BUN Creatinine Est GFR (CKD-EPI)AfAm Est GFR (CKD-EPI)NonAf POC Glucometer Random Glucose Lactic Acid 1.9 Calcium Phosphorus Magnesium Total Bilirubin Direct Bilirubin AST ALT Alkaline Phosphatase Creatine Kinase Troponin I Total Protein Albumin Lipase 194 04/13/19 04/13/19 04/13/19 03:00 05:32 07:10 WBC 12.5 H RBC 3.80 L Hgb 11.6 L Hct 36.0 MCV 94.7 MCH 30.6 MCHC 32.3 RDW 15.0 Plt Count 252 MPV 10.3 Absolute Neuts (auto) 10.9 H Neutrophils % 87.3 H Lymphocytes % 5.8 L Monocytes % 6.7 Eosinophils % 0.0 D Basophils % 0.2 Nucleated RBC % 0 PTT (Actin FS) Sodium Potassium Chloride Carbon Dioxide Anion Gap BUN Creatinine Est GFR (CKD-EPI)AfAm Est GFR (CKD-EPI)NonAf POC Glucometer 144 Random Glucose Lactic Acid Calcium Phosphorus Magnesium Total Bilirubin Direct Bilirubin AST ALT Alkaline Phosphatase Creatine Kinase 38 Troponin I 7.54 H* Total Protein Albumin Lipase 04/13/19 04/13/19 07:20 07:20 WBC RBC Hgb Hct MCV MCH MCHC RDW Plt Count MPV Absolute Neuts (auto) Neutrophils % Lymphocytes % Monocytes % Eosinophils % Basophils % Nucleated RBC % PTT (Actin FS) 60.9 H Sodium 142 Potassium 5.1 Chloride 104 Carbon Dioxide 20 L Anion Gap 18 H BUN 118.3 H* Creatinine 7.2 H Est GFR (CKD-EPI)AfAm 7.87 Est GFR (CKD-EPI)NonAf 6.79 POC Glucometer Random Glucose 147 H Lactic Acid Calcium 7.9 L Phosphorus 8.8 H Magnesium 2.6 H Total Bilirubin 0.9 Direct Bilirubin 0.6 H AST 316 H ALT 658 H Alkaline Phosphatase 112 Creatine Kinase 46 Troponin I 6.87 H* Total Protein 6.4 Albumin 3.0 L Lipase Active Medications Generic Name Dose Route Start Last Admin Trade Name Freq PRN Reason Stop Dose Admin Atorvastatin Calcium 80 mg 04/13/19 22:00 Lipitor - PO HS MAGALI Heparin Sodium (Porcine) 5,000 unit 04/13/19 03:01 Heparin - IVPUSH PRN PRN APTT (SECONDS) <40 Heparin Sodium (Porcine) 1,000 unit 04/13/19 03:01 04/13/19 03:00 Heparin - IVPUSH 1,000 unit PRN PRN Administration APTT (SECONDS) 40-49 Heparin Sodium (Porcine) 25, 500 mls @ 16 mls/hr 04/12/19 17:15 04/13/19 02: 25 000 unit/ Sodium Chloride IV 900 unit/hr TITR MAGALI 18 mls/hr Titration Protocol 800 UNIT/HR Sodium Chloride 1,000 mls @ 100 mls/hr 04/12/19 17:45 04/13/19 03:11 Normal Saline - IV 100 mls/hr ASDIR MAGALI Administration Piperacillin Sod/Tazobactam 50 mls @ 100 mls/hr 04/12/19 22:00 04/13/19 09:21 Sod 2.25 gm/ Dextrose IVPB 100 mls/hr BID MAGALI Administration Protocol Sodium Chloride 250 mls @ 3,000 mls/hr 04/13/19 11:28 Normal Saline - IV 04/14/19 11:28 PRN PRN Hypotension during Dialysis Mirtazapine 7.5 mg 04/13/19 22:00 Remeron - PO HS [facility] ASSESSMENT/PLAN: 74 y/o with PMH HTN, HLD, CVA (with R sided deficits and aphasia), DM, ESRD (), DVT s/p IVC filter, hep C, previous GI bleed who presented to the ED with worsening shortness of breath and a change in mental status and found to have a trop of 9.66 #Neuro patient has history of R sided CVA with residual deficits found to be non- verbal today -ABG showed PH of 7.5 with Pco2 of 23 -currently NPO pending speech/swallow eval -mental status appears near baseline although the patient's daughter noted today that he still seemed "anxious" and "somewhat out of it", will continue to monitor #Cardiovascular patient was found to have a trop of 9.66 with no EKG changes -patient started on heparin drip in addition to ASA and Plavix -cardio consulted -monitor trops q6H (trending down, now 6.87) -history of HTN: patient remains normotensive will hold meds currently -monitor hemodynamics -will monitor for signs of bleeding #GI patient was found to have transaminitis with benign abdominal exam -F/U abdominal US -holding statin in light of transaminitis -will trend LFTS -lipase was normal -currently NPO #ID patient found to be septic with a positive UA; CXR doesn't show definite consolidation -patient started on zosyn 50 mls @ 100 mls/hr -ID consulted, appreciate reccs -F/U blood and urine cx -NS @100mls/hr #Pulmonary ABG showed PH 7.5 with Co2 23 -patient currently saturating well on 2LNC -will monitor respiratory status -F/U chest XRAY #Renal patient has ESRD with HD / -Dr. Graham saw patient did not feel emergent HD was necessary -Plan for HD today -monitor electrolytes -monitor volume status F/E/N NS @100mls/hr monitor electrolytes NPO DVT PPX: heparin drip Dispo: We will continue to follow the patient. Thank you for this consultative opportunity. Spoke with patient's daughter Francesca today. Stated she was his healthcare proxy and reaffirmed his DNR/DNI status, also declined to have NG tube placed at this time. Counselled her about risk of aspiration with PO feeds. Will follow up with family about plan for feeds tomorrow. Visit type - Emergency Visit Emergency Visit: Yes ED Registration Date: 04/12/19 Care time: The patient presented to the Emergency Department on the above date and was hospitalized for further evaluation of their emergent condition. - New Patient This patient is new to me today: Yes Date on this admission: 04/13/19 - Critical Care Critical Care patient: Yes Total Critical Care Time (in minutes): 40 Critical Care Statement: The care of this patient involved high complexity decision making to prevent further life threatening deterioration of the patient 's condition and/or to evaluate & treat vital organ system(s) failure or risk of failure. ATTENDING PHYSICIAN STATEMENT I saw and evaluated the patient. I reviewed the resident's note and discussed the case with the resident. I agree with the resident's findings and plan as documented. SUBJECTIVE: OBJECTIVE: ASSESSMENT AND PLAN:
[2019-04-13] MEDS ORDERED: SODIUM CHLORIDE 250 ML IV PRN (18:15)
[2019-04-13 18:53] LABS: CREATININE 7.2 mg/dL (0.55-1.3)
[2019-04-13] MEDS: HEPARIN - 25,000 UNIT in SODIUM CHLORIDE 495 ML IV SCH (21:02)
[2019-04-13] MEDS: MIRTAZAPINE 15 MG TABLET (FP) PO SCH (21:12)
[2019-04-13] MEDS: ATORVASTATIN CA 80 MG TABLET (FP) PO SCH (21:12)
[2019-04-14 00:56] LABS: BLOOD UREA NITROGEN 17.6 mg/dL (7-18); CREATININE 1.4 mg/dL (0.55-1.3)
[2019-04-14] MEDS ORDERED: PIPERACILLIN/TAZOBACTAM 2.25 GM VIAL IVPB ONE ×3 (00:57→21:21)
[2019-04-14] MEDS ORDERED: DEXTROSE 5%-WATER - 50 ML IVPB ONE ×3 (00:57→21:21)
[2019-04-14] MEDS: SODIUM CHLORIDE 1,000 ML IV SCH ×2 (06:07→21:22)
[2019-04-14 06:21] LABS: BASO % 0.2 % (0-2.0); EOS % 0.8 % (0-4.5); HEMATOCRIT 28.1 % (35.4-49); HEMOGLOBIN 9.4 GM/dL (11.7-16.9); LYMPH % 6.4 % (8-40); MCH 30.9 pg (25.7-33.7); MCHC 33.3 g/dl (32.0-35.9); MEAN CELL VOLUME 92.8 fl (80-96); MEAN PLT VOLUME 10.2 fl (7.5-11.1); MONO % 6.3 % (3.8-10.2); NEUT % 86.3 % (42.8-82.8); PLATELET COUNT 200 K/MM3 (134-434); RBC 3.03 M/mm3 (4.00-5.60); RDW 14.5 % (11.9-15.9); WHITE BLOOD COUNT 13.2 K/mm3 (4.0-10.0)
[2019-04-14 06:42] LABS: ALBUMIN 2.3 g/dl (3.4-5.0); BILIRUBIN,DIRECT 0.5 mg/dL (0.0-0.2); BILIRUBIN,TOTAL 0.9 mg/dL (0.2-1); BLOOD UREA NITROGEN 30.6 mg/dL (7-18); CREATININE 2.7 mg/dL (0.55-1.3); MAGNESIUM 1.9 mg/dL (1.8-2.4); PHOSPHOROUS 2.6 mg/dL (2.5-4.9); POTASSIUM 3.3 mmol/L (3.5-5.1); TOT PROT 5.1 g/dl (6.4-8.2)
[2019-04-14] MEDS ORDERED: METOPROLOL TARTRATE 5 MG/5 ML VIAL IVPUSH SCH (08:15)
[2019-04-14] MEDS: METOPROLOL TARTRATE 5 MG/5 ML VIAL IVPUSH SCH ×2 (09:42→14:00)
[2019-04-14] MEDS: PIPERACILLIN/TAZOB 2.25 GM 2.25 GM in DEXTROSE 5%-WATER - 50 ML IVPB SCH ×3 (09:43→21:25)
[2019-04-14] MEDS ORDERED: METOPROLOL TARTRATE 25 MG TABLET (FP) PO SCH (10:00)
--- NOTE | 2019-04-14 10:24 | PN ---
Physical Exam: SUBJECTIVE: Patient seen and examined> Pt resting comfortably in bed. Denies chest pain or SOB. Daughter by bedside stressing father is DNR/DNI. They do not want a feeding tube/NGT. Want to continue to give him chopped diet. Do not want aggressive measures, but want treatment for current infection with monitoring as required. Open to talking with palliative care. OBJECTIVE: Vital Signs Period Temp Pulse Resp BP Sys/Schneider Pulse Ox Last 24 Hr 97.4 F-98.1 F 82-101 18-24 91-142/55-94 98 Vital Signs Temp 97.8 F 04/14/19 22:00 Pulse 92 H 04/15/19 00:00 Resp 17 04/15/19 00:00 BP 124/71 04/15/19 00:00 Pulse Ox 98 04/14/19 22:00 Intake & Output 04/14/19 04/14/19 04/15/19 11:59 23:59 11:59 Intake Total 1416 1641 Output Total 100 400 Balance 1316 1241 Weight 41.447 kg 41.277 kg Intake: IV 1416 1416 Heparin - 25,000 Unit In 216 216 Normal Saline - 495 ml @ 800 UNIT/HR 16 mls/hr IV TITR MAGALI Rx#:[id number] Normal Saline - 1,000 ml 1200 1200 @ 100 mls/hr IV ASDIR MAGALI Rx#:[id number] IVPB 50 Oral 175 Output: Urine 100 400 Void 100 400 Other: Voiding Method Incontinent Incontinent Bowel Movement Yes: small Yes # Bowel Movements 1 Height 1.52 m Body Mass Index (BMI) 17.7 Weight Measurement Method Built in [facility] GENERAL: The patient is underweight, awake, alert, in no acute distress, nodding responses. EYES: PERRL, extraocular movements intact, sclera anicteric, ENT: Temporomandibular wasting LUNGS: Breath sounds equal, clear to auscultation bilaterally HEART: S1, S2 ABDOMEN: Soft, nontender, nondistended, normoactive bowel sounds, EXTREMITIES: B/L AKA NEUROLOGICAL: Awake, but somnolent, able to nod responses, able to move upper extremities CBC, BMP 04/14/19 05:25 04/14/19 05:25 Laboratory Results - last 24 hr 04/13/19 04/13/19 04/13/19 17:55 17:55 22:00 WBC RBC Hgb Hct MCV MCH MCHC RDW Plt Count MPV Absolute Neuts (auto) Neutrophils % Lymphocytes % Monocytes % Eosinophils % Basophils % Nucleated RBC % Sodium Potassium Chloride Carbon Dioxide Anion Gap BUN 119.9 H* 17.6 Creatinine 7.2 H 1.4 H Est GFR (CKD-EPI)AfAm 7.87 56.96 Est GFR (CKD-EPI)NonAf 6.79 49.14 Random Glucose Calcium Phosphorus Magnesium Total Bilirubin Direct Bilirubin AST ALT Alkaline Phosphatase Total Protein Albumin 04/14/19 04/14/19 05:25 05:25 WBC 13.2 H RBC 3.03 L Hgb 9.4 L Hct 28.1 L D MCV 92.8 MCH 30.9 MCHC 33.3 RDW 14.5 Plt Count 200 D MPV 10.2 Absolute Neuts (auto) 11.4 H Neutrophils % 86.3 H Lymphocytes % 6.4 L Monocytes % 6.3 Eosinophils % 0.8 D Basophils % 0.2 Nucleated RBC % 0 Sodium 146 H Potassium 3.3 L Chloride 106 Carbon Dioxide 32 Anion Gap 9 BUN 30.6 H Creatinine 2.7 H Est GFR (CKD-EPI)AfAm 25.75 Est GFR (CKD-EPI)NonAf 22.21 Random Glucose 99 Calcium 7.0 L Phosphorus 2.6 Magnesium 1.9 Total Bilirubin 0.9 Direct Bilirubin 0.5 H AST 287 H ALT 578 H Alkaline Phosphatase 110 Total Protein 5.1 L Albumin 2.3 L Active Medications Generic Name Dose Route Start Last Admin Trade Name Freq PRN Reason Stop Dose Admin Atorvastatin Calcium 80 mg 04/13/19 22:00 04/13/19 21:12 Lipitor - PO 80 mg HS MAGALI Administration Heparin Sodium (Porcine) 5,000 unit 04/13/19 03:01 Heparin - IVPUSH PRN PRN APTT (SECONDS) <40 Heparin Sodium (Porcine) 1,000 unit 04/13/19 03:01 04/13/19 03:00 Heparin - IVPUSH 1,000 unit PRN PRN Administration APTT (SECONDS) 40-49 Heparin Sodium (Porcine) 25, 500 mls @ 16 mls/hr 04/12/19 17:15 04/13/19 21: 02 000 unit/ Sodium Chloride IV 900 unit/hr TITR MAGALI 18 mls/hr Administration Protocol 800 UNIT/HR Sodium Chloride 1,000 mls @ 100 mls/hr 04/12/19 17:45 04/14/19 06:07 Normal Saline - IV 100 mls/hr ASDIR MAGALI Administration Piperacillin Sod/Tazobactam 50 mls @ 100 mls/hr 04/12/19 22:00 04/14/19 09:43 Sod 2.25 gm/ Dextrose IVPB 100 mls/hr BID MAGALI Administration Protocol Metoprolol Tartrate 2.5 mg 04/14/19 08:15 04/14/19 09:42 Lopressor Injection - IVPUSH 2.5 mg Q6H [facility] Administration Mirtazapine 7.5 mg 04/13/19 22:00 04/13/19 21:12 Remeron - PO 7.5 mg HS [facility] Administration Ambulatory Orders Clopidogrel Bisulfate [Plavix] 75 mg PO DAILY 08/25/18 Acetaminophen [Tylenol .Regular Strength -] 650 mg PO Q4H PRN 09/23/18 Atorvastatin Ca [Lipitor] 80 mg PO DAILY 09/23/18 Docusate Sodium [Colace] 100 mg PO DAILY 09/23/18 Epoetin [place] [Epogen] 3,000 [facility] 09/23/18 Metoprolol Tartrate 25 mg PO BID 09/23/18 Mirtazapine [Remeron -] 7.5 mg PO HS 09/23/18 Aspirin 81 mg PO DAILY 04/12/19 Midodrine HCl 15 mg PO TID 04/12/19 Pantoprazole Sodium 40 mg PO DAILY 04/12/19 Current Medications Aspirin (Ecotrin -) 81 mg PO DAILY [facility] Last Admin: 04/14/19 16:24 Dose: Not Given Atorvastatin Calcium (Lipitor -) 80 mg PO HS [facility] Last Admin: 04/14/19 21:23 Dose: 80 mg Clopidogrel Bisulfate (Plavix -) 75 mg PO DAILY [facility] Last Admin: 04/14/19 16:24 Dose: Not Given Heparin Sodium (Porcine) (Heparin -) 5,000 unit IVPUSH PRN PRN PRN Reason: APTT (SECONDS) <40 Heparin Sodium (Porcine) (Heparin -) 1,000 unit IVPUSH PRN PRN PRN Reason: APTT (SECONDS) 40-49 Last Admin: 04/13/19 03:00 Dose: 1,000 unit Heparin Sodium (Porcine) 25, (000 unit/ Sodium Chloride) 500 mls @ 16 mls/hr IV TITR MAGALI; Protocol Last Admin: 04/14/19 20:15 Dose: 900 unit/hr, 18 mls/hr Sodium Chloride (Normal Saline -) 1,000 mls @ 100 mls/hr IV ASDIR MAGALI Last Admin: 04/14/19 21:22 Dose: Not Given Piperacillin Sod/Tazobactam (Sod 2.25 gm/ Dextrose) 50 mls @ 100 mls/hr IVPB BID MAGALI; Protocol Last Admin: 04/14/19 21:25 Dose: 100 mls/hr Amino Acids (Clinimix -) 1,000 mls @ 42 mls/hr IV Q12H MAGALI Last Admin: 04/14/19 20:13 Dose: 42 mls/hr Metoprolol Tartrate (Lopressor -) 25 mg PO BID MAGALI Last Admin: 04/14/19 21:23 Dose: 25 mg Mirtazapine (Remeron -) 7.5 mg PO HS MAGALI Last Admin: 04/14/19 21:23 Dose: 7.5 mg ASSESSMENT/PLAN: Pt is a 74 year old male with PMHx of HTN, HLD, 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 , GI bleed (normal EGDand colon-09/12), Anemia, s/p b/l AKA, AVF/graft, R sided deficits s/p CVA, aphasia and dyspagia who was brought in by his family and [employer] for AMS and difficulty breathing with possible aspiration admitted for sepsis secondary to UTI with AMS Acute hypoxic respiratory failure AMS- improved Sepsis secondary to UTI Anion gap metab acidosis NSTEMI transaminitis ESRD-Tth HTN, HLD, 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, GI bleed (normal EGDand colon-09/12), Anemia, s/p b/l AKA, AVF/graft, R sided deficits s/p CVA, aphasia dyspagia hypokalemia Plan: Cont zosyn Cont heparin drip (started 04/12) Trend cmp dialysis per renal chopped diet with thick liqs per speech and swallow, per duaghter thin liqs Family do not want any feeding tubes Cont ASA/plavix Cont remeron heparin drip clinimix started metoprolol lipitor on hold, tylenol on hold (transaminitis) NS @100 Palliative care Cont goals of care discussion w/family Visit type - Emergency Visit Emergency Visit: Yes ED Registration Date: 04/12/19 Care time: The patient presented to the Emergency Department on the above date and was hospitalized for further evaluation of their emergent condition. - New Patient This patient is new to me today: Yes Date on this admission: 04/14/19 - Critical Care Critical Care patient: Yes Total Critical Care Time (in minutes): 38 Critical Care Statement: The care of this patient involved high complexity decision making to prevent further life threatening deterioration of the patient 's condition and/or to evaluate & treat vital organ system(s) failure or risk of failure. - Discharge Referral Referred to [facility] Med P.C.: No ATTENDING PHYSICIAN STATEMENT I saw and evaluated the patient. I reviewed the resident's note and discussed the case with the resident. I agree with the resident's findings and plan as documented. SUBJECTIVE: OBJECTIVE: ASSESSMENT AND PLAN:
--- NOTE | 2019-04-14 10:46 | PN ---
Progress Note (short form) - Note Progress Note: s: no chest pain, palps, dizziness, lightheadedness Current Medications Atorvastatin Calcium (Lipitor -) 80 mg PO HS [facility] Last Admin: 04/13/19 21:12 Dose: 80 mg Heparin Sodium (Porcine) (Heparin -) 5,000 unit IVPUSH PRN PRN PRN Reason: APTT (SECONDS) <40 Heparin Sodium (Porcine) (Heparin -) 1,000 unit IVPUSH PRN PRN PRN Reason: APTT (SECONDS) 40-49 Last Admin: 04/13/19 03:00 Dose: 1,000 unit Heparin Sodium (Porcine) 25, (000 unit/ Sodium Chloride) 500 mls @ 16 mls/hr IV TITR [facility]; Protocol Last Admin: 04/13/19 21:02 Dose: 900 unit/hr, 18 mls/hr Sodium Chloride (Normal Saline -) 1,000 mls @ 100 mls/hr IV ASDIR [facility] Last Admin: 04/14/19 06:07 Dose: 100 mls/hr Piperacillin Sod/Tazobactam (Sod 2.25 gm/ Dextrose) 50 mls @ 100 mls/hr IVPB BID [facility]; Protocol Last Admin: 04/14/19 09:43 Dose: 100 mls/hr Metoprolol Tartrate (Lopressor Injection -) 2.5 mg IVPUSH Q6H [facility] Last Admin: 04/14/19 09:42 Dose: 2.5 mg Mirtazapine (Remeron -) 7.5 mg PO HS [facility] Last Admin: 04/13/19 21:12 Dose: 7.5 mg Vital Signs Period Temp Pulse Resp BP Sys/Schneider Pulse Ox Last 24 Hr 97.4 F-98.1 F 82-101 18-24 91-142/55-94 98 Constitutional: Yes: Well Nourished, No Distress Eyes: No: Sclera Icterus HENT: No: Nasal Congestion Neck: No: Decreased ROM Respiratory: Yes: CTA Bilaterally. No: Accessory Muscle Use, Rales, Wheezes Gastrointestinal: Yes: Normal Bowel Sounds. No: Distention, Hepatomegaly, Palpable Mass, Tenderness Cardiovascular: Yes: Regular Rate and Rhythm JVD: No Carotid Bruit: No PMI: Non-Displaced Heart Sounds: Yes: S1, S2. No: Gallop Murmur: No: Systolic Murmur, Diastolic Murmur Musculoskeletal: Yes: Other (No kyphosis) Extremities: No: Cool, Cyanosis Edema: No Peripheral Pulses: 2+ Left Carotid, 2+ Right Carotid, 2+ Left Doralis Pedis, 2+ Right Dorsalis Pedis Integumentary: No: Jaundice Neurological: Yes: Alert. No: Seizure Psychiatric: No: Agitated Assessment/Plan CXR: incr'd lung markings chronic/unchanged vs prior. no congestion/effusion, infiltrate ECG: NSR, normal axis. no path q's. mild, nonspecific STs improved vs prior echo 03/2019 mod to severely reduced LV function, EF 30-35%, RV not wellvisualized, mimod MR, mod TR, mild AR tele: NSR, PVCs NSTEMI: -troponin 9-->trended down. -no ischemic changes on ECG -history suggests infection (? lung/airways), no definite acute event as far as ACS but pt's decr mentation at home precludes accurate history -given uncertainty regarding etiology of high troponin (reliable hx re: sx's not possible here), will continue UFH gtt at present and monitor closely for bleeding (h/o GIB noted in chart) -hold home aspirin and plavix for now (presumably this regimen is for cva sec prevention) - restart when able to take PO -no angina or signs of ongoing myocardial ischemia. however, pt tachycardic. thus far bp has been stable--will start low dose metoprolol and observe for hypotension. d/w'd critical care team who will evaluate pt this am and start oral metopr if swallowing status ok, o/w will try 2.5 IV metoprolol -start statin, PO metoprolol when/if cleared for PO meds -echo shows moderate to severely reduced LV function - discussed with patient's and daughter, would not want a nuclear stress test or cardiac catheterization as they are trying to avoid invasive procedures. per family has a history of an adverse reaction to nuclear stress testing at [facility] [place], will review records fever, sob: -normal lactate -clear CXR, no signs chf on exam -? upper airways/bronchitis process -w/u per crit care, hospitalist transaminitis: -per hospitalist, critical care ESRD on HD: -per renal h/o CVA: -on DAPT at home--held presently (pt NPO), restart when able along with statin est time spen in data review, pt exam, formulating mgmt plans for potentially life-threatening medical complications = 35 min
--- NOTE | 2019-04-14 11:59 | PN ---
Teaching Attending Note Name of Resident: Sridevi Canales ATTENDING PHYSICIAN STATEMENT I saw and evaluated the patient. I reviewed the resident's note and discussed the case with the resident. I agree with the resident's findings and plan as documented. SUBJECTIVE: Patient seen and examined in the ICU. Awake but aphasic. Able to follow commands. No pressors. Apparently the family refused NGT and Barium swallow yesterday. Intake & Output 04/11/19 04/12/19 04/13/19 04/14/19 23:59 23:59 23:59 23:59 Intake Total 100 2166 1416 Output Total 100 Balance 100 2166 1316 Weight 92 lb 9.506 oz 89 lb 4 oz 91 lb 6 oz Last Vital Signs Temp Pulse Resp BP Pulse Ox 98.1 F 82 19 100/65 98 04/14/19 06:00 04/14/19 08:00 04/14/19 08:00 04/14/19 08:00 04/13/19 22:00 Active Medications Atorvastatin Calcium (Lipitor -) 80 mg PO HS [facility] Last Admin: 04/13/19 21:12 Dose: 80 mg Heparin Sodium (Porcine) (Heparin -) 5,000 unit IVPUSH PRN PRN PRN Reason: APTT (SECONDS) <40 Heparin Sodium (Porcine) (Heparin -) 1,000 unit IVPUSH PRN PRN PRN Reason: APTT (SECONDS) 40-49 Last Admin: 04/13/19 03:00 Dose: 1,000 unit Heparin Sodium (Porcine) 25, (000 unit/ Sodium Chloride) 500 mls @ 16 mls/hr IV TITR [facility]; Protocol Last Admin: 04/13/19 21:02 Dose: 900 unit/hr, 18 mls/hr Sodium Chloride (Normal Saline -) 1,000 mls @ 100 mls/hr IV ASDIR [facility] Last Admin: 04/14/19 06:07 Dose: 100 mls/hr Piperacillin Sod/Tazobactam (Sod 2.25 gm/ Dextrose) 50 mls @ 100 mls/hr IVPB BID [facility]; Protocol Last Admin: 04/14/19 09:43 Dose: 100 mls/hr Metoprolol Tartrate (Lopressor Injection -) 2.5 mg IVPUSH Q6H [facility] Last Admin: 04/14/19 09:42 Dose: 2.5 mg Mirtazapine (Remeron -) 7.5 mg PO HS [facility] Last Admin: 04/13/19 21:12 Dose: 7.5 mg GENERAL: Awake, alert, aphasic EYES: PEERLA: EOMI no scleral icterus NECK: no JVD; no lymphadenopathy LUNGS:scattered rhonchi HEART: S1S2, (-) ESM ABDOMEN: soft; NT/ND +BS EXTREMITIES: B/L BKA UPPER EXTREMITIES: AV Fistula on LUE with palpable thrill- no erythema or drainage surrounding site PSYCHIATRIC: Cooperative. Good eye contact. SKIN: Warm, dry, normal turgor, no rashes or lesions noted. Laboratory Results - last 24 hr 04/13/19 04/13/19 04/13/19 17:55 17:55 22:00 WBC RBC Hgb Hct MCV MCH MCHC RDW Plt Count MPV Absolute Neuts (auto) Neutrophils % Lymphocytes % Monocytes % Eosinophils % Basophils % Nucleated RBC % Sodium Potassium Chloride Carbon Dioxide Anion Gap BUN 119.9 H* 17.6 Creatinine 7.2 H 1.4 H Est GFR (CKD-EPI)AfAm 7.87 56.96 Est GFR (CKD-EPI)NonAf 6.79 49.14 Random Glucose Calcium Phosphorus Magnesium Total Bilirubin Direct Bilirubin AST ALT Alkaline Phosphatase Total Protein Albumin 04/14/19 04/14/19 05:25 05:25 WBC 13.2 H RBC 3.03 L Hgb 9.4 L Hct 28.1 L D MCV 92.8 MCH 30.9 MCHC 33.3 RDW 14.5 Plt Count 200 D MPV 10.2 Absolute Neuts (auto) 11.4 H Neutrophils % 86.3 H Lymphocytes % 6.4 L Monocytes % 6.3 Eosinophils % 0.8 D Basophils % 0.2 Nucleated RBC % 0 Sodium 146 H Potassium 3.3 L Chloride 106 Carbon Dioxide 32 Anion Gap 9 BUN 30.6 H Creatinine 2.7 H Est GFR (CKD-EPI)AfAm 25.75 Est GFR (CKD-EPI)NonAf 22.21 Random Glucose 99 Calcium 7.0 L Phosphorus 2.6 Magnesium 1.9 Total Bilirubin 0.9 Direct Bilirubin 0.5 H AST 287 H ALT 578 H Alkaline Phosphatase 110 Total Protein 5.1 L Albumin 2.3 L Problem List - Problems (1) Acute metabolic encephalopathy Code(s): G93.41 - METABOLIC ENCEPHALOPATHY (2) Elevated troponin I level Code(s): R74.8 - ABNORMAL LEVELS OF OTHER SERUM ENZYMES (3) NSTEMI (non-ST elevated myocardial infarction) Code(s): I21.4 - NON-ST ELEVATION (NSTEMI) MYOCARDIAL INFARCTION ASSESSMENT/PLAN: NSTEMI Suspected acute bronchitis: resolving Transaminitis ESRD on HD CVA by history UTI Further discussions about feeding and GOC to be had with the family Beta Anahi IV Heparin Statin ASA / Plavix ABX for UTI Cardiac Telemetry monitoring Dr Wise
--- NOTE | 2019-04-14 13:41 | PN ---
Progress Note (short form) - Note Progress Note: Renal follow up for ESRD on HD Pt seen and examined in the ICU awake and alert but aphasic s/p dialysis yesterday on IVF not eating well Vital Signs Temperature 98.1 F 04/14/19 06:00 Pulse Rate 82 04/14/19 10:00 Respiratory Rate 19 04/14/19 10:00 Blood Pressure 100/65 04/14/19 10:00 O2 Sat by Pulse Oximetry (%) 98 04/13/19 22:00 Intake & Output 04/11/19 04/12/19 04/13/19 04/14/19 23:59 23:59 23:59 23:59 Intake Total 100 2166 1416 Output Total 100 Balance 100 2166 1316 Weight 42 kg 40.483 kg 41.447 kg NAD awake and alert RRR, on M/R Dec BS soft NT/ND no LE edema CBC, BMP 04/14/19 05:25 04/14/19 05:25 Microbiology 04/12/19 15:30 Urine - Urine [place] Urine Culture - Final Escherichia Coli 04/12/19 15:08 Blood - Peripheral Venous Blood Culture - Preliminary Staphylococcus Coagulase Neg Current Medications Atorvastatin Calcium (Lipitor -) 80 mg PO HS [facility] Last Admin: 04/13/19 21:12 Dose: 80 mg Heparin Sodium (Porcine) (Heparin -) 5,000 unit IVPUSH PRN PRN PRN Reason: APTT (SECONDS) <40 Heparin Sodium (Porcine) (Heparin -) 1,000 unit IVPUSH PRN PRN PRN Reason: APTT (SECONDS) 40-49 Last Admin: 04/13/19 03:00 Dose: 1,000 unit Heparin Sodium (Porcine) 25, (000 unit/ Sodium Chloride) 500 mls @ 16 mls/hr IV TITR [facility]; Protocol Last Admin: 04/13/19 21:02 Dose: 900 unit/hr, 18 mls/hr Sodium Chloride (Normal Saline -) 1,000 mls @ 100 mls/hr IV ASDIR [facility] Last Admin: 04/14/19 06:07 Dose: 100 mls/hr Piperacillin Sod/Tazobactam (Sod 2.25 gm/ Dextrose) 50 mls @ 100 mls/hr IVPB BID [facility]; Protocol Last Admin: 04/14/19 09:43 Dose: 100 mls/hr Metoprolol Tartrate (Lopressor Injection -) 2.5 mg IVPUSH Q6H [facility] Last Admin: 04/14/19 09:42 Dose: 2.5 mg Mirtazapine (Remeron -) 7.5 mg PO HS [facility] Last Admin: 04/13/19 21:12 Dose: 7.5 mg 74 year old gentleman with hx of HTN, HLD, 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 #AMS #ESRD on HD with high BUN/Cr #Hyperphosphtaemia #Chronic Anemia #Fever/Leukocytosis #UTI s/p dialysis yesterday with improvement in BUN/Cr levels no acute need for dialysis today will continue to trend BUN levels continue Abx as per ICU team for UTI Kortney Neg Staph grew in blood, ? contamination vs. true infection oral intake as tolerated will d/c NS can start clinmaix as needed for nutritional support as needed Lauri Fulton DO
--- NOTE | 2019-04-14 14:42 | PN ---
Teaching Attending Note Name of Resident: Chanel Hicks ATTENDING PHYSICIAN STATEMENT I saw and evaluated the patient. I reviewed the resident's note and discussed the case with the resident. I agree with the resident's findings and plan as documented with exceptions below. SUBJECTIVE: Patient seen and examined. Aphasic, unable to assess for complaints, follows simple commands. OBJECTIVE: Vital Signs Period Temp Pulse Resp BP Sys/Schneider Pulse Ox Last 24 Hr 97.4 F-98.1 F 82-101 18-22 91-115/55-77 98 Intake & Output 04/11/19 04/12/19 04/13/19 04/14/19 23:59 23:59 23:59 23:59 Intake Total 100 2166 1416 Output Total 100 Balance 100 2166 1316 Weight 92 lb 9.506 oz 89 lb 4 oz 91 lb 6 oz General: sitting in bed aphasic, no acute distress neuro: responds to name, right facial droop, follows simple commands right hemiparesis Extremities: b/l AKA Abdomen:soft, NT, ND Chest: decreased effort, no rales or wheezing appreciated Home Medications Medication Instructions Recorded Clopidogrel Bisulfate [Plavix] 75 mg PO DAILY 08/25/18 Acetaminophen [Tylenol .Regular 650 mg PO Q4H PRN 09/23/18 Strength -] Atorvastatin Ca [Lipitor] 80 mg PO DAILY 09/23/18 Docusate Sodium [Colace] 100 mg PO DAILY 09/23/18 Epoetin Stuart [Epogen] 3,000 unit IJ [facility] 09/23/18 Metoprolol Tartrate 25 mg PO BID 09/23/18 Mirtazapine [Remeron -] 7.5 mg PO HS 09/23/18 Aspirin 81 mg PO DAILY 04/12/19 Midodrine HCl 15 mg PO TID 04/12/19 Pantoprazole Sodium 40 mg PO DAILY 04/12/19 Active Medications Atorvastatin Calcium (Lipitor -) 80 mg PO HS [facility] Last Admin: 04/13/19 21:12 Dose: 80 mg Heparin Sodium (Porcine) (Heparin -) 5,000 unit IVPUSH PRN PRN PRN Reason: APTT (SECONDS) <40 Heparin Sodium (Porcine) (Heparin -) 1,000 unit IVPUSH PRN PRN PRN Reason: APTT (SECONDS) 40-49 Last Admin: 04/13/19 03:00 Dose: 1,000 unit Heparin Sodium (Porcine) 25, (000 unit/ Sodium Chloride) 500 mls @ 16 mls/hr IV TITR [facility]; Protocol Last Admin: 04/13/19 21:02 Dose: 900 unit/hr, 18 mls/hr Sodium Chloride (Normal Saline -) 1,000 mls @ 100 mls/hr IV ASDIR [facility] Last Admin: 04/14/19 06:07 Dose: 100 mls/hr Piperacillin Sod/Tazobactam (Sod 2.25 gm/ Dextrose) 50 mls @ 100 mls/hr IVPB BID [facility]; Protocol Last Admin: 04/14/19 09:43 Dose: 100 mls/hr Metoprolol Tartrate (Lopressor Injection -) 2.5 mg IVPUSH Q6H [facility] Last Admin: 04/14/19 09:42 Dose: 2.5 mg Mirtazapine (Remeron -) 7.5 mg PO HS [facility] Last Admin: 04/13/19 21:12 Dose: 7.5 mg Laboratory Results - last 24 hr 04/13/19 04/13/19 04/13/19 17:55 17:55 22:00 WBC RBC Hgb Hct MCV MCH MCHC RDW Plt Count MPV Absolute Neuts (auto) Neutrophils % Lymphocytes % Monocytes % Eosinophils % Basophils % Nucleated RBC % Sodium Potassium Chloride Carbon Dioxide Anion Gap BUN 119.9 H* 17.6 Creatinine 7.2 H 1.4 H Est GFR (CKD-EPI)AfAm 7.87 56.96 Est GFR (CKD-EPI)NonAf 6.79 49.14 Random Glucose Calcium Phosphorus Magnesium Total Bilirubin Direct Bilirubin AST ALT Alkaline Phosphatase Total Protein Albumin 04/14/19 04/14/19 05:25 05:25 WBC 13.2 H RBC 3.03 L Hgb 9.4 L Hct 28.1 L D MCV 92.8 MCH 30.9 MCHC 33.3 RDW 14.5 Plt Count 200 D MPV 10.2 Absolute Neuts (auto) 11.4 H Neutrophils % 86.3 H Lymphocytes % 6.4 L Monocytes % 6.3 Eosinophils % 0.8 D Basophils % 0.2 Nucleated RBC % 0 Sodium 146 H Potassium 3.3 L Chloride 106 Carbon Dioxide 32 Anion Gap 9 BUN 30.6 H Creatinine 2.7 H Est GFR (CKD-EPI)AfAm 25.75 Est GFR (CKD-EPI)NonAf 22.21 Random Glucose 99 Calcium 7.0 L Phosphorus 2.6 Magnesium 1.9 Total Bilirubin 0.9 Direct Bilirubin 0.5 H AST 287 H ALT 578 H Alkaline Phosphatase 110 Total Protein 5.1 L Albumin 2.3 L Microbiology 04/12/19 15:30 Urine - Urine [place] Urine Culture - Final Escherichia Coli 04/12/19 15:08 Blood - Peripheral Venous Blood Culture - Preliminary Staphylococcus Coagulase Neg 04/12/19 15:00 Blood - Peripheral Venous Blood Culture - Preliminary NO GROWTH OBTAINED AFTER 24 HOURS, INCUBATION TO CONTINUE FOR 4 DAYS. ASSESSMENT AND PLAN: 74 y/o with PMH HTN, HLD, CVA (with R sided deficits and aphasia), DM, ESRD (), Bilateral AKA, DVT s/p IVC filter, hep C, previous GI bleed admitted with AMS and dyspnea. -AMs, suspect toxic metabolic encephalopathy from sepsis vs NSTEMI -NSTEMI, demand type II vs ACS -Dyspnea, ?Aspiration -?Sepsis due to complicated UTi, vs bronchitis -Coag neg staph bacteremia, ?sepsis -CVA with aphasia/right sided deficits -ESRD on HD -DM -Bilateral AKA -DVT s/p IVC filter -Hep C -H/o GI bleed Plan: Cardiology input noted, resume AsA/plavix. On statin, LFts improving, continue cautiously. Resume metoprolol as tolerated. Hpearin drip/Stress test per cardiology. Abdominal US noted, trend LFTs. Zosyn, ID input noted. Follow up cultures. Repeat Blood Cx. Speech/swallow input noted. Dysphagia pureed with nectar thick. Aspiration precautions. DVTPPX on heparin drip Agree with transfer out of ICU total critical care time spent 36 min.
--- NOTE | 2019-04-14 15:35 | PN ---
Progress Note, MACHINE DEBURRER - Note Progress Note: Selected Entries 04/12/19 04/12/19 04/12/19 13:30 13:54 16:42 Breakfast Temperature 101.2 F H 101.4 F H 99.8 F H 04/13/19 04/13/19 04/13/19 01:43 02:00 04:22 Breakfast Temperature 97.9 F 97.9 F 97.8 F 04/13/19 04/13/19 04/13/19 06:00 12:00 22:00 Breakfast Temperature 97.5 F L 97.5 F L 97.4 F L 04/14/19 04/14/19 04/14/19 02:00 06:00 10:00 Breakfast NPO Temperature 98 F 98.1 F Laboratory Tests 04/12/19 04/13/19 04/14/19 15:08 07:10 05:25 WBC 15.6 H 12.5 H 13.2 H Aspiration suspected yesterday on liquids and possibly Puree. Family refused NPO status, NGT, and MBS. Initiated on trial of safest diet of Dys puree/nectar/with 2 mattie HN. Family wanted pt to have Ensure (thin). Nursing report poor PO tolerance with aspiration suspected/drooling/food not going down. PO held at this time. Clinimix. If family agrees, consider MBS to further assess/objectify swallowing function , Palliative consult.
--- NOTE | 2019-04-14 15:51 | PN ---
Progress Note, Physician History of Present Illness: stable no new issues improving - Current Medication List Current Medications: Active Medications Aspirin (Ecotrin -) 81 mg PO DAILY [facility] Atorvastatin Calcium (Lipitor -) 80 mg PO HS [facility] Last Admin: 04/13/19 21:12 Dose: 80 mg Clopidogrel Bisulfate (Plavix -) 75 mg PO DAILY [facility] Heparin Sodium (Porcine) (Heparin -) 5,000 unit IVPUSH PRN PRN PRN Reason: APTT (SECONDS) <40 Heparin Sodium (Porcine) (Heparin -) 1,000 unit IVPUSH PRN PRN PRN Reason: APTT (SECONDS) 40-49 Last Admin: 04/13/19 03:00 Dose: 1,000 unit Heparin Sodium (Porcine) 25, (000 unit/ Sodium Chloride) 500 mls @ 16 mls/hr IV TITR [facility]; Protocol Last Admin: 04/13/19 21:02 Dose: 900 unit/hr, 18 mls/hr Sodium Chloride (Normal Saline -) 1,000 mls @ 100 mls/hr IV ASDIR [facility] Last Admin: 04/14/19 06:07 Dose: 100 mls/hr Piperacillin Sod/Tazobactam (Sod 2.25 gm/ Dextrose) 50 mls @ 100 mls/hr IVPB BID [facility]; Protocol Last Admin: 04/14/19 09:43 Dose: 100 mls/hr Amino Acids (Clinimix -) 1,000 mls @ 42 mls/hr IV Q12H [facility] Metoprolol Tartrate (Lopressor -) 25 mg PO BID [facility] Mirtazapine (Remeron -) 7.5 mg PO HS [facility] Last Admin: 04/13/19 21:12 Dose: 7.5 mg - Objective Vital Signs: Vital Signs Temperature 98.2 F 04/14/19 14:00 Pulse Rate 93 H 04/14/19 14:00 Respiratory Rate 26 H 04/14/19 14:00 Blood Pressure 99/66 04/14/19 14:00 O2 Sat by Pulse Oximetry (%) 98 04/14/19 09:00 Constitutional: Yes: No Distress, Calm Cardiovascular: Yes: S1, S2 Respiratory: Yes: Regular, CTA Bilaterally Gastrointestinal: Yes: Normal Bowel Sounds, Soft Musculoskeletal: Yes: WNL Extremities: Yes: Other Neurological: Yes: Alert Labs: CBC, BMP 04/14/19 05:25 04/14/19 05:25 INR, PTT INR 1.33 (0.83-1.09) H 04/12/19 15:08 Assessment/Plan Problem List - Problems (1) Acute metabolic encephalopathy Code(s): G93.41 - METABOLIC ENCEPHALOPATHY (2) Sepsis Code(s): A41.9 - SEPSIS, UNSPECIFIED ORGANISM (3) NSTEMI (non-ST elevated myocardial infarction) Code(s): I21.4 - NON-ST ELEVATION (NSTEMI) MYOCARDIAL INFARCTION (4) Transaminitis Code(s): R74.0 - NONSPEC ELEV OF LEVELS OF TRANSAMNS & LACTIC ACID DEHYDRGNSE (5) UTI (urinary tract infection) Code(s): N39.0 - URINARY TRACT INFECTION, SITE NOT SPECIFIED Qualifiers: Urinary tract infection type: site unspecified Hematuria presence: with hematuria Qualified Code(s): N39.0 - Urinary tract infection, site not specified; R31.9 - Hematuria, unspecified (6) ESRD (end stage renal disease) on dialysis Code(s): N18.6 - END STAGE RENAL DISEASE; Z99.2 - DEPENDENCE ON RENAL DIALYSIS (7) Severe protein-calorie malnutrition Code(s): E43 - UNSPECIFIED SEVERE PROTEIN-CALORIE MALNUTRITION (8) Hyperlipemia Code(s): E78.5 - HYPERLIPIDEMIA, UNSPECIFIED Qualifiers: Hyperlipidemia type: unspecified hyperlipidemia (9) Hypertension Code(s): I10 - ESSENTIAL (PRIMARY) HYPERTENSION Qualifiers: Hypertension type: other secondary hypertension Qualified Code(s): I15.8 - Other secondary hypertension (10) Metabolic acidosis, increased anion gap Code(s): E87.2 - ACIDOSIS (11) Tachypnea Code(s): R06.82 - TACHYPNEA, NOT ELSEWHERE CLASSIFIED plan continue current mgmt icu mgmt rest as per the team ct abx cc 40 min
[2019-04-14] MEDS ORDERED: AMINO ACIDS 4.25%/D5W 1,000 ML IV SCH (16:00)
[2019-04-14] MEDS: CLOPIDOGREL BISULFATE 75 MG TABLET (FP) PO SCH (16:24)
[2019-04-14] MEDS: ASPIRIN COATED 81 MG TABLET.EC PO SCH (16:24)
--- NOTE | 2019-04-14 16:56 | PN ---
Physical Exam: SUBJECTIVE: Patient seen and examined at bedside. No acute events overnight. Spoke with patient's daughter Francesca (his healthcare proxy) to confirm her father's DNR/DNI status. The patient's daughter and confirmed he was DNR/ DNI. On exam yesterday there was some concern the patient was potentially aspirating his feeds, speech pathology wanted to do a barium swallow however the family declined. The patient was left on an NPO diet because we could not confirm his ability to swallow without aspirating and the family declined to have an NGT placed. The patient's family said they understood the aspiration risks and wanted the patient on a liquid diet anyway. Currently we resumed feeds with nectar consistency fluids and clinimix. Will continue to monitor/ feed carefully. OBJECTIVE: Vital Signs Period Temp Pulse Resp BP Sys/Schneider Pulse Ox Last 24 Hr 97.4 F-98.2 F 80-101 16-26 91-115/54-77 98-98 GENERAL: Awake, alert, staring; in no acute distress. Patient has aphasia s/p stroke, but able to follow commands and nod yes/no. Oriented to self. EYES: PEERLA: EOMI no scleral icterus NECK: no JVD; no lymphadenopathy LUNGS:CTA B/L; no rales, rhonchi or wheezing HEART: tachycardic; regualr rhythm , normal S1 and S2 without murmur, rub or gallop. ABDOMEN: soft; NT/ND +BS in all 4 quadrants (no wincing upon palpation) EXTREMITIES: B/L AKA UPPER EXTREMITIES: AV Fistula on LUE with palpable thrill- no erythema or drainage surrounding site PSYCHIATRIC: Cooperative. Good eye contact. Appropriate mood and affect. SKIN: Warm, dry, normal turgor, no rashes or lesions noted. Laboratory Results - last 24 hr 04/13/19 04/13/19 04/13/19 17:55 17:55 22:00 WBC RBC Hgb Hct MCV MCH MCHC RDW Plt Count MPV Absolute Neuts (auto) Neutrophils % Lymphocytes % Monocytes % Eosinophils % Basophils % Nucleated RBC % Sodium Potassium Chloride Carbon Dioxide Anion Gap BUN 119.9 H* 17.6 Creatinine 7.2 H 1.4 H Est GFR (CKD-EPI)AfAm 7.87 56.96 Est GFR (CKD-EPI)NonAf 6.79 49.14 Random Glucose Calcium Phosphorus Magnesium Total Bilirubin Direct Bilirubin AST ALT Alkaline Phosphatase Total Protein Albumin 04/14/19 04/14/19 05:25 05:25 WBC 13.2 H RBC 3.03 L Hgb 9.4 L Hct 28.1 L D MCV 92.8 MCH 30.9 MCHC 33.3 RDW 14.5 Plt Count 200 D MPV 10.2 Absolute Neuts (auto) 11.4 H Neutrophils % 86.3 H Lymphocytes % 6.4 L Monocytes % 6.3 Eosinophils % 0.8 D Basophils % 0.2 Nucleated RBC % 0 Sodium 146 H Potassium 3.3 L Chloride 106 Carbon Dioxide 32 Anion Gap 9 BUN 30.6 H Creatinine 2.7 H Est GFR (CKD-EPI)AfAm 25.75 Est GFR (CKD-EPI)NonAf 22.21 Random Glucose 99 Calcium 7.0 L Phosphorus 2.6 Magnesium 1.9 Total Bilirubin 0.9 Direct Bilirubin 0.5 H AST 287 H ALT 578 H Alkaline Phosphatase 110 Total Protein 5.1 L Albumin 2.3 L Active Medications Generic Name Dose Route Start Last Admin Trade Name Freq PRN Reason Stop Dose Admin Aspirin 81 mg 04/14/19 15:15 04/14/19 16:24 Ecotrin - PO Not Given DAILY [facility] Atorvastatin Calcium 80 mg 04/13/19 22:00 04/13/19 21:12 Lipitor - PO 80 mg HS [facility] Administration Clopidogrel Bisulfate 75 mg 04/14/19 15:15 04/14/19 16:24 Plavix - PO Not Given DAILY [facility] Heparin Sodium (Porcine) 5,000 unit 04/13/19 03:01 Heparin - IVPUSH PRN PRN APTT (SECONDS) <40 Heparin Sodium (Porcine) 1,000 unit 04/13/19 03:01 04/13/19 03:00 Heparin - IVPUSH 1,000 unit PRN PRN Administration APTT (SECONDS) 40-49 Heparin Sodium (Porcine) 25, 500 mls @ 16 mls/hr 04/12/19 17:15 04/13/19 21: 02 000 unit/ Sodium Chloride IV 900 unit/hr TITR [facility] 18 mls/hr Administration Protocol 800 UNIT/HR Sodium Chloride 1,000 mls @ 100 mls/hr 04/12/19 17:45 04/14/19 06:07 Normal Saline - IV 100 mls/hr ASDIR [facility] Administration Piperacillin Sod/Tazobactam 50 mls @ 100 mls/hr 04/12/19 22:00 04/14/19 09:43 Sod 2.25 gm/ Dextrose IVPB 100 mls/hr BID [facility] Administration Protocol Metoprolol Tartrate 25 mg 04/14/19 22:00 Lopressor - PO BID [facility] Mirtazapine 7.5 mg 04/13/19 22:00 04/13/19 21:12 Remeron - PO 7.5 mg HS [facility] Administration ASSESSMENT/PLAN: 74 y/o with PMH HTN, HLD, CVA (with R sided deficits and aphasia), DM, ESRD (t/ ), DVT s/p IVC filter, hep C, previous GI bleed who presented to the ED with worsening shortness of breath and a change in mental status and found to have a trop of 9.66 trending down, now 6.87. Patient is confirmed to be DNR/DNI, family refuses NGT. Palliative care consulted as patient is DNR/DNI and patient' s family is refusing other forms of more invasive intervention like NGT. #Neuro patient has history of R sided CVA with residual deficits found to be non- verbal today -ABG showed PH of 7.5 with Pco2 of 23 -currently on liquid diet, nectar consistency after family declined to have either barium swallow done or NGT placed - monitor feeds carefully - discontinue if patient unable to tolerate -mental status appears near baseline #Cardiovascular patient was found to have a trop of 9.66 with no EKG changes -Trop trending down, most recent 6.87 -patient started on heparin drip in addition to ASA and Plavix -cardio consulted -monitor trops -history of HTN: resumed metoprolol 25mg PO BID -monitor hemodynamics -will monitor for signs of bleeding #GI patient was found to have transaminitis with benign abdominal exam -abdominal US > R pleural effusion, cholelithiasis, chronic renal disease -resumed home atorvostatin 80 PO qHS -will trend LFTS -lipase was normal -currently NPO #ID patient found to be septic with a positive UA; CXR doesn't show definite consolidation -patient started on zosyn 50 mls @ 100 mls/hr -ID consulted, appreciate reccs -blood cx> NGTD -urine cx > lactose fermenting gram negative bacilli -NS @100mls/hr #Pulmonary ABG showed PH 7.5 with Co2 23 -patient currently saturating well on 2LNC -will monitor respiratory status -chest XRAY > no evidence of pneumonia or consolidation #Renal patient has ESRD with HD t/th -Dr. Graham saw patient did not feel emergent HD was necessary -got HD yesterday, will continue to monitor BUN and dialyze as necessary -monitor electrolytes -monitor volume status F/E/N NS @100mls/hr monitor electrolytes NPO DVT PPX: heparin drip Dispo: We will continue to follow the patient. Thank you for this consultative opportunity. Spoke with patient's daughter Francesca today. Stated she was his healthcare proxy and reaffirmed his DNR/DNI status, also declined to have NG tube placed at this time. Counselled her about risk of aspiration with PO feeds. Patient is otherwise stable and can be transferred to telemetry for further monitoring and treatment. Visit type - Emergency Visit Emergency Visit: Yes ED Registration Date: 04/12/19 Care time: The patient presented to the Emergency Department on the above date and was hospitalized for further evaluation of their emergent condition. - New Patient This patient is new to me today: No - Critical Care Critical Care patient: Yes Total Critical Care Time (in minutes): 40 Critical Care Statement: The care of this patient involved high complexity decision making to prevent further life threatening deterioration of the patient 's condition and/or to evaluate & treat vital organ system(s) failure or risk of failure. ATTENDING PHYSICIAN STATEMENT I saw and evaluated the patient. I reviewed the resident's note and discussed the case with the resident. I agree with the resident's findings and plan as documented. SUBJECTIVE: OBJECTIVE: ASSESSMENT AND PLAN:
[2019-04-14] MEDS: AMINO ACIDS 4.25%/D5W 1,000 ML IV SCH (20:13)
[2019-04-14] MEDS: HEPARIN - 25,000 UNIT in SODIUM CHLORIDE 495 ML IV SCH (20:15)
[2019-04-14] MEDS: MIRTAZAPINE 15 MG TABLET (FP) PO SCH (21:23)
[2019-04-14] MEDS: ATORVASTATIN CA 80 MG TABLET (FP) PO SCH (21:23)
[2019-04-14] MEDS: METOPROLOL TARTRATE 25 MG TABLET (FP) PO SCH (21:23)
[2019-04-15 06:41] LABS: HEMATOCRIT 30.5 % (35.4-49); HEMOGLOBIN 10.1 GM/dL (11.7-16.9); MCH 30.9 pg (25.7-33.7); MEAN CELL VOLUME 93.7 fl (80-96); MEAN PLT VOLUME 10.6 fl (7.5-11.1); PLATELET COUNT 201 K/MM3 (134-434); RBC 3.25 M/mm3 (4.00-5.60); RDW 14.6 % (11.9-15.9); WHITE BLOOD COUNT 12.9 K/mm3 (4.0-10.0)
[2019-04-15 06:45] LABS: ALBUMIN 2.4 g/dl (3.4-5.0); BILIRUBIN,TOTAL 0.6 mg/dL (0.2-1); CALCIUM 7.2 mg/dL (8.5-10.1); CREATININE 3.6 mg/dL (0.55-1.3); MAGNESIUM 2.2 mg/dL (1.8-2.4); PHOSPHOROUS 3.4 mg/dL (2.5-4.9); POTASSIUM 3.5 mmol/L (3.5-5.1); TOT PROT 5.3 g/dl (6.4-8.2)
[2019-04-15] MEDS: AMINO ACIDS 4.25%/D5W 1,000 ML IV SCH (08:11)
--- NOTE | 2019-04-15 08:13 | PN ---
Physical Exam: SUBJECTIVE: Patient seen and examined. Awake, resting comfortably. Denies chest pain or SOB. Started on clinimix yesterday. OBJECTIVE: Vital Signs Period Temp Pulse Resp BP Sys/Schneider Pulse Ox Last 24 Hr 97.5 F-98.2 F 6-99 16-26 95-146/54-93 98-98 Vital Signs Temp 97.8 F 04/15/19 06:00 Pulse 96 H 04/15/19 07:34 Resp 19 04/15/19 07:34 BP 119/85 04/15/19 08:23 Pulse Ox 98 04/15/19 07:34 Intake & Output 04/14/19 04/14/19 04/15/19 11:59 23:59 11:59 Intake Total 1416 1641 940 Output Total 100 400 Balance 1316 1241 940 Weight 41.447 kg 41.277 kg 42.808 kg Intake: IV 1416 1416 840 CLINIMIX 588 Heparin - 25,000 Unit In 216 216 252 Normal Saline - 495 ml @ 800 UNIT/HR 16 mls/hr IV TITR [facility] Rx#:[id number] Normal Saline - 1,000 ml 1200 1200 @ 100 mls/hr IV ASDIR MAGALI Rx#:[id number] IVPB 50 Oral 175 100 Output: Urine 100 400 Void 100 400 Other: Voiding Method Incontinent Incontinent Incontinent # Unmeasured Voids Void 1 Bowel Movement Yes: small Yes # Bowel Movements 1 Height 1.52 m Body Mass Index (BMI) 17.7 Weight Measurement Method Built in [facility] Built in [facility] GENERAL: The patient is awake, alert, and fully oriented, in no acute distress. EYES: PERRL, extraocular movements intact ENT: moist mucous membranes. NC LUNGS: Clear HEART: S1, S2 ABDOMEN: Soft, nontender, nondistended, normoactive bowel sounds, no guarding EXTREMITIES:b/l AKA NEUROLOGICAL: AA, Non verbal at baseline, responds with head gestures. Laboratory Results - last 24 hr 04/13/19 04/14/19 04/15/19 17:55 21:13 05:25 WBC RBC Hgb Hct MCV MCH MCHC RDW Plt Count MPV PTT (Actin FS) 55.2 H 72.2 H Sodium Potassium Chloride Carbon Dioxide Anion Gap BUN Creatinine Est GFR (CKD-EPI)AfAm Est GFR (CKD-EPI)NonAf Random Glucose Calcium Phosphorus Magnesium Total Bilirubin AST ALT Alkaline Phosphatase Total Protein Albumin Hep Bs Antigen Negative 04/15/19 04/15/19 06:00 06:00 WBC 12.9 H RBC 3.25 L Hgb 10.1 L Hct 30.5 L MCV 93.7 MCH 30.9 MCHC 33.0 RDW 14.6 Plt Count 201 MPV 10.6 PTT (Actin FS) Sodium 145 Potassium 3.5 Chloride 108 H Carbon Dioxide 28 Anion Gap 9 BUN 43.0 H Creatinine 3.6 H Est GFR (CKD-EPI)AfAm 18.18 Est GFR (CKD-EPI)NonAf 15.69 Random Glucose 159 H Calcium 7.2 L Phosphorus 3.4 Magnesium 2.2 Total Bilirubin 0.6 AST 230 H ALT 540 H Alkaline Phosphatase 110 Total Protein 5.3 L Albumin 2.4 L Hep Bs Antigen Active Medications Generic Name Dose Route Start Last Admin Trade Name Freq PRN Reason Stop Dose Admin Aspirin 81 mg 04/14/19 15:15 04/14/19 16:24 Ecotrin - PO Not Given DAILY [facility] Atorvastatin Calcium 80 mg 04/13/19 22:00 04/14/19 21:23 Lipitor - PO 80 mg HS [facility] Administration Clopidogrel Bisulfate 75 mg 04/14/19 15:15 04/14/19 16:24 Plavix - PO Not Given DAILY [facility] Heparin Sodium (Porcine) 5,000 unit 04/13/19 03:01 Heparin - IVPUSH PRN PRN APTT (SECONDS) <40 Heparin Sodium (Porcine) 1,000 unit 04/13/19 03:01 04/13/19 03:00 Heparin - IVPUSH 1,000 unit PRN PRN Administration APTT (SECONDS) 40-49 Heparin Sodium (Porcine) 25, 500 mls @ 16 mls/hr 04/12/19 17:15 04/14/19 20: 15 000 unit/ Sodium Chloride IV 900 unit/hr TITR [facility] 18 mls/hr Administration Protocol 800 UNIT/HR Sodium Chloride 1,000 mls @ 100 mls/hr 04/12/19 17:45 04/14/19 21:22 Normal Saline - IV Not Given ASDIR [facility]ALI Piperacillin Sod/Tazobactam 50 mls @ 100 mls/hr 04/12/19 22:00 04/14/19 21:25 Sod 2.25 gm/ Dextrose IVPB 100 mls/hr BID [facility] Administration Protocol Amino Acids 1,000 mls @ 42 mls/hr 04/14/19 17:00 04/15/19 08:11 Clinimix - IV Not Given Q12H [facility] Metoprolol Tartrate 25 mg 04/14/19 22:00 04/14/19 21:23 Lopressor - PO 25 mg BID [facility] Administration Mirtazapine 7.5 mg 04/13/19 22:00 04/14/19 21:23 Remeron - PO 7.5 mg HS [facility] Administration Ambulatory Orders Clopidogrel Bisulfate [Plavix] 75 mg PO DAILY 08/25/18 Acetaminophen [Tylenol .Regular Strength -] 650 mg PO Q4H PRN 09/23/18 Atorvastatin Ca [Lipitor] 80 mg PO DAILY 09/23/18 Docusate Sodium [Colace] 100 mg PO DAILY 09/23/18 Epoetin Stuart [Epogen] 3,000 [facility] 09/23/18 Metoprolol Tartrate 25 mg PO BID 09/23/18 Mirtazapine [Remeron -] 7.5 mg PO HS 09/23/18 Aspirin 81 mg PO DAILY 04/12/19 Midodrine HCl 15 mg PO TID 04/12/19 Pantoprazole Sodium 40 mg PO DAILY 04/12/19 Current Medications Aspirin (Ecotrin -) 81 mg PO DAILY [facility] Last Admin: 04/15/19 09:11 Dose: Not Given Atorvastatin Calcium (Lipitor -) 80 mg PO HS [facility] Clopidogrel Bisulfate (Plavix -) 75 mg PO DAILY [facility] Last Admin: 04/15/19 09:57 Dose: 75 mg Heparin Sodium (Porcine) (Heparin -) 5,000 unit IVPUSH PRN PRN PRN Reason: APTT (SECONDS) <40 Heparin Sodium (Porcine) (Heparin -) 1,000 unit IVPUSH PRN PRN PRN Reason: APTT (SECONDS) 40-49 Heparin Sodium (Porcine) (Heparin -) 1,000 unit IVPUSH PRN PRN PRN Reason: Heparin Heparin Sodium (Porcine) (Heparin -) 5,000 unit IVPUSH PRN PRN PRN Reason: Heparin Heparin Sodium (Porcine) 25, (000 unit/ Sodium Chloride) 500 mls @ 16 mls/hr IV TITR [facility]; Protocol Piperacillin Sod/Tazobactam (Sod 2.25 gm/ Dextrose) 50 mls @ 100 mls/hr IVPB BID [facility]; Protocol Metoprolol Tartrate (Lopressor -) 25 mg PO BID [facility] Last Admin: 04/15/19 09:57 Dose: 25 mg Mirtazapine (Remeron -) 7.5 mg PO HS [facility] ASSESSMENT/PLAN: Pt is a 74 year old male with PMHx of HTN, HLD, 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 , GI bleed (normal EGDand colon-09/12), Anemia, s/p b/l AKA, AVF/graft, R sided deficits s/p CVA, aphasia and dyspagia who was brought in by his family and [employer] for AMS and difficulty breathing with possible aspiration admitted for sepsis secondary to UTI with AMS Acute hypoxic respiratory failure AMS- improved Sepsis secondary to UTI Anion gap metab acidosis NSTEMI transaminitis ESRD-Tth HTN, HLD, 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, GI bleed (normal EGDand colon-09/12), Anemia, s/p b/l AKA, AVF/graft, R sided deficits s/p CVA, aphasia dyspagia hypokalemia Plan: Cont zosyn Cont heparin drip (started 04/12)for dc today Trend cmp dialysis per renal chopped diet with thick liqs per speech and swallow, per duaghter thin liqs Family do not want any feeding tubes Cont ASA/plavix Cont remeron heparin drip clinimix started metoprolol lipitor on hold, tylenol on hold (transaminitis) Palliative care- D/W Danna, family is considering MDS and to try the recommended feeds and avoid aspirations. Daughter is probably health care proxy but pt attentive and able to respond with nods. Pt does not want home hospice. Per Danna, it will be an issue as he is a dialysis patient. Family not ready for home hospice. Only thinking to modify diet for now. Cont goals of care discussion w/family Visit type - Emergency Visit Emergency Visit: Yes ED Registration Date: 04/12/19 Care time: The patient presented to the Emergency Department on the above date and was hospitalized for further evaluation of their emergent condition. - New Patient This patient is new to me today: No - Critical Care Critical Care patient: Yes Total Critical Care Time (in minutes): 39 Critical Care Statement: The care of this patient involved high complexity decision making to prevent further life threatening deterioration of the patient 's condition and/or to evaluate & treat vital organ system(s) failure or risk of failure. - Discharge Referral Referred to [facility] No ATTENDING PHYSICIAN STATEMENT I saw and evaluated the patient. I reviewed the resident's note and discussed the case with the resident. I agree with the resident's findings and plan as documented. SUBJECTIVE: OBJECTIVE: ASSESSMENT AND PLAN:
[2019-04-15] MEDS ORDERED: DEXTROSE 5%-WATER - 50 ML IVPB ONE ×2 (09:10→20:55)
[2019-04-15] MEDS ORDERED: PIPERACILLIN/TAZOBACTAM 2.25 GM VIAL IVPB ONE ×2 (09:10→20:55)
[2019-04-15] MEDS: ASPIRIN COATED 81 MG TABLET.EC PO SCH (09:11)
[2019-04-15] MEDS: CLOPIDOGREL BISULFATE 75 MG TABLET (FP) PO SCH (09:57)
[2019-04-15] MEDS: METOPROLOL TARTRATE 25 MG TABLET (FP) PO SCH ×2 (09:57→21:46)
[2019-04-15] MEDS: PIPERACILLIN/TAZOB 2.25 GM 2.25 GM in DEXTROSE 5%-WATER - 50 ML IVPB SCH ×2 (09:59→21:48)
--- NOTE | 2019-04-15 10:25 | PN ---
Progress Note (short form) - Note Progress Note: s: not answering questions, appears comfortable Current Medications Aspirin (Ecotrin -) 81 mg PO DAILY [facility] Last Admin: 04/15/19 09:11 Dose: Not Given Atorvastatin Calcium (Lipitor -) 80 mg PO HS [facility] Last Admin: 04/14/19 21:23 Dose: 80 mg Clopidogrel Bisulfate (Plavix -) 75 mg PO DAILY [facility] Last Admin: 04/15/19 09:57 Dose: 75 mg Heparin Sodium (Porcine) (Heparin -) 5,000 unit IVPUSH PRN PRN PRN Reason: APTT (SECONDS) <40 Heparin Sodium (Porcine) (Heparin -) 1,000 unit IVPUSH PRN PRN PRN Reason: APTT (SECONDS) 40-49 Last Admin: 04/13/19 03:00 Dose: 1,000 unit Heparin Sodium (Porcine) 25, (000 unit/ Sodium Chloride) 500 mls @ 16 mls/hr IV TITR [facility]; Protocol Last Admin: 04/14/19 20:15 Dose: 900 unit/hr, 18 mls/hr Piperacillin Sod/Tazobactam (Sod 2.25 gm/ Dextrose) 50 mls @ 100 mls/hr IVPB BID [facility]; Protocol Last Admin: 04/15/19 09:59 Dose: 100 mls/hr Amino Acids (Clinimix -) 1,000 mls @ 42 mls/hr IV Q12H [facility] Last Admin: 04/15/19 08:11 Dose: Not Given Metoprolol Tartrate (Lopressor -) 25 mg PO BID [facility] Last Admin: 04/15/19 09:57 Dose: 25 mg Mirtazapine (Remeron -) 7.5 mg PO HS [facility] Last Admin: 04/14/19 21:23 Dose: 7.5 mg Vital Signs Period Temp Pulse Resp BP Sys/Schneider Pulse Ox Last 24 Hr 97.5 F-98.2 F 6-99 16-26 95-146/54-93 98-98 Constitutional: Yes: Well Nourished, No Distress Eyes: No: Sclera Icterus HENT: No: Nasal Congestion Neck: No: Decreased ROM Respiratory: Yes: CTA Bilaterally. No: Accessory Muscle Use, Rales, Wheezes Gastrointestinal: Yes: Normal Bowel Sounds. No: Distention, Hepatomegaly, Palpable Mass, Tenderness Cardiovascular: Yes: Regular Rate and Rhythm JVD: No Carotid Bruit: No PMI: Non-Displaced Heart Sounds: Yes: S1, S2. No: Gallop Murmur: No: Systolic Murmur, Diastolic Murmur Musculoskeletal: Yes: Other (No kyphosis) Extremities: No: Cool, Cyanosis Edema: No Peripheral Pulses: 2+ Left Carotid, 2+ Right Carotid, 2+ Left Doralis Pedis, 2+ Right Dorsalis Pedis Integumentary: No: Jaundice Neurological: Yes: Alert. No: Seizure Psychiatric: No: Agitated Assessment/Plan CXR: incr'd lung markings chronic/unchanged vs prior. no congestion/effusion, infiltrate ECG: NSR, normal axis. no path q's. mild, nonspecific STs improved vs prior echo 03/2019 mod to severely reduced LV function, EF 30-35%, RV not wellvisualized, mimod MR, mod TR, mild AR tele: NSR, PVCs, 3 bt NSVT NSTEMI: -troponin 9-->trended down. -no ischemic changes on ECG -history suggests infection (? lung/airways), no definite acute event as far as ACS but pt's decr mentation at home precludes accurate history -given uncertainty regarding etiology of high troponin (reliable hx re: sx's not possible here),started heparin gtt - continue for 72h - monitor closely for bleeding (h/o GIB noted in chart) -continue aspirin, plavix, metoprolol, statin -echo shows moderate to severely reduced LV function - discussed with patient's and daughter, would not want a nuclear stress test or cardiac catheterization as they are trying to avoid invasive procedures. per family has a history of an adverse reaction to nuclear stress testing and would not want to pursue again fever, sob: -normal lactate -clear CXR, no signs chf on exam -? upper airways/bronchitis process -w/u per crit care, hospitalist transaminitis: -per hospitalist, critical care ESRD on HD: -per renal h/o CVA: - cont DAPT, statin
--- NOTE | 2019-04-15 11:19 | PN ---
Physical Exam: SUBJECTIVE: Patient seen and examined. No acute events overnight. Pt. denies any complaints this morning. OBJECTIVE: Vital Signs Period Temp Pulse Resp BP Sys/Schneider Pulse Ox Last 24 Hr 97.5 F-98.2 F 6-99 16-26 95-146/54-93 98-98 GENERAL: Awake, alert, staring; in no acute distress. Patient has aphasia s/p stroke, but able to follow commands and nod yes/no. Oriented to self. EYES: PEERLA: EOMI no scleral icterus NECK: no JVD; no lymphadenopathy LUNGS:CTA B/L; no rales, rhonchi or wheezing HEART: tachycardic; regualr rhythm , normal S1 and S2 without murmur ABDOMEN: soft; NT/ND +BS in all 4 quadrants (no wincing upon palpation) EXTREMITIES: B/L AKA UPPER EXTREMITIES: AV Fistula on LUE with palpable thrill- no erythema or drainage surrounding site PSYCHIATRIC: Cooperative. Good eye contact. Appropriate mood and affect. SKIN: Warm, dry, normal turgor Laboratory Results - last 24 hr 04/13/19 04/14/19 04/15/19 17:55 21:13 05:25 WBC RBC Hgb Hct MCV MCH MCHC RDW Plt Count MPV PTT (Actin FS) 55.2 H 72.2 H Sodium Potassium Chloride Carbon Dioxide Anion Gap BUN Creatinine Est GFR (CKD-EPI)AfAm Est GFR (CKD-EPI)NonAf Random Glucose Calcium Phosphorus Magnesium Total Bilirubin AST ALT Alkaline Phosphatase Total Protein Albumin Hep Bs Antigen Negative 04/15/19 04/15/19 06:00 06:00 WBC 12.9 H RBC 3.25 L Hgb 10.1 L Hct 30.5 L MCV 93.7 MCH 30.9 MCHC 33.0 RDW 14.6 Plt Count 201 MPV 10.6 PTT (Actin FS) Sodium 145 Potassium 3.5 Chloride 108 H Carbon Dioxide 28 Anion Gap 9 BUN 43.0 H Creatinine 3.6 H Est GFR (CKD-EPI)AfAm 18.18 Est GFR (CKD-EPI)NonAf 15.69 Random Glucose 159 H Calcium 7.2 L Phosphorus 3.4 Magnesium 2.2 Total Bilirubin 0.6 AST 230 H ALT 540 H Alkaline Phosphatase 110 Total Protein 5.3 L Albumin 2.4 L Hep Bs Antigen Active Medications Current Medications Aspirin (Ecotrin -) 81 mg PO DAILY [facility] Last Admin: 04/15/19 09:11 Dose: Not Given Atorvastatin Calcium (Lipitor -) 80 mg PO HS [facility] Last Admin: 04/14/19 21:23 Dose: 80 mg Clopidogrel Bisulfate (Plavix -) 75 mg PO DAILY [facility] Last Admin: 04/15/19 09:57 Dose: 75 mg Heparin Sodium (Porcine) (Heparin -) 5,000 unit IVPUSH PRN PRN PRN Reason: APTT (SECONDS) <40 Heparin Sodium (Porcine) (Heparin -) 1,000 unit IVPUSH PRN PRN PRN Reason: APTT (SECONDS) 40-49 Last Admin: 04/13/19 03:00 Dose: 1,000 unit Heparin Sodium (Porcine) 25, (000 unit/ Sodium Chloride) 500 mls @ 16 mls/hr IV TITR [facility]; Protocol Last Admin: 04/14/19 20:15 Dose: 900 unit/hr, 18 mls/hr Piperacillin Sod/Tazobactam (Sod 2.25 gm/ Dextrose) 50 mls @ 100 mls/hr IVPB BID [facility]; Protocol Last Admin: 04/15/19 09:59 Dose: 100 mls/hr Metoprolol Tartrate (Lopressor -) 25 mg PO BID [facility] Last Admin: 04/15/19 09:57 Dose: 25 mg Mirtazapine (Remeron -) 7.5 mg PO HS [facility] Last Admin: 04/14/19 21:23 Dose: 7.5 mg ASSESSMENT/PLAN: 74 y/o with PMH HTN, HLD, CVA (with R sided deficits and aphasia), DM, ESRD (/ ), DVT s/p IVC filter, hep C, previous GI bleed who presented to the ED with worsening shortness of breath and a change in mental status and found to have a trop of 9.66 trending down, now 6.87. Patient is confirmed to be DNR/DNI, family refuses NGT. Palliative care consulted as patient is DNR/DNI and patient' s family is refusing other forms of more invasive intervention like NGT. #Neuro patient has history of R sided CVA with residual deficits ABG showed PH of 7.5 with Pco2 of 23 currently on liquid diet, nectar consistency after family declined to have either barium swallow done or NGT placed monitor feeds carefully discontinue if patient unable to tolerate mental status appears at baseline #Cardiovascular patient was found to have a trop of 9.66 with no EKG changes Trop trending down, most recent 6.87 patient started on heparin drip in addition to ASA and Plavix cardio consulted monitor trops history of HTN: resumed metoprolol 25mg PO BID monitor hemodynamics will monitor for signs of bleeding #GI patient was found to have transaminitis with benign abdominal exam abdominal US > R pleural effusion, cholelithiasis, chronic renal disease resumed home atorvostatin 80 PO qHS will trend LFTS lipase was normal currently NPO #ID patient found to be septic with a positive UA; CXR doesn't show definite consolidation patient started on zosyn 50 mls @ 100 mls/hr ID consulted, appreciate reccs Blood Cx.> NGTD Urine Cx. > lactose fermenting gram negative bacilli NS @100mls/hr #Pulmonary ABG showed PH 7.5 with Co2 23 patient currently saturating well on 2LNC will monitor respiratory status chest XRAY > no evidence of pneumonia or consolidation #Renal patient has ESRD with HD t/--> For HD today Dr. Graham saw patient did not feel emergent HD was necessary will continue to monitor BUN and dialyze as necessary monitor electrolytes monitor volume status F/E/N NS @100mls/hr monitor electrolytes Pt. on IV Clinimix(at family's request, risks discussed with family and Pt.) and 2Cal HN with Magic cup supplementations DVT PPX: heparin drip Dispo: Pt. can be managed on Medical/Surgical Thank you for this consultative opportunity. Spoke with patient's daughter Francesca. Stated she was his healthcare proxy and reaffirmed his DNR/DNI status, also declined to have NG tube placed at this time. Counselled her about risk of aspiration with PO feeds. Patient is otherwise stable and can be transferred to telemetry for further monitoring and treatment. ATTENDING PHYSICIAN STATEMENT I saw and evaluated the patient. I reviewed the resident's note and discussed the case with the resident. I agree with the resident's findings and plan as documented. SUBJECTIVE: OBJECTIVE: ASSESSMENT AND PLAN:
--- NOTE | 2019-04-15 11:53 | PN ---
Teaching Attending Note Name of Resident: Chanel Hicks ATTENDING PHYSICIAN STATEMENT I saw and evaluated the patient. I reviewed the resident's note and discussed the case with the resident. I agree with the resident's findings and plan as documented with exceptions below. SUBJECTIVE: Patient seen and examined, more awake, follows simple commands, no complaints. OBJECTIVE: Vital Signs Period Temp Pulse Resp BP Sys/Schneider Pulse Ox Last 24 Hr 97.3 F-98.2 F 6-99 16-26 95-146/54-93 98-98 Intake & Output 04/12/19 04/13/19 04/14/19 04/15/19 23:59 23:59 23:59 23:59 Intake Total 100 2166 3057 940 Output Total 500 Balance 100 2166 2557 940 Weight 92 lb 9.506 oz 89 lb 4 oz 91 lb 94 lb 6 oz General: sitting in bed, assisted to PO, no acute distress Chest: decreased effort Abdomen:soft, NT, ND Extremities: bilateral AKA Neuro: more awake and interactive, unchanged right facial droop, right hemiparesis, aphasic Home Medications Medication Instructions Recorded Clopidogrel Bisulfate [Plavix] 75 mg PO DAILY 08/25/18 Acetaminophen [Tylenol .Regular 650 mg PO Q4H PRN 09/23/18 Strength -] Atorvastatin Ca [Lipitor] 80 mg PO DAILY 09/23/18 Docusate Sodium [Colace] 100 mg PO DAILY 09/23/18 Epoetin Stuart [Epogen] 3,[address] [facility] 09/23/18 Metoprolol Tartrate 25 mg PO BID 09/23/18 Mirtazapine [Remeron -] 7.5 mg PO HS 09/23/18 Aspirin 81 mg PO DAILY 04/12/19 Midodrine HCl 15 mg PO TID 04/12/19 Pantoprazole Sodium 40 mg PO DAILY 04/12/19 Active Medications Aspirin (Ecotrin -) 81 mg PO DAILY [facility] Last Admin: 04/15/19 09:11 Dose: Not Given Atorvastatin Calcium (Lipitor -) 80 mg PO [facility] Last Admin: 04/14/19 21:23 Dose: 80 mg Clopidogrel Bisulfate (Plavix -) 75 mg PO DAILY [facility] Last Admin: 04/15/19 09:57 Dose: 75 mg Heparin Sodium (Porcine) (Heparin -) 5,000 unit IVPUSH PRN PRN PRN Reason: APTT (SECONDS) <40 Heparin Sodium (Porcine) (Heparin -) 1,000 unit IVPUSH PRN PRN PRN Reason: APTT (SECONDS) 40-49 Last Admin: 04/13/19 03:00 Dose: 1,000 unit Heparin Sodium (Porcine) 25, (000 unit/ Sodium Chloride) 500 mls @ 16 mls/hr IV TITR [facility]; Protocol Last Admin: 04/14/19 20:15 Dose: 900 unit/hr, 18 mls/hr Piperacillin Sod/Tazobactam (Sod 2.25 gm/ Dextrose) 50 mls @ 100 mls/hr IVPB BID [facility]; Protocol Last Admin: 04/15/19 09:59 Dose: 100 mls/hr Metoprolol Tartrate (Lopressor -) 25 mg PO BID [facility] Last Admin: 04/15/19 09:57 Dose: 25 mg Mirtazapine (Remeron -) 7.5 mg PO HS [facility] Last Admin: 04/14/19 21:23 Dose: 7.5 mg Laboratory Results - last 24 hr 04/13/19 04/14/19 04/15/19 17:55 21:13 05:25 WBC RBC Hgb Hct MCV MCH MCHC RDW Plt Count MPV PTT (Actin FS) 55.2 H 72.2 H Sodium Potassium Chloride Carbon Dioxide Anion Gap BUN Creatinine Est GFR (CKD-EPI)AfAm Est GFR (CKD-EPI)NonAf Random Glucose Calcium Phosphorus Magnesium Total Bilirubin AST ALT Alkaline Phosphatase Total Protein Albumin Hep Bs Antigen Negative 04/15/19 04/15/19 06:00 06:00 WBC 12.9 H RBC 3.25 L Hgb 10.1 L Hct 30.5 L MCV 93.7 MCH 30.9 MCHC 33.0 RDW 14.6 Plt Count 201 MPV 10.6 PTT (Actin FS) Sodium 145 Potassium 3.5 Chloride 108 H Carbon Dioxide 28 Anion Gap 9 BUN 43.0 H Creatinine 3.6 H Est GFR (CKD-EPI)AfAm 18.18 Est GFR (CKD-EPI)NonAf 15.69 Random Glucose 159 H Calcium 7.2 L Phosphorus 3.4 Magnesium 2.2 Total Bilirubin 0.6 AST 230 H ALT 540 H Alkaline Phosphatase 110 Total Protein 5.3 L Albumin 2.4 L Hep Bs Antigen Microbiology 04/12/19 15:00 Blood - Peripheral Venous Blood Culture - Preliminary NO GROWTH OBTAINED AFTER 48 HOURS, INCUBATION TO CONTINUE FOR 3 DAYS. 04/12/19 15:30 Urine - Urine [place] Urine Culture - Final Escherichia Coli 04/12/19 15:08 Blood - Peripheral Venous Blood Culture - Preliminary Staphylococcus Coagulase Neg ASSESSMENT AND PLAN: 74 y/o with PMH HTN, HLD, CVA (with R sided deficits and aphasia), DM, ESRD (), Bilateral AKA, DVT s/p IVC filter, hep C, previous GI bleed admitted with AMS and dyspnea. -AMS, suspect toxic metabolic encephalopathy from sepsis vs NSTEMI vs markedly elevated Bun/cr -NSTEMI, demand type II vs ACS -Transaminitis, ?sepsis/hypoperfusion -Dyspnea, ?Aspiration -?Sepsis due to complicated E. Coli UTi, vs bronchitis -Coag neg staph bacteremia, ?sepsis -High aspiration risk -CVA with aphasia/right sided deficits -ESRD on HD -DM -Bilateral AKA -DVT s/p IVC filter -Hep C -H/o GI bleed Plan: ASA/plavix/metoprolol/heparin drip, d/c today after 72 hours. Hold statin for now with close LFt monitoring. Family declined further testing or intervention. Family declined Feeding tube. Speech/swallow input noted. Reports of family bringing thin liquid diet. Continues to be high aspiration risk. Address goals of care. Urine cx noted. Repeat blood cx sent 04/14. Will transition to PO abx if repeat blood cx neg in 24 hours. Monitor lfts closely while on zosyn. DVTPPX on heparin drip Agree with transfer out of ICU Family decline aggressive interventions, no feeding tube. High aspiration risk, want ongoing PO. Will have palliative care address overall goals of care. Agree with transfer out of ICU. Plan for d/c home in 24 hours pending repeat blood cx, clinical improvement.
--- NOTE | 2019-04-15 12:30 | PN ---
Progress Note, [employer] - Note Progress Note: Lengthy conversation with Ex-, who is a nurse. She feels Dialysis TIW may be too much for him. He has Dialysis BIW at home. Medical team informed. Was coughing on Ensure Compact. I rec 2 mattie HN, which is nectar, which he overtly tolerated better. Also tolerated pureed breakfast this am per staff. Suggested MBS again. Educated on purpose to determine safest, most liberal diet pt tolerates and to determine compensatory swallowing strategies that would benefit him. Selected Entries 04/14/19 04/15/19 04/15/19 23:04 04:00 06:00 Breakfast Supper 25% Temperature 97.5 F L 97.8 F 04/15/19 10:00 Breakfast 50% Supper Temperature 97.3 F L Laboratory Tests 04/12/19 04/13/19 04/14/19 15:08 07:10 05:25 WBC 15.6 H 12.5 H 13.2 H 04/15/19 06:00 WBC 12.9 H Asked Pt wishes regarding TF. Pt did not respond with any headshake, although he responded with other questions appropriately. eg Are you comfortable? Is this your ? etc Monitor pulmonary status.
--- NOTE | 2019-04-15 12:53 | PN ---
Teaching Attending Note Name of Resident: Charles Mahajan ATTENDING PHYSICIAN STATEMENT I saw and evaluated the patient. I reviewed the resident's note and discussed the case with the resident. I agree with the resident's findings and plan as documented. SUBJECTIVE: Pt seen and examined in the ICU. Awake, nonverbal. No fevers recorded. OBJECTIVE: Vital Signs Period Temp Pulse Resp BP Sys/Schneider Pulse Ox Last 24 Hr 97.3 F-98.2 F 6-99 17-26 98-146/54-93 98-98 Intake & Output 04/12/19 04/13/19 04/14/19 04/15/19 23:59 23:59 23:59 23:59 Intake Total 100 2166 3057 940 Output Total 500 Balance 100 2166 2557 940 Weight 42 kg 40.483 kg 41.277 kg 42.808 kg Gen: NAD at rest Heart: RRR Lung: decreased breath sounds at the bases Abd: soft, nontender Ext: bilateral AKA CBC, BMP 04/15/19 06:00 04/15/19 06:00 Active Medications Aspirin (Ecotrin -) 81 mg PO DAILY [facility] Last Admin: 04/15/19 09:11 Dose: Not Given Atorvastatin Calcium (Lipitor -) 80 mg PO HS [facility] Last Admin: 04/14/19 21:23 Dose: 80 mg Clopidogrel Bisulfate (Plavix -) 75 mg PO DAILY [facility] Last Admin: 04/15/19 09:57 Dose: 75 mg Heparin Sodium (Porcine) (Heparin -) 5,000 unit IVPUSH PRN PRN PRN Reason: APTT (SECONDS) <40 Heparin Sodium (Porcine) (Heparin -) 1,000 unit IVPUSH PRN PRN PRN Reason: APTT (SECONDS) 40-49 Last Admin: 04/13/19 03:00 Dose: 1,000 unit Heparin Sodium (Porcine) 25, (000 unit/ Sodium Chloride) 500 mls @ 16 mls/hr IV TITR [facility]; Protocol Last Admin: 04/14/19 20:15 Dose: 900 unit/hr, 18 mls/hr Piperacillin Sod/Tazobactam (Sod 2.25 gm/ Dextrose) 50 mls @ 100 mls/hr IVPB BID [facility]; Protocol Last Admin: 04/15/19 09:59 Dose: 100 mls/hr Metoprolol Tartrate (Lopressor -) 25 mg PO BID [facility] Last Admin: 04/15/19 09:57 Dose: 25 mg Mirtazapine (Remeron -) 7.5 mg PO HS [facility] Last Admin: 04/14/19 21:23 Dose: 7.5 mg ASSESSMENT AND PLAN: UTI Severe Sepsis improving Acute NSTEMI ESRD on HD h/o Bilateral AKA h/o DVT s/p IVC filter h/o CVA HTN Hyperlipidemia Hep C - continue antibiotics, can likely de-escalate - ASA, plavix - anticoagulation per cardiology - statin, beta radha - HD per renal - aspiration precautions - can monitor on floor
--- NOTE | 2019-04-15 15:21 | PN ---
Progress Note, Physician History of Present Illness: improving wbc trending down - Current Medication List Current Medications: Active Medications Aspirin (Ecotrin -) 81 mg PO DAILY [facility] Last Admin: 04/15/19 09:11 Dose: Not Given Atorvastatin Calcium (Lipitor -) 80 mg PO HS [facility] Last Admin: 04/14/19 21:23 Dose: 80 mg Clopidogrel Bisulfate (Plavix -) 75 mg PO DAILY [facility] Last Admin: 04/15/19 09:57 Dose: 75 mg Heparin Sodium (Porcine) (Heparin -) 5,000 unit IVPUSH PRN PRN PRN Reason: APTT (SECONDS) <40 Heparin Sodium (Porcine) (Heparin -) 1,000 unit IVPUSH PRN PRN PRN Reason: APTT (SECONDS) 40-49 Last Admin: 04/13/19 03:00 Dose: 1,000 unit Heparin Sodium (Porcine) 25, (000 unit/ Sodium Chloride) 500 mls @ 16 mls/hr IV TITR [facility]; Protocol Last Admin: 04/14/19 20:15 Dose: 900 unit/hr, 18 mls/hr Piperacillin Sod/Tazobactam (Sod 2.25 gm/ Dextrose) 50 mls @ 100 mls/hr IVPB BID [facility]; Protocol Last Admin: 04/15/19 09:59 Dose: 100 mls/hr Metoprolol Tartrate (Lopressor -) 25 mg PO BID [facility] Last Admin: 04/15/19 09:57 Dose: 25 mg Mirtazapine (Remeron -) 7.5 mg PO HS [facility] Last Admin: 04/14/19 21:23 Dose: 7.5 mg - Objective Vital Signs: Vital Signs Temperature 97.3 F L 04/15/19 10:00 Pulse Rate 95 H 04/15/19 12:00 Respiratory Rate 24 H 04/15/19 12:00 Blood Pressure 125/84 04/15/19 12:00 O2 Sat by Pulse Oximetry (%) 98 04/15/19 07:34 Constitutional: Yes: No Distress, Calm Cardiovascular: Yes: S1, S2 Respiratory: Yes: On Nasal O2, Poor Air Entry Gastrointestinal: Yes: Normal Bowel Sounds, Soft Neurological: Yes: Alert, Other Labs: CBC, BMP 04/15/19 06:00 04/15/19 06:00 INR, PTT INR 1.33 (0.83-1.09) H 04/12/19 15:08 Assessment/Plan Problem List - Problems (1) Acute metabolic encephalopathy Code(s): G93.41 - METABOLIC ENCEPHALOPATHY (2) Sepsis Code(s): A41.9 - SEPSIS, UNSPECIFIED ORGANISM (3) NSTEMI (non-ST elevated myocardial infarction) Code(s): I21.4 - NON-ST ELEVATION (NSTEMI) MYOCARDIAL INFARCTION (4) Transaminitis Code(s): R74.0 - NONSPEC ELEV OF LEVELS OF TRANSAMNS & LACTIC ACID DEHYDRGNSE (5) UTI (urinary tract infection) Code(s): N39.0 - URINARY TRACT INFECTION, SITE NOT SPECIFIED Qualifiers: Urinary tract infection type: site unspecified Hematuria presence: with hematuria Qualified Code(s): N39.0 - Urinary tract infection, site not specified; R31.9 - Hematuria, unspecified (6) ESRD (end stage renal disease) on dialysis Code(s): N18.6 - END STAGE RENAL DISEASE; Z99.2 - DEPENDENCE ON RENAL DIALYSIS (7) Severe protein-calorie malnutrition Code(s): E43 - UNSPECIFIED SEVERE PROTEIN-CALORIE MALNUTRITION (8) Hyperlipemia Code(s): E78.5 - HYPERLIPIDEMIA, UNSPECIFIED Qualifiers: Hyperlipidemia type: unspecified hyperlipidemia (9) Hypertension Code(s): I10 - ESSENTIAL (PRIMARY) HYPERTENSION Qualifiers: Hypertension type: other secondary hypertension Qualified Code(s): I15.8 - Other secondary hypertension (10) Metabolic acidosis, increased anion gap Code(s): E87.2 - ACIDOSIS (11) Tachypnea Code(s): R06.82 - TACHYPNEA, NOT ELSEWHERE CLASSIFIED plan continue current mgmt icu mgmt rest as per the team ct abx monitor wbc cc 40 min
[2019-04-15] MEDS ORDERED: HEPARIN NA (PORCINE) 5,000 UNITS/ML 1ML VIAL IVPUSH PRN ×4 (17:14)
[2019-04-15] MEDS ORDERED: HEPARIN - 25,000 UNIT in SODIUM CHLORIDE 495 ML IV SCH (17:14)
[2019-04-15] MEDS ORDERED: SODIUM CHLORIDE 250 ML IV PRN (17:47)
--- NOTE | 2019-04-15 17:47 | PN ---
Progress Note (short form) - Note Progress Note: Renal follow up for ESRD on HD Pt seen and examined in the ICU awake and alert but aphasic no overnight events Vital Signs Temperature 99 F 04/15/19 16:00 Pulse Rate 90 04/15/19 16:00 Respiratory Rate 24 H 04/15/19 16:00 Blood Pressure 122/80 04/15/19 16:00 O2 Sat by Pulse Oximetry (%) 98 04/15/19 07:34 Intake & Output 04/12/19 04/13/19 04/14/19 04/15/19 23:59 23:59 23:59 23:59 Intake Total 100 2166 3057 1140 Output Total 500 Balance 100 2166 2557 1140 Weight 42 kg 40.483 kg 41.277 kg 42.808 kg NAD awake and alert RRR, on M/R Aug BS soft NT/ND no LE edema CBC, BMP 04/15/19 06:00 04/15/19 06:00 Current Medications Aspirin (Ecotrin -) 81 mg PO DAILY [facility] Last Admin: 04/15/19 09:11 Dose: Not Given Atorvastatin Calcium (Lipitor -) 80 mg PO [facility] Clopidogrel Bisulfate (Plavix -) 75 mg PO DAILY [facility] Last Admin: 04/15/19 09:57 Dose: 75 mg Heparin Sodium (Porcine) (Heparin -) 5,000 unit IVPUSH PRN PRN PRN Reason: APTT (SECONDS) <40 Piperacillin Sod/Tazobactam (Sod 2.25 gm/ Dextrose) 50 mls @ 100 mls/hr IVPB BID [facility]; Protocol Metoprolol Tartrate (Lopressor -) 25 mg PO BID [facility] Last Admin: 04/15/19 09:57 Dose: 25 mg Mirtazapine (Remeron -) 7.5 mg PO HS [facility] 74 year old gentleman with hx of HTN, HLD, 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 #AMS #ESRD on HD with high BUN/Cr #Hyperphosphtaemia #Chronic Anemia #Fever/Leukocytosis #UTI no acute need for dialysis today will plan for dialysis tomorrow continue Abx as per ICU team for UTI [place] Neg Staph grew in blood, ? contamination vs. true infection oral intake as tolerated will d/c NS can start clinmaix as needed for nutritional support as needed Lauri Fulton DO
[2019-04-15] MEDS: MIRTAZAPINE 15 MG TABLET (FP) PO SCH (21:47)
[2019-04-15] MEDS: ATORVASTATIN CA 80 MG TABLET (FP) PO SCH (21:47)
[2019-04-16 08:26] LABS: ALBUMIN 2.4 g/dl (3.4-5.0); BILIRUBIN,TOTAL 1.1 mg/dL (0.2-1); BLOOD UREA NITROGEN 55.2 mg/dL (7-18); CALCIUM 7.7 mg/dL (8.5-10.1); CREATININE 4.4 mg/dL (0.55-1.3); MAGNESIUM 2.3 mg/dL (1.8-2.4); PHOSPHOROUS 4.5 mg/dL (2.5-4.9); POTASSIUM 4.1 mmol/L (3.5-5.1); TOT PROT 5.8 g/dl (6.4-8.2)
--- NOTE | 2019-04-16 09:08 | PN ---
Physical Exam: SUBJECTIVE: Patient seen and examined OBJECTIVE: Vital Signs Period Temp Pulse Resp BP Sys/Schneider Pulse Ox Last 24 Hr 96.5 F-99.7 F 86-100 22-29 108-127/61-84 95 GENERAL: The patient is awake, alert, and fully oriented, in no acute distress. HEAD: Normal with no signs of trauma. EYES: PERRL, extraocular movements intact, sclera anicteric, conjunctiva clear. No ptosis. ENT: Ears normal, nares patent, oropharynx clear without exudates, moist mucous membranes. NECK: Trachea midline, full range of motion, supple. LUNGS: Breath sounds equal, clear to auscultation bilaterally, no wheezes, no crackles, no accessory muscle use. HEART: Regular rate and rhythm, S1, S2 without murmur, rub or gallop. ABDOMEN: Soft, nontender, nondistended, normoactive bowel sounds, no guarding, no rebound, no hepatosplenomegaly, no masses. EXTREMITIES: 2+ pulses, warm, well-perfused, no edema. NEUROLOGICAL: Cranial nerves II through XII grossly intact. Normal speech, gait not observed. PSYCH: Normal mood, normal affect. SKIN: Warm, dry, normal turgor, no rashes or lesions noted Laboratory Results - last 24 hr 04/16/19 04/16/19 07:20 07:20 PTT (Actin FS) 27.8 Sodium 144 Potassium 4.1 Chloride 106 Carbon Dioxide 26 Anion Gap 13 BUN 55.2 H Creatinine 4.4 H Est GFR (CKD-EPI)AfAm 14.27 Est GFR (CKD-EPI)NonAf 12.31 Random Glucose 144 H Calcium 7.7 L Phosphorus 4.5 Magnesium 2.3 Total Bilirubin 1.1 H AST 126 H ALT 390 H Alkaline Phosphatase 111 Total Protein 5.8 L Albumin 2.4 L Active Medications Generic Name Dose Route Start Last Admin Trade Name Freq PRN Reason Stop Dose Admin Aspirin 81 mg 04/14/19 15:15 04/15/19 09:11 Ecotrin - PO Not Given DAILY [facility] Atorvastatin Calcium 80 mg 04/15/19 22:00 04/15/19 21:47 Lipitor - PO 80 mg HS [facility] Administration Clopidogrel Bisulfate 75 mg 04/14/19 15:15 04/15/19 09:57 Plavix - PO 75 mg DAILY [facility] Administration Epoetin Stuart 6,000 unit 04/16/19 09:00 Epogen - IVPUSH 04/16/19 09:01 ONCE ONE Heparin Sodium (Porcine) 5,000 unit 04/15/19 17:14 Heparin - IVPUSH PRN PRN APTT (SECONDS) <40 Piperacillin Sod/Tazobactam 50 mls @ 100 mls/hr 04/15/19 22:00 04/15/19 21:48 Sod 2.25 gm/ Dextrose IVPB 100 mls/hr BID [facility] Administration Protocol Sodium Chloride 250 mls @ 3,000 mls/hr 04/16/19 09:00 Normal Saline - IV 04/16/19 22:00 PRN PRN Hypotension during Dialysis Metoprolol Tartrate 25 mg 04/14/19 22:00 04/15/19 21:46 Lopressor - PO 25 mg BID [facility] Administration Mirtazapine 7.5 mg 04/15/19 22:00 04/15/19 21:47 Remeron - PO 7.5 mg HS [facility] Administration ASSESSMENT/PLAN: ATTENDING PHYSICIAN STATEMENT I saw and evaluated the patient. I reviewed the resident's note and discussed the case with the resident. I agree with the resident's findings and plan as documented. SUBJECTIVE: OBJECTIVE: ASSESSMENT AND PLAN:
[2019-04-16 09:39] LABS: BASO % 0.8 % (0-2.0); EOS % 2.4 % (0-4.5); HEMATOCRIT 31.3 % (35.4-49); HEMOGLOBIN 10.1 GM/dL (11.7-16.9); LYMPH % 6.7 % (8-40); MCH 30.4 pg (25.7-33.7); MCHC 32.1 g/dl (32.0-35.9); MEAN CELL VOLUME 94.8 fl (80-96); MEAN PLT VOLUME 10.8 fl (7.5-11.1); MONO % 6.3 % (3.8-10.2); NEUT % 83.8 % (42.8-82.8); RDW 15.1 % (11.9-15.9); WHITE BLOOD COUNT 11.1 K/mm3 (4.0-10.0)
[2019-04-16 09:47] LABS: PLATELET COUNT 219 K/MM3 (134-434)
--- NOTE | 2019-04-16 09:51 | PN ---
Progress Note (short form) - Note Progress Note: PULMONARY AWAKE/ALERT NONVERBAL VSS/AFEBRILE Gen: NAD at rest Heart: RRR Lung: decreased breath sounds at the bases Abd: soft, nontender Ext: bilateral AKA LABS/MEDS/NOTES/IMAGES REVIEWED ASSESSMENT AND PLAN: UTI Severe Sepsis improving Acute NSTEMI ESRD on HD h/o Bilateral AKA h/o DVT s/p IVC filter h/o CVA HTN Hyperlipidemia Hep C - continue antibiotics, can likely de-escalate - ASA, plavix - anticoagulation per cardiology - statin, beta radha - HD per renal - aspiration precautions Jayme ANDREW MD
[2019-04-16] MEDS ORDERED: PIPERACILLIN/TAZOBACTAM 2.25 GM VIAL IVPB ONE (10:02)
[2019-04-16] MEDS ORDERED: DEXTROSE 5%-WATER - 50 ML IVPB ONE (10:02)
[2019-04-16] MEDS: ASPIRIN COATED 81 MG TABLET.EC PO SCH (10:33)
--- NOTE | 2019-04-16 10:58 | PN ---
Progress Note, [employer] - Note Progress Note: Selected Entries 04/15/19 04/15/19 04/15/19 04:00 06:00 10:00 Breakfast 50% Lunch Supper Temperature 97.5 F L 97.8 F 97.3 F L 04/15/19 04/15/19 04/15/19 14:00 16:00 18:37 Breakfast Lunch 50% Supper Temperature 98.6 F 99 F 97.9 F 04/15/19 04/15/19 04/16/19 21:45 23:27 03:23 Breakfast Lunch Supper 25% Temperature 99.7 F H 99.1 F 04/16/19 04/16/19 06:53 09:54 Breakfast Lunch Supper Temperature 96.5 F L 98.6 F Laboratory Tests 04/14/19 04/15/19 04/16/19 05:25 06:00 07:20 WBC 13.2 H 12.9 H 11.1 H Pt now on Med/Surg floor. Case reviewed with Nursing/PMD. Appreciate Palliative care involvement. Dys puree/nectar Monitor tolerance.
[2019-04-16] MEDS ORDERED: SODIUM CHLORIDE 250 ML IV PRN (11:00)
[2019-04-16] MEDS ORDERED: EPOETIN ALFA 3,000 UNIT/1 ML ML IVPUSH ONE (11:00)
[2019-04-16] MEDS ORDERED: CEFUROXIME INJECTION 750 MG in DEXTROSE 5%-WATER - 50 ML IVPB ONE (12:14)
--- NOTE | 2019-04-16 13:57 | PN ---
Teaching Attending Note Name of Resident: Chanel Hicks ATTENDING PHYSICIAN STATEMENT I saw and evaluated the patient. I reviewed the resident's note and discussed the case with the resident. I agree with the resident's findings and plan as documented with exceptions below. SUBJECTIVE: Patient seen and examined, no complaints, sleeping but responsive to questions. OBJECTIVE: Vital Signs Period Temp Pulse Resp BP Sys/Schneider Pulse Ox Last 24 Hr 96.5 F-99.7 F 87-103 18-29 108-146/61-91 95 Intake & Output 04/13/19 04/14/19 04/15/19 04/16/19 23:59 23:59 23:59 23:59 Intake Total 2166 3057 1746 242 Output Total 500 Balance 2166 2557 1746 242 Weight 89 lb 4 oz 91 lb 94 lb 6 oz 106 lb 9.6 oz General: sitting in bed in no acute distress Chest; decreased effort, no rales or wheezing Abdomen:soft, NT, nD Extremities: bilateral AKA Neuro: sleeping but arousable, right facial droop/hemiparesis Home Medications Medication Instructions Recorded Clopidogrel Bisulfate [Plavix] 75 mg PO DAILY 08/25/18 Acetaminophen [Tylenol .Regular 650 mg PO Q4H PRN 09/23/18 Strength -] Atorvastatin Ca [Lipitor] 80 mg PO DAILY 09/23/18 Docusate Sodium [Colace] 100 mg PO DAILY 09/23/18 Epoetin Stuart [Epogen] 3,000 unit [facility] 09/23/18 Metoprolol Tartrate 25 mg PO BID 09/23/18 Mirtazapine [Remeron -] 7.5 mg PO HS 09/23/18 Aspirin 81 mg PO DAILY 04/12/19 Midodrine HCl 15 mg PO TID 04/12/19 Pantoprazole Sodium 40 mg PO DAILY 04/12/19 Active Medications Aspirin (Ecotrin -) 81 mg PO DAILY [facility] Last Admin: 04/16/19 10:33 Dose: Not Given Atorvastatin Calcium (Lipitor -) 80 mg PO [facility] Last Admin: 04/15/19 21:47 Dose: 80 mg Cefuroxime Axetil (Ceftin -) 250 mg PO BID [facility] Clopidogrel Bisulfate (Plavix -) 75 mg PO DAILY [facility] Last Admin: 04/15/19 09:57 Dose: 75 mg Heparin Sodium (Porcine) (Heparin -) 5,000 unit IVPUSH PRN PRN PRN Reason: APTT (SECONDS) <40 Metoprolol Tartrate (Lopressor -) 25 mg PO BID [facility] Last Admin: 04/15/19 21:46 Dose: 25 mg Mirtazapine (Remeron -) 7.5 mg PO HS [facility] Last Admin: 04/15/19 21:47 Dose: 7.5 mg Laboratory Results - last 24 hr 04/16/19 04/16/19 04/16/19 07:20 07:20 07:20 WBC 11.1 H RBC 3.30 L Hgb 10.1 L Hct 31.3 L MCV 94.8 MCH 30.4 MCHC 32.1 RDW 15.1 Plt Count 219 MPV 10.8 Absolute Neuts (auto) 9.3 H Neutrophils % 83.8 H Lymphocytes % 6.7 L Monocytes % 6.3 Eosinophils % 2.4 D Basophils % 0.8 D Nucleated RBC % 0 PTT (Actin FS) 27.8 Sodium 144 Potassium 4.1 Chloride 106 Carbon Dioxide 26 Anion Gap 13 BUN 55.2 H Creatinine 4.4 H Est GFR (CKD-EPI)AfAm 14.27 Est GFR (CKD-EPI)NonAf 12.31 Random Glucose 144 H Calcium 7.7 L Phosphorus 4.5 Magnesium 2.3 Total Bilirubin 1.1 H AST 126 H ALT 390 H Alkaline Phosphatase 111 Total Protein 5.8 L Albumin 2.4 L Microbiology 04/12/19 15:08 Blood - Peripheral Venous Blood Culture - Final Staphylococcus Epidermidis 04/14/19 17:10 Blood - Peripheral Venous Blood Culture - Preliminary NO GROWTH OBTAINED AFTER 24 HOURS, INCUBATION TO CONTINUE FOR 4 DAYS. 04/14/19 16:50 Blood - Peripheral Venous Blood Culture - Preliminary NO GROWTH OBTAINED AFTER 24 HOURS, INCUBATION TO CONTINUE FOR 4 DAYS. 04/12/19 15:00 Blood - Peripheral Venous Blood Culture - Preliminary NO GROWTH OBTAINED AFTER 72 HOURS, INCUBATION TO CONTINUE FOR 2 DAYS. 04/12/19 15:30 Urine - Urine [place] Urine Culture - Final Escherichia Coli ASSESSMENT AND PLAN: 74 y/o with PMH HTN, HLD, CVA (with R sided deficits and aphasia), DM, ESRD (t/ ), Bilateral AKA, DVT s/p IVC filter, hep C, previous GI bleed admitted with AMS and dyspnea. -AMS, suspect toxic metabolic encephalopathy from sepsis vs NSTEMI vs markedly elevated Bun/cr -NSTEMI, demand type II vs ACS -Transaminitis, ?sepsis/hypoperfusion -Dyspnea, ?Aspiration -?Sepsis due to complicated E. Coli UTi, vs bronchitis -Coag neg staph bacteremia, ?sepsis -High aspiration risk -CVA with aphasia/right sided deficits -ESRD on HD -DM -Bilateral AKA -DVT s/p IVC filter -Hep C -H/o GI bleed Plan: ASA/plavix/metoprolol, s/p 72 hours heparin drip. Hold statin for now , resumption in 1 week if LFTs continue to trend down. Family declined further testing or intervention. Family declined Feeding tube. Speech/swallow input noted. Reports of family bringing thin liquid diet. Continues to be high aspiration risk. Address goals of care. Urine cx noted. Repeat blood cx sent 04/14 neg. D/c zosyn, ID input noted, augmentin ESRD dosing for 4 days. Family decline aggressive interventions, no feeding tube. High aspiration risk, want ongoing PO. Will have palliative care address overall goals of care. dispo family to arrange for staff home therapy rn, d/c home later today or tomorrow pending disposition arrangements.
--- NOTE | 2019-04-16 13:59 | PN ---
Progress Note, Physician History of Present Illness: patient stable no new issues - Current Medication List Current Medications: Active Medications Aspirin (Ecotrin -) 81 mg PO DAILY [facility] Last Admin: 04/16/19 10:33 Dose: Not Given Atorvastatin Calcium (Lipitor -) 80 mg PO HS [facility] Last Admin: 04/15/19 21:47 Dose: 80 mg Cefuroxime Axetil (Ceftin -) 250 mg PO BID [facility] Clopidogrel Bisulfate (Plavix -) 75 mg PO DAILY [facility] Last Admin: 04/15/19 09:57 Dose: 75 mg Heparin Sodium (Porcine) (Heparin -) 5,000 unit IVPUSH PRN PRN PRN Reason: APTT (SECONDS) <40 Metoprolol Tartrate (Lopressor -) 25 mg PO BID [facility] Last Admin: 04/15/19 21:46 Dose: 25 mg Mirtazapine (Remeron -) 7.5 mg PO HS [facility] Last Admin: 04/15/19 21:47 Dose: 7.5 mg - Objective Vital Signs: Vital Signs Temperature 98.3 F 04/16/19 10:45 Pulse Rate 87 04/16/19 13:20 Respiratory Rate 18 04/16/19 13:20 Blood Pressure 132/70 04/16/19 13:20 O2 Sat by Pulse Oximetry (%) 95 04/15/19 21:00 Constitutional: Yes: No Distress, Calm Cardiovascular: Yes: S1, S2 Respiratory: Yes: Regular, CTA Bilaterally Gastrointestinal: Yes: Normal Bowel Sounds, Soft Musculoskeletal: Yes: WNL Extremities: Yes: Other Neurological: Yes: Alert Psychiatric: Yes: Alert Labs: CBC, BMP 04/16/19 07:20 04/16/19 07:20 INR, PTT INR 1.33 (0.83-1.09) H 04/12/19 15:08 Assessment/Plan Problem List - Problems (1) Acute metabolic encephalopathy Code(s): G93.41 - METABOLIC ENCEPHALOPATHY (2) Sepsis Code(s): A41.9 - SEPSIS, UNSPECIFIED ORGANISM (3) NSTEMI (non-ST elevated myocardial infarction) Code(s): I21.4 - NON-ST ELEVATION (NSTEMI) MYOCARDIAL INFARCTION (4) Transaminitis Code(s): R74.0 - NONSPEC ELEV OF LEVELS OF TRANSAMNS & LACTIC ACID DEHYDRGNSE (5) UTI (urinary tract infection) Code(s): N39.0 - URINARY TRACT INFECTION, SITE NOT SPECIFIED Qualifiers: Urinary tract infection type: site unspecified Hematuria presence: with hematuria Qualified Code(s): N39.0 - Urinary tract infection, site not specified; R31.9 - Hematuria, unspecified (6) ESRD (end stage renal disease) on dialysis Code(s): N18.6 - END STAGE RENAL DISEASE; Z99.2 - DEPENDENCE ON RENAL DIALYSIS (7) Severe protein-calorie malnutrition Code(s): E43 - UNSPECIFIED SEVERE PROTEIN-CALORIE MALNUTRITION (8) Hyperlipemia Code(s): E78.5 - HYPERLIPIDEMIA, UNSPECIFIED Qualifiers: Hyperlipidemia type: unspecified hyperlipidemia (9) Hypertension Code(s): I10 - ESSENTIAL (PRIMARY) HYPERTENSION Qualifiers: Hypertension type: other secondary hypertension Qualified Code(s): I15.8 - Other secondary hypertension (10) Metabolic acidosis, increased anion gap Code(s): E87.2 - ACIDOSIS (11) Tachypnea Code(s): R06.82 - TACHYPNEA, NOT ELSEWHERE CLASSIFIED plan continue current mgmt patient can be switched to oral augmentin 500 mg po bid for 4 more days
[2019-04-16] MEDS ORDERED: AMOX TR/POT CLAV 500MG/125MG TABLETS (FP) PO ONE (14:04)
[2019-04-16] MEDS: PIPERACILLIN/TAZOB 2.25 GM 2.25 GM in DEXTROSE 5%-WATER - 50 ML IVPB SCH (14:26)
--- NOTE | 2019-04-16 15:28 | PN ---
Progress Note (short form) - Note Progress Note: s: not answering questions, appears comfortable Current Medications Amoxicillin/Clavulanate Potassium (Augmentin - 500mg Tablet) 1 tab PO DAILY [facility] Stop: 04/18/19 17:59 Aspirin (Ecotrin -) 81 mg PO DAILY [facility] Last Admin: 04/16/19 10:33 Dose: Not Given Atorvastatin Calcium (Lipitor -) 80 mg PO HS [facility] Last Admin: 04/15/19 21:47 Dose: 80 mg Clopidogrel Bisulfate (Plavix -) 75 mg PO DAILY [facility] Last Admin: 04/15/19 09:57 Dose: 75 mg Metoprolol Tartrate (Lopressor -) 25 mg PO BID [facility] Last Admin: 04/15/19 21:46 Dose: 25 mg Mirtazapine (Remeron -) 7.5 mg PO HS [facility] Last Admin: 04/15/19 21:47 Dose: 7.5 mg Vital Signs Period Temp Pulse Resp BP Sys/Schneider Pulse Ox Last 24 Hr 97.5 F-98.2 F 6-99 16-26 95-146/54-93 98-98 Constitutional: Yes: Well Nourished, No Distress Eyes: No: Sclera Icterus HENT: No: Nasal Congestion Neck: No: Decreased ROM Respiratory: Yes: CTA Bilaterally. No: Accessory Muscle Use, Rales, Wheezes Gastrointestinal: Yes: Normal Bowel Sounds. No: Distention, Hepatomegaly, Palpable Mass, Tenderness Cardiovascular: Yes: Regular Rate and Rhythm JVD: No Carotid Bruit: No PMI: Non-Displaced Heart Sounds: Yes: S1, S2. No: Gallop Murmur: No: Systolic Murmur, Diastolic Murmur Musculoskeletal: Yes: Other (No kyphosis) Extremities: No: Cool, Cyanosis Edema: No Peripheral Pulses: 2+ Left Carotid, 2+ Right Carotid Integumentary: No: Jaundice Neurological: Yes: Alert. No: Seizure Psychiatric: No: Agitated Assessment/Plan CXR: incr'd lung markings chronic/unchanged vs prior. no congestion/effusion, infiltrate ECG: NSR, normal axis. no path q's. mild, nonspecific STs improved vs prior echo 03/2019 mod to severely reduced LV function, EF 30-35%, RV not wellvisualized, mimod MR, mod TR, mild AR tele: NSR, PVCs, 3 bt NSVT NSTEMI: -troponin 9-->trended down. -no ischemic changes on ECG -history suggests infection (? lung/airways), no definite acute event as far as ACS but pt's decr mentation at home precludes accurate history -given uncertainty regarding etiology of high troponin (reliable hx re: sx's not possible here), s/p heparin gtt for 72 h - monitor closely for bleeding (h/o GIB noted in chart) -continue aspirin, plavix, metoprolol, statin -echo shows moderate to severely reduced LV function - discussed with patient's and daughter, would not want a nuclear stress test or cardiac catheterization as they are trying to avoid invasive procedures. per family has a history of an adverse reaction to nuclear stress testing and would not want to pursue again fever, sob: -normal lactate -clear CXR, no signs chf on exam -? upper airways/bronchitis process -w/u per crit care, hospitalist transaminitis: -per hospitalist, critical care ESRD on HD: -per renal h/o CVA: - cont DAPT, statin
[2019-04-16] MEDS: AMOX TR/POT CLAV 500MG/125MG TABLETS (FP) PO SCH (15:42)
[2019-04-16] MEDS: CLOPIDOGREL BISULFATE 75 MG TABLET (FP) PO SCH (15:43)
[2019-04-16] MEDS: METOPROLOL TARTRATE 25 MG TABLET (FP) PO SCH ×2 (15:43→21:19)
[2019-04-16] MEDS ORDERED: AMOX TR/POT CLAV 500MG/125MG TABLETS (FP) PO SCH (15:45)
[2019-04-16 16:12] VITALS: BMI 20.7
--- NOTE | 2019-04-16 17:00 | PN ---
Progress Note (short form) - Note Progress Note: Renal follow up for ESRD on HD Pt seen and examined at the bedside tolerated HD well today, BP stable, access with good flow Had UF of 1.5L pt w/o complaints Vital Signs Temperature 98.9 F 04/16/19 15:00 Pulse Rate 95 H 04/16/19 15:00 Respiratory Rate 18 04/16/19 15:00 Blood Pressure 144/81 04/16/19 15:00 O2 Sat by Pulse Oximetry (%) 96 04/16/19 10:00 Intake & Output 04/13/19 04/14/19 04/15/19 04/16/19 23:59 23:59 23:59 23:59 Intake Total 2166 3057 1746 242 Output Total 500 Balance 2166 2557 1746 242 Weight 40.483 kg 41.277 kg 42.808 kg 48.353 kg NAD awake and alert RRR, on M/R Dec BS soft NT/ND no LE edema CBC, BMP 04/16/19 07:20 04/16/19 07:20 Current Medications Amoxicillin/Clavulanate Potassium (Augmentin - 500mg Tablet) 1 tab PO DAILY [facility] Last Admin: 04/16/19 15:42 Dose: 1 tab Aspirin (Ecotrin -) 81 mg PO DAILY [facility] Last Admin: 04/16/19 10:33 Dose: Not Given Atorvastatin Calcium (Lipitor -) 80 mg PO HS [facility] Last Admin: 04/15/19 21:47 Dose: 80 mg Clopidogrel Bisulfate (Plavix -) 75 mg PO DAILY [facility] Last Admin: 04/16/19 15:43 Dose: 75 mg Metoprolol Tartrate (Lopressor -) 25 mg PO BID [facility] Last Admin: 04/16/19 15:43 Dose: 25 mg Mirtazapine (Remeron -) 7.5 mg PO HS [facility] Last Admin: 04/15/19 21:47 Dose: 7.5 mg 74 year old gentleman with hx of HTN, HLD, 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 #AMS #NSTEMI #ESRD on HD with high BUN/Cr #Hyperphosphtaemia #Chronic Anemia #Fever/Leukocytosis #UTI Tolerated dialysis well BUN/Cr shows apposite response to dialysis and there is concern regarding re- circulation Continue antibiotics as per ID Cardiology following, family declined nuclear stress oral intake as tolerated oral intake as tolerated Lauri Fulton DO
[2019-04-16] MEDS ORDERED: PT OWN MED DRAWER 7, Y5N ONE ×3 (17:42→19:35)
--- NOTE | 2019-04-16 18:20 | DS ---
Physical Exam: SUBJECTIVE: Patient seen and examined, resting comfortably. Denies any new c/o. No fevers or chills noted overnight. OBJECTIVE: Vital Signs Temp 98.0 F 04/17/19 08:44 Pulse 103 H 04/17/19 08:44 Resp 22 H 04/17/19 08:45 BP 121/69 04/17/19 08:44 Pulse Ox 96 04/17/19 08:45 Intake & Output 04/16/19 04/17/19 04/17/19 23:59 11:59 23:59 Intake Total 25 Balance 25 Intake: Oral 25 Other: Voiding Method Diaper Diaper # Unmeasured Voids Void 1 Bowel Movement Yes No # Bowel Movements 1 Body Mass Index (BMI) 20.7 PHYSICAL EXAM GENERAL: The patient is awake, alert, non verbal, in no acute distress, off NC. ENT: moist mucous membranes. LUNGS: Breath sounds equal, clear to auscultation bilaterally HEART: Regular rate and rhythm, S1, S2 ABDOMEN: Soft, nontender, nondistended, normoactive bowel sounds, no guarding EXTREMITIES: B/l AKA NEUROLOGICAL:Awake and alert. Nonverbal. Able to nod responses. CBC, BMP 04/16/19 07:20 04/17/19 07:40 LABS Laboratory Results - last 24 hr 04/16/19 04/16/19 04/16/19 07:20 07:20 07:20 WBC 11.1 H RBC 3.30 L Hgb 10.1 L Hct 31.3 L MCV 94.8 MCH 30.4 MCHC 32.1 RDW 15.1 Plt Count 219 MPV 10.8 Absolute Neuts (auto) 9.3 H Neutrophils % 83.8 H Lymphocytes % 6.7 L Monocytes % 6.3 Eosinophils % 2.4 D Basophils % 0.8 D Nucleated RBC % 0 PTT (Actin FS) 27.8 Sodium 144 Potassium 4.1 Chloride 106 Carbon Dioxide 26 Anion Gap 13 BUN 55.2 H Creatinine 4.4 H Est GFR (CKD-EPI)AfAm 14.27 Est GFR (CKD-EPI)NonAf 12.31 Random Glucose 144 H Calcium 7.7 L Phosphorus 4.5 Magnesium 2.3 Total Bilirubin 1.1 H AST 126 H ALT 390 H Alkaline Phosphatase 111 Total Protein 5.8 L Albumin 2.4 L Ambulatory Orders Clopidogrel Bisulfate [Plavix] 75 mg PO DAILY 08/25/18 Docusate Sodium [Colace] 100 mg PO DAILY 09/23/18 Epoetin Stuart [Epogen] 3,000 unit [facility] 09/23/18 Metoprolol Tartrate 25 mg PO BID 09/23/18 Mirtazapine [Remeron -] 7.5 mg PO HS 09/23/18 Aspirin 81 mg PO DAILY 04/12/19 Midodrine HCl 15 mg PO TID 04/12/19 Pantoprazole Sodium 40 mg PO DAILY 04/12/19 Amox-Tr/K Cl [Augmentin 500-125mg Tablet -] 1 tab PO DAILY #4 tablet 04/16/19 Microbiology 04/12/19 15:00 Blood - Peripheral Venous Blood Culture - Final NO GROWTH AFTER 5 DAYS INCUBATION 04/14/19 17:10 Blood - Peripheral Venous Blood Culture - Preliminary NO GROWTH OBTAINED AFTER 48 HOURS, INCUBATION TO CONTINUE FOR 3 DAYS. 04/14/19 16:50 Blood - Peripheral Venous Blood Culture - Preliminary NO GROWTH OBTAINED AFTER 48 HOURS, INCUBATION TO CONTINUE FOR 3 DAYS. 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 Pt was noted to have an NSTEMI during the admission and put on heparin drip. He was treated with zosyn and discharged home on augmentin. Pt was noted to be a high risk for aspiration with dysphagia but family declined MDS. They were however seen by speech and swallow and also by palliative care and recommended Dys puree/nectar/with 2 mattie HN. The family declined any aggressive measures, wanted his infection treated but no invasive procedures in place. Minutes to complete discharge: 38 Discharge Summary Reason For Visit: UTI,NSTEMI, SEPSIS, ESRD Current Active Problems Acute metabolic encephalopathy (Acute) ESRD (end stage renal disease) on dialysis (Acute) Elevated troponin I level (Acute) Metabolic acidosis, increased anion gap (Acute) NSTEMI (non-ST elevated myocardial infarction) (Acute) Severe protein-calorie malnutrition (Acute) Systemic inflammatory response syndrome (SIRS) (Acute) Tachypnea (Acute) Transaminitis (Acute) UTI (urinary tract infection) (Acute) Condition: Stable - Instructions Diet, Activity, Other Instructions: You were admitted with urinary infection, heart attack. You also were noted to be aspiration risk, however declined feeding tube or further testing. You also declined further testing for your heart. MEDICATIONS. Antibiotic as below: Augmentin 500 mg daily, take after dialysis on dialysis days and at the same time on non dialysis days as well to ensure antibiotic taken every 24 hours. Avoid tylenol more than 2 g in 24 hours till follow up liver check with your doctor. Hold your cholesterol medication atorvastatin till seen by your doctor. Continue other medications as before. INSTRUCTIONS: Please note that you continue to be at a very high risk for aspiration and pneumonia. Dysphagia pureed diet with TwoCal HN and strict aspiration precautions. Keep upright and for 60 minutes after meals, 1:1 assist, stop if coughing or choking. You will need liver tests monitoring with your doctor. FOLLOW UP: With primary care doctor in 1 week, have follow up liver function check and discuss with your doctor about resumption of cholesterol medication. With dental secretary in 1-2 weeks recommend ongoing discussion about goals of care with your doctor. If you notice any fevers, cough, chest pain, or worsening concerns, please call 911 or come to [facility] or discuss with your doctor if you wish to decline further treatment. Disposition: VNS/HOME HEALTH CARE - Home Medications Comprehensive Discharge Medication List: Ambulatory Orders Clopidogrel Bisulfate [Plavix] 75 mg PO DAILY 08/25/18 Docusate Sodium [Colace] 100 mg PO DAILY 09/23/18 Epoetin Stuart [Epogen] 3,[address] [facility] 09/23/18 Metoprolol Tartrate 25 mg PO BID 09/23/18 Mirtazapine [Remeron -] 7.5 mg PO HS 09/23/18 Aspirin 81 mg PO DAILY 04/12/19 Midodrine HCl 15 mg PO TID 04/12/19 Pantoprazole Sodium 40 mg PO DAILY 04/12/19 Amox-Tr/K Cl [Augmentin 500-125mg Tablet -] 1 tab PO DAILY #4 tablet 04/16/19 This patient is new to me today: No Emergency Visit: Yes ED Registration Date: 04/12/19 Care time: The patient presented to the Emergency Department on the above date and was hospitalized for further evaluation of their emergent condition. Critical Care patient: No - Discharge Referral Referred to [facility] No ATTENDING PHYSICIAN STATEMENT I saw and evaluated the patient. I reviewed the resident's note and discussed the case with the resident. I agree with the resident's findings and plan as documented. SUBJECTIVE: OBJECTIVE: ASSESSMENT AND PLAN:
--- NOTE | 2019-04-16 18:27 | PN ---
Physical Exam: SUBJECTIVE: Patient seen and examined. Patient seen and examined, getting dialysis. Denies anynew c/o. No fevers or chills noted overnight. OBJECTIVE: Vital Signs Period Temp Pulse Resp BP Sys/Schneider Pulse Ox Last 24 Hr 96.5 F-99.7 F 87-103 18- 117-146/67-91 95-96 Vital Signs Temp 98.9 F 04/16/19 15:00 Pulse 95 H 04/16/19 15:00 Resp 18 04/16/19 15:00 BP 144/81 04/16/19 15:00 Pulse Ox 96 04/16/19 10:00 Intake & Output 04/15/19 04/16/19 04/16/19 23:59 11:59 23:59 Intake Total 806 242 Balance 806 242 Weight 48.353 kg Intake: IV 306 192 CLINIMIX 126 Heparin - 25,000 Unit In 180 Normal Saline - 495 ml @ 800 UNIT/HR 16 mls/hr IV TITR MAGALI Rx#:[id number] Heparin - 25,000 Unit In 192 Normal Saline - 495 ml @ 800 UNIT/HR 16 mls/hr IV TITR MAGALI Rx#:[id number] IVPB 50 50 Oral 450 Other: Voiding Method Incontinent Diaper # Unmeasured Voids Void 0 1 0 Bowel Movement No No No Body Mass Index (BMI) 20.7 Weight Measurement Method Patient Lift Scale GENERAL: The patient is awake, alert, and fully oriented, in no acute distress, getting dialysis. LUNGS: reduced breath sounds lung bases, no wheezes, no crackles HEART: S1, S2 ABDOMEN: Soft, nontender, nondistended, normoactive bowel sounds EXTREMITIES:AKA b/l . NEUROLOGICAL: Cranial nerves II through XII grossly intact. Non verbal, nodding responses CBC, BMP 04/16/19 07:20 04/16/19 07:20 Laboratory Results - last 24 hr 04/16/19 04/16/19 04/16/19 07:20 07:20 07:20 WBC 11.1 H RBC 3.30 L Hgb 10.1 L Hct 31.3 L MCV 94.8 MCH 30.4 MCHC 32.1 RDW 15.1 Plt Count 219 MPV 10.8 Absolute Neuts (auto) 9.3 H Neutrophils % 83.8 H Lymphocytes % 6.7 L Monocytes % 6.3 Eosinophils % 2.4 D Basophils % 0.8 D Nucleated RBC % 0 PTT (Actin FS) 27.8 Sodium 144 Potassium 4.1 Chloride 106 Carbon Dioxide 26 Anion Gap 13 BUN 55.2 H Creatinine 4.4 H Est GFR (CKD-EPI)AfAm 14.27 Est GFR (CKD-EPI)NonAf 12.31 Random Glucose 144 H Calcium 7.7 L Phosphorus 4.5 Magnesium 2.3 Total Bilirubin 1.1 H AST 126 H ALT 390 H Alkaline Phosphatase 111 Total Protein 5.8 L Albumin 2.4 L Active Medications Generic Name Dose Route Start Last Admin Trade Name Freq PRN Reason Stop Dose Admin Amoxicillin/Clavulanate Potassium 1 tab 04/16/19 15:45 04/16/19 15:42 Augmentin - 500mg Tablet PO 1 tab DAILY MAGALI Administration Aspirin 81 mg 04/14/19 15:15 04/16/19 10:33 Ecotrin - PO Not Given DAILY MAGALI Atorvastatin Calcium 80 mg 04/15/19 22:00 04/15/19 21:47 Lipitor - PO 80 mg HS MAGALI Administration Clopidogrel Bisulfate 75 mg 04/14/19 15:15 04/16/19 15:43 Plavix - PO 75 mg DAILY MAGALI Administration Metoprolol Tartrate 25 mg 04/14/19 22:00 04/16/19 15:43 Lopressor - PO 25 mg BID MAGALI Administration Mirtazapine 7.5 mg 04/15/19 22:00 04/15/19 21:47 Remeron - PO 7.5 mg HS MAGALI Administration Ambulatory Orders Clopidogrel Bisulfate [Plavix] 75 mg PO DAILY 08/25/18 Docusate Sodium [Colace] 100 mg PO DAILY 09/23/18 Epoetin Stuart [Epogen] 3,000 unit [facility] 09/23/18 Metoprolol Tartrate 25 mg PO BID 09/23/18 Mirtazapine [Remeron -] 7.5 mg PO HS 09/23/18 Aspirin 81 mg PO DAILY 04/12/19 Midodrine HCl 15 mg PO TID 04/12/19 Pantoprazole Sodium 40 mg PO DAILY 04/12/19 Amox-Tr/K Cl [Augmentin 500-125mg Tablet -] 1 tab PO DAILY #4 tablet 04/16/19 ASSESSMENT/PLAN: Pt is a 74 year old male with PMHx of HTN, HLD, 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 , GI bleed (normal EGDand colon-09/12), Anemia, s/p b/l AKA, AVF/graft, R sided deficits s/p CVA, aphasia and dyspagia who was brought in by 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 family and TIP PRINTER for AMS and difficulty breathing with possible aspiration admitted for sepsis secondary to UTI with AMS Acute hypoxic respiratory failure AMS- improved Sepsis secondary to UTI Anion gap metab acidosis NSTEMI transaminitis ESRD-Tth HTN, HLD, 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, GI bleed (normal EGDand colon-09/12), Anemia, s/p b/l AKA, AVF/graft, R sided deficits s/p CVA, aphasia dyspagia hypokalemia Plan: zosyn stopped Start augmentin 500 bid (04/16/19) x 4days heparin drip ( 04/12-04/15)for dc today dialysis per renal chopped diet with thick liqs per speech and swallow, per daughter thin liqs Family do not want any feeding tubes Cont ASA/plavix Cont remeron clinimix dcd metoprolol lipitor on hold, tylenol on hold (transaminitis) Palliative care- D/W Danna, family is not considering MDS and will try the recommended feeds to avoid aspirations. Daughter is probably health care proxy but pt attentive and able to respond with nods. Pt does not want home hospice. Per Danna, it will be an issue as he is a dialysis patient. Family not ready for home hospice. Only thinking to modify diet for now. Dispo: Pending set up of 24hr TIP PRINTER Visit type - Emergency Visit Emergency Visit: Yes ED Registration Date: 04/12/19 Care time: The patient presented to the Emergency Department on the above date and was hospitalized for further evaluation of their emergent condition. - New Patient This patient is new to me today: No - Critical Care Critical Care patient: No - Discharge Referral Referred to [facility] Med [facility] No ATTENDING PHYSICIAN STATEMENT I saw and evaluated the patient. I reviewed the resident's note and discussed the case with the resident. I agree with the resident's findings and plan as documented. SUBJECTIVE: OBJECTIVE: ASSESSMENT AND PLAN:
[2019-04-16] MEDS: MIRTAZAPINE 15 MG TABLET (FP) PO SCH (21:19)
[2019-04-16] MEDS: ATORVASTATIN CA 80 MG TABLET (FP) PO SCH (21:19)
[2019-04-16] MEDS ORDERED: CEFUROXIME AXETIL 250 MG TABLET PO SCH (22:00)
[2019-04-17 08:45] VITALS: BP 121/69; PULSE 103; TEMP 98
[2019-04-17] MEDS: AMOX TR/POT CLAV 500MG/125MG TABLETS (FP) PO SCH (09:01)
[2019-04-17] MEDS: METOPROLOL TARTRATE 25 MG TABLET (FP) PO SCH (09:02)
[2019-04-17] MEDS: CLOPIDOGREL BISULFATE 75 MG TABLET (FP) PO SCH (09:02)
[2019-04-17] MEDS: ASPIRIN COATED 81 MG TABLET.EC PO SCH (09:02)
[2019-04-17 09:22] LABS: BLOOD UREA NITROGEN 21.1 mg/dL (7-18); CALCIUM 8.8 mg/dL (8.5-10.1); CREATININE 2.9 mg/dL (0.55-1.3)
--- NOTE | 2019-04-17 13:44 | PN ---
Teaching Attending Note Name of Resident: Chanel Hicks ATTENDING PHYSICIAN STATEMENT I saw and evaluated the patient. I reviewed the resident's note and discussed the case with the resident. I agree with the resident's findings and plan as documented with exceptions below. SUBJECTIVE: Patient seen and examined. non verbal, comfortable, manager home healthcare at bedside. OBJECTIVE: Vital Signs Period Temp Pulse Resp BP Sys/Schneider Pulse Ox Last 24 Hr 97.6 F-98.9 F 87-103 18-22 115-144/65-82 96-96 Intake & Output 04/14/19 04/15/19 04/16/19 04/17/19 23:59 23:59 23:59 23:59 Intake Total 3057 1746 267 Output Total 500 Balance 2557 1746 267 Weight 91 lb 94 lb 6 oz 106 lb 9.6 oz General: lying in bed in no acute distress Chest: decreased air entry, no rales or wheezing Abdomen:soft, Nt, ND Extremities: bilateral AKA Neck: soft, supple, no JVD Home Medications Medication Instructions Recorded Clopidogrel Bisulfate [Plavix] 75 mg PO DAILY 08/25/18 Docusate Sodium [Colace] 100 mg PO DAILY 09/23/18 Epoetin Stuart [Epogen] 3,000 unit [facility] 09/23/18 Metoprolol Tartrate 25 mg PO BID 09/23/18 Mirtazapine [Remeron -] 7.5 mg PO HS 09/23/18 Aspirin 81 mg PO DAILY 04/12/19 Midodrine HCl 15 mg PO TID 04/12/19 Pantoprazole Sodium 40 mg PO DAILY 04/12/19 Amox-Tr/K Cl [Augmentin 500-125mg 1 tab PO DAILY #4 tablet 04/16/19 Tablet -] Laboratory Results - last 24 hr 04/13/19 04/17/19 04/17/19 17:55 07:40 07:40 PTT (Actin FS) 28.6 Sodium 142 Potassium 4.0 Chloride 102 Carbon Dioxide 28 Anion Gap 12 BUN 21.1 H Creatinine 2.9 H Est GFR (CKD-EPI)AfAm 23.62 Est GFR (CKD-EPI)NonAf 20.38 Random Glucose 141 H Calcium 8.8 Hep C Ab Diagnostic 2.7 H HCV RNA PCR w/Genot Rflx Hcv not detected Liver Fibrosis Interp ASSESSMENT AND PLAN: 74 y/o with PMH HTN, HLD, CVA (with R sided deficits and aphasia), DM, ESRD (t/ ), Bilateral AKA, DVT s/p IVC filter, hep C, previous GI bleed admitted with AMS and dyspnea. -AMS, suspect toxic metabolic encephalopathy from sepsis vs NSTEMI vs markedly elevated Bun/cr -NSTEMI, demand type II vs ACS -Transaminitis, ?sepsis/hypoperfusion -Dyspnea, ?Aspiration -?Sepsis due to complicated E. Coli UTi, vs bronchitis -Coag neg staph bacteremia, ?sepsis -High aspiration risk -CVA with aphasia/right sided deficits -ESRD on HD -DM -Bilateral AKA -DVT s/p IVC filter -Hep C -H/o GI bleed Plan: Doing well Family declined MBS, feeding tube, additional cardiac testing and intervention. Palliative care input noted. imaging aide arranged. D/c home with services/manager home healthcare on po antibiotics. Discuss with nursing.
[2019-04-17] MEDS ORDERED: AMOX TR/POT CLAV 500MG/125MG TABLETS (FP) PO SCH (18:00)
[2019-04-18] MEDS ORDERED: SODIUM CHLORIDE 250 ML IV PRN (15:44)
== END 2019-04-17 10:54 | disposition home health service (06) | DRG 871 ==
LOC: JER 13:28 → JERBED 16:10 → JICU 04-13 01:25 → J5S 04-15 17:45
PROVIDERS: ADMIT Internal Medicine; ATTEND Hospitalist
PROC: 5A1D70Z Performance of Urinary Filtration, Intermittent, Less than 6 Hours Per Day (ICD-10-PCS; principal; 2019-04-16)
DX: A41.9 Sepsis, unspecified organism (principal); G93.41 Metabolic encephalopathy; I21.4 Non-ST elevation (NSTEMI) myocardial infarction; E43 Unspecified severe protein-calorie malnutrition; N18.6 End stage renal disease; J96.01 Acute respiratory failure with hypoxia; N39.0 Urinary tract infection, site not specified; I12.0 Hypertensive chronic kidney disease with stage 5 chronic kidney disease or end stage renal disease; E87.2 Acidosis; I69.351 Hemiplegia and hemiparesis following cerebral infarction affecting right dominant side; R74.0 Nonspecific elevation of levels of transaminase and lactic acid dehydrogenase [LDH]; E11.22 Type 2 diabetes mellitus with diabetic chronic kidney disease; Z99.2 Dependence on renal dialysis; I69.820 Aphasia following other cerebrovascular disease; E78.5 Hyperlipidemia, unspecified; R41.82 Altered mental status, unspecified; E87.6 Hypokalemia; D63.1 Anemia in chronic kidney disease; Z68.20 Body mass index [BMI] 20.0-20.9, adult; E83.39 Other disorders of phosphorus metabolism; D72.829 Elevated white blood cell count, unspecified
CPT/HCPCS: 36415; 36600; 70450-TC; 71045-TC-FY; 76700-TC; 80048; 80053; 80076; 81003; 82375; 82550; 82565; 82803; 82962; 83050; 83605; 83690; 83735; 84100; 84484; 84520; 85025; 85027; 85610; 85730; 86803; 87040; 87076; 87086; 87186; 87340; 93005; 93010; 93306-TC; 99284-25; J0131; J0885; J1644; J7030

== ENCOUNTER 2019-04-18 12:10 | Inpatient (IN) | payer OTHER | END 2019-04-21 20:48 | disposition home health service (06) | LOC: J8W 04-20 15:39 → JER 12:10 → J8W 04-21 12:17 → JERBED 15:51 → J4W 18:17 ==

== ENCOUNTER 2019-06-05 19:21 | Inpatient (IN) | payer OTHER | END 2019-06-07 17:03 | disposition home health service (06) | LOC: JER 19:21 → JERBED 23:56 → J4W 06-06 19:02 ==